=== PATIENT | male | born 1940 | race Caucasian/White ===

== ENCOUNTER 2020-03-11 14:41 | Outpatient (CLI) | payer MEDICARE, BC, SELFPAY ==
[2020-03-11 16:19] LABS: Hematocrit 43.9 % (42.0-52.0); Hemoglobin 15.3 g/dL (14.0-18.0); Mean Corpuscular HGB Conc 34.9 g/dl (32-36); Mean Corpuscular Hemoglobin 34.2 pg (26-34); Mean Corpuscular Volume 98.2 fl (80-100); Mean Platelet Volume 11.6 fl (7.4-10.4); Platelet Count Result 209 k/mm3 (150-375); Red Blood Count 4.47 M/mm3 (4.6-6.20); Red Cell Distribution Width 12.3 % (11.5-14.5); White Blood Count 6.4 K/mm3 (4.5-10.0)
[2020-03-11 16:27] LABS: Alanine Aminotransferase 20 U/L (4-50); Albumin Level 4.4 g/dL (3.5-5.1); Alkaline Phosphatase 76 U/L (38-126); Anion Gap 7 mmol/L (8-16); Aspartate Amino Transferase 33 U/L (17-59); Bilirubin,Total 1.5 mg/dL (0.2-1.3); Blood Urea Nitrogen 25 mg/dL (9-20); Calcium 9.8 mg/dL (8.4-10.2); Carbon Dioxide 32 mmol/L (22-30); Chloride 101 mmol/L (98-107); Cholesterol 179 mg/dL (0-200); Creatine Kinase 84 U/L (55-170); Estimated Glomerular Filt Rate 53; Glucose 95 mg/dL (75-110); HDL Direct 88 mg/dL; Potassium 3.9 mmol/L (3.4-5.0); Sodium 140 mmol/L (137-145); Triglycerides 94 mg/dL (<150)
[2020-03-11 16:38] LABS: LDL Cholesterol Direct 71 mg/dL
[2020-03-11 16:57] LABS: Prostate Specific Antigen 3.8 ng/mL (< OR = 4.0)
[2020-03-11 17:53] LABS: Free T4 Free Thyroxine 1.03 ng/mL (0.78-2.19)
[2020-03-11 17:54] LABS: Hepatitis C Virus Antibody Negative (Negative)
[2020-03-15 20:27] LABS: Testosterone Free 27.9 pg/mL (6.0-73.0)
== END 2020-03-11 14:42 | disposition home or self-care (01) ==
LOC: ANHLAB 14:50
PROVIDERS: PCP Internal Medicine; Visit Provider Internal Medicine
DX: I10 Essential (primary) hypertension (principal); E78.5 Hyperlipidemia, unspecified; E03.9 Hypothyroidism, unspecified; N52.9 Male erectile dysfunction, unspecified; Z11.59 Encounter for screening for other viral diseases; Z12.5 Encounter for screening for malignant neoplasm of prostate
CPT/HCPCS: 36415; 80053; 80061; 82550; 84153; 84402; 84439; 84443; 85027; 86803; G0103

== ENCOUNTER 2020-03-28 10:31 | Outpatient (CLI) | payer MEDICARE, SELFPAY ==
--- NOTE | ~2020-03-28 | US_ITS ---
EXAMINATION: US venous doppler [facility] DATE: 03/28/2020 11:10 INDICATION: Lower limb swelling TECHNIQUE: Grayscale ultrasound images without and with compression and Doppler ultrasound images of the bilateral lower extremity veins were obtained. COMPARISON: None. FINDINGS: The visualized portions of right common femoral vein, profunda (deep) femoral vein, femoral vein, pop liteal vein, posterior tibial veins, peroneal veins, gastrocnemius vein and greater saphenous vein ou tflow are patent. The visualized portions of left common femoral vein, profunda femoral vein, femoral vein, popliteal v ein, posterior tibial veins, peroneal veins, gastrocnemius vein and greater saphenous vein outflow ar e patent. Bilateral increased venous pulsatility in the veins from the proximal thigh through the knee which ca n be seen with tricuspid regurgitation, right heart failure or other cause of elevated right heart pr essures. IMPRESSION: 1. No deep venous thrombosis in either lower limb. Reviewed, dictated and finalized at location B.
--- NOTE | ~2020-03-28 | US_ITS ---
EXAMINATION: US right upper quadrant DATE: 03/28/2020 12:05 INDICATION: Elevated total bilirubin. Jaundice. TECHNIQUE: Multiple grayscale and Doppler ultrasound images of the abdomen were obtained. COMPARISON: None FINDINGS: Visualized portion of the pancreatic body appears normal. The head and tail are obscured by shadowing bowel gas. There are multiple shadowing gallstones seen within the otherwise normal-appearing gallbl adder with no wall thickening or pericholecystic fluid. Common bile duct is normal measuring 3-4 mm i n diameter. Liver has normal echogenicity and contour, with a smooth surface. No liver lesion identif ied. No intrahepatic biliary duct dilation suspected. Portal venous flow was seen in the hepatopetal, normal direction but with increased portal venous pulsatility. Sonographic Alexander sign was reported as negative by the kitchen assistant. IMPRESSION: 1. Cholelithiasis without intra or extra hepatic biliary ductal dilation or other findings of acute c holecystitis. 2. Increased portal venous pulsatility which can be seen with right heart failure, tricuspid regurgit ation or other cause of elevated right heart pressure. Reviewed, dictated and finalized at location B. IMPRESSION: 1. Cholelithiasis without intra or extra hepatic biliary ductal dilation or oth er findings of acute cholecystitis. 2. Increased portal venous pulsatility which can be seen with right heart failu re, tricuspid regurgitation or other cause of elevated right heart pressure.
== END 2020-03-28 10:32 | disposition home or self-care (01) ==
PROVIDERS: PCP Internal Medicine; Visit Provider Internal Medicine
DX: R17 Unspecified jaundice (principal); R60.0 Localized edema; K80.20 Calculus of gallbladder without cholecystitis without obstruction
CPT/HCPCS: 76705; 93970

== ENCOUNTER 2020-09-07 09:54 | Outpatient (CLI) | payer MEDICARE, SELFPAY ==
[2020-09-07 10:23] LABS: Hematocrit 43.8 % (42.0-52.0); Mean Corpuscular HGB Conc 34.2 g/dl (32-36); Mean Corpuscular Hemoglobin 34.2 pg (26-34); Mean Platelet Volume 10.6 fl (7.4-10.4); Platelet Count Result 219 k/mm3 (150-375); Red Blood Count 4.38 M/mm3 (4.6-6.20); White Blood Count 7.5 K/mm3 (4.5-10.0)
[2020-09-07 10:48] LABS: Alanine Aminotransferase 17 U/L (4-50); Albumin Level 3.9 g/dL (3.5-5.1); Alkaline Phosphatase 90 U/L (38-126); Anion Gap 2 mmol/L (8-16); Aspartate Amino Transferase 28 U/L (17-59); Bilirubin,Total 0.7 mg/dL (0.2-1.3); Blood Urea Nitrogen 20 mg/dL (9-20); Carbon Dioxide 31 mmol/L (22-30); Chloride 106 mmol/L (98-107); Estimated Glomerular Filt Rate 53; Glucose 102 mg/dL (75-110); Magnesium 2.2 mg/dL (1.6-2.3); Potassium 4.6 mmol/L (3.4-5.0); Sodium 139 mmol/L (137-145)
[2020-09-07 11:06] LABS: Free T4 Free Thyroxine 0.91 ng/mL (0.78-2.19)
== END 2020-09-07 09:55 | disposition home or self-care (01) ==
PROVIDERS: PCP Internal Medicine; Visit Provider Internal Medicine
DX: I10 Essential (primary) hypertension (principal); R00.1 Bradycardia, unspecified; E03.9 Hypothyroidism, unspecified
CPT/HCPCS: 36415; 80053; 83735; 84439; 84443; 85027

== ENCOUNTER 2020-09-21 09:18 | Outpatient (CLI) | payer MEDICARE, SELFPAY ==
--- NOTE | 2020-10-07 10:06 | WPDHOMESLEEP ---
Sleep Study - Home Unattended Date of Study: 09/21/20 Ordering Provider: Merrick Good, Interpreting Provider: Olga Solis MD Home Sleep Study Type: Apnea Link Air Height: 1.71 m Weight: 78.925 kg Body Mass Index: 26.8 Neck Circumference (inches): 16 [place]: 1 Reason for Sleep Study Witnessed apneas; history of obstructive sleep apnea, has used an AirSense 10 CPAP Sleep History Matty Alexander is a 80 year old man who has been on CPAP for obstructive sleep apnea. He states that his partner teeells him that he has apneic episodes during sleep. It is not known if the patient is currently using CPAP, and his prior sleep study results are not available for review. He does not awaken from sleep feeling short of breath. He occasionally wakes at night with heartburn, belching or coughing. He occasionally snores. He never snores loudly enough that others complain about it. He rarely has trouble sleep with a cold. He does not wake up gasping for breath at night. He rarely has breathing problems at night observed by others and rarely sweats excessively at night. He does not notice his heart pounding or beating irregularly at night. He does not fall asleep during the day, does not fall asleep involuntarily or while driving. He does not have loss of muscle tone was strong emotion. He does not have daytime difficulties due to excessive sleepiness. He does not feel paralyzed on waking or falling asleep and does not have vivid dreamlike scenes upon awakening or falling asleep. He does not feel afraid to go to sleep. He does not have nightmares. He rarely remember his dreams and rarely has racing thoughts. He does not feel sad or depressed. He rarely has anxiety. He does not have muscular tension or notice parts of his body jerking. He does not kick at night or have crawling or aching feelings in his legs. He does not have any kind of leg pain at night. He does not have morning jaw pain. He rarely grinds his teeth during sleep. He is not bothered by pain during the day and is not awakened by pain at night. He does not wake up feeling stiff in the morning, does not wake up with sore or achy muscles and does not wake up with spine pain. Normal bedtime 11:00 p.m. falling asleep within 15 minutes waking 1-2 times at night to use the bathroom, is able to return to sleep in 5 minutes. This happened soon after falling asleep. He wakes the morning at 9:00 a.m.. His weekend schedule is the same. He does not generally take naps. A short nap 10 or 15 minutes might be refreshing. He consistently feels good in the morning. Habits: Former smoker, no caffeine, alcohol 3 per week. No recreational drugs. [facility] Past Medical History Medical History (Updated 10/07/20 @ 10:24 by Olga Solis MD) Aortic regurgitation Erectile dysfunction Hyperlipidemia Hypertension Hypothyroidism Obstructive sleep apnea Social History Social History (Updated 10/07/20 @ 10:15 by Olga Solis MD) Smoking status: Former smoker Alcohol intake: current Drinks per week: 3 Substance use: never Medications Medications: amlodipine 5 mg a day aspirin 81 mg a day Eucrisa 2% topically twice a day furosemide 20 mg a day Klor-Con 10 mEq daily p.r.n. levothyroxine 10 mcg daily lisinopril 10 mg a day sildenafil 50 mg as needed simvastatin 10 mg daily magnesium oxide 400 mg every other day Sleep Procedure This test was performed using 4 channel monitoring including respiratory effort channel, snoring channel, heart rate channel, and oxygen saturation channel. This study was scored using [facility] guidelines. Sleep Architecture Not applicable for home sleep test. Respiratory Analysis The recording time is 9 hours 7 minutes. The evaluation is 8 hours 54 minutes. the apnea-hypopnea index is 13. He had 22 apneas. He had 6 obstructive apneas for 27% of the total, 16 central apneas which comprise 73% of the total and 94 hypopneas
[2020-10-07 10:09] VITALS: BMI 26.8
== END 2020-09-21 09:19 | disposition home or self-care (01) ==
LOC: ANHCSM 09:19
PROVIDERS: PCP Internal Medicine; Visit Provider Internal Medicine
DX: G47.33 Obstructive sleep apnea (adult) (pediatric) (principal)
CPT/HCPCS: 95806

== ENCOUNTER 2020-10-12 13:30 | Outpatient (CLI) | payer MEDICARE, SELFPAY ==
[2020-10-12 15:26] LABS: Free T4 Free Thyroxine 1.22 ng/mL (0.78-2.19)
== END 2020-10-12 13:31 | disposition home or self-care (01) ==
PROVIDERS: PCP Internal Medicine; Visit Provider Internal Medicine
DX: E03.9 Hypothyroidism, unspecified (principal)
CPT/HCPCS: 36415; 84439; 84443

== ENCOUNTER 2021-02-22 09:51 | Outpatient (CLI) | payer MEDICARE, SELFPAY ==
[2021-02-22 11:01] LABS: Hematocrit 41.7 % (42.0-52.0); Hemoglobin 14.6 g/dL (14.0-18.0); Mean Corpuscular Hemoglobin 35.6 pg (26-34); Mean Corpuscular Volume 101.7 fl (80-100); Mean Platelet Volume 11.3 fl (7.4-10.4); Platelet Count Result 198 k/mm3 (150-375); Red Cell Distribution Width 12.4 % (11.5-14.5); White Blood Count 6.9 K/mm3 (4.5-10.0)
[2021-02-22 11:13] LABS: Alanine Aminotransferase 18 U/L (4-50); Albumin Level 4.4 g/dL (3.5-5.1); Alkaline Phosphatase 67 U/L (38-126); Anion Gap 4 mmol/L (8-16); Aspartate Amino Transferase 27 U/L (17-59); Bilirubin,Total 0.9 mg/dL (0.2-1.3); Blood Urea Nitrogen 28 mg/dL (9-20); Calcium 9.9 mg/dL (8.4-10.2); Carbon Dioxide 30 mmol/L (22-30); Chloride 106 mmol/L (98-107); Cholesterol 174 mg/dL (0-200); Estimated Glomerular Filt Rate 59; Glucose 103 mg/dL (65-110); HDL Direct 78 mg/dL; Potassium 4.5 mmol/L (3.4-5.0); Sodium 140 mmol/L (137-145); Triglycerides 101 mg/dL (<150)
[2021-02-22 11:24] LABS: LDL Cholesterol Direct 64 mg/dL
[2021-02-22 11:44] LABS: Free T4 Free Thyroxine 1.31 ng/mL (0.78-2.19)
[2021-02-22 12:16] LABS: Hepatitis C Virus Antibody Negative (Negative)
== END 2021-02-22 09:52 | disposition home or self-care (01) ==
LOC: ANHLAB 09:55
PROVIDERS: PCP Internal Medicine; Visit Provider Internal Medicine
DX: E03.9 Hypothyroidism, unspecified (principal); E78.5 Hyperlipidemia, unspecified; I10 Essential (primary) hypertension; Z11.59 Encounter for screening for other viral diseases
CPT/HCPCS: 36415; 80053; 80061; 84439; 84443; 85027; 86803

== ENCOUNTER 2021-05-23 09:34 | Outpatient (CLI) | payer MEDICARE, SELFPAY ==
[2021-05-23 10:22] LABS: Hematocrit 40.9 % (42.0-52.0); Hemoglobin 14.5 g/dL (14.0-18.0); Mean Corpuscular HGB Conc 35.5 g/dl (32-36); Mean Corpuscular Hemoglobin 35.2 pg (26-34); Mean Corpuscular Volume 99.3 fl (80-100); Mean Platelet Volume 10.7 fl (7.4-10.4); Platelet Count Result 186 k/mm3 (150-375); Red Blood Count 4.12 M/mm3 (4.6-6.20); Red Cell Distribution Width 12.4 % (11.5-14.5); White Blood Count 5.8 K/mm3 (4.5-10.0)
[2021-05-23 10:33] LABS: Alanine Aminotransferase 23 U/L (4-50); Albumin Level 4.4 g/dL (3.5-5.1); Alkaline Phosphatase 71 U/L (38-126); Anion Gap 3 mmol/L (8-16); Aspartate Amino Transferase 30 U/L (17-59); Blood Urea Nitrogen 25 mg/dL (9-20); Calcium 9.2 mg/dL (8.4-10.2); Carbon Dioxide 29 mmol/L (22-30); Chloride 101 mmol/L (98-107); Cholesterol 183 mg/dL (0-200); Estimated Glomerular Filt Rate 49; Glucose 100 mg/dL (65-110); HDL Direct 80 mg/dL; Potassium 4.2 mmol/L (3.4-5.0); Sodium 133 mmol/L (137-145); Triglycerides 98 mg/dL (<150)
[2021-05-23 10:44] LABS: LDL Cholesterol Direct 73 mg/dL
[2021-05-23 11:07] LABS: Free T4 Free Thyroxine 1.25 ng/mL (0.78-2.19)
[2021-05-23 11:23] LABS: Prostate Specific Antigen 4.6 ng/mL (< OR = 4.0)
[2021-05-29 12:55] LABS: Testosterone Free 46.4 pg/mL (30.0-135.0); Testosterone Total 521 ng/dL (250-1100)
== END 2021-05-23 09:35 | disposition home or self-care (01) ==
LOC: ANHLAB 09:46
PROVIDERS: PCP Internal Medicine; Visit Provider Internal Medicine
DX: I10 Essential (primary) hypertension (principal); E03.9 Hypothyroidism, unspecified; N52.9 Male erectile dysfunction, unspecified; Z12.5 Encounter for screening for malignant neoplasm of prostate
CPT/HCPCS: 36415; 80053; 80061; 84153; 84402; 84403; 84439; 84443; 85027

== ENCOUNTER 2022-03-22 15:25 | Outpatient (CLI) | payer MEDICARE, SELFPAY ==
--- NOTE | ~2022-03-22 | XR_ITS ---
EXAMINATION: XR chest 2V DATE: 03/22/2022 16:14 INDICATION: Hypertension. TECHNIQUE: Frontal and lateral views of the chest were obtained. COMPARISON: Chest 2 views 06/18/2019 FINDINGS: The chest demonstrates clear lungs without pneumonia, pleural effusion, or pneumothorax. Th e heart size is normal. IMPRESSION: 1. No acute cardiopulmonary disease. Reviewed, dictated and finalized at location A.
[2022-03-22 16:10] LABS: Basophils Absolute Auto 0.1 K/mm3 (0.0-0.1); Basophils Percent Auto 0.7 % (0.2-1.2); Eosinophils Absolute Auto 0.3 K/mm3 (0-0.3); Hematocrit 38.9 % (42.0-52.0); Hemoglobin 13.6 g/dL (14.0-18.0); Immature Granulocyte Absolute 0.03 K/mm3 (0.00-0.031); Immature Granulocyte Percent A 0.4 % (0-0.5); Lymphocytes Absolute Auto 1.13 K/mm3 (0.9-3.2); Lymphocytes Percent Auto 16.7 % (18.3-44.2); Mean Corpuscular Volume 97.3 fl (80-100); Mean Platelet Volume 10.9 fl (7.4-10.4); Monocytes Absolute Auto 0.7 K/mm3 (0.1-0.6); Monocytes Percent Auto 10.1 % (2.6-8.5); Neutrophils Absolute Auto 4.6 K/mm3 (1.3-6.7); Neutrophils Percent Auto 68.1 % (45.5-73.1); Platelet Count Result 205 k/mm3 (150-375); White Blood Count 6.8 K/mm3 (4.5-10.0)
[2022-03-22 16:23] LABS: Alanine Aminotransferase 20 U/L (6-50); Alkaline Phosphatase 70 U/L (38-126); Anion Gap 9 mmol/L (8-16); Aspartate Amino Transferase 29 U/L (17-59); Bilirubin,Total 0.6 mg/dL (0.2-1.3); Blood Urea Nitrogen 26 mg/dL (9-20); Calcium 9.2 mg/dL (8.4-10.2); Carbon Dioxide 28 mmol/L (22-30); Chloride 102 mmol/L (98-107); Cholesterol 156 mg/dL (0-200); Estimated Glomerular Filt Rate 49; Glucose 111 mg/dL (65-110); HDL Direct 69 mg/dL; Potassium 4.2 mmol/L (3.4-5.0); Sodium 139 mmol/L (137-145); Triglycerides 116 mg/dL (<150)
[2022-03-22 16:28] LABS: NT Pro B Type Natriuretic Pept 59 pg/mL (5-100)
[2022-03-22 16:33] LABS: LDL Cholesterol Direct 58 mg/dL
[2022-03-22 17:02] LABS: Free T4 Free Thyroxine 1.24 ng/mL (0.78-2.19)
== END 2022-03-22 15:26 | disposition home or self-care (01) ==
PROVIDERS: PCP Internal Medicine; Visit Provider Internal Medicine
DX: E78.5 Hyperlipidemia, unspecified (principal); E03.9 Hypothyroidism, unspecified; R60.0 Localized edema; I10 Essential (primary) hypertension
CPT/HCPCS: 36415; 71046; 80053; 80061; 83880; 84439; 84443; 85025

== ENCOUNTER 2022-05-17 12:21 | Outpatient (CLI) | payer MEDICARE, SELFPAY ==
[2022-05-17 12:47] LABS: Anion Gap 5 mmol/L (8-16); Blood Urea Nitrogen 21 mg/dL (9-20); Calcium 8.5 mg/dL (8.4-10.2); Carbon Dioxide 25 mmol/L (22-30); Chloride 109 mmol/L (98-107); Estimated Glomerular Filt Rate > 60; Glucose 93 mg/dL (65-110); Potassium 4.3 mmol/L (3.4-5.0); Sodium 139 mmol/L (137-145)
== END 2022-05-17 12:22 | disposition home or self-care (01) ==
LOC: ANHLAB 12:24
PROVIDERS: PCP Internal Medicine; Visit Provider Internal Medicine
DX: R79.89 Other specified abnormal findings of blood chemistry (principal)
CPT/HCPCS: 36415; 80048

== ENCOUNTER 2022-08-17 12:12 | Outpatient (CLI) | payer MEDICARE, SELFPAY ==
[2022-08-17 12:57] LABS: Basophils Absolute Auto 0.1 K/mm3 (0.0-0.1); Basophils Percent Auto 1.1 % (0.2-1.2); Eosinophils Absolute Auto 0.2 K/mm3 (0-0.3); Eosinophils Percent Auto 4.5 % (0-4.4); Hematocrit 39.4 % (42.0-52.0); Hemoglobin 13.7 g/dL (14.0-18.0); Immature Granulocyte Absolute 0.03 K/mm3 (0.00-0.031); Immature Granulocyte Percent A 0.6 % (0-0.5); Lymphocytes Percent Auto 18.9 % (18.3-44.2); Mean Corpuscular HGB Conc 34.8 g/dl (32-36); Mean Corpuscular Hemoglobin 34.1 pg (26-34); Monocytes Absolute Auto 0.7 K/mm3 (0.1-0.6); Monocytes Percent Auto 13.1 % (2.6-8.5); Neutrophils Absolute Auto 3.3 K/mm3 (1.3-6.7); Neutrophils Percent Auto 61.8 % (45.5-73.1); Platelet Count Result 193 k/mm3 (150-375); Red Blood Count 4.02 M/mm3 (4.6-6.20); Red Cell Distribution Width 12.2 % (11.5-14.5); White Blood Count 5.3 K/mm3 (4.5-10.0)
[2022-08-17 13:19] LABS: Alanine Aminotransferase 16 U/L (6-50); Albumin Level 3.8 g/dL (3.5-5.1); Alkaline Phosphatase 73 U/L (38-126); Anion Gap 5 mmol/L (8-16); Aspartate Amino Transferase 23 U/L (17-59); Blood Urea Nitrogen 33 mg/dL (9-20); Carbon Dioxide 29 mmol/L (22-30); Chloride 106 mmol/L (98-107); Estimated Glomerular Filt Rate 45; Glucose 106 mg/dL (65-110); Magnesium 2.3 mg/dL (1.6-2.3); Potassium 4.2 mmol/L (3.4-5.0); Sodium 140 mmol/L (137-145)
[2022-08-17 13:54] LABS: Free T4 Free Thyroxine 1.43 ng/mL (0.78-2.19)
== END 2022-08-17 12:13 | disposition home or self-care (01) ==
LOC: ANHLAB 12:15
PROVIDERS: PCP Internal Medicine; Visit Provider Internal Medicine
DX: R00.1 Bradycardia, unspecified (principal); I10 Essential (primary) hypertension; E03.9 Hypothyroidism, unspecified
CPT/HCPCS: 36415; 80053; 83735; 84439; 84443; 85025

== ENCOUNTER 2022-09-06 15:49 | Emergency (ER) | payer MEDICARE, SELFPAY ==
[2022-09-06] VITALS (12 sets, daily range): BP systolic 144–188; BP diastolic 68–77; PULSE 35–53; RESP 14–18; TEMP 36.4; O2SAT 95–99
--- NOTE | 2022-09-06 16:06 | ECG_ITS ---
Measurements Intervals Capac Rate: 41 P: 16 NE: 146 QRS: 24 QRSD: 93 T: 44 QT: 422 QTc: 349 Interpretive Statements SINUS BRADYCARDIA ABNORMAL ECG NO PREVIOUS ECG AVAILABLE FOR COMPARISON Electronically Signed On 09-07-2022 7:43:06 CDT by Baltazar August M.D.
[2022-09-06 16:26] LABS: Basophils Absolute Auto 0.1 K/mm3 (0.0-0.1); Basophils Percent Auto 0.7 % (0.2-1.2); Eosinophils Absolute Auto 0.2 K/mm3 (0-0.3); Hematocrit 40.6 % (42.0-52.0); Hemoglobin 14.6 g/dL (14.0-18.0); Immature Granulocyte Absolute 0.07 K/mm3 (0.00-0.031); Lymphocytes Absolute Auto 1.05 K/mm3 (0.9-3.2); Lymphocytes Percent Auto 15.7 % (18.3-44.2); Mean Corpuscular Hemoglobin 34.8 pg (26-34); Mean Corpuscular Volume 96.9 fl (80-100); Mean Platelet Volume 10.8 fl (7.4-10.4); Monocytes Absolute Auto 0.7 K/mm3 (0.1-0.6); Monocytes Percent Auto 10.2 % (2.6-8.5); Neutrophils Absolute Auto 4.6 K/mm3 (1.3-6.7); Neutrophils Percent Auto 69.4 % (45.5-73.1); Platelet Count Result 175 k/mm3 (150-375); Red Blood Count 4.19 M/mm3 (4.6-6.20); Red Cell Distribution Width 12.5 % (11.5-14.5); White Blood Count 6.7 K/mm3 (4.5-10.0)
[2022-09-06 16:32] LABS: INR 1.1; Prothrombin Time 13.4 Seconds (11.1-14.7)
[2022-09-06 16:33] LABS: Alanine Aminotransferase 17 U/L (6-50); Albumin Level 3.9 g/dL (3.5-5.1); Alkaline Phosphatase 84 U/L (38-126); Anion Gap 5 mmol/L (8-16); Aspartate Amino Transferase 26 U/L (17-59); Bilirubin,Total 0.9 mg/dL (0.2-1.3); Blood Urea Nitrogen 20 mg/dL (9-20); Calcium 8.5 mg/dL (8.4-10.2); Carbon Dioxide 25 mmol/L (22-30); Chloride 108 mmol/L (98-107); Estimated Glomerular Filt Rate 58; Glucose 95 mg/dL (65-110); Potassium 4.1 mmol/L (3.4-5.0); Sodium 138 mmol/L (137-145)
--- NOTE | 2022-09-06 20:34 | ED.GENADULT ---
HPI - General Adult General Chief complaint: Dizziness Stated complaint: high blood pressure. Time Seen by Provider: 09/06/22 19:32 History of Present Illness HPI narrative: this is a very pleasant 82-year-old male presenting ED with a chief complaint of dizziness. Patient was on the phone with his boss earlier today when he started to feel some disequilibrium and some mental fogginess. He denies vertigo. At that time he checked his blood pressure was slightly elevated at 187/101. His heart rate was in the 40s which is normal for him. The symptoms quickly resolved. He has been having this intermittently for the last week. the patient has been seeing his primary care physician and equipment service engineer as they are both concerned that his heart rate is in 40s and is now experiencing symptoms of presyncope / dizziness. The patient denies fever, chills, nausea vomiting diarrhea, chest pain difficulty breathing or focal neurologic deficits. 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 [facility] Past Medical History Medical History (Updated 10/07/20 @ 10:24 by Olga Solis MD) Aortic regurgitation Erectile dysfunction Hyperlipidemia Hypertension Hypothyroidism Obstructive sleep apnea Social History Social History (Updated 10/07/20 @ 10:15 by Olga Solis MD) Smoking status: Former smoker Alcohol intake: current Drinks per week: 3 Substance use: never Course Vital Signs Vital signs: Vital Signs Temperature 97.6 F 09/06/22 15:56 Pulse Rate 53 L 09/06/22 15:56 Respiratory Rate 16 09/06/22 15:56 Blood Pressure 188/74 H 09/06/22 15:56 Pulse Oximetry 98 09/06/22 15:56 Oxygen Delivery Room Air 09/06/22 15:56 Temperature 97.6 F 09/06/22 15:56 Pulse Rate 53 L 09/06/22 15:56 Respiratory Rate 16 09/06/22 15:56 Blood Pressure 188/74 H 09/06/22 15:56 Pulse Oximetry 98 09/06/22 15:56 Oxygen Delivery Room Air 09/06/22 15:56 Medical Decision Making Vital Signs Vital Signs: Vital Signs Temperature 97.6 F 09/06/22 15:56 Pulse Rate 53 L 09/06/22 15:56 Respiratory Rate 16 09/06/22 15:56 Blood Pressure 188/74 H 09/06/22 15:56 Pulse Oximetry 98 09/06/22 15:56 Oxygen Delivery Room Air 09/06/22 15:56 Temperature 97.6 F 09/06/22 15:56 Pulse Rate 53 L 09/06/22 15:56 Respiratory Rate 16 09/06/22 15:56 Blood Pressure 188/74 H 09/06/22 15:56 Pulse Oximetry 98 09/06/22 15:56 Oxygen Delivery Room Air 09/06/22 15:56 Lab Data 09/06/22 16:15 09/06/22 16:15 Labs: Lab Results 09/06/22 09/06/22 09/06/22 Range/Units 16:15 16:15 16:15 WBC 6.7 (4.5-10.0) K/mm3 RBC 4.19 L (4.6-6.20) M/mm3 Hgb 14.6 (14.0-18.0) g/dL Hct 40.6 L (42.0-52.0) % MCV 96.9 (80-100) fl MCH 34.8 H (26-34) pg MCHC 36.0 (32-36) g/dl RDW 12.5 (11.5-14.5) % Plt Count 175 (150-375) k/mm3 MPV 10.8 H (7.4-10.4) fl Immature Gran % (Auto) 1.0 H (0-0.5) % Neut % (Auto) 69.4 (45.5-73.1) % Lymph % (Auto) 15.7 L (18.3-44.2) % [place] % (Auto) 10.2 H (2.6-8.5) % Eos % (Auto) 3.0 (0-4.4) % Baso % (Auto) 0.7 (0.2-1.2) % Lymph # (Auto) 1.05 (0.9-3.2) K/mm3 [place] # (Auto) 0.7 H (0.1-0.6) K/mm3 Eos # (Auto) 0.2 (0-0.3) K/mm3 Baso # (Auto) 0.1 (0.0-0.1) K/mm3 Abs Immat Gran (auto) 0.07 H (0.00-0.031) K/mm3 Absolute Neuts (auto) 4.6 (1.3-6.7) K/mm3 Absolute Nucleated RBC 0.0 (0.0-0.012) K/mm3 Nucleated RBC % 0.0 (0.0-0.2) % PT 13.4 (11.1-14.7) Seconds INR 1.1 Sodium 138 (137-145) mmol/L Potassium 4.1 (3.4-5.0) mmol/L Chloride 108 H (98-107) mmol/L Carbon Dioxide 25 (22-30) mmol/L Anion Gap 5 L (8-16) mmol/L BUN 20 D (9-20) mg/dL Creatinine 1.20 (0.7-1.3) mg/dL Estim Creat Clear Calc Not Reportable Estimated GFR 58 L (59 - ) Glucose 95 (65-110) mg/dL Calcium 8.5
[2022-09-06] MEDS: SODIUM CHLORIDE 0.9% IV 1,000 ML 999 ML IV CONT (21:12)
[2022-09-06 21:21] LABS: NT Pro B Type Natriuretic Pept 154 pg/mL (19.9-100)
[2022-09-06 21:23] LABS: Troponin I < 0.012 ng/mL (0.000-0.034)
--- NOTE | 2022-09-06 22:50 | ED.GENADULT ---
HPI - General Adult General Chief complaint: Dizziness Stated complaint: high blood pressure. Time Seen by Provider: 09/06/22 19:32 History of Present Illness HPI narrative: ?This is a very pleasant 82-year-old male presenting ED with a chief complaint of dizziness.? Patient was on the phone with his boss earlier today when he started to feel some disequilibrium and some mental fogginess.? He denies vertigo.? ? At that time he checked his blood pressure was slightly elevated at 187/101. ? His heart rate was in the 40s which is normal for him.? The symptoms quickly resolved.? He has been having this intermittently for the last week.? the patient has been seeing his primary care physician and general operations manager as they are both concerned that? his heart rate is in 40s and is now experiencing symptoms of presyncope / dizziness.? The patient denies fever, chills, nausea vomiting diarrhea, chest pain difficulty breathing or focal neurologic deficits. no double vision, dysphagia dysarthria or dystaxia. ? Patient has a general operations manager in the [facility] system. [facility] Past Medical History Medical History Aortic regurgitation Erectile dysfunction Hyperlipidemia Hypertension Hypothyroidism Obstructive sleep apnea Social History Social History Smoking status: Former smoker Alcohol intake: current Drinks per week: 3 Substance use: never Exam Narrative: APPEARANCE: No apparent distress. patient is pleasant polite during the interview Head: atraumatic. EYES: EOMI, pupils are YANNI NOSE: Atraumatic NECK: Trachea midline RESPIRATORY: No increased rate of breathing, clear to auscultation CARDIOVASCULAR: bradycardic, no peripheral edema ABDOMINAL: Non-distended MUSCULOSKELETAl: No obvious deformities NEURO: Alert. Cranial nerves 2-12 grossly intact. Sensation light touch, motor function cerebellar function intact for 4 extremities. Gait exam was normal. SKIN:: Warm, dry. Normal color PSYCHIATRIC: Normal affect Course Vital Signs Vital signs: Vital Signs Temperature 97.6 F 09/06/22 15:56 Pulse Rate 53 L 09/06/22 15:56 Respiratory Rate 16 09/06/22 15:56 Blood Pressure 188/74 H 09/06/22 15:56 Pulse Oximetry 98 09/06/22 15:56 Oxygen Delivery Room Air 09/06/22 15:56 Temperature 97.6 F 09/06/22 15:56 Pulse Rate 35 L 09/06/22 20:55 Respiratory Rate 18 09/06/22 20:55 Blood Pressure 156/68 H 09/06/22 20:31 Pulse Oximetry 99 09/06/22 20:55 Oxygen Delivery Room Air 09/06/22 15:56 Medical Decision Making MDM Narrative Medical decision making narrative: -Presentation:This is an 82-year-old male had a brief episode of dizziness earlier today. It has since resolved the patient is asymptomatic. Patient is chronically bradycardic. 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 He lives with his Rosemary. -External Chart Review: None -Hx from independent Sources: Rosemary @ bedside -Discussion of Management/Consultants: Dr. aCrroll - [facility] - Cardiology -Independent interpretation of studies: Independent EKG interpretation: Rhythm [sinus], Rate [41], [place] -[normal], [place] -[normal], QRS [narrow], QTC [normal], T waves -[negative for concerning inversions], ST Segments - [Negative for concerning elevations] Final interpretations: sinus bradycardia CBC was within normal limits. Metabolic panel was normal. Troponins were negative x2. BNP was 154. TSH was 2.96. -Dx tests considered but not ordered: CT head - patient has a normal neurologic exam, no headache, no trauma. -Procedures: -Interventions: 1 L normal saline -Shared decision making / Disposition: patient was monitor
== END 2022-09-06 23:35 | disposition home or self-care (01) ==
PROVIDERS: Emergency Medicine; Emergency Provider Emergency Medicine; PCP Internal Medicine
DX: R42 Dizziness and giddiness (principal); I35.1 Nonrheumatic aortic (valve) insufficiency; E78.5 Hyperlipidemia, unspecified; I10 Essential (primary) hypertension; E03.9 Hypothyroidism, unspecified; G47.33 Obstructive sleep apnea (adult) (pediatric); R00.1 Bradycardia, unspecified
CPT/HCPCS: 36415; 80053; 83880; 84443; 84484; 85025; 85610; 93005; 96360; 99284; J7030

== ENCOUNTER 2022-09-11 11:28 | Outpatient (CLI) | payer MEDICARE, SELFPAY ==
[2022-09-11 11:58] LABS: Anion Gap 3 mmol/L (8-16); Blood Urea Nitrogen 23 mg/dL (9-20); Calcium 8.3 mg/dL (8.4-10.2); Carbon Dioxide 26 mmol/L (22-30); Chloride 108 mmol/L (98-107); Estimated Glomerular Filt Rate 58; Glucose 97 mg/dL (65-110); Sodium 137 mmol/L (137-145)
== END 2022-09-11 11:29 | disposition home or self-care (01) ==
LOC: ANHLAB 11:30
PROVIDERS: PCP Internal Medicine; Visit Provider Internal Medicine
DX: N18.9 Chronic kidney disease, unspecified (principal)
CPT/HCPCS: 36415; 80048

== ENCOUNTER → 2022-09-21 09:42 | Outpatient (CLI) | payer MEDICARE, SELFPAY ==
--- NOTE | ~2022-09-21 | US_ITS ---
US renal BI 09/21/2022 09:58 Procedure: Realtime transabdominal ultrasound of the kidneys and bladder. Indication: Chronic kidney disease Comparison: Comparison to multiple prior studies sequentially, with oldest reviewed study dated 03/04. Findings: Renal echotexture is normal bilaterally. There is mild right hydronephrosis. There is a 1.4 cm right renal cyst. The right kidney measures 10.4 cm and left kidney measures 10.7 cm. There is di ffuse bladder wall thickening. Consider cystitis in the appropriate clinical setting. Impression: 1: Mild right hydronephrosis. 2: Right renal cyst measuring 1.4 cm. 3: Diffuse bladder wall thickening. Consider cystitis in the appropriate clinical setting. Reviewed, dictated and finalized at location A. Impression: 1: Mild right hydronephrosis. 2: Right renal cyst measuring 1.4 cm. 3: Diffuse bladder wall thickening. Consider cystitis in the appropriate clini pavan setting.
== END ==
PROVIDERS: PCP Internal Medicine; Visit Provider Internal Medicine
DX: N18.9 Chronic kidney disease, unspecified (principal); N28.1 Cyst of kidney, acquired; N13.30 Unspecified hydronephrosis
CPT/HCPCS: 76775

== ENCOUNTER 2022-09-28 14:53 | Outpatient (CLI) | payer MEDICARE, SELFPAY ==
[2022-09-28 15:41] LABS: Basophils Percent Auto 0.5 % (0.2-1.2); Eosinophils Absolute Auto 0.2 K/mm3 (0-0.3); Eosinophils Percent Auto 3.1 % (0-4.4); Hematocrit 44.3 % (42.0-52.0); Hemoglobin 15.2 g/dL (14.0-18.0); Immature Granulocyte Absolute 0.07 K/mm3 (0.00-0.031); Immature Granulocyte Percent A 0.9 % (0-0.5); Lymphocytes Absolute Auto 1.04 K/mm3 (0.9-3.2); Lymphocytes Percent Auto 14.1 % (18.3-44.2); Mean Corpuscular HGB Conc 34.3 g/dl (32-36); Mean Corpuscular Hemoglobin 34.2 pg (26-34); Mean Corpuscular Volume 99.8 fl (80-100); Mean Platelet Volume 10.7 fl (7.4-10.4); Monocytes Absolute Auto 0.7 K/mm3 (0.1-0.6); Monocytes Percent Auto 9.8 % (2.6-8.5); Neutrophils Absolute Auto 5.3 K/mm3 (1.3-6.7); Neutrophils Percent Auto 71.6 % (45.5-73.1); Platelet Count Result 181 k/mm3 (150-375); Red Blood Count 4.44 M/mm3 (4.6-6.20); Red Cell Distribution Width 12.9 % (11.5-14.5); White Blood Count 7.4 K/mm3 (4.5-10.0)
[2022-09-28 15:43] LABS: Alanine Aminotransferase 16 U/L (6-50); Albumin Level 4.1 g/dL (3.5-5.1); Alkaline Phosphatase 72 U/L (38-126); Anion Gap 4 mmol/L (8-16); Aspartate Amino Transferase 25 U/L (17-59); Bilirubin,Total 0.9 mg/dL (0.2-1.3); Blood Urea Nitrogen 25 mg/dL (9-20); Calcium 9.1 mg/dL (8.4-10.2); Carbon Dioxide 32 mmol/L (22-30); Chloride 105 mmol/L (98-107); Estimated Glomerular Filt Rate 49; Glucose 115 mg/dL (65-110); Potassium 4.2 mmol/L (3.4-5.0); Sodium 141 mmol/L (137-145)
== END 2022-09-28 14:54 | disposition home or self-care (01) ==
LOC: ANHLAB 14:55
PROVIDERS: PCP Internal Medicine; Visit Provider Internal Medicine
DX: I10 Essential (primary) hypertension (principal)
CPT/HCPCS: 36415; 80053; 85025

== ENCOUNTER 2023-03-06 13:41 | Outpatient (CLI) | payer MEDICARE, SELFPAY ==
--- NOTE | ~2023-03-06 | XR_ITS ---
XR chest 2V DATE: 03/06/2023 14:16 INDICATION: Cough since 6 days ago TECHNIQUE: PA and lateral views COMPARISON: 03/22/2022 PA and lateral chest FINDINGS: Borderline heart size. Left-sided dual-lead pacemaker placement since 03/22/2022, with lead s overlying right atrium and right ventricle. Aortic calcification and tortuosity. There is minimal infiltrate or atelectasis in the lung bases. The lungs otherwise appear clear. No pu lmonary vascular congestion or pleural effusion or pneumothorax is detected. Diffuse osteopenia. IMPRESSION: Minimal infiltrate or atelectasis at the lung bases Borderline heart size Left dual-lead pacemaker device Aortic calcification and tortuosity Osteopenia Reviewed, dictated and finalized at location B.
[2023-03-06 14:46] LABS: Basophils Percent Auto 0.5 % (0.2-1.2); Eosinophils Percent Auto 0.7 % (0-4.4); Hematocrit 41.9 % (42.0-52.0); Hemoglobin 14.4 g/dL (14.0-18.0); Immature Granulocyte Absolute 0.06 K/mm3 (0.00-0.031); Immature Granulocyte Percent A 1.4 % (0-0.5); Lymphocytes Absolute Auto 0.51 K/mm3 (0.9-3.2); Lymphocytes Percent Auto 11.8 % (18.3-44.2); Mean Corpuscular HGB Conc 34.4 g/dl (32-36); Mean Corpuscular Hemoglobin 33.8 pg (26-34); Mean Corpuscular Volume 98.4 fl (80-100); Mean Platelet Volume 11.2 fl (7.4-10.4); Monocytes Absolute Auto 0.5 K/mm3 (0.1-0.6); Monocytes Percent Auto 12.3 % (2.6-8.5); Neutrophils Absolute Auto 3.2 K/mm3 (1.3-6.7); Neutrophils Percent Auto 73.3 % (45.5-73.1); Platelet Count Result 165 k/mm3 (150-375); Red Blood Count 4.26 M/mm3 (4.6-6.20); Red Cell Distribution Width 13.1 % (11.5-14.5); White Blood Count 4.3 K/mm3 (4.5-10.0)
[2023-03-06 14:56] LABS: Alanine Aminotransferase 23 U/L (6-50); Albumin Level 3.6 g/dL (3.5-5.1); Alkaline Phosphatase 69 U/L (38-126); Anion Gap 7 mmol/L (8-16); Aspartate Amino Transferase 38 U/L (17-59); Bilirubin,Total 0.8 mg/dL (0.2-1.3); Blood Urea Nitrogen 22 mg/dL (9-20); Calcium 8.3 mg/dL (8.4-10.2); Carbon Dioxide 27 mmol/L (22-30); Chloride 106 mmol/L (98-107); Cholesterol 140 mg/dL (0-200); Estimated Glomerular Filt Rate > 60; Glucose 84 mg/dL (65-110); HDL Direct 47 mg/dL; Phosphorus 3.3 mg/dL (2.5-4.5); Potassium 3.5 mmol/L (3.4-5.0); Sodium 140 mmol/L (137-145); Triglycerides 88 mg/dL (<150); Uric Acid 3.4 mg/dL (3.5-8.5)
[2023-03-06 15:07] LABS: Parathyroid Intact 52.1 pg/mL (7.5-53.5)
[2023-03-06 15:09] LABS: LDL Cholesterol Direct 60 mg/dL
[2023-03-06 16:46] LABS: Free T4 Free Thyroxine 1.56 ng/mL (0.78-2.19)
== END 2023-03-06 13:42 | disposition home or self-care (01) ==
PROVIDERS: PCP Internal Medicine; Visit Provider Internal Medicine
DX: I12.9 Hypertensive chronic kidney disease with stage 1 through stage 4 chronic kidney disease, or unspecified chronic kidney disease (principal); N18.9 Chronic kidney disease, unspecified; E78.5 Hyperlipidemia, unspecified; E03.9 Hypothyroidism, unspecified; R05.9 Cough, unspecified; M85.88 Other specified disorders of bone density and structure, other site; Z95.0 Presence of cardiac pacemaker
CPT/HCPCS: 36415; 71046; 80053; 80061; 83970; 84100; 84439; 84443; 84550; 85025

== ENCOUNTER 2023-04-06 14:20 | Emergency (ER) | payer MEDICARE, SELFPAY ==
--- NOTE | ~2023-04-06 | US_ITS ---
EXAMINATION: US venous doppler UE RT DATE: 04/06/2023 17:12 INDICATION: Right upper limb pain TECHNIQUE: Grayscale images without and with compression and Doppler images of the right upper extrem ity veins were obtained. COMPARISON: None. FINDINGS: The right internal jugular vein, subclavian vein, axillary vein, brachial vein, basilic vein and ceph alic vein are patent. The contralateral left internal jugular vein is also patent. IMPRESSION: 1. Patent right upper extremity veins. No evidence of venous thrombosis. Reviewed, dictated and finalized at location A.
--- NOTE | ~2023-04-06 | XR_ITS ---
EXAMINATION: XR elbow RT min 3V DATE: 04/06/2023 17:27 INDICATION: Right elbow swelling TECHNIQUE: Anteroposterior, oblique and lateral views of the right elbow were obtained. COMPARISON: None. FINDINGS: Alignment is normal. No fracture or joint effusion. Mild nonuniform joint space narrowing and tiny ma rginal osteophytes at the ulnotrochlear articulation consistent with mild osteoarthritis. Radiocapite llar joint space is relatively preserved. Prominent nonspecific soft tissue swelling about the railroad car loader ior and medial sides of the elbow. No evident soft tissue gas. IMPRESSION: 1. Mild osteoarthritis of the right elbow. No joint effusion or acute osseous abnormality. Reviewed, dictated and finalized at location A. IMPRESSION: 1. Mild osteoarthritis of the right elbow. No joint effusion or acute osseous a bnormality.
[2023-04-06 14:29] VITALS: BP 147/71; PULSE 71; RESP 16; TEMP 36.3; O2SAT 94
[2023-04-06 15:20] VITALS: BP 122/67; PULSE 56; RESP 16; O2SAT 97
--- NOTE | 2023-04-06 17:22 | ED.EXTPRO ---
HPI - Extremity Problem General Chief complaint: Extremity Problem,Nontraumatic Stated complaint: swollen elbow Time Seen by Provider: 04/06/23 15:10 History of Present Illness HPI Narrative: Patient is an 83-year-old male presenting with redness and swelling of his right arm. States that he noticed a little bit of swelling yesterday but then when he woke up today most of his forearm was swollen and red. States that he took some aspirin and it has since improved significantly. States he was concerned for a blood clot. States that it is painful in his elbow if he completely straightens the arm or if he completely flexes the arm but it is not painful with movement in between those. States that the pain is currently mild. No fevers or chills. No systemic symptoms. Related Data Allergies Allergy/AdvReac Type Severity Reaction Status Date / Time No Known Allergies Allergy Verified 04/06/23 17:26 Review of Systems Review of Systems: All systems reviewed & are unremarkable except as noted in HPI and below PMFSH Past Medical History Medical History Aortic regurgitation Erectile dysfunction Hyperlipidemia Hypertension Hypothyroidism Obstructive sleep apnea Social History Social History Smoking status: Former smoker Alcohol intake: current Drinks per week: 3 Substance use: never Exam Narrative: GENERAL: Well-appearing, in no acute distress, pleasant and cooperative HEAD: Normocephalic, atraumatic. EYES: PERRLA and EOMI. ENT: Grossly unremarkable NECK: Supple. CHEST: No respiratory distress. HEART: Regular rate and rhythm ABDOMEN: Nondistended EXTREMITIES: Normal range of motion. Right forearm with erythema and warmth to the touch extending into the upper arm, mildly tender to palpation, elbow ROM intact, distal ROM intact, radial pulse 2+ SKIN: Warm, dry, as above NEURO: No focal deficits. Alert and oriented x3. PSYCH: Normal mood and affect. Course Vital Signs Vital signs: Vital Signs Temperature 97.3 F L 04/06/23 14:29 Pulse Rate 71 04/06/23 14:29 Respiratory Rate 16 04/06/23 14:29 Blood Pressure 147/71 H 04/06/23 14:29 Pulse Oximetry 94 04/06/23 14:29 Oxygen Delivery Room Air 04/06/23 14:29 Temperature 97.3 F L 04/06/23 14:29 Pulse Rate 61 04/06/23 18:21 Respiratory Rate 14 04/06/23 18:21 Blood Pressure 116/79 04/06/23 18:21 Pulse Oximetry 99 04/06/23 18:21 Oxygen Delivery Room Air 04/06/23 14:29 MDM - Extremity (Nontraumatic) MDM Narrative Medical decision making narrative: 3-year-old male presenting with right arm swelling and redness. Vitals are stable. Exam remarkable for the above. Consistent with a developing cellulitis. I am not concerned for a septic joint at this time. There is some erythema over the elbow but he has full range of motion without Discharge Plan Discharge Clinical Impression: Cellulitis Patient Disposition: Home, Self-Care Condition: Stable Instructions: Antibiotic Form, Cellulitis (ED) Additional Instructions: The ultrasound today shows no blood clot in your arm. The x-ray also shows no abnormalities. We are treating you with 2 different antibiotics for a soft tissue infection. We recommend following up with your PCP within 1-3 days. If your symptoms worsen, you develop chest pain, shortness of breath, numbness or weakness, vomiting, fevers >100.4F, or other concerning symptoms arise, please return to the ER. Prescriptions: New sulfamethoxazole-trimethoprim [Bactrim DS] 800-160 mg tablet 1 tablet PO Q12H 7 Days Qty: 14 0RF cephalexin 500 mg capsule 500 mg PO Q6H 7 Days Qty: 28 0RF Follow-up/Referrals: Florentino,MD Merrick [Primary Care Provider] -
[2023-04-06] MEDS: SULFAMETHOXAZOLE/TRIMETHOPRIM 800/160 MG DS TABLET 1 TAB PO (17:27)
[2023-04-06] MEDS: CEPHALEXIN 500 MG CAPSULE PO (17:27)
[2023-04-06 18:21] VITALS: BP 116/79; PULSE 61; RESP 14; O2SAT 99
== END 2023-04-06 18:23 | disposition home or self-care (01) ==
PROVIDERS: Emergency Provider Emergency Medicine; PCP Internal Medicine
DX: L03.113 Cellulitis of right upper limb (principal); I35.1 Nonrheumatic aortic (valve) insufficiency; I10 Essential (primary) hypertension; E78.5 Hyperlipidemia, unspecified; E03.9 Hypothyroidism, unspecified; G47.33 Obstructive sleep apnea (adult) (pediatric); Z87.891 Personal history of nicotine dependence
CPT/HCPCS: 73080; 93971; 99284; A9270

== ENCOUNTER 2023-04-17 13:51 | Outpatient (CLI) | payer MEDICARE, SELFPAY ==
--- NOTE | ~2023-04-17 | US_ITS ---
EXAMINATION: US venous doppler LE RT DATE: 04/17/2023 15:31 INDICATION: Right lower limb swelling. TECHNIQUE: Grayscale ultrasound images without and with compression and Doppler ultrasound images of the right lower extremity veins were obtained. COMPARISON: Ultrasound 03/28/2020 FINDINGS: The visualized portions of right common femoral vein, profunda (deep) femoral vein, femoral vein, pop liteal vein, peroneal veins, posterior tibial veins, and greater saphenous vein outflow are patent. IMPRESSION: 1. No deep venous thrombosis. Reviewed, dictated and finalized at location A. NNA RIGGER
== END 2023-04-17 13:52 | disposition home or self-care (01) ==
PROVIDERS: PCP Internal Medicine; Visit Provider Internal Medicine
DX: M79.89 Other specified soft tissue disorders (principal); R09.89 Other specified symptoms and signs involving the circulatory and respiratory systems
CPT/HCPCS: 93971

== ENCOUNTER 2023-04-29 14:01 | Outpatient (CLI) | payer MEDICARE, SELFPAY ==
--- NOTE | ~2023-04-29 | US_ITS ---
US arterial ankle brachial ind INDICATION: Weak arterial pulse TECHNIQUE: Segmental pressures and plethysmographic and Doppler waveforms of the brachial and lower e xtremity arteries were obtained. COMPARISON: None. FINDINGS: Right and left brachial artery pressures of 114 mm Hg and 120 mm Hg, respectively, are concordant (no rmal difference <= 30 mmHg). The right ankle-brachial index (NINA) is 1.23 (normal >= 0.9-1.0). The right great toe-brachial index (TBI) is .35 (normal >= 0.60). The left NINA is 1.15. The left TBI is 0.33. IMPRESSION: 1. Normal bilateral ankle-brachial indices. 2: Diminished bilateral toe brachial indices, consistent with peripheral arterial disease. Reviewed, dictated and finalized at location B. LITIES CUSTODIAN IMPRESSION: 1. Normal bilateral ankle-brachial indices. 2: Diminished bilateral toe brachial indices, consistent with peripheral arteri al disease.
== END 2023-04-29 14:02 | disposition home or self-care (01) ==
PROVIDERS: PCP Internal Medicine; Visit Provider Internal Medicine
DX: R09.89 Other specified symptoms and signs involving the circulatory and respiratory systems (principal)
CPT/HCPCS: 93922

== ENCOUNTER 2023-05-06 14:30 | Outpatient (RCR) | payer MEDICARE, SELFPAY ==
--- NOTE | 2023-04-09 17:00 | OPREHPOC ---
Outpatient Therapy Plan of Care This is a Multidisciplinary Plan of Care that may contain components documented by all disciplines (PT, OT, and ST.) PT Problem 1 PT Problem #1 Knowledge Deficit PT Goal 1 Goal Pt to be IND with issued HEP Target Visit 4 PT Problem 2 PT Problem #2 Pain PT Goal 1 Goal Pt to report R ankle pain no greater than 3/10 in the last week. Target Visit 4 PT Goal 2 Goal Pt to report 75% improvement in overall symptoms. Target Visit 4 PT Problem 3 PT Problem #3 Impaired Range of Motion PT Goal 1 Goal Pt to improve active ankle dorsiflexion to 5 deg and plantarflexion to 50 deg. Target Visit 4 PT Problem 4 PT Problem #4 Impaired Strength PT Goal 1 Goal Pt to demonstrate 5 full range heel raises on the R side Target Visit 4 PT Goal 2 Goal pt to be able to tolerate a 10s single leg stance on R Target Visit 4
--- NOTE | 2023-04-09 17:01 | PTOPEVAL1 ---
Assessment and note entered by Aayush Fragoso, PT, DPT Evaluation Information Assessment Status Evaluation Diagnosis R ankle pain (M25.571) Onset 3 weeks Subjective Information Pt states he has a heavy object fall on his foot and ankle about 3 weeks, without any broken bones. He states he has been wearing a boot and this helps with his pain. He states after about 3 hours of being up and moving without the foot around his foot starts to swell and the pain starts to increase. Pt likes to work around the house and ride his motorcycle. Reported Pain Level Pain Score 1: Self Report Assessment PT Clinical Summary Matty presents to therapy today for his initial evaluation with a diagnosis of R ankle pain after dropping a heavy object on his foot. Today he demonstrates bruising and pitting edema throughout his entire ankle and up into his distal calf. There is decreased active and passive ROM as well as decreased balance and strength on the R when compared to the L. Skilled therapy services are indicated to address the deficits noted above, to improve mobility, and to return to PLOF without limitations. LEFS: 52/ Plan of Care Interventions Gait Training,Hot Pack/Cold Pack,Manual Therapy, Neuro Re-education,Patient/Caregiver Educati, Therapeutic Activities,Therapeutic Exercise PT Services Indicated Yes Treatment Frequency and 1x/wk for 4 visits Duration These treatments will address the objective and functional deficits as defined above. The patient will be advanced safely and appropriately in order for the patient to progress towards his/her prior level of function. Additional exercises will be introduced and as well as a comprehensive home exercise program upon discharge, if needed, ?to ensure carryover of functional gains achieved in the clinic. This treatment plan has been reviewed and agreement upon by the patient.
--- NOTE | 2023-05-06 15:11 | PTOPDC ---
Assessment and note entered by Aayush Fragoso, PT, DPT Evaluation Information Assessment Status Discharge Diagnosis R ankle pain (M25.571) Onset 3 weeks Subjective Information Pt states his ankle is doing better. He states it still swells when he is sitting for a prolonged period of time. He reports no pain with walking. Reported Pain Level Pain Score 0: Self Report Assessment PT Clinical Summary Matty presents to therapy today for his progress report following 5 visits of skilled therapy to treat his diagnosis of R ankle pain after dropping a heavy object on his foot. Today he demonstrates improved ankle ROM and strength as well as an improved gait pattern. He has met all of his therapy goals and will therefore be discharged at this time. Plan of Care PT Services Indicated No
== END 2023-05-06 16:14 | disposition home or self-care (01) ==
LOC: ANHGOSHPT 14:30
PROVIDERS: PCP Internal Medicine; Visit Provider Internal Medicine
DX: M25.571 Pain in right ankle and joints of right foot (principal)
CPT/HCPCS: 97110; 97112; 97140; 97161

== ENCOUNTER 2023-08-05 12:27 | Outpatient (CLI) | payer MEDICARE, SELFPAY ==
--- NOTE | ~2023-08-05 | XR_ITS ---
EXAMINATION: XR chest 2V Exam Date/Time: 08/05/2023 12:50 DIRECTOR BIOMEDICAL ENGINEERING HISTORY: ATYPICAL CHEST PAIN;PAIN OF LEFT TOE;ARTHRITIS OF HAND Comparison: 03/06/2023. RESULT: Lines, tubes, and devices: Left chest pacer with intact leads, in good position. Lungs and pleura: Mild senescent change, otherwise clear. Cardiomediastinal silhouette: Stable. Other: No acute osseous or upper abdominal finding. IMPRESSION: No acute cardiopulmonary process. Reviewed, dictated and finalized at location K. CTOR BIOMEDICAL ENGINEERING
--- NOTE | ~2023-08-05 | XR_ITS ---
EXAMINATION: XR hand BI arthritis min 3V DATE: 08/05/2023 13:10 INDICATION: Arthritis. TECHNIQUE: 4 views of right hand and 4 views of left hand on a total of 7 radiographs were obtained. COMPARISON: None. FINDINGS: RIGHT HAND: Bone alignment is normal. No fracture. There is mild osteoarthritis of first carpometacar pal joint and some of the interphalangeal joints. There is moderate osteoarthritis of second and thir d and fourth distal interphalangeal joints and severe osteoarthritis of fifth distal interphalangeal joint. LEFT HAND: Bone alignment is normal. No fracture. There is mild osteoarthritis of some of the interph alangeal joints. There is severe osteoarthritis of first interphalangeal joint and second distal inte rphalangeal joint. There is moderate osteoarthritis of third distal interphalangeal joint. IMPRESSION: 1. Polyarticular osteoarthritis. Reviewed, dictated and finalized at location E. STANT PROGRAM DIRECTOR
--- NOTE | ~2023-08-05 | XR_ITS ---
EXAMINATION: XR toe 2nd LT min 2V DATE: 08/05/2023 13:10 INDICATION: Left toe pain TECHNIQUE: Dorsal plantar, lateral and 2 oblique views of the left second were obtained. COMPARISON: None FINDINGS: Bone alignment is normal. No fracture. Advanced osteoarthritis at the second metatarsophalangeal join t with remodeling of the head of the metatarsal and base of the proximal phalanx. Additional polyarti cular osteoarthritis, mild to moderate severity at the first metatarsophalangeal joint and many of th e interphalangeal joints. Mild osteoarthritis at the second and third tarsal metatarsal joints. Likel y secondary of degenerative subarticular cystic change at the base of the left first proximal phalanx . 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 Reviewed, dictated and finalized at location A. 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
[2023-08-05 14:07] LABS: Basophils Absolute Auto 0.1 K/mm3 (0.0-0.1); Basophils Percent Auto 0.8 % (0.2-1.2); Eosinophils Absolute Auto 0.2 K/mm3 (0-0.3); Eosinophils Percent Auto 2.5 % (0-4.4); Hematocrit 40.8 % (42.0-52.0); Hemoglobin 13.5 g/dL (14.0-18.0); Immature Granulocyte Absolute 0.07 K/mm3 (0.00-0.031); Immature Granulocyte Percent A 1.1 % (0-0.5); Lymphocytes Absolute Auto 1.06 K/mm3 (0.9-3.2); Lymphocytes Percent Auto 16.3 % (18.3-44.2); Mean Corpuscular HGB Conc 33.1 g/dl (32-36); Mean Corpuscular Hemoglobin 33.8 pg (26-34); Mean Corpuscular Volume 102.3 fl (80-100); Mean Platelet Volume 10.9 fl (7.4-10.4); Monocytes Absolute Auto 0.6 K/mm3 (0.1-0.6); Monocytes Percent Auto 9.8 % (2.6-8.5); Neutrophils Absolute Auto 4.5 K/mm3 (1.3-6.7); Neutrophils Percent Auto 69.5 % (45.5-73.1); Platelet Count Result 189 k/mm3 (150-375); Red Blood Count 3.99 M/mm3 (4.6-6.20); Red Cell Distribution Width 12.9 % (11.5-14.5); White Blood Count 6.5 K/mm3 (4.5-10.0)
[2023-08-05 14:12] LABS: Alanine Aminotransferase 18 U/L (6-50); Alkaline Phosphatase 79 U/L (38-126); Anion Gap 3 mmol/L (8-16); Aspartate Amino Transferase 32 U/L (17-59); Bilirubin,Total 0.8 mg/dL (0.2-1.3); Blood Urea Nitrogen 27 mg/dL (9-20); Calcium 9.2 mg/dL (8.4-10.2); Carbon Dioxide 28 mmol/L (22-30); Chloride 107 mmol/L (98-107); Estimated Glomerular Filt Rate > 60; Glucose 90 mg/dL (65-110); Potassium 3.9 mmol/L (3.4-5.0); Sodium 138 mmol/L (137-145); Uric Acid 4.4 mg/dL (3.5-8.5)
[2023-08-05 15:13] LABS: Erythrocyte Sedimentation Rate 25 mm/hr (0-20)
== END 2023-08-05 12:28 | disposition home or self-care (01) ==
PROVIDERS: PCP Internal Medicine; Visit Provider Internal Medicine
DX: R07.89 Other chest pain (principal); I10 Essential (primary) hypertension; M19.041 Primary osteoarthritis, right hand; M19.042 Primary osteoarthritis, left hand; M19.072 Primary osteoarthritis, left ankle and foot
CPT/HCPCS: 36415; 71046; 73130; 73660; 80053; 84550; 85025; 85652

== ENCOUNTER 2023-08-08 17:01 | Outpatient (CLI) | payer MEDICARE, SELFPAY ==
[2023-08-08 17:50] LABS: Basophils Percent Auto 0.8 % (0.2-1.2); Eosinophils Absolute Auto 0.2 K/mm3 (0-0.3); Eosinophils Percent Auto 4.5 % (0-4.4); Hematocrit 39.9 % (42.0-52.0); Hemoglobin 13.8 g/dL (14.0-18.0); Immature Granulocyte Absolute 0.09 K/mm3 (0.00-0.031); Immature Granulocyte Percent A 1.7 % (0-0.5); Immature Reticulocyte Fraction 15.2 % (3.0-15.9); Lymphocytes Absolute Auto 1.23 K/mm3 (0.9-3.2); Lymphocytes Percent Auto 23.3 % (18.3-44.2); Mean Corpuscular HGB Conc 34.6 g/dl (32-36); Mean Corpuscular Hemoglobin 34.7 pg (26-34); Mean Corpuscular Volume 100.3 fl (80-100); Mean Platelet Volume 10.7 fl (7.4-10.4); Monocytes Absolute Auto 0.6 K/mm3 (0.1-0.6); Neutrophils Absolute Auto 3.1 K/mm3 (1.3-6.7); Neutrophils Percent Auto 58.7 % (45.5-73.1); Platelet Count Result 180 k/mm3 (150-375); Red Blood Count 3.98 M/mm3 (4.6-6.20); Red Cell Distribution Width 12.9 % (11.5-14.5); Reticulocyte Hemoglobin Conten 37.2 pg (28.2-35.7); Reticulocyte Percent 1.48 % (0.7-4.3); Reticulocytes Absolute 0.06 M/mm3 (0.02-0.1); White Blood Count 5.3 K/mm3 (4.5-10.0)
[2023-08-08 18:16] LABS: Erythrocyte Sedimentation Rate 26 mm/hr (0-20)
[2023-08-08 18:43] LABS: Alanine Aminotransferase 18 U/L (6-50); Alkaline Phosphatase 83 U/L (38-126); Anion Gap 9 mmol/L (8-16); Aspartate Amino Transferase 31 U/L (17-59); Bilirubin,Total 0.8 mg/dL (0.2-1.3); Blood Urea Nitrogen 27 mg/dL (9-20); Carbon Dioxide 23 mmol/L (22-30); Chloride 106 mmol/L (98-107); Estimated Glomerular Filt Rate 58; Glucose 97 mg/dL (65-110); Sodium 138 mmol/L (137-145); Uric Acid 4.3 mg/dL (3.5-8.5)
== END 2023-08-08 17:02 | disposition home or self-care (01) ==
LOC: ANHLAB 17:08
PROVIDERS: PCP Internal Medicine; Visit Provider Internal Medicine
DX: M79.675 Pain in left toe(s) (principal); I10 Essential (primary) hypertension; D75.89 Other specified diseases of blood and blood-forming organs
CPT/HCPCS: 36415; 80053; 82607; 82746; 84550; 85025; 85046; 85652

== ENCOUNTER 2023-12-12 15:43 | Outpatient (CLI) | payer MEDICARE, SELFPAY ==
[2023-12-12 16:23] LABS: Basophils Absolute Auto 0.1 K/mm3 (0.0-0.1); Basophils Percent Auto 0.9 % (0.2-1.2); Eosinophils Absolute Auto 0.3 K/mm3 (0-0.3); Eosinophils Percent Auto 5.5 % (0-4.4); Hematocrit 42.2 % (42.0-52.0); Hemoglobin 14.3 g/dL (14.0-18.0); Immature Granulocyte Absolute 0.05 K/mm3 (0.00-0.031); Immature Granulocyte Percent A 0.9 % (0-0.5); Lymphocytes Percent Auto 18.7 % (18.3-44.2); Mean Corpuscular HGB Conc 33.9 g/dl (32-36); Mean Corpuscular Hemoglobin 34.4 pg (26-34); Mean Corpuscular Volume 101.4 fl (80-100); Mean Platelet Volume 11.1 fl (7.4-10.4); Monocytes Absolute Auto 0.7 K/mm3 (0.1-0.6); Monocytes Percent Auto 11.9 % (2.6-8.5); Neutrophils Absolute Auto 3.7 K/mm3 (1.3-6.7); Neutrophils Percent Auto 62.1 % (45.5-73.1); Platelet Count Result 169 k/mm3 (150-375); Red Blood Count 4.16 M/mm3 (4.6-6.20); Red Cell Distribution Width 13.2 % (11.5-14.5); White Blood Count 5.9 K/mm3 (4.5-10.0)
[2023-12-12 16:33] LABS: Alanine Aminotransferase 20 U/L (6-50); Alkaline Phosphatase 100 U/L (38-126); Anion Gap 9 mmol/L (4-12); Aspartate Amino Transferase 30 U/L (17-59); Bilirubin,Total 1.1 mg/dL (0.2-1.3); Blood Urea Nitrogen 29 mg/dL (9-20); Calcium 8.7 mg/dL (8.4-10.2); Carbon Dioxide 24 mmol/L (22-30); Chloride 107 mmol/L (98-107); Cholesterol 141 mg/dL (0-200); Estimated Glomerular Filt Rate 49; Glucose 115 mg/dL (65-110); HDL Direct 65 mg/dL; Phosphorus 3.3 mg/dL (2.5-4.5); Potassium 4.2 mmol/L (3.4-5.0); Sodium 140 mmol/L (137-145); Triglycerides 66 mg/dL (<150); Uric Acid 4.2 mg/dL (3.5-8.5)
[2023-12-12 16:44] LABS: LDL Cholesterol Direct 65 mg/dL
[2023-12-12 16:48] LABS: Parathyroid Intact 75.8 pg/mL (7.5-53.5)
[2023-12-12 17:26] LABS: Vitamin B12 > 1000.0 pg/mL (239-931)
[2023-12-12 17:40] LABS: Free T4 Free Thyroxine 1.34 ng/mL (0.78-2.19)
== END 2023-12-12 15:44 | disposition home or self-care (01) ==
LOC: ANHLAB 15:48
PROVIDERS: PCP Internal Medicine; Visit Provider Internal Medicine
DX: E78.5 Hyperlipidemia, unspecified (principal); R79.89 Other specified abnormal findings of blood chemistry; E03.9 Hypothyroidism, unspecified; I12.9 Hypertensive chronic kidney disease with stage 1 through stage 4 chronic kidney disease, or unspecified chronic kidney disease; N18.9 Chronic kidney disease, unspecified
CPT/HCPCS: 36415; 80053; 80061; 82607; 83970; 84100; 84439; 84443; 84550; 85025

== ENCOUNTER 2024-03-11 09:25 | Outpatient (CLI) | payer MEDICARE, SELFPAY ==
--- NOTE | ~2024-03-11 | US_ITS ---
US renal BI 03/11/2024 10:56 Procedure: Realtime transabdominal ultrasound of the kidneys and bladder. Indication: Chronic kidney disease Comparison: No prior studies for comparison. Findings: Renal echotexture is normal bilaterally without contour deforming mass or renal calculus. T here is mild bilateral hydronephrosis. There is a 1.4 cm right renal cyst. The right kidney measures 10.4 cm and left kidney measures 10.7 cm. Bladder within normal limits. Impression: 1: Mild bilateral hydronephrosis. Reviewed, dictated and finalized at location B. Impression: 1: Mild bilateral hydronephrosis.
[2024-03-11 11:57] LABS: Basophils Absolute Auto 0.1 K/mm3 (0.0-0.1); Basophils Percent Auto 1.1 % (0.2-1.2); Eosinophils Absolute Auto 0.3 K/mm3 (0-0.3); Eosinophils Percent Auto 4.5 % (0-4.4); Hematocrit 44.3 % (42.0-52.0); Hemoglobin 15.4 g/dL (14.0-18.0); Immature Granulocyte Percent A 1.4 % (0-0.5); Mean Corpuscular HGB Conc 34.8 g/dl (32-36); Mean Corpuscular Hemoglobin 34.8 pg (26-34); Mean Corpuscular Volume 100.2 fl (80-100); Mean Platelet Volume 10.6 fl (7.4-10.4); Monocytes Absolute Auto 0.7 K/mm3 (0.1-0.6); Monocytes Percent Auto 10.3 % (2.6-8.5); Neutrophils Absolute Auto 4.9 K/mm3 (1.3-6.7); Neutrophils Percent Auto 68.7 % (45.5-73.1); Platelet Count Result 184 k/mm3 (150-375); Red Blood Count 4.42 M/mm3 (4.6-6.20); Red Cell Distribution Width 13.1 % (11.5-14.5); White Blood Count 7.2 K/mm3 (4.5-10.0)
[2024-03-11 12:05] LABS: Alanine Aminotransferase 22 U/L (6-50); Albumin Level 4.1 g/dL (3.5-5.1); Alkaline Phosphatase 89 U/L (38-126); Anion Gap 5 mmol/L (4-12); Aspartate Amino Transferase 36 U/L (17-59); Bilirubin,Total 1.1 mg/dL (0.2-1.3); Blood Urea Nitrogen 27 mg/dL (9-20); Calcium 9.3 mg/dL (8.4-10.2); Carbon Dioxide 28 mmol/L (22-30); Chloride 104 mmol/L (98-107); Estimated Glomerular Filt Rate 53; Glucose 91 mg/dL (65-110); Potassium 4.5 mmol/L (3.4-5.0); Sodium 137 mmol/L (137-145)
== END 2024-03-11 09:26 | disposition home or self-care (01) ==
PROVIDERS: PCP Internal Medicine; Visit Provider Internal Medicine
DX: R79.89 Other specified abnormal findings of blood chemistry (principal); N13.30 Unspecified hydronephrosis; I10 Essential (primary) hypertension
CPT/HCPCS: 36415; 76775; 80053; 85025

== ENCOUNTER 2024-06-30 15:12 | Outpatient (CLI) | payer MEDICARE, SELFPAY ==
--- OUTSIDE RECORDS SUMMARY | 2024-06-30 15:43 | XMS_ITS | Clinical Summary ---
Author Organization [facility] Address [address] [place] [address] Care Team Providers Care Plant Specialist Name Role Phone Merrick Good MD Primary Care Provider [phone] Mohsen Baltazar MD Unavailable [phone] Allergies No known active allergies Medications aspirin 81 mg tablet Take 1 tablet (81 mg total) by mouth daily 0 02/21/2018 Active simvastatin (ZOCOR) 10 mg tablet TAKE 1 TABLET BY MOUTH EVERYDAY AT BEDTIME 0 04/27/2018 Active levothyroxine (SYNTHROID) 50 mcg tablet Take 1 tablet (50 mcg total) by mouth every morning 12/07/2020 Active lisinopriL (PRINIVIL,ZESTR IL) 10 mg tablet Take 2 tablets (20 mg total) by mouth daily 12/07/2020 Active sildenafiL (VIAGRA) 50 mg tablet Take 1 tablet (50 mg total) by mouth daily as needed 12/05/2020 Active potassium chloride ER 10 mEq CR tablet Take 1 tablet/capsul e (10 mEq total) by mouth daily as needed 04/17/2021 Active Farxiga 10 mg tablet Take 1 tablet (10 mg total) by mouth daily 08/19/2022 Active omeprazole (PriLOSEC) 20 mg capsule Take 1 capsule (20 mg total) by mouth every morning 09/04/2022 Active lisinopriL (PRINIVIL,ZESTR IL) 40 mg tablet Take 1 tablet (40 mg total) by mouth daily Active Active Problems Problem Noted Date Diagnosed Date Mass of right elbow 05/06/2023 Pacemaker 03/22/2023 Sinus node dysfunction (CMS/HCC) 09/13/2022 Overview (09/13/2022): Added automatically from request for surgery [id number] Assessment & Plan (09/14/2022 7:49 AM CDT): With sick sinus rhythm and underlying bradycardia, now symptomatic with junctional escape rhythm, he would need to have permanent pacemaker in view of recurrent episodes of near-syncope. Dr. Wasserman was consulted for placement of permanent pacemaker Periodic limb movement 04/25/2021 Nonsmoker 04/25/2021 YUDITH (obstructive sleep apnea) 03/06/2021 Essential hypertension 03/06/2021 Assessment & Plan (09/14/2022 7:49 AM CDT): Blood pressure is well controlled now, continue with lisinopril Snoring 03/06/2021 Mixed conductive and sensori neural hearing loss of right ear with restricted hearing of left ear 09/21/2020 Otosclerosis 05/12/2018 Mixed hearing loss, bilateral 05/09/2018 Acquired hypothyroidism Resolved Problems Problem Noted Date Diagnosed Date Resolved Date Symptomatic bradycardia 03/04 Assessment & Plan (09/14/2022 7:49 AM CDT): With sick sinus syndrome, as above will need pacemaker Encounters Date Type Department Care Team Description 05/06/2024 11:00 AM MITER OPERATOR Office Visit [facility] - [facility] [address] [place] [address] [place] [id number] Mendez Tracy MD Mixed hearing loss, bilateral (Primary Dx); Hearing difficulty of both ears 05/06/2024 10:40 AM MITER OPERATOR Procedure visit [facility] Otol[facility]ology [address] [place] [address] [place] [id number] Mixed conductive and sensorineural hearing loss of right ear with restricted hearing of left ear (Primary Dx) 04/22/2024 Telephone [facility] [address] [facility] [address] [place] [address] [place] [address] Pat Fish MS from Last 3 Months Surgical History Surgery Date Site/Laterality Comments STAPEDECTOMY Medical History Medical History Date Comments HL (hearing loss) Hyperlipidemia Hypertension Chronic kidney disease Social History Tobacco Use Types Packs/Day Years Used Date Smoking Tobacco: Former Tobacco Cessation:Counseling Given: Not Answered Comments:hasn't smoked almost 50 years Social Connection and Isolat ion Panel [NHANES] Answer Date Recorded In a typical week, how many times do you talk on the phone with family, friends, or neighbors? More than three times a week 09/14/2022 How often do you get togethe r with friends or relatives? More than three times a week 09/14/2022 How often do you attend chur ch or christian services? Never 09/14/2022 Do you belong to any clubs o r organizations such as sikhism groups, unions, fraternal or athletic groups, or school groups? No 09/14/2022 How often do you attend meet ings of the clubs or organizations you belong to? Never 09/14/2022 Are you , , di vorced, , never , or living with a partner? Living with partner 09/14/2022 AUDIT-C Answer Date Recorded Q1: How often do you have a drink containing alc ohol? 2-3 times a week 09/14/2022 Q2: How many drinks containi ng alcohol do you have on a typical day when you are drinking? 1 or 2 09/14/2022 Q3: How often do you have si x or more drinks on one occasion? Never 09/14/2022 Overall Financial Resource Strain (CARDIA) Answe r Date Recorded How hard is it for you to pa y for the very basics like food, housing, medical care, and heating? Not hard at all 09/14/2022 Hunger Vital Sign Answer Date Recorded Within the past 12 months, y ou worried that your food would run out before you got the money to buy more. Never true 09/15/19 23 Within the past 12 months, t he food you bought just didn't last and you didn't have money to get more. Never true 09/14/2022 PRAPARE - Transportation Answer Date Re corded In the past 12 months, has l ack of transportation kept you from medical appointments or from getting medications? No 09/01 In the past 12 months, has l ack of transportation kept you from meetings, work, or from getting things needed for daily living? No 09/14/2022 Housing Stability Vital Sign Answer Willis e Recorded In the last 12 months, was t here a time when you were not able to pay the mortgage or rent on time? No 09/14/2022 Number of Places Lived in the Last Year Not on f ile 09/14/2022 In the last 12 months, was t here a time when you did not have a steady place to sleep or slept in a senior living (including now)? No 09/14/2022 Personal Safety Answer Date Recorded Have you ever been in or are you currently in a harmful physical or emotional relationship or is someone making you feel afraid or unsafe? Denies 09/14/2022 Sex and Gender Information Value Date Recorded Sex Assigned at Not on file Legal Sex Male 2:34 PM CDT Gender Identity Male 04/20/2021 8:28 PM MITER OPERATOR Sexual Orientation Straight 04/20/2021 8: 28 PM MITER OPERATOR Obstetrics History Last Filed Vital Signs Vital Sign Reading Time Taken Comments Blood Pressure 150/68 03/22/2023 1:02 PM CDT Pulse 55 03/22/2023 1:02 PM CDT Temperature 36.7 ??C (98 ??F) 09/15/2022 11:09 AM CDT Respiratory Rate 18 09/15/2022 11:09 AM CDT Oxygen Saturation 96% 03/22/2023 1:02 PM CDT Inhaled Oxygen Concentration - - Weight 79.8 kg (176 lb) 05/06/2024 10:15 AM MITER OPERATOR Height 167.6 cm (5' 5.98 ) 03/22/2023 1:02 PM CD T Body Mass Index 28.42 03/22/2023 1:02 PM CDT Plan of Treatment Health Maintenance Due Date Last Done Comments Depression Screening 1940 Hepatitis B Screening 02[birth year]24/1958 Well Visit 65+ 2007 DTaP/Tdap/Td Vaccine (1 - Tdap) 06/04/2013 4 Fall Risk Assessment 09/16/2023 09/15/2022 Covid-19 Vaccine (2023- 5 season) 2024 03/21/2021, 08/24/2020, 08/24/2020, Additional history exists Pneumococcal vaccine 65+ Completed 03/20/2018, 11/0 06/2016 Zoster Vaccine Completed 12/02/2019, 06/18/2019 Influenza Vaccine Completed 04/30/2024, , 02/10/2020, Additional history exists Medical Devices Implanted Type Area Health Workers Device Identifier Shelf Expiration Date Model / Serial / Lot [employer] Tendril Sts 6fr 58cm Is-1 Connector Active Fixation Bipolar Soft 8tc/58 - [id number] - [id number] Implanted:Qty: 1 on 09/14/2022 by Som Wasserman MD at [facility] Lead [employer] [id number] 05/02/2025 2088TC/58 / [id number] / [employer] Tendril Sts 6fr 52cm Is-1 Connector Active Fixation Bipolar Soft 2087tc/52 - [id number] - [id number] Implanted:Qty: 1 on 09/14/2022 by Som Wasserman MD at [facility] Lead [employer] [id number] 07/31/2025 2088TC/52 / [id number] / [employer] Assurity Mri [id number] 2 Chamber Is-1 Connector Thk6mm Pacemaker [id number] - [id number] - [id number] Implanted:Qty: 1 on 09/14/2022 by Som Wasserman MD at [facility] Pacemaker [employer] [id number] 01/01/2024 [id number] / [id number] / Procedures Procedure Name Priority Date/Time Associated Diagnosis Comments AUDBASE RESULTS 05/06/2024 10:07 AM MITER OPERATOR from Last 3 Months Results * AudBase Results (05/06/2024 10:07 AM MITER OPERATOR) us Provider Scanning AUDIOLOGY SERVICES ORDERABLES Final Result from Last 3 Months Insurance MEDICARE [facility] OOS MEDICARE [employer] MEDICARE [employer] Advance Directives For more information, please contact: [phone] * Full Code (Latest Code Status on File) Date Activated Date Inactivated Comments 09/13/2022 3:07 PM 09/15/2022 6:06 PM Care Teams Plant Specialist Relationship Specialty Start Date End Date Merrick Good MD [address] [place] [address] PCP - General Internal Medicine 03/14/18 Mohsen Baltazar MD [address] [place] [address] Consulting Physician Cardiovascular Disease 09/15/22
--- OUTSIDE RECORDS SUMMARY | 2024-06-30 15:43 | XMS_ITS | Continuity of Care Document ---
Author Organization [facility] [employer], [employer], [facility] Address [address] [address] Care Team Providers Care Tobacco Sampler Name Role Phone MERRICK GOOD Primary Care Provider Assessment Encounter Date Assessment Date Assessment LastModified by Organization Details LastModified Time 06/30/2024 06/30/2024 Patient presented for follow up. Studies ordered as below. Discussed plan with patient/careg iver, who expressed understanding . Follow up as noted below. [email or web address] Not available 06/30/2024 12:09:20 Plan of Treatment Reminders Order Date Submit Date Provider Last Modified By Organization Details Last Modified Time Details Appointments ESTABLISH ED PATIENT 15 2024 11:00A M Merrick Good MD Not available Not available Not available NINA 2024 11:00A M US CAROTID ARTERY Not available Not available Not available ESTABLISH ED PATIENT 15 2024 11:00A M Merrick Good MD Not available Not available Not available Lab CBC w/ auto diff 2024 025 [facility] (Lab), [address] [place] [address], [phone], 06/30/2024 12:45:26 CMP, serum or plasma 2024 025 [facility] (Lab), [address] [place] [address], [phone], 06/30/2024 12:45:26 hemoglobi n A1c, QN, blood 2024 025 [facility] (Lab), [address] [place] [address], [phone], 06/30/2024 12:45:26 lipid panel w/ direct LDL, serum 2024 025 [facility] (Lab), [address] [place] [address], [phone], 06/30/2024 12:45:26 TSH + free T4, serum 2024 025 [facility] (Lab), [address] [place] [address], [id number], 06/30/2024 12:45:26 vitamin B12, serum 2024 025 [facility] (Lab), [address] [place] [address], [phone], 06/30/2024 12:45:26 Referral ophthalmo logist referral 2024 [facility] [place], [address], [place], [address], 06/30/2024 13:00:45 cardiolog ist referral 2024 [facility] Mohsen Baltazar MD, [address] [place], [address], 06/30/2024 12:45:26 Procedures None recorded. Surgeries None recorded. Imaging None recorded. Medication Orders pantopraz ole 20 mg tablet,de layed release 2024 [facility]/Pharmacy #[id number], [address] [place], [address], 06/30/2024 12:38:48 Patient TargetsNo targets recorded. Patient Instructions Encounter Date Encounter Id Patient Instructions Last Modified By Organization Details Last Modified Time 06/30/2024 [id number] Peripheral Arterial Disease (PAD): Care Instructions [email or web address] Not available 06/30/2024 12:38:44 (NINA) ankle brachial index* [facility] Not available 06/30/2024 12:38:44 high cholesterol : care instructions [facility] Not available 06/30/2024 12:38:44 learning about healthy weight [facility] Not available 06/30/2024 12:38:45 hypothyroidism: care instructions [facility] Not available 06/30/2024 12:38:44 chronic kidney disease: care instructions [facility] Not available 06/30/2024 12:38:45 learning about chronic kidney disease [facility] Not available 06/30/2024 12:38:45 Reason for Referral Medical Scientific Officer Referral for Ca rdiac pacemaker in situ Referring Physician: Merrick Good, Internal Medicine, Encounter Date: 06/30/2024 Law Examiner Referral for Visual disturbance Referring Physician: Merrick Good, Internal Medicine, Encounter Date: 06/30/2024 Problems Name Problem SNOMED Code Status Onset Date Resolution Date Notes Provider Name and Address Organization Details Recorded Time Long-term drug therapy Active 2024 Merrick Good MD [address] [place] [address] [address], [place], [address] , [facility] 5 12:35:11 Benign hypertensi on 99623423 Active 2016 Not Available [facility] 3 10:38:17 Hyperlipid emia 04195141 Active 2016 Not Available [facility] 3 10:38:17 Aortic valve regurgitat ion 96724230 Active 2017 Not Available [facility] 3 10:38:17 Hypothyroi dism 01247890 Active 2017 Not Available [facility] 3 10:38:17 Unilateral hearing loss Active 2017 Not Available [facility] 3 10:38:17 Bradycardi a 73396289 Active 2018 Not Available [facility] 3 10:38:17 Body mass index 25-29 - overweight 295966420 Active 2018 Not Available [facility] 3 10:38:17 Primary erectile dysfunctio n 945311032 Active 2019 Not Available [facility] 3 10:38:17 Cholelithi asis with obstructio n 05233799 Active 2019 Not Available [facility] 3 10:38:17 Obstructiv e sleep apnea of adult 5436059872322 Active 2020 Not Available [facility] 3 10:38:17 Hearing loss 98810246 Active 2020 Not Available [facility] 3 10:38:17 Edema of lower extremity 411480596 Active 2021 Not Available [facility] 3 10:38:17 Serum creatinine above reference range 516714098 Active 2021 Not Available [facility] 3 10:38:17 Gastroesop hageal reflux disease without esophagiti s 583260144 Active 2022 Not Available [facility] 3 10:38:17 Chronic renal failure 83961668 Active 2022 Merrick Good MD [address], [place], [address] , [place] [facility] 3 16:20:34 Sinus bradycardi a 83759270 Active 2022 Merrick Good MD [address], [place], [address] , [place] [facility] 3 11:38:46 Hydronephr osis 81470317 Active 2022 Merrick Good MD [address], [place], [address] , [place] [facility] 3 18:14:49 Cardiac pacemaker in situ 833483573 Active 2022 Merrick Good MD [address], [place], [address] , [place] [facility] 3 12:31:14 Peripheral vascular disease 185208295 Active 2022 on NINA Merrick Good MD [address], [place], [address] , [facility] 3 21:39:53 Arthritis of hand 430396286 Active 2023 Merrick Good MD [address], [place], [address] , [facility] 4 12:21:58 Serum vitamin B12 below reference range 205100141 Active 2023 Merrick Good MD [address], [place], [address] , [facility] 4 16:15:16 Coronary arterioscl erosis 50241057 Active 2023 Merrick Good MD [address], [place], [address] , [facility] 4 12:02:07 Bilateral hearing loss 94297525 Active 2023 Merrick Good MD [address], [place], [address] , [facility] 4 12:10:32 Problem Notes None recorded. Procedures Surgical History Date Name Laterality Status Provider Name and Address Organization Details Recorded Time 7 Colonoscopy completed Jennifer Dudley [facility] 06/24/2017 09:51:48 Cataract Surgery completed Merrick Good MD [address], [place], [address], [facility] 12/20/2016 15:49:48 Other completed Merrick Good MD [address], [place], [address], [facility] 12/20/2016 15:50:16 Imaging Results None recorded. Procedure Notes None recorded. Medical Equipment None Reported. Allergies No known drug allergies Medications Name Sig Start Date Stop Date Status Note LastModified by Organization Details LastModified Time Prescriptio n - New 08/16 completed Not Available Not Available Not Available amoxicillin 500 mg capsule TAKE 1 CAPSULE BY MOUTH THREE TIMES A DAY UNTIL GONE 03/21 completed Not Available Not Available Not Available atorvastati n 40 mg tablet TAKE 1 TABLET BY MOUTH DAILY WITH SUPPER 06/30 completed Not Available Not Available Not Available atorvastati n 80 mg tablet TAKE 1 TABLET BY MOUTH EVERY DAY WITH SUPPER active Not Available Not Available No t Available doxycycline hyclate 100 mg capsule TAKE 1 CAPSULE BY MOUTH TWICE A DAY 08/04 completed Not Available Not Available Not Available cyanocobala min (vit B-12) 2,[address] 1 TABLET BY SUBLINGUA L ROUTE EVERY DAY 2023 active Not Available Not Available Not Avai lable Klor-Con 10 mEq tablet,exte nded release TAKE 1 TABLET BY MOUTH EVERY DAY NEEDED 08/16 completed Not Available Not Available Not Available sildenafil 50 mg tablet TAKE 1 TABLET EVERY DAY BY ORAL ROUTE NEEDED. active Not Available Not Available No t Available azithromyci n 250 mg tablet TAKE 2 TABLETS BY MOUTH TODAY, THEN TAKE 1 TABLET DAILY FOR 4 DAYS DIRECTED 06/30 completed Not Available Not Available Not Available lisinopril 20 mg tablet TAKE 1 TABLET BY MOUTH EVERY DAY 02/15 completed Not Available Not Available Not Available simvastatin 10 mg tablet TAKE 1 TABLET BY MOUTH EVERYDAY AT BEDTIME 11/04 completed Not Available Not Available Not Available meclizine 12.5 mg tablet Take 1 tablet 3 times a day by oral route. 06/24 completed Not Available Not Available Not Available clopidogrel 75 mg tablet TAKE 1 TABLET BY MOUTH EVERY DAY active Not Available Not Available No t Available amlodipine 5 mg tablet TAKE 1 TABLET BY MOUTH EVERY DAY 04/30 completed Not Available Not Available Not Available sulfamethox azole 800 mg-trimetho prim 160 mg tablet TAKE 1 TABLET BY MOUTH EVERY 12 HOURS FOR 7 DAYS 06/17 completed Not Available Not Available Not Available aspirin 81 mg tablet,kinza yed release TAKE 1 TABLET BY MOUTH EVERY DAY active Not Available Not Available No t Available acetaminoph en 500 mg tablet TAKE 1 TABLET EVERY 8 HOURS BY ORAL ROUTE AROUND THE CLOCK. active Not Available Not Available No t Available amoxicillin 500 mg tablet TAKE ONE TABLET THREE TIMES A DAY UNTIL GONE 03/21 completed Not Available Not Available Not Available levothyroxi ne 25 mcg tablet TAKE 1 TABLET BY MOUTH EVERY DAY IN THE MORNING active Not Available Not Available No t Available pantoprazol e 20 mg tablet,kinza yed release Take 1 tablet every day by oral route in the morning. 2024 active Not Available Not Available Not Avai lable magnesium oxide 400 mg (241.3 mg magnesium) tablet TAKE 1 TABLET BY MOUTH EVERY OTHER DAY 08/16 completed Not Available Not Available Not Available aspirin 325 mg tablet,kinza yed release TAKE 1 TABLET BY MOUTH EVERY DAY 11/04 completed Not Available Not Available Not Available amlodipine 10 mg tablet TAKE 1 TABLET BY MOUTH EVERY DAY active Not Available Not Available No t Available benzonatate 100 mg capsule TAKE 1 CAPSULE BY MOUTH THREE TIMES A DAY 08/16 completed Not Available Not Available Not Available levothyroxi ne 50 mcg tablet TAKE 1 TABLET BY MOUTH EVERY DAY IN THE MORNING active Not Available Not Available No t Available cephalexin 500 mg capsule TAKE ONE CAPSULE ORALLY EVERY 6 HOURS FOR 7 DAYS 08/04 completed Not Available Not Available Not Available lisinopril 10 mg tablet TAKE 1 TABLET BY MOUTH EVERY DAY IN THE MORNING active Not Available Not Available No t Available nitroglycer in 0.4 mg sublingual tablet PLEASE SEE ATTACHED FOR DETAILED DIRECTION S active Not Available Not Available No t Available omeprazole 20 mg capsule,del ayed release TAKE 1 CAPSULE(S ) BY MOUTH ONCE DAILY IN THE MORNING 06/30 completed Not Available Not Available Not Available aspirin 81 mg chewable tablet CHEW 1 TABLET BY MOUTH EVERY DAY 03/21 completed Not Available Not Available Not Available hydrocortis one 2.5 % topical cream APPLY TO AFFECTED AREA TWICE A DAY ,X30 DAY(S), NEEDED FOR RASH TO BUTTOCK 11/04 completed Not Available Not Available Not Available lisinopril 5 mg tablet TAKE 1 TABLET BY MOUTH EVERY DAY 03/23 completed Not Available Not Available Not Available furosemide 20 mg tablet TAKE 1 TABLET BY MOUTH EVERY DAY NEEDED 2023 active Not Available Not Available Not Avai lable lisinopril 40 mg tablet TAKE 1 TABLET BY MOUTH EVERY DAY active Not Available Not Available No t Available cefdinir 300 mg capsule TAKE 1 CAPSULE BY MOUTH EVERY 12 HOURS 08/16 completed Not Available Not Available Not Available fluticasone propionate 50 mcg/actuati on nasal spray,suspe nsion SPRAY 1 SPRAY BY INTRANASA L ROUTE EVERY DAY 06/30 completed Not Available Not Available Not Available betamethaso ne dipropionat e 0.05 % lotion 1 JEFF TOPICAL EVERY NIGHT FOR 30 DAY(S), NEEDED :FOR RASH,INST R:TO AFFECTED AREA-SCAL P 11/04 completed Not Available Not Available Not Available metoprolol tartrate 25 mg tablet TAKE 0.5 TABLETS BY MOUTH 2 TIMES DAILY. active Not Available Not Available No t Available Mucinex DM 30 mg-600 mg tablet,exte nded release 12 hr Take 1 tablet every 12 hours by oral route. 06/25 completed Not Available Not Available Not Available diclofenac 1 % topical gel APPLY 2 GRAMS TO THE AFFECTED AREA(S) BY TOPICAL ROUTE 4 TIMES PER DAY active Not Available Not Available No t Available Farxiga 10 mg tablet TAKE 1 TABLET BY MOUTH EVERY DAY 2023 active Not Available Not Available Not Avai lable Eucrisa 2 % topical ointment 05/23 completed Not Available Not Available Not Available Shingrix (PF) 50 mcg/0.5 mL intramuscul ar suspension, kit TO BE ADMINISTE RED BY PHARMACIS T FOR IMMUNIZAT ION 03/09 completed Not Available Not Available Not Available Fluzone High-Dose Quad (PF) 240 mcg/0.7 mL IM syringe PHARMACY ADMINISTE RED 03/09 completed Not Available Not Available Not Available Paxlovid 150 mg-100 mg tablets in a dose pack (Renal Dose) TAKE PER PACKAGES DIRECTION S TWICE DAILY FOR 5 DAYS 06/17 completed Not Available Not Available Not Available Vitals Date Recorded Body height Body temperature Respiratory rate Heart rate Body mass index (BMI) Body weight Systolic blood pressure Diastolic blood pressure Provider Name and Address Organization Details Last Updated DateTime 5 167.64 cm 97.8 [degF] 16 /min 88 /min 27.6 kg/m2 78455.3 g 111 mm[Hg] 76 mm[Hg] Veronica Kerr [facility] 5 12:11:04 Social History Question Answer Notes LastModified by Organizat ion Details LastModified Time Tobacco Smoking Status Former Smoker quit Merrick Good MD [address] [facility] [address], [place], [address], [facility] 12/20/2016 15:49:04 Do You Have An Advance Directive? No [email or web address] Information not available 04/18/2023 What Is Your Level Of Alcohol Consumption? Occasional Information not available 12/20/2016 Are You Currently Employed? Yes [email or web address] Information not available 04/18/2023 Which Illicit Or Recreational Drugs Have You Used? No Information not available 12/20/2016 Are There Any Guns Present In Your Home? No [email or web address] Information not available 04/18/2023 Live Alone Or With Others? With Others With Doughter [email or web address] Information not available 04/18/2023 Marital Status Single [email or web address] Informatio n not available 04/18/2023 What Was The Date Of Your Most Recent Tobacco Screening? 10/09/2018 [email or web address] Information not available 04/18/2023 Performs Monthly Self-breast Exam? No [email or web address] Information not available 04/18/2023 Seat Belts Used Routinely Yes [email or web address] Information not available 04/18/2023 Smoke Alarm In Home Yes [email or web address] Information not available 04/18/2023 Do You Use Sunscreen Routinely? No [email or web address] Information not available 04/18/2023 Have You Used IV Drugs? No [email or web address] Information not available 04/18/2023 Sex: Unknown Functional Status Question Answer Note LastModified by Organization D etails LastModified Time Are you able to care for yourself? Yes [email or web address] Information n ot available 04/18/2023 Mental Status None recorded. Family History Relationship Description Onset Age of this Age Resolved Age Notes LastModified by Organization Details LastModified Time Brother Heart disease [email or web address] Not available 2016 15:22:44 Brother Family history of stroke [email or web address] Not available 2024 11:57:36 Medical History No medical history recorded. Immunizations Vaccine Type Date Status Note Provider Nam e and Address Organization Details Recorded Time Influenza, split virus, quadrivalent, preservative 8 completed Not Available [facility] 05/07/2023 06:56:02 Influenza, split virus, quadrivalent, preservative 9 completed Not Available [facility] 05/07/2023 06:56:03 Influenza, split virus, quadrivalent, preservative 0 completed Not Available [facility] 05/07/2023 06:56:03 zoster recombinant 0 completed Not Available [facility] 05/07/2023 06:56:03 COVID-19 vaccine, vector-nr, rS-Ad26, PF, 0.5 mL 1 completed Not Available [facility] 05/07/2023 06:56:03 COVID-19 vaccine, vector-nr, rS-Ad26, PF, 0.5 mL 1 completed Not Available [facility] 05/07/2023 06:56:03 COVID-19, mRNA, LNP-S, PF, 30 mcg/0.3 mL dose 1 completed Not Available [facility] 05/07/2023 06:56:03 Influenza, split virus, quadrivalent, preservative 1 completed Not Available [facility] 05/07/2023 06:56:03 COVID-19, mRNA, LNP-S, PF, 30 mcg/0.3 mL dose, dante-sucrose 2 completed Not Available [facility] 05/07/2023 06:56:03 Influenza, high-dose, quadrivalent, PF 2 completed Not Available [facility] 05/07/2023 06:56:03 COVID-19, mRNA, LNP-S, bivalent, PF, 30 mcg/0.3 mL dose 2 completed Not Available [facility] 05/07/2023 06:56:03 Pneumococcal conjugate PCV20, polysaccharide [id number] conjugate, adjuvant, PF 3 completed Not Available [facility] 05/07/2023 06:56:03 Influenza, adjuvanted, quadrivalent, PF 4 completed Merrick Good MD [address] [place] [address] [address], [place], [address], [facility] 04/11/2024 17:35:13 Pneumococcal conjugate PCV20, polysaccharide [id number] conjugate, adjuvant, PF 4 completed Merrick Good MD [address], [place], [address], [facility] 08/04/2023 12:08:41 COVID-19, mRNA, LNP-S, PF, dante-sucrose, 30 mcg/0.3 mL 4 completed Merrick Good MD [address], [place], [address], [facility] 04/11/2024 17:35:13 RSV, recombinant, protein subunit RSVpreF, adjuvant reconstituted, 0.5 mL, PF 4 completed Merrick Good MD [address], [place], [address], [facility] 09/30/2023 09:59:33 COVID-19, mRNA, LNP-S, PF, dante-sucrose, 30 mcg/0.3 mL 4 completed Merrick Good MD [address], [place], [address], [facility] 04/11/2024 17:35:13 Influenza, high-dose, trivalent, PF 4 completed Merrick Good MD [address], [place], [address], [facility] 04/11/2024 17:35:13 Influenza, split virus, trivalent, preservative 7 completed Not Available [facility] 05/07/2023 06:56:03 Td(adult) unspecified formulation 4 completed Not Available [facility] 05/07/2023 06:56:03 Pneumococcal conjugate PCV 13 7 completed Not Available [facility] 05/07/2023 06:56:03 Past Encounters Encounter ID Performer Location Encounter Start Date Encounter Closed Date Diagnosis/Indication Diagnosis SNOMED-CT Code Diagnosis ICD10 Code Diagnosis Note [id number] Merrick Good MD [facility], [facility] [address] [place] [address] 06/30/2024 11:57:19 06/30/2024 12:44:57 Benign hypertension 26527460 I10 last optometry eval 07/2022on the high side todayBP 2-3 weekslast EKG 08/05/23 Body mass index 25-29 - overweight 754971539 Z68.26 educationd iet and exercise Cardiac pa cemaker in situ 311513347 Z95.0 09/15/22 Chronic renal failure 90 032826 N18.9 Hyperlipidemia 59169117 E78.5 last LDL 12/12/23 Hypothyroidism 17308505 E03.9 last TSH 12/12/23 Obstructiv e sleep apnea of adult 8020843240 103 G47.33 educations tarted CPAP when he get it Peripheral vascular disease 220950081 I73.9 04/29/23 Serum harry min B12 below reference range 251123421 R79.89 12/12/23 Visual disturbance 47296 001 H53.9 double vision Screening for malignant neoplasm of colon 333904693 Z12.11 last C scope 05/10/2022 , no polyp Active or passive immunization 836238562 Z23 up to date , Gastroesop hageal reflux disease without esophagitis 073145350 K21.9 stable Long-term drug therapy 586760172 Z79.891 statin Health Concerns Section Related Observation LastModified by Organization Detai ls LastModified Time None Recorded Concern Status LastModified by Organization Details LastModified Time None Recorded Payers Encounter Date Sequence Insurance Name Policy Number Policy Lara Covered Member ID Lara Member ID Guarantor Name 06/30/2024 2 [place] ANNIE DUONG ([place]) [id number] Gertrudis Alexander [id number] Gertrudis Alexander 06/30/2024 1 [place] Gertrudis Alexander [id number] Gertrudis Alexander Notes Date Note Type Note Provider Name and Address Organization Details Recorded Time 06/30/2024 text/html Hypertension F/UReported bypatient.Medicati ons:taking medications as directed; no side effects from medication Lifestyle:regular exercise; limiting/avoiding salt; compliant with low salt diet Associated Symptoms:no dizziness; no lightheadedness; no chest pain; no shortness of breath; no palpitations; no edema; no calf pain with exertion; no headache Merrick Good MD [address], [place], [address], [facility] 06/30/2024 12:39:03
--- OUTSIDE RECORDS SUMMARY | 2024-06-30 15:43 | XMS_ITS | Encounter Summary ---
Author Organization [facility] Address [address] [place] [address] Care Team Providers Care Aquatics Specialist Name Role Phone Unavailable Primary Care Provider Unavailabl e Reason for Visit * Reason Onset Date Comments Appointment 11/28/2023 Encounter Details Date Type Department Care Team (Late st Contact Info) Description 11/28/2023 Telephone [facility] - Centralized Scheduling [address] [place] [address] Hilda Clements Appointment Social History Tobacco Use Types Packs/Day Years Used Date Smoking Tobacco: Never Assessed Sex and Gender Information Value Date Recorded Sex Assigned at Not on file Gender Identity Not on file Sexual Orientation Not on file documented as of this encounter Miscellaneous Notes * Telephone Encounter - Adia Aldridge - 11/28/2023 4:15 PM CDT This pt has a referral for [facility] in [facility]. Referred by [facility]. His phone: [phone] documented in this encounter Plan of Treatment Not on file documented as of this encounter Visit Diagnoses Not on filedocumented in this encounter
--- OUTSIDE RECORDS SUMMARY | 2024-06-30 15:43 | XMS_ITS | Patient Health Summary ---
Author Organization [facility] Address [address] [place] [address] Care Team Providers Care Ui Programmer Name Role Phone Unavailable Primary Care Provider Unavailabl e Note from [facility],non-owned Affiliates and Associated Physician Practices is amultiple site organization consisting of ambulatory clinics and hospital sitesin [place], [place], [place] and [place]. This disclosure is being madepursuant to the Care Everywhere program and may not contain all information available regarding this patient. Last updated 18.[facility] Social History Tobacco Use Types Packs/Day Years Used Date Smoking Tobacco: Never Assessed Sex and Gender Information Value Date Recorded Sex Assigned at Not on file Gender Identity Not on file Sexual Orientation Not on file
--- OUTSIDE RECORDS SUMMARY | 2024-06-30 15:43 | XMS_ITS | Referral Summary ---
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 ENT [address] [place] [address] [place] [address] Mendez Tracy MD Mixed hearing loss, bilateral (Primary Dx); Hearing difficulty of both ears 04/22/2024 Telephone [facility]) - 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 Never 09/14/2022 Do you belong to any clubs o r organizations such as mormon groups, unions, fraternal or athletic groups, or [...] place to sleep or slept in a assisted (including now)? No 09/14/2022 Personal Safety Answer Date Recorded Have you ever been in or are you currently in a harmful physical or emotional relationship or is someone making you feel afraid or unsafe? Denies 09/14/2022 Sex and Gender Information Value Date Recorded Sex Assigned at Not on file Legal Sex Male 2:34 PM CDT Gender Identity Male 04/20/2021 8:28 PM TAPE CONTROLLED MACHINE STITCHER Sexual Orientation Straight 04/20/2021 8: 28 PM TAPE CONTROLLED MACHINE STITCHER Last Filed Vital Signs Vital Sign Reading Time Taken Comments Blood Pressure 150/68 03/22/2023 1:02 PM CDT Pulse 55 03/22/2023 1:02 PM CDT Temperature 36.7 ??C (98 ??F) 09/15/2022 11:09 AM CDT Respiratory Rate 18 09/15/2022 11:09 AM CDT Oxygen Saturation 96% 03/22/2023 1:02 PM CDT Inhaled Oxygen Concentration - - Weight 79.8 kg (176 lb) 05/06/2024 10:15 AM TAPE CONTROLLED MACHINE STITCHER Height 167.6 cm (5' 5.98 ) 03/22/2023 1:02 PM CD T Body Mass Index 28.42 03/22/2023 1:02 PM CDT Plan of Treatment Not on file Medical Devices Implanted Type Area Wiring Mechanic Device Identifier Shelf Expiration Date Model / Serial / Lot [employer] Tendril Sts 6fr 58cm Is-1 Connector Active Fixation Bipolar Soft [id number]/58 - [id number] - [id number] Implanted:Qty: 1 on 09/14/2022 by Som Wasserman MD at [facility] Lead [employer] [id number] 05/02/20252087TC/58 / [id number] / [employer] Tendril Sts 6fr 52cm Is-1 Connector Active Fixation Bipolar Soft - [id number] - [id number] Implanted:Qty: 1 on 09/14/2022 by Som Wasserman MD at [facility] [employer] [id number] 07/31/2025/ / [id number] / [employer] Assurity Mri 63h96yd 2 Chamber Is-1 Connector Thk6mm Pacemaker [id number] - [id number] - [id number] Implanted:Qty: 1 on 09/14/2022 by Som Wasserman MD at [facility] Er Pacemaker [employer] [id number] 01/01/2024 [id number] / [id number] / Procedures Procedure Name Priority Date/Time Associated Diagnosis Comments AUDBASE RESULTS 05/06/2024 10:07 AM TAPE CONTROLLED MACHINE STITCHER from Last 3 Months Results * AudBase Results (05/06/2024 10:07 AM TAPE CONTROLLED MACHINE STITCHER) Provider Scanning AUDIOLOGY SERVICES ORDERABLES Final Result from Last 3 Months Insurance MEDICARE PENDING SALE TO [facility] MEDICARE [employer]AL [employer] MEDICARE BLUE [employer] Advance Directives For more information, please contact: [phone] * Full Code (Latest Code Status on File) Date Activated Date Inactivated Comments 09/13/2022 3:07 PM 09/15/2022 6:06 PM Care Teams Electrocardiograph Repairer Relationship Specialty Start Date End Date Merrick Good MD [address] [place] [address] PCP - General Internal Medicine 03/14/18 Mohsen Baltazar MD [address] [place] [address] Consulting Physician Cardiovascular Disease 09/15/22
--- OUTSIDE RECORDS SUMMARY | 2024-06-30 15:43 | XMS_ITS | Clinical Summary ---
Author Organization [facility] Address [address] [place] [address] Care Team Providers Care Cigarette Book Maker Name Role Phone Unavailable Primary Care Provider Unavailabl e Source Comments [facility],non-owned Affiliates and Associated Physician Practices is amultiple site organization consisting of ambulatory clinics and hospital sitesin [place], [place], [place]. This disclosure is being madepursuant to the Care Everywhere program and may not contain all information available regarding this patient. Last updated 18.[facility] Social History Tobacco Use Types Packs/Day Years Used Date Smoking Tobacco: Never Assessed Sex and Gender Information Value Date Recorded Sex Assigned at Not on file Gender Identity Not on file Sexual Orientation Not on file Plan of Treatment Health Maintenance Due Date Last Done Comments DTAP/TDAP/TD VACCINES (1 - Tdap) 1961 PNEUMOCOCCAL VACCINE 50+ (1 of 1 - PCV) 02/24/1992 ZOSTER VACCINE (1 of 2) 02/24/1992 Respiratory Syncytial Virus (RSV) Vaccine Pt: or over 60 yrs (1 - 1-dose 75+ series) 2017 COVID-19 VACCINE ( - 2023-2 5 season) 2024 INFLUENZA VACCINE (#1) 2024 DEPRESSION SCREENING 06/03/2024 HEPATITIS B VACCINE Aged Out No longe r eligible based on patient's age to complete this topic HIB VACCINE Aged Out No longer eligi ble based on patient's age to complete this topic HPV VACCINE Aged Out No longer eligi ble based on patient's age to complete this topic MENINGOCOCCAL (Group B) VACCINE Aged Out No longer eligible based on patient's age to complete this topic MENINGOCOCCAL VACCINE Aged Out No neeraj jakub eligible based on patient's age to complete this topic
--- OUTSIDE RECORDS SUMMARY | 2024-06-30 15:43 | XMS_ITS | Referral Summary ---
Author Organization [facility] Address [address] [place] [address] Care Team Providers Care House Furnishings Supervisor Name Role Phone Unavailable Primary Care Provider Unavailabl e Source Comments [facility],non-owned Affiliates and Associated Physician Practices is amultiple site organization consisting of ambulatory clinics and hospital sitesin [place], [place], [place] and [place]. This disclosure is being madepursuant to the Care Everywhere program and may not contain all information available regarding this patient. Last updated 18.[facility] [employer] Social History Tobacco Use Types Packs/Day Years Used Date Smoking Tobacco: Never Assessed Sex and Gender Information Value Date Recorded Sex Assigned at Not on file Gender Identity Not on file Sexual Orientation Not on file Plan of Treatment Not on file
--- OUTSIDE RECORDS SUMMARY | 2024-06-30 15:44 | XMS_ITS | Data Portability ---
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 Studies ordered as below. Discussed plan with patient/careg iver, who expressed understanding . Follow up as noted below. Not available 04/18/2023 11:50:24 08/05/2023 08/05/2023 Patient presented for follow up. Studies ordered as below. Discussed plan with patient/careg iver, who expressed understanding . Follow up as noted below. Not available 08/05/2023 12:02:47 03/10/2024 03/10/2024 Patient presented for follow up. Studies ordered as below. Discussed plan with patient/careg iver, who expressed understanding . Follow up as noted below. Not available 03/10/2024 11:54:11 06/30/2024 06/30/2024 Patient presented for follow up. Studies ordered as below. Discussed plan with patient/careg iver, who expressed understanding . Follow up as noted below. Not available 06/30/2024 12:09:20 Plan of Treatment [...] Not available Not available Not available Lab uric acid, serum or plasma 2023 024 [facility] (Lab), [address] [place] [address], [phone], 08/05/2023 12:30:31 ESR (erythroc yte sedimenta tion rate), blood 2023 024 [facility] (Lab), [address] [place] [address], [address], 08/06/2023 18:35:40 CMP, serum or plasma 2023 024 [facility] (Lab), [address] [place] [address], [phone], 08/05/2023 17:55:25 CBC w/ auto diff 2023 024 [facility] (Lab), [address] [place] [address], [phone], 08/05/2023 19:22:04 CMP, serum or plasma 2023 024 [facility] (Lab), [address] [place] [address], [phone], 12/12/2023 17:55:35 CBC w/ auto diff 2023 024 [facility] (Lab), [address] [place] [address], [phone], 12/12/2023 18:00:43 lipid panel w/ direct LDL, serum - 6 weeks from 10/24/232023 024 [facility] (Lab), [address] [place] [address], [phone], 12/12/2023 17:55:35 TSH + free T4, serum 2023 024 [facility] (Lab), [address] [place] [address], [address], 12/12/2023 17:55:35 vitamin B12, serum 2023 024 [facility] (Lab), [address] [place] [address], [address], 12/12/2023 19:47:33 PTH (parathyr oid hormone), intact, serum or plasma 2023 024 [facility] (Lab), [address] [place] [address], [address], 11/05/2023 12:16:11 phosphoru s, serum or plasma 2023 024 [facility] (Lab), [address] [place] [address], [address], 11/05/2023 12:16:11 uric acid, serum or plasma 2023 024 [facility] (Lab), [address] [place] [address], [address], 11/05/2023 12:16:11 CMP, serum or plasma 2023 024 [facility] (Lab), [address] [place] [address], [address], 03/11/2024 23:18:04 CBC w/ auto diff 2023 024 [facility] (Lab), [address] [place] [address], [address], 03/11/2024 23:18:04 CBC w/ auto diff 2024 025 [facility] (Lab), [address] [place] [address], [address], 06/30/2024 12:45:26 CMP, serum or plasma 2024 025 [facility] (Lab), [address] [place] [address], [address], 06/30/2024 12:45:26 hemoglobi n A1c, QN, blood 2024 025 [facility] (Lab), [address] [place] [address], [address], 06/30/2024 12:45:26 lipid panel w/ direct LDL, serum 2024 025 [facility] (Lab), [address] [place] [address], [address], 06/30/2024 12:45:26 TSH + free T4, serum 2024 025 [facility] (Lab), [address] [place] [address], [address], 06/30/2024 12:45:26 vitamin B12, serum 2024 025 [facility] (Lab), [address] [place] [address], [address], 06/30/2024 12:45:26 Referral orthopedi c surgeon referral 2022 023 ARMAAN Kelly MD, [address] [facility], [address], [place], [address], 05/07/2023 11:58:47 cardiolog ist referral 2023 024 ARMAAN Baltazar MD, [address] [place], [address], 11/14/2023 12:18:[address] referral 2023 024 ARMAAN [facility], [address], [place], [address], 12/03/2023 04:06:[address] referral 2023 024 [facility], [address] [facility], [place], [address], 03/20/2024 07:20:28 ophthalmo logist referral 2024 025 [facility] [place], [address] [facility], [place], [address], 06/30/2024 13:00:45 cardiolog ist referral 2024 025 [facility] Mohsen Baltazar MD, [address] [place], [address], 06/30/2024 12:45:26 Procedures None recorded. Surgeries None recorded. Imaging XR, chest, 2 view 2023 024 [facility] (Imaging), [address] [place] [address], [address], 08/07/2023 22:27:36 electroca rdiogram 2023 024 [facility], [facility], [address], [place], [address], 08/05/2023 16:40:49 XR, toe(s), 2 or more view 2023 024 [facility] (Imaging), [address] [place] [address], [phone], 08/06/2023 15:12:00 XR, hand, 3 or more view 2023 024 [facility] (Imaging), [address] [place] [address], [address], 08/07/2023 22:28:25 US, renal 2023 024 [facility] (Imaging), [address] [place] [address], [place], [address], 11/12/2023 04:06:44 Medication Orders diclofena c 1 % topical gel 2023 024 [facility], [address] [place], [address], 08/05/2023 12:28:50 pantopraz ole 20 mg tablet,de layed release 2023 024 [facility], [address] [place], [address], 11/05/2023 12:15:12 pantopraz ole 20 mg tablet,de layed release 2024 025 [facility] [address] [place], [address], 06/30/2024 12:38:48 Patient TargetsNo targets recorded. Patient Instructions Encounter Date Encounter Id Patient Instructions Last Modified By Organization Details Last Modified Time 08/05/2023 [id number] hand arthritis: exercises mshenouda Not available 08/05/2023 12:28:46 11/05/2023 [id number] Peripheral Arterial Disease (PAD): Care Instructions mshenouda Not available 11/05/2023 12:15:03 high cholesterol : care instructions mshenouda Not available 11/05/2023 12:15:02 hearing loss: care instructions mshenouda Not available 11/05/2023 12:15:02 learning about healthy weight mshenouda Not available 11/05/2023 12:15:03 hypothyroidism: care instructions mshenouda Not available 11/05/2023 12:15:02 chronic kidney disease: care instructions mshenouda Not available 11/05/2023 12:15:02 learning about chronic kidney disease mshenouda Not available 11/05/2023 12:15:02 living will mshenouda Not available 09/2023 12:14:45 03/10/2024 [id number] Peripheral Arterial Disease (PAD): Care Instructions mshenouda Not available 03/10/2024 12:13:58 learning about healthy weight mshenouda Not available 03/10/2024 12:13:58 hypothyroidism: care instructions mshenouda Not available 03/10/2024 12:13:58 high cholesterol : care instructions mshenouda Not available 03/10/2024 12:13:58 chronic kidney disease: care instructions mshenouda Not available 03/10/2024 12:13:58 learning about chronic kidney disease mshenouda Not available 03/10/2024 12:13:59 06/30/2024 [id number] Peripheral Arterial Disease (PAD): Care Instructions mshenouda Not available 06/30/2024 12:38:44 (NINA) ankle brachial index* mshenouda Not available 06/30/2024 12:38:44 high cholesterol : care instructions mshenouda Not available 06/30/2024 12:38:44 learning about healthy weight mshenouda Not available 06/30/2024 12:38:45 hypothyroidism: care instructions mshenouda Not available 06/30/2024 12:38:44 chronic kidney disease: care instructions mshenouda Not available 06/30/2024 12:38:45 learning about chronic kidney disease mshenouda Not available 06/30/2024 12:38:45 Reason for Referral Orthopedic Surgeon Referral for Synovial cyst of elbow Referring Physician: Merrick Good, Internal Medicine, Encounter Date: 04/18/2023 Director Of Market Analysis Referral for At ypical chest pain Referring Physician: Merrick Good Internal Medicine, Encounter Date: 08/05/2023 Driver License Reviewing Officer Referral for Reymundo ign hypertension Referring Physician: Merrick Good Internal Medicine, Encounter Date: 11/05/2023 Driver License Reviewing Officer Referral for Reymundo ign hypertension Referring Physician: Merrick Good Internal Medicine, Encounter Date: 03/10/2024 Director Of Market Analysis Referral for Ca rdiac pacemaker in situ Referring Physician: Merrick Good Internal Medicine, Encounter Date: 06/30/2024 Collar Separator Referral for Visual disturbance Referring Physician: Merrick Good Internal Medicine, Encounter Date: 06/30/2024 Results Created Date Observation Date Name Description Value Unit Range Abnormal Flag Note LastModifiedBy Organization Detail LastModifiedTime 04/29/2004/29/2023 ankle brach ial index No observ ation record ed. [facility] [address], [place], [address], 08/05/2023 12:18:20 08/05/19 24 08/05/2023 elect rocar diogr am No observ ation record ed. [email or web address], [facility] [address], [place], [address], 08/05/2023 20:35:40 08/05/19 24 08/05/2023 elect rocar diogr am No observ ation record ed. [email or web address] [facility], [facility] [address], [place], [address], 08/05/2023 20:35:33 08/06/19 24 08/05/2023 XR, toe(s ), 2 or more view No observ ation record ed. [facility] [address], [place], [address], 08/08/2023 11:57:14 08/07/19 24 08/05/2023 XR, chest , 2 view No observ ation record ed. [facility] (Imaging) [address], [place], [address], 08/08/2023 11:57:15 08/07/19 24 XR, toe(s ), 2 or more view No observ ation record ed. [facility] (Imaging) [address], [place], [address], 08/07/2023 22:29:47 08/07/19 24 XR, hand, 3 or more view No observ ation record ed. [facility] (Imaging) [address], [place], [address], 08/07/2023 22:29:47 03/11/20 24 03/11/2024 US, renal No observ ation record ed. [facility] [address], [place], [address], 06/30/2024 12:34:30 Result Notes None recorded. Problems Name Problem SNOMED Code Status Onset Date Resolution Date Notes Provider Name and Address Organization Details Recorded Time Long-term drug therapy Active 2024 Merrick Good MD [address] [facility] [address], [place], [address] , [place] [facility] 5 12:35:11 Benign hypertensi on 68154149 Active 2016 Not Available [facility] 3 10:38:17 Hyperlipid emia 57140136 Active 2016 Not Available [facility] 3 10:38:17 Aortic valve regurgitat ion 51532637 Active 2017 Not Available [facility] 3 10:38:17 Hypothyroi dism 98552940 Active 2017 Not Available [facility] 3 10:38:17 Unilateral hearing loss Active 2017 Not Available [facility] 3 10:38:17 Bradycardi a 86272996 Active 2018 Not Available [facility] 3 10:38:17 Body mass index 25-29 - overweight 013524966 Active 2018 Not Available [facility] 3 10:38:17 Primary erectile dysfunctio n 514583990 Active 2019 Not Available [facility] 3 10:38:17 Cholelithi asis with obstructio n 64112846 Active 2019 Not Available [facility] 3 10:38:17 Obstructiv e sleep apnea of adult 9996203540407 Active 2020 Not Available [facility] 3 10:38:17 Hearing loss 85413660 Active 2020 Not Available [facility] 3 10:38:17 Edema of lower extremity 890069551 Active 2021 Not Available [facility] 3 10:38:17 Serum creatinine above reference range 643720025 Active 2021 Not Available [facility] 3 10:38:17 Gastroesop hageal reflux disease without esophagiti s 203394358 Active 2022 Not Available [facility] 3 10:38:17 Chronic renal failure 00933436 Active 2022 Merrick Good MD [address], [place], [address] , [place] [facility] 3 16:20:34 Sinus bradycardi a 92138526 Active 2022 Merrick Good MD [address], [place], [address] , [place] [facility] 3 11:38:46 Hydronephr osis 59856486 Active 2022 Merrick Good MD [address], [place], [address] , [place] [facility] 3 18:14:49 Cardiac pacemaker in situ 964217367 Active 2022 Merrick Good MD [address], [place], [address] , [place] [facility] 3 12:31:14 Peripheral vascular disease 694718888 Active 2022 on NINA Merrick Good MD [address], [place], [address] , [place] [facility] 3 21:39:53 Arthritis of hand 798382801 Active 2023 Merrick Good MD [address], [place], [address] , [place] [facility] 4 12:21:58 Serum vitamin B12 below reference range 034725647 Active 2023 Merrick Good MD [address], [place], [address] , [facility] 4 16:15:16 Coronary arterioscl erosis 48631233 Active 2023 Merrick Good MD [address], [place], [address] , [facility] 4 12:02:07 Bilateral hearing loss 75871051 Active 2023 Merrick Good MD [address], [place], [address] , [facility] 4 12:10:32 Problem Notes None recorded. Procedures Surgical History Date Name Laterality Status Provider Name and Address Organization Details Recorded Time 7 Colonoscopy completed Jennifer Dudley [facility] 06/24/2017 09:51:48 Cataract Surgery completed Merrick Good MD [address], [place], [address], [facility] 12/20/2016 15:49:48 Other completed Merrick Good MD [address], [place], [address], [facility] 12/20/2016 15:50:16 Imaging Results Imaging Date Name Status LastModified by Organization Details LastModified Time 04/29/2023 ankle brachial index completed [address], [address], 08/05/2023 12:18:20 08/05/2023 electrocardiogram completed [facility], [facility] [address], [place], [address], 08/05/2023 20:35:40 08/05/2023 electrocardiogram completed [facility], [facility] [address], [place], [address], 08/05/2023 20:35:33 08/05/2023 XR, toe(s), 2 or more view completed [address] [place], [address], 08/08/2023 11:57:14 08/05/2023 XR, chest, 2 view completed [facility] (Imaging) [address] [place] [address], [place], [address], 08/08/2023 11:57:15 08/07/2023 XR, toe(s), 2 or more view completed [facility] (Imaging) [address] [place] [address], [address], 08/07/2023 22:29:47 08/07/2023 XR, hand, 3 or more view completed [facility] (Imaging) [address] [place] [address], [address], 08/07/2023 22:29:47 03/11/2024 US, renal completed [address], [address], 06/30/2024 12:34:30 Procedure Notes None recorded. Medical Equipment None [...] and Address Organization Details Last Updated DateTime 3 167.64 cm 97.8 [degF] 18 /min 67 /min 26.1 kg/m2 50423.9 6 g 112 mm[Hg] 71 mm[Hg] Veronica Kerr [facility] 3 11:51:29 Date Recorded Body height Body mass index (BMI) Body weight Body temperature Heart rate Respiratory rate Systolic blood pressure Diastolic blood pressure Provider Name and Address Organization Details Last Updated DateTime 4 167.64 cm 27.6 kg/m2 26250.3 g 97.8 [degF] 70 /min 16 /min 133 mm[Hg] 73 mm[Hg] Samra Leone [facility] 4 12:09:08 Date Recorded Body height Body temperature Heart rate Respiratory rate Body mass index (BMI) Body weight Systolic blood pressure Diastolic blood pressure Provider Name and Address Organization Details Last Updated DateTime 4 167.64 cm 97.8 [degF] 72 /min 16 /min 27.8 kg/m2 88945.8 9 g 135 mm[Hg] 76 mm[Hg] Veronica Kerr [facility] 4 11:37:42 Date Recorded Body height Body mass index (BMI) Body weight Body temperature Respiratory rate Heart rate Systolic blood pressure Diastolic blood pressure Provider Name and Address Organization Details Last Updated DateTime 4 167.64 cm 27.9 kg/m2 48987.4 8 g 98.1 [degF] 16 /min 58 /min 143 mm[Hg] 72 mm[Hg] Veronica Usha [facility] 4 11:54:35 Date Recorded Body height Body temperature Respiratory rate Heart rate Body mass index (BMI) Body weight Systolic blood pressure Diastolic blood pressure Provider Name and Address Organization Details Last Updated DateTime 5 167.64 cm 97.8 [degF] 16 /min 88 /min 27.6 kg/m2 44899.3 g 111 mm[Hg] 76 mm[Hg] Veronica Usha [facility] 5 12:11:04 Social History Question Answer Notes LastModified by Organizat ion Details LastModified Time Tobacco Smoking Status Former Smoker quit 1960 Merrick Good MD [address] [place] [address] [address], [place], [address], [facility] 12/20/2016 15:49:04 Do You Have An Advance Directive? No [email or web address] Information not available 04/18/2023 What Is Your Level Of Alcohol Consumption? Occasional Information not available 12/20/2016 Are You Currently Employed? Yes [email or web address] Information not available 04/18/2023 Which Illicit Or Recreational Drugs Have You Used? No Information not available 12/20/2016 Are There Any Guns Present In Your Home? No [email or web address] Information not available 04/18/2023 Live Alone Or With Others? With Others With Doughter [email or web address] Information not available 04/18/2023 Marital Status Single Informatio n not available 04/18/2023 What Was The Date Of Your Most Recent Tobacco Screening? 10/09/2018 [email or web address] Information not available 04/18/2023 Performs Monthly Self-breast Exam? No Information not available 04/18/2023 Seat Belts Used Routinely Yes [email or web address] Information not available 04/18/2023 Smoke Alarm In Home Yes [email or web address] Information not available 04/18/2023 Do You Use Sunscreen Routinely? No [email or web address] Information not available 04/18/2023 Have You Used IV Drugs? No Information not available 04/18/2023 Sex: Unknown Functional Status Question Answer Note LastModified by Organization D etails LastModified Time Are you able to care for yourself? Yes [email or web address] Information n ot available 04/18/2023 Mental Status [...] virus, quadrivalent, preservative 8 completed Not Available [facility] 05/07/2023 06:56:02 Influenza, split virus, quadrivalent, preservative 9 completed Not Available [facility] 05/07/2023 06:56:03 Influenza, split virus, quadrivalent, preservative 0 completed Not Available [facility] 05/07/2023 06:56:03 zoster recombinant 0 completed Not Available [facility] 05/07/2023 06:56:03 COVID-19 vaccine, vector-nr, rS-Ad26, PF, 0.5 mL 1 completed Not Available [facility] 05/07/2023 06:56:03 COVID-19 vaccine, vector-nr, rS-Ad26, PF, 0.5 mL 1 completed Not Available [facility] 05/07/2023 06:56:03 COVID-19, mRNA, LNP-S, PF, 30 mcg/0.3 mL dose 1 completed Not Available [facility] 05/07/2023 06:56:03 Influenza, split virus, quadrivalent, preservative 1 completed Not Available [facility] 05/07/2023 06:56:03 COVID-19, mRNA, LNP-S, PF, 30 mcg/0.3 mL dose, dante-sucrose 2 completed Not Available [facility] 05/07/2023 06:56:03 Influenza, high-dose, quadrivalent, PF 2 completed Not Available [facility] 05/07/2023 06:56:03 COVID-19, mRNA, LNP-S, bivalent, PF, 30 mcg/0.3 mL dose 2 completed Not Available [facility] 05/07/2023 06:56:03 Pneumococcal conjugate PCV20, polysaccharide [id number] conjugate, adjuvant, PF 3 completed Not Available [facility] 05/07/2023 06:56:03 Influenza, adjuvanted, quadrivalent, PF 4 completed Merrick Good MD [address], [place], [address], [facility] 04/11/2024 17:35:13 Pneumococcal conjugate PCV20, polysaccharide [id number] conjugate, adjuvant, PF 4 completed Merrick Good MD [address], [place], [address], [facility] 08/04/2023 12:08:41 COVID-19, mRNA, LNP-S, PF, dante-sucrose, 30 mcg/0.3 mL 4 completed Merrick Good MD [address], [place], [address], [facility] 04/11/2024 17:35:13 RSV, recombinant, protein subunit RSVpreF, adjuvant reconstituted, 0.5 mL, PF 4 completed Merrick Good MD [address], [place], [address], [facility] 09/30/2023 09:59:33 COVID-19, mRNA, LNP-S, PF, dante-sucrose, 30 mcg/0.3 mL 4 completed Merrick Good MD [address], [place], [address], [facility] 04/11/2024 17:35:13 Influenza, high-dose, trivalent, PF 4 completed Merrick Good MD [address], [place], [address], [facility] 04/11/2024 17:35:13 Influenza, split virus, trivalent, preservative 7 completed Not Available [facility] 05/07/2023 06:56:03 Td(adult) unspecified formulation 4 completed Not Available [facility] 05/07/2023 06:56:03 Pneumococcal conjugate PCV 13 7 completed Not Available [facility] 05/07/2023 06:56:03 Past Encounters Encounter ID Performer Location Encounter Start Date Encounter Closed Date Diagnosis/Indication Diagnosis SNOMED-CT Code Diagnosis ICD10 Code Diagnosis Note [id number] Merrick Good MD [facility], [facility] [address] [place] [address] 12/20/2016 14:27:54 12/20/2016 16:30:17 Adult health examination 754009479 Z00.00 Benign hypertension 1072 5009 I10 Hyperlipidemia 35350598 E78.5 Impacted cerumen 9449927 6 H61.23 Skin lesion 18763431 L98 .9 scalp Active or passive immunization 521193659 Z23 Screening for malignant neoplasm of colon 899459121 Z12.11 Screening procedure 2012 5006 Z13.9 Screening for malignant neoplasm of prostate 707422191 Z12.5 [id number] Merrick Good MD [facility], [facility] [address] [place] [address] 03/21/2017 14:13:02 03/21/2017 15:33:39 Dizziness and giddiness 160265416 R42 Symptomati c sinus bradycardia 530131538 R00.[address] imulating hormone level above reference range 610654366 R79.89 Shoulder joint pain 2679 80679 M25.519 [id number] Merrick Good MD [facility], [facility] [address] [place] [address] 06/24/2017 09:46:07 06/24/2017 10:24:23 Hyperlipidemia 27264417 E78.5 Benign hypertension 1072 5009 I10 Primary er ectile dysfunction 458993483 N52.9 Aortic tonia ve regurgitation 99653219 I35.1 mild on ECHO 03/21/17 [id number] Merrick Good MD [facility] [facility], [facility] [address] [place] [address] 02/21/2018 11:28:08 02/21/2018 13:40:00 Benign hypertension 16853657 I10 Aortic tonia ve regurgitation 90922994 I35.1 mild on ECHO 03/21/17 Hyperlipidemia 02825324 E78.5 Hypothyroidism 75259460 E03.9 Primary er ectile dysfunction 054918555 N52.9 Screening for malignant neoplasm of colon 368041450 Z12.11 last C scope 04/29/17 , recheck 2021 Skin - reymundo ign mole and nevus 116894895 D22.9 Active or passive immunization 399478291 Z23 Unilateral hearing loss 38247531 H91.91 [id number] Merrick Good MD [facility] [facility], [facility] [address] [place] [address] 06/17/2018 16:05:33 06/17/2018 16:42:50 Hoarse 74510040 R49.0 Hyperlipidemia 73265204 E78.5 Benign hypertension 1072 5009 I10 last optometry eval 05/2018 Hypothyroidism 69086958 E03.9 Screening for malignant neoplasm of colon 775976098 Z12.11 last C scope 04/29/17 , recheck 2021 Active or passive immunization 286234210 Z23 Bradycardia 86358658 R00 .1 sees cardiology on reg basis [id number] Merrick Good MD [facility] [employer] [facility], [facility] [address] [place] [address] 10/09/2018 11:21:44 10/09/2018 12:34:31 Adult health examination 666242137 Z00.01 Benign hypertension 1072 5009 I10 increase amlodipine , BP 2-3 weekslast optometry eval 05/2018 Hyperlipidemia 41613671 E78.5 Bradycardia 46219456 R00 .1 sees cardiology on reg basis Aortic tonia ve regurgitation 05848299 I35.1 mild on ECHO 03/21/17 Hypothyroidism 41582446 E03.9 Body mass index 25-29 - overweight 804816789 Z68.26 Screening for malignant neoplasm of colon 054833048 Z12.11 last C scope 04/29/17 , recheck 2021 Active or passive immunization 549258750 Z23 [id number] Merrick Good MD [employer] [address] [place] [address] 06/18/2019 11:50:55 06/18/2019 12:22:09 Upper respiratory infection 79292930 J06.9 Body mass index 25-29 - overweight 355939396 Z68.26 lost 9 LBs on diet and exercise Benign hypertension 1072 5009 I10 , BP 2-3 weekslast optometry eval 05/2018 Hyperlipidemia 37212590 E78.5 Hypothyroidism 93785959 E03.9 Screening for malignant neoplasm of colon 229394088 Z12.11 last C scope 04/29/17 , recheck 2021 Active or passive immunization 813950637 Z23 [id number] Merrick Good MD [employer] [address] [place] [address] 03/09/2020 10:12:57 03/09/2020 11:14:05 Adult health examination 385950882 Z00.01 Benign hypertension 1072 5009 I10 last optometry eval 07/2019decr ease amlodipine to 5 , add lisinopril 5 qdBP 2-3 weeks Hyperlipidemia 36878837 E78.5 Hypothyroidism 68672817 E03.9 Body mass index 25-29 - overweight 750614272 Z68.26 educationo n diet and exercise Bradycardia 71977966 R00 .1 sees cardiology on reg basis Aortic tonia ve regurgitation 06985039 I35.1 mild on ECHO 06/18/19 Edema of l ower extremity 626750692 R60.0 increase lasix to 40 qd 3 days Viral screening 10539863 4 Z11.59 Screening for malignant neoplasm of colon 380106318 Z12.11 last C scope 04/29/17 , recheck 2021 Active or passive immunization 148135313 Z23 up to date Primary er ectile dysfunction 089869869 N52.9 [id number] Merrick Good MD [employer], [facility] [address] [place] [address] 09/07/2020 08:52:34 09/07/2020 10:13:37 Benign hypertension 38131864 I10 last optometry eval 07/2019 BP 2-3 weeks Body mass index 25-29 - overweight 674950778 Z68.26 educationo n diet and exercise Bradycardia 94561510 R00 .1 sees cardiology on reg basis Hyperlipidemia 76479824 E78.5 last LDL 03/15/20 Hypothyroidism 03802636 E03.9 Eruption 392704436 R21 face Screening for malignant neoplasm of colon 369352546 Z12.11 last C scope 04/29/17 , recheck 2021 Obstructiv e sleep apnea of adult 8032812529 103 G47.33 Active or passive immunization 243776362 Z23 up to date [id number] Merrick Good MD [employer] [facility], [facility] [address] [place] [address] 02/22/2021 08:57:36 02/22/2021 09:44:58 Hypothyroidism 83858010 E03.9 Hyperlipidemia 16142984 E78.5 last LDL 03/15/20 Body mass index 25-29 - overweight 565522989 Z68.26 educationo n diet and exercise Benign hypertension 1072 5009 I10 last optometry eval 07/2019 BP 2-3 weeks Bradycardia 18622463 R00 .1 sees cardiology on reg basis Obstructiv e sleep apnea of adult 3286471780 103 G47.33 Screening for malignant neoplasm of colon 998006621 Z12.11 last C scope 04/29/17 , recheck 2021 Active or passive immunization 417975531 Z23 up to date Viral screening 89122302 4 Z11.59 Localized eruption of skin 815612635 R21 Lt forehead [id number] Merrick Good MD [employer] [facility], [facility] [address] [place] [address] 05/23/2021 08:50:41 05/23/2021 09:40:16 Adult health examination 762201370 Z00.01 Benign hypertension 1072 5009 I10 last optometry eval 07/2019 BP 2-3 weekslast EKG 02/22/21 Body mass index 25-29 - overweight 413884953 Z68.26 educationo n diet and exercise Aortic tonia ve regurgitation 23992518 I35.1 mild on ECHO 06/18/19 Bradycardia 56008291 R00 .1 sees cardiology on reg basis Cholelithi asis with obstruction 01198674 K80.81 education Hypothyroidism 58435908 E03.9 Obstructiv e sleep apnea of adult 5341653818 103 G47.33 educations tarted CPAP when he get it Primary er ectile dysfunction 022448034 N52.9 Hearing loss 77185628 H9 1.90 seen ENT Screening for malignant neoplasm of colon 416967165 Z12.11 last C scope 04/29/17 , recheck 2021 Active or passive immunization 021476870 Z23 up to date Dysphagia 66555098 R13.1 0 Urgent alfredo poncho to urinate 58192472 R39.15 [id number] Merrick Good MD [employer] [address] [place] [address] 03/12/2022 12:01:53 03/12/2022 13:40:49 Bronchitis 88747595 J40 Benign hypertension 1072 5009 I10 last optometry eval 07/2019 BP 2-3 weekslast EKG 02/22/21 Hyperlipidemia 07833432 E78.5 last LDL 03/15/20 Hypothyroidism 98862414 E03.9 Body mass index 25-29 - overweight 220063579 Z68.26 educationl ost 7 on diet and exercise Screening for malignant neoplasm of colon 230054029 Z12.11 last C scope 04/29/17 , recheck 2021 Active or passive immunization 968449029 Z23 up to date Edema of l ower extremity 586852570 R60.0 increase lasix to 40 qd 3 days [id number] Merrick Good MD [employer] [address] [place] [address] 05/17/2022 11:47:51 05/17/2022 12:48:57 Benign hypertension 76813407 I10 last optometry eval 07/2019 BP 2-3 weekslast EKG 02/22/21 Body mass index 25-29 - overweight 598997937 Z68.26 educationd iet and exercise Hyperlipidemia 55872933 E78.5 last LDL 03/22/22 Hypothyroidism 50847621 E03.9 Obstructiv e sleep apnea of adult 2558573990 103 G47.33 educations tarted CPAP when he get it Serum crea tinine above reference range 004586316 R79.89 Screening for malignant neoplasm of colon 037920631 Z12.11 last C scope 05/10/2022 , no polyp Active or passive immunization 785847041 Z23 up to date Localized eruption of skin 460814362 R21 Lt forehead [id number] Merrick Good MD [employer], [facility] [address] [place] [address] 08/16/2022 12:19:38 08/16/2022 13:18:45 Adult health examination 058210271 Z00.01 Benign hypertension 1072 5009 I10 last optometry eval 07/2022 BP 2-3 weekslast EKG 05/17/22 Body mass index 25-29 - overweight 324231961 Z68.26 educationd iet and exercise Bradycardia 68702094 R00 .1 sees cardiology on reg basis Cholelithi asis with obstruction 38382030 K80.81 education Hearing loss 40199904 H9 1.90 seen ENT Hyperlipidemia 24324133 E78.5 last LDL 03/22/22 Hypothyroidism 02016137 E03.9 last TSH 03/22/22 Obstructiv e sleep apnea of adult 2092400795 103 G47.33 educations tarted CPAP when he get it Primary er ectile dysfunction 212656085 N52.9 stable Serum crea tinine above reference range 453447442 R79.89 recheck Edema of l ower extremity 593584638 R60.0 resolved Screening for malignant neoplasm of colon 333443335 Z12.11 last C scope 05/10/2022 , no polyp Active or passive immunization 944575335 Z23 up to date Advance di rective discussed with patient 200116535 Z71.89 education Gastroesop hageal reflux disease without esophagitis 308741001 K21.9 Impacted c erumen in right ear 7219112597 586328 H61.21 [id number] Merrick Good MD [employer] [address] [place] [address] 09/11/2022 10:22:19 09/11/2022 11:48:54 Sinus bradycardia 85573118 R00.1 symptomati cER eval if any dizziness Benign hypertension 1072 5009 I10 last optometry eval 07/2022 BP 2-3 weekslast EKG 05/17/22 [id number] Merrick Good MD [employer] [address] [place] [address] 09/25/2022 11:41:44 09/25/2022 13:09:32 Sinus bradycardia 67717060 R00.1 symptomati cER eval if any dizzinessh ad pacer Hydronephrosis 69585834 N13.30 Rt on US 09/21/22has urology jeff Cardiac pa cemaker in situ 452869079 Z95.0 09/15/22 Benign hypertension 1072 5009 I10 last optometry eval 07/2022 BP 2-3 weekslast EKG 05/17/22 Screening for malignant neoplasm of colon 666104479 Z12.11 last C scope 05/10/2022 , no polyp Active or passive immunization 326529530 Z23 up to date [id number] Merrick Good MD [employer] [address] [place] [address] 03/04/2023 11:17:46 03/04/2023 12:43:34 Benign hypertension 23148545 I10 last optometry eval 07/2022 BP 2-3 weekslast EKG 05/17/22 Body mass index 25-29 - overweight 172079116 Z68.26 educationd iet and exercise Chronic renal failure 90 525448 N18.9 Gastroesop hageal reflux disease without esophagitis 681795894 K21.9 stable Hydronephrosis 88338623 N13.30 Rt on US 09/21/22see n urology 10/17/22 Hyperlipidemia 65514227 E78.5 last LDL 03/22/22 Hypothyroidism 64003157 E03.9 last TSH 03/22/22 Obstructiv e sleep apnea of adult 4744042828 103 G47.33 educations tarted CPAP when he get it Cough 79527352 R05.9 check for COVID Cardiac pa cemaker in situ 147378800 Z95.0 09/15/22 Screening for malignant neoplasm of colon 251732345 Z12.11 last C scope 05/10/2022 , no polyp Active or passive immunization 978902406 Z23 up to date Lesion of skin of face 0965743829 06 L98.9 above Rt ear [id number] Merrick Good MD [employer] [facility], [facility] [address] [place] [address] 04/02/2023 11:51:32 04/02/2023 13:29:08 Swelling of right foot 798133696 M79.89 Weak arterial pulse 3152 38195 R09.89 Pain of ri ght ankle joint 1150199230 5101725 M25.571 S/P injury , Pt had X ray todayX ray -ve on my chart on Pt phone for FxICE , elevation , [place] [id number] Merrick Good MD [employer] [facility], [facility] [address] [place] [address] 04/18/2023 10:52:32 04/18/2023 12:20:37 Synovial cyst of elbow 043047253 M71.329 Pain of ri ght ankle joint 4322484827 9184140 M25.571 S/P injury , Pt had X anita lot better with ICE , elevation , PT Cellulitis of right upper limb 1241741296 9358220 L03.113 resolved with Abx Benign hypertension 1072 5009 I10 last optometry eval 07/2022 BP 2-3 weekslast EKG 05/17/22 Active or passive immunization 820245651 Z23 up to date [id number] Merrick Good MD [employer] [facility], [facility] [address] [place] [address] 08/05/2023 11:28:53 08/05/2023 12:45:27 Atypical chest pain 356487011 R07.89 Pain of to e of left foot 0259167637 45179 M79.675 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 292729 005 M13.849 Benign hypertension 1072 5009 I10 last optometry eval 07/2022 BP 2-3 weekslast EKG 05/17/22 Cardiac pa cemaker in situ 774593483 Z95.0 09/15/22 Screening for malignant neoplasm of colon 685712279 Z12.11 last C scope 05/10/2022 , no polyp Active or passive immunization 251367655 Z23 up to date [id number] Merrick Good MD [employer], [facility] [address] [place] [address] 11/05/2023 10:52:50 11/05/2023 12:17:22 Adult health examination 235006901 Z00.01 Benign hypertension 1072 5009 I10 last optometry eval 07/2022 BP 2-3 weekslast EKG 08/05/23 Coronary arteriosclerosis 92000954 I25.10 had cath @ [facility] ology started plavix Body mass index 25-29 - overweight 656935890 Z68.26 educationd iet and exercise Cardiac pa cemaker in situ 127178631 Z95.0 09/15/22 Cholelithi asis with obstruction 07478296 K80.81 education Chronic renal failure 90 747895 N18.9 Gastroesop hageal reflux disease without esophagitis 647564715 K21.9 stable Hydronephrosis 80878309 N13.30 Rt on US 09/21/22see n urology 10/17/22 Hyperlipidemia 44873720 E78.5 last LDL 03/05/23 Hypothyroidism 07625375 E03.9 last TSH 03/06/23/ Obstructiv e sleep apnea of adult 1704583734 103 G47.33 educations tarted CPAP when he get it Peripheral vascular disease 175127774 I73.9 04/29/23 Primary er ectile dysfunction 981081314 N52.9 stable Serum harry min B12 below reference range 018432641 R79.89 Screening for malignant neoplasm of colon 564097392 Z12.11 last C scope 05/10/2022 , no polyp Active or passive immunization 672061731 Z23 up to date Advance di rective discussed with patient 804491188 Z71.89 education Bilateral hearing loss 34117241 H91.93 seen ENT [id number] Merrick Good MD [employer] [address] [place] [address] 03/10/2024 11:44:01 03/10/2024 12:16:28 Benign hypertension 36818204 I10 last optometry eval 07/2022on the high side todayBP 2-3 weekslast EKG 08/05/23 Body mass index 25-29 - overweight 692605060 Z68.26 educationd iet and exercise Cardiac pa cemaker in situ 191960102 Z95.0 09/15/22 Chronic renal failure 90 108880 N18.9 Coronary arteriosclerosis 96762789 I25.10 had cath @ [facility] ology started plavix Hydronephrosis 02639322 N13.30 Rt on US 09/21/22see n urology 10/17/22hav ing another US 03/10/24 Hyperlipidemia 33563599 E78.5 last LDL 12/12/23 Hypothyroidism 24754715 E03.9 last TSH 12/12/23 Peripheral vascular disease 839186188 I73.9 04/29/23 Serum harry min B12 below reference range 912812719 R79.89 12/12/23 Screening for malignant neoplasm of colon 474943515 Z12.11 last C scope 05/10/2022 , no polyp Active or passive immunization 381898972 Z23 up to date ,get Flu and COVID shot after done with Abx [id number] Merrick Good MD [facility] [address] [place] [address] 06/30/2024 11:57:19 06/30/2024 12:44:57 Benign hypertension 95468893 I10 last optometry eval 07/2022on the high side todayBP 2-3 weekslast EKG 08/05/23 Body mass index 25-29 - overweight 950062826 Z68.26 educationd iet and exercise Cardiac pa cemaker in situ 153558085 Z95.0 09/15/22 Chronic renal failure 90 092659 N18.9 Hyperlipidemia 62782518 E78.5 last LDL 12/12/23 Hypothyroidism 51554776 E03.9 last TSH 12/12/23 Obstructiv e sleep apnea of adult 4678110050 103 G47.33 educations tarted CPAP when he get it Peripheral vascular disease 648387116 I73.9 04/29/23 Serum harry min B12 below reference range 691143579 R79.89 12/12/23 Visual disturbance 02546 001 H53.9 double vision Screening for malignant neoplasm of colon 939262773 Z12.11 last C scope 05/10/2022 , no polyp Active or passive immunization 819393592 Z23 up to date , Gastroesop hageal reflux disease without esophagitis 155784366 K21.9 stable Long-term drug therapy 319933104 Z79.891 statin Health Concerns Section Related Observation LastModified by Organization Detai ls LastModified Time None Recorded Concern Status LastModified by Organization Details LastModified Time None Recorded Advance Directives Directive N: Payers Encounter Date Sequence Insurance Name Policy Number Policy Lara Covered Member ID Lara Member ID Guarantor Name 04/18/2023 2 [id number] Gertrudis Alexander [id number] Gertrudis Alexander 04/18/2023 1 [place] Gertrudis Alexander [id number] Gertrudis Alexander 08/05/2023 2 [id number] Gertrudis Alexander [id number] Gertrudis Alexander 08/05/2023 1 [place] Gertrudis Alexander [id number] Gertrudis Alexander 11/05/2023 2 [id number] Gertrudis Alexander [id number] Gertrudis Alexander 11/05/2023 1 [place] Gertrudis Alexander [id number] Gertrudis Alexander 03/10/2024 2 [id number] Gertrudis Alexander [id number] Gertrudis Alexander 03/10/2024 1 [place] Gertrudis Alexander [id number] Gertrudis Alexander 06/30/2024 2 [id number] Gertrudis Alexander [id number] Gertrudis Alexander 06/30/2024 1 [place] Gertrudis Alexander [id number] 3 Gertrudis Alexander Notes Date Note Type Note Provider Name and Address Organization Details Recorded Time 04/18/2023 text/html Hypertension F/UReported bypatient.Medications: taking medications as directed; no side effects from medication Lifestyle:regular exercise; limiting/avoiding salt; compliant with low salt diet Associated Symptoms:no dizziness; no lightheadedness; no chest pain; no shortness of breath; no palpitations; no edema; no calf pain with exertion; no headache went to urgent care for Rt elbow redness 04/06/23 , started bactruim and keflex , better , but has a cyst , not tenderhad venous doppler on Rt leg @ [facility] , -veRt ankle is alot better with PT Merrick Good MD [address], [place], [address], [facility] 04/18/2023 12:18:53 08/05/2023 text/html Hypertension F/UReported bypatient.Medications: taking medications as directed; no side effects from medication Lifestyle:regular exercise; limiting/avoiding salt; compliant with low salt diet Associated Symptoms:no dizziness; no lightheadedness; no chest pain; no shortness of breath; no palpitations; no edema; no calf pain with exertion; no headache Lt 2nd toe pain and Multiple finger , 2-3 weeksMild CP , on and off 2 months Merrick Good MD [address], [place], [address], [facility] 08/05/2023 12:29:29 11/05/2023 text/html Hypertension F/UReported bypatient.Medications: taking medications as directed; no side effects from medication Lifestyle:regular exercise; limiting/avoiding salt; compliant with low salt diet Associated Symptoms:no dizziness; no lightheadedness; no chest pain; no shortness of breath; no palpitations; no edema; no calf pain with exertion; no headacheMedicare Annual Wellness VisitReported bypatient.Diet and Nutrition:healthy diet Fracture Risk:no history of fractures; no recent explained fracture; no sudden unexplained fractures; no previous musculoskeletal injuries Physical Activity:exercises on a regular basis; recent increase in physical activity; good physical condition; discussed exercise habits Depression Risk:never feels sad, empty, or tearful; no loss of interest in activities; no significant changes in weight; no sleep disturbances or insomnia; no agitation; no loss of energy; no feelings of worthlessness or guilt; no thoughts of suicide; no history of depression; no history of mood disorders Orientation:no disorientation to time; no disorientation to date; no disorientation to place Concentration and Memory:no decreased concentrating ability; no memory lapses or loss; does not forget words Speech/Motor difficulties:no speech difficulties; no difficulty expressing formulated concepts; no difficulty with fine manipulative tasks; no difficulty writing/copying; no slowed reaction time; does not knock things over when trying to pick them up Hearing:loss of hearing: in both ears Vision:no vision problems Activities of Daily Living:able to bathe with limited or no assistance; able to contol urination and bowels; able to dress with limited or no assistance; able to feed self with limited or no assistance; able to get out of chair or bed with limited or no assistance; able to groom with limited or no assistance; able to toilet with limited or no assistance Instrumental Activities of Daily Living:able to do house work with limited or no assistance; able to grocery shop with limited or no assistance; able to manage medications with limited or no assistance; able to manage money with limited or no assistance; able to prepare meals with limited or no assistance; able to use the phone with limited or no assistance Falls Risk Assessment:no frequent falls while walking; no fall in the past year; no fall since last visit; no dizziness/vertigo Home Safety:use of seatbelts; no vision or hearing loss while driving Merrick Good MD [address] [facility] [address], [place], [address], [facility] 11/05/2023 12:15:15 03/10/2024 text/html Hypertension F/UReported bypatient.Medications: taking medications as directed; no side effects from medication Lifestyle:regular exercise; limiting/avoiding salt; compliant with low salt diet Associated Symptoms:no dizziness; no lightheadedness; no chest pain; no shortness of breath; no palpitations; no edema; no calf pain with exertion; no headache Merrick Good MD [address] [facility] [address], [place], [address], [facility] 03/10/2024 12:14:25 06/30/2024 text/html Hypertension F/UReported bypatient.Medications: taking medications as directed; no side effects from medication Lifestyle:regular exercise; limiting/avoiding salt; compliant with low salt diet Associated Symptoms:no dizziness; no lightheadedness; no chest pain; no shortness of breath; no palpitations; no edema; no calf pain with exertion; no headache Merrick Good MD [address] [place] [address] [address], [place], [address], [facility] 06/30/2024 12:39:03
--- OUTSIDE RECORDS SUMMARY | 2024-06-30 15:44 | XMS_ITS | Data Portability ---
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 Lab None recorded. Referral None recorded. Procedures None recorded. Surgeries None recorded. Imaging None recorded. Medication Orders amlodipine 10 mg tablet 2022 023 [facility]/Pharmacy #[id number], [address] [place], [address], 3 12:56:12 aspirin 325 mg tablet,kinza yed release 2023 024 [facility]/Pharmacy #[id number], [address] [place], [address], 11:54:34 clopidogrel 75 mg tablet 2023 024 [facility]/Pharmacy #[id number], [address] [place], [address], 14:07:11 Patient TargetsNo targets recorded. Patient Instructions Encounter Date Encounter Id Patient Instructions Last Modified By Organization Details Last Modified Time 03/23/2023 [id number] Exercise advised Low cholesterol diet advised Low sodium diet advised. [email or web address] Not available 03/23/2023 12:54:55 08/13/2023 [id number] Exercise advised Low cholesterol diet advised Low sodium diet advised. [email or web address] Not available 08/13/2023 11:54:30 Reason for Referral None Reported. Results Created Date Observation Date Name Description Value Unit Range Abnormal Flag Note LastModifiedBy Organization Detail LastModifiedTime 09/18/1909/13/2022 elect rocar diogr am No observ ation record ed. Not Available 2022 10:50:05 03/25/2003/23/2023 elect rocar diogr am No observ ation record ed. Not Available 2022 14:19:41 08/13/19 24 06/21/2023 pacem mk inter rogat ion (PROC ) No observ ation record ed. Not Available 2023 13:13:19 08/13/19 24 pacem mk inter rogat ion (PROC ) No observ ation record ed. [email or web address] Not Available 09:37:11 08/14/19 24 08/13/2023 exerc ise stres s test No observ ation record ed. Not Available 2023 13:15:45 08/14/19 24 06/21/2023 pacem mk inter rogat ion (PROC ) No observ ation record ed. Not Available 2023 14:04:03 10/19/19 24 10/10/[address] ment for coron peggy angio graph y with left heart clyde teriz ation inclu ding intra proce dural injec tion( s) for left ventr iculo graph y w/ clyde ter place ment in bypas s graft (s) (PROC ) No observ ation record ed. Not Available 2023 14:27:09 04/14/20 24 04/06/2024 pacem mk inter rogat ion (PROC ) No observ ation record ed. Not Available 2023 09:51:28 Result Notes None recorded. Problems Name Problem SNOMED Code Status Onset Date Resolution Date Notes Provider Name and Address Organization Details Recorded Time Edema of lower extremity 635495503 Active 2021 Mohsen Crenshaw i, MD [address] [place], [address], [facility] 3 11:27:40 Benign hypertensio n 98147641 Active 2016 Mohsen Crenshaw i, MD [address] [place], [address], [facility] 3 11:27:40 Obstructive sleep apnea of adult 8279341993771 Active 2020 Galen Arcos [facility] 4 10:57:15 Hearing loss 98195612 Active 2020 Mohsen Crenshaw i, MD [address] [place], [address], [facility] 3 11:27:40 Body mass index 25-29 - overweight 550206327 Active 2018 Mohsen Crenshaw i, MD [address] [place], [address], [facility] 3 11:27:40 Serum creatinine above reference range 299459279 Active 2021 Mohsen Crenshaw i, MD [address] [place], [address], [facility] 3 11:27:40 Gastroesoph ageal reflux disease without esophagitis 091875318 Active 2022 Mohsen Crenshaw i, MD [address] [place], [address], [place] [facility] 3 11:27:40 Hypothyroid ism 50627225 Active 2017 Mohsen Crenshaw i, MD [address] [place], [address], [facility] 3 11:27:41 Primary erectile dysfunction 463436041 Active 2019 Mohsen Crenshaw i, MD [address] [place], [address], [place] [facility] 3 11:27:41 Sinus bradycardia 95442464 Active 2022 Mohsen Crenshaw i, MD [address] [place], [address], [place] [facility] 3 11:27:41 Hyperlipide raeann 87109430 Active 2016 Mohsen Crenshaw i, MD [address] [place], [address], [place] [facility] 3 11:27:41 Aortic valve regurgitati on 89890192 Active 2017 Mohsen Crenshaw i, MD [address] [place], [address], [place] [facility] 3 11:27:41 Cholelithia sis with obstruction 82392960 Active 2019 Mohsen Crenshaw i, MD [address] [place], [address], [place] [facility] 3 11:27:41 Chronic renal failure 51348870 Active 2022 Galen [place], [place] - [facility] 4 10:58:43 Dizziness 016959373 Active 2016 Mohsen Crenshaw i, MD [address] [place], [address], [place] [facility] 3 11:27:41 Joint pain 41644967 Active 2016 Mohsen Crenshaw i, MD [address] [place], [address], [place] [facility] 3 11:27:41 Benign essential hypertensio n 8326050 Active 2016 Galen [place], [place] - [facility] 4 10:57:02 Bradycardia 90099785 Active 2018 Mohsen Crenshaw i, MD [address] [place], [address], [place] [facility] 3 11:27:41 Dyslipidemi a 172838765 Active 2016 [facility] 4 10:57:11 Atypical chest pain 589707447 Active 2019 Mohsen Crenshaw i, MD [address] [place], [address], [facility] 3 11:27:40 Swelling of bilateral lower limbs 382961465 Active 2019 Mohsen Crenshaw i, MD [address] [place], [address], [facility] 3 11:27:41 Snoring 43889159 Active 2019 Mohsen Crenshaw i, MD [address] [place], [address], [facility] 3 11:27:41 Notes:Some problems listed i n Documents: #[id number], #[id number], #[id number] could not be added to this patient's chart. Please review these documents and add these problems to the patient's chart manually as needed. Problem Notes None recorded. Procedures Surgical History None recorded. Imaging Results Imaging Date Name Status LastModified by Organization Details LastModified Time 09/13/2022 electrocardiogram completed Informa tion not available 09/17/2022 10:50:05 03/23/2023 electrocardiogram completed Informa tion not available 03/25/2023 14:19:41 06/21/2023 pacemaker interrogation (PROC) completed Information not available 08/13/2023 13:13:19 08/13/2023 exercise stress test completed Info rmation not available 08/14/2023 13:15:45 06/21/2023 pacemaker interrogation (PROC) completed Information not available 08/14/2023 14:04:03 08/13/2023 pacemaker interrogation (PROC) completed [email or web address] Information not available 08/15/2023 09:37:11 10/10/2023 catheter placement for coronary angiography with left heart catheterization including intraprocedural injection(s) for left ventriculography w/ catheter placement in bypass graft(s) (PROC) completed Information not available 10/19/2023 14:27:09 04/06/2024 pacemaker interrogation (PROC) completed Information not available 04/14/2024 09:51:28 Procedure Notes None recorded. Medical Equipment None Reported. Allergies Allergen ID Allergen Name Allergen Category Reaction Reaction Severity Criticality Documentation Date Start Date Code Code System Note Provider Name and Address Organization Details Recorded Time 28023 lisinopri l medicatio n edema Not available Not available 08/26/2020 12138 RxNorm Mohsen Crenshaw i, MD [address] [place], [address], [facility] 3 11:27:18 Medications Name Sig Start Date Stop Date Status Note LastModified by Organization Details LastModified Time atorvastat in 40 mg tablet TAKE 1 TABLET BY MOUTH DAILY WITH SUPPER. active Not Available Not Available No t Available doxycyclin e hyclate 100 mg capsule TAKE 1 CAPSULE BY MOUTH TWICE A DAY 08/10 completed Not Available Not Available Not Available cyanocobal elizondo (vit B-12) 2,[address] 1 TABLET BY SUBLINGU AL ROUTE EVERY DAY active Not Available Not Available No t Available Klor-Con 10 mEq tablet,ext ended release TAKE 1 TABLET BY MOUTH EVERY DAY NEEDED 2021 active Not Available Not Available Not Avai lable sildenafil 50 mg tablet TAKE 1 TABLET EVERY DAY BY ORAL ROUTE NEEDED. active Not Available Not Available No t Available aspirin 325 mg tablet active Not Available Not Available Not Available lisinopril 20 mg tablet Take 1 tablet every day by oral route. 03/22 completed Not Available Not Available Not Available simvastati n 10 mg tablet TAKE 1 TABLET BY MOUTH EVERYDAY AT BEDTIME active Not Available Not Available No t Available meclizine 12.5 mg tablet Take 3 times a day by oral route. 04/09 completed NO LONGER TAKING; AL Not Available Not Available Not Available clopidogre l 75 mg tablet TAKE 1 TABLET BY MOUTH EVERY DAY active Not Available Not Available No t Available amlodipine 5 mg tablet Take 1 tablet every 24 hours by oral route. 03/22 completed Not Available Not Available Not Available sulfametho xazole 800 mg-trimeth oprim 160 mg tablet TAKE 1 TABLET BY MOUTH EVERY 12 HOURS FOR 7 DAYS active Not Available Not Available No t Available aspirin 81 mg tablet,del ayed release TAKE 1 TABLET BY MOUTH EVERY DAY active Not Available Not Available No t Available acetaminop hen 500 mg tablet TAKE 1 TABLET EVERY 8 HOURS BY ORAL ROUTE AROUND THE CLOCK. active Not Available Not Available No t Available levothyrox ine 25 mcg tablet TAKE 1 TABLET BY MOUTH EVERY DAY IN THE MORNING 02/27 completed Not Available Not Available Not Available pantoprazo le 20 mg tablet,del ayed release TAKE 1 TABLET EVERY DAY BY ORAL ROUTE IN THE MORNING, DISCONTI NUE OMEPRAZO LE active Not Available Not Available No t Available magnesium oxide 400 mg (241.3 mg magnesium) tablet TAKE 1 TABLET BY MOUTH EVERY OTHER DAY active Not Available Not Available No t Available aspirin 325 mg tablet,del ayed release TAKE 1 TABLET BY MOUTH EVERY DAY active Not Available Not Available No t Available amlodipine 10 mg tablet TAKE 1 TABLET BY MOUTH EVERY DAY active Not Available Not Available No t Available benzonatat e 100 mg capsule TAKE 1 CAPSULE BY MOUTH THREE TIMES A DAY 09/13 completed Not Available Not Available Not Available levothyrox ine 50 mcg tablet TAKE 1 TABLET BY MOUTH EVERY DAY IN THE MORNING active Not Available Not Available No t Available cephalexin 500 mg capsule TAKE ONE CAPSULE ORALLY EVERY 6 HOURS FOR 7 DAYS 09/27 completed Not Available Not Available Not Available lisinopril 10 mg tablet TAKE 1 TABLET BY MOUTH EVERY DAY IN THE MORNING 08/10 completed pt no longer takes Not Available Not Available Not Available nitroglyce rin 0.4 mg sublingual tablet active Not Available Not Available Not Available omeprazole 20 mg capsule,de layed release TAKE 1 CAPSULE( S) BY MOUTH ONCE DAILY IN THE MORNING active Not Available Not Available No t Available hydrocorti sone 2.5 % topical cream APPLY TO AFFECTED AREA TWICE A DAY ,X30 DAY(S), NEEDED FOR RASH TO BUTTOCK active Not Available Not Available No t Available lisinopril 5 mg tablet TAKE 1 TABLET BY MOUTH EVERY DAY 08/26 completed pt not taking 08/26/20 Not Available Not Available Not Available furosemide 20 mg tablet TAKE 1 TABLET BY MOUTH EVERY DAY NEEDED active Not Available Not Available No t Available lisinopril 40 mg tablet TAKE 1 TABLET BY MOUTH EVERY DAY active Not Available Not Available No t Available cefdinir 300 mg capsule TAKE 1 CAPSULE BY MOUTH EVERY 12 HOURS 09/13 completed Not Available Not Available Not Available betamethas one dipropiona te 0.05 % lotion 1 JEFF TOPICAL EVERY NIGHT FOR 30 DAY(S), NEEDED :FOR RASH,INS TR:TO AFFECTED AREA-SCA LP active Not Available Not Available No t Available metoprolol tartrate 25 mg tablet TAKE 0.5 TABLETS BY MOUTH 2 TIMES DAILY. active Not Available Not Available No t Available diclofenac 1 % topical gel APPLY 2 GRAMS TO THE AFFECTED AREA(S) BY TOPICAL ROUTE 4 TIMES PER DAY active Not Available Not Available No t Available Farxiga 10 mg tablet TAKE 1 TABLET BY MOUTH EVERY DAY active Not Available Not Available No t Available Paxlovid 150 mg-100 mg tablets in a dose pack (Renal Dose) TAKE PER PACKAGES DIRECTIO NS TWICE DAILY FOR 5 DAYS active Not Available Not Available No t Available Vitals Date Recorded Body height Body mass index (BMI) Body weight Heart rate Respiratory rate Oxygen saturation Oxygen saturation in Arterial blood by Pulse oximetry Systolic blood pressure Diastolic blood pressure Provider Name and Address Organization Details Last Updated DateTime 3 170.18 cm 29 kg/m2 08711.5 9 g 74 /min 16 /min 95 % 95 % 118 mm[Hg] 78 mm[Hg] Mohsen Crenshaw i, MD [address] [place], [address], [facility] 3 11:26:26 Date Recorded Body height Body mass index (BMI) Body weight Oxygen saturation Oxygen saturation in Arterial blood by Pulse oximetry Heart rate Systolic blood pressure Diastolic blood pressure Provider Name and Address Organization Details Last Updated DateTime 3 170.18 cm 26.2 kg/m2 51764.9 3 g 95 % 95 % 50 /min 168 mm[Hg] 88 mm[Hg] Chikis Catalan [facility] 3 12:36:14 Date Recorded Body height Body mass index (BMI) Body weight Heart rate Oxygen saturation Oxygen saturation in Arterial blood by Pulse oximetry Systolic blood pressure Diastolic blood pressure Provider Name and Address Organization Details Last Updated DateTime 4 170.18 cm 26.5 kg/m2 21799.1 1 g 64 /min 98 % 98 % 126 mm[Hg] 73 mm[Hg] Shira Goncalves [facility] 4 11:21:40 Date Recorded Body height Body mass index (BMI) Body weight Heart rate Oxygen saturation Oxygen saturation in Arterial blood by Pulse oximetry Systolic blood pressure Diastolic blood pressure Provider Name and Address Organization Details Last Updated DateTime 4 170.18 cm 27.1 kg/m2 67829.4 8 g 62 /min 92 % 92 % 92 mm[Hg] 44 mm[Hg] Chikis Hossein [facility] 4 13:15:28 Date Recorded Body height Heart rate Oxygen saturation Oxygen saturation in Arterial blood by Pulse oximetry Body mass index (BMI) Body weight Systolic blood pressure Diastolic blood pressure Provider Name and Address Organization Details Last Updated DateTime 4 170.18 cm 60 /min 92 % 92 % 26.8 kg/m2 92677.3 g 102 mm[Hg] 62 mm[Hg] Shira Goncalves [facility] 4 13:34:34 Social History Question Answer Notes LastModified by Organizat ion Details LastModified Time Tobacco Smoking Status Former Smoker Not Available [employer] 04/05/2020 03:30:41 What Is Your Level Of Alcohol Consumption? Occasional [id number] Information not available 04/05/2020 What Is Your Level Of Caffeine Consumption? None [id number] Information not available 04/05/2020 How Much Tobacco Do You Chew? None [id number] Information not available 04/05/2020 What Type Of Diet Are You Following? REGULAR [id number] Information not available 04/05/2020 Which Illicit Or Recreational Drugs Have You Used? No [id number] Information not available 04/05/2020 Do You Or Have You Ever Used E-cigarettes Or Vape? 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 Alone [email or web address] Information not available 03/22/2017 Marital Status [email or web address] Informatio n not available 03/22/2017 What Was The Date Of Your Most Recent Tobacco Screening? 04/09/2017 [id number] Information not available 04/05/2020 How Many Children Do You Have? 1 [id number] Information not available 04/05/2020 Do You Or Have You Ever Used Smokeless Tobacco? Former Smokeless Tobacco User [id number] Information not available 04/05/2020 How Much Tobacco Do You Smoke? No [id number] Information not available 04/05/2020 General Stress Level Medium [email or web address] Information not available 03/22/2017 Sex: Unknown Functional Status Question Answer Note LastModified by Organization D etails LastModified Time What is your exercise level? None [id number] Information not available 04/05/2020 Mental Status None recorded. Family History Relationship Description Onset Age of this Age Resolved Age Notes LastModified by Organization Details LastModified Time Brother Heart disease [email or web address] Not available 2016 10:40:36 Brother Myocardial infarction Not available 03/22 10:40:42 Brother Hypertensive disorder [email or web address] Not available 2016 10:40:48 Brother Hypercholest erolemia [email or web address] Not available 2016 10:40:54 Medical History Condition Response Hyperlipidemia Y Arrhythmia Y Hypertension Y High Cholesterol Y Immunizations Vaccine Type Date Status Note Provider Nam e and Address Organization Details Recorded Time Influenza, split virus, quadrivalent, preservative 8 completed Mohsen Baltazar MD [address] [place], [address], [facility] 09/13/2022 11:27:47 Influenza, split virus, quadrivalent, preservative 0 completed Mohsen Baltazar MD [address] [place], [address], [facility] 09/13/2022 11:27:47 Influenza, split virus, quadrivalent, preservative 9 meet Baltazar MD [address] [place], [address], [facility] 09/13/2022 11:27:47 Influenza, split virus, quadrivalent, preservative 1 meet Baltazar MD [address] [place], [place], [address] [place] [address], [place] [facility] 09/13/2022 11:27:48 zoster recombinant 0 completed Mohsen Baltazar MD [facility] [place], [place], [address] [place] [address], [facility] 09/13/2022 11:27:48 Influenza, high-dose, quadrivalent, PF 2 completed Mohsen Baltazar MD [facility] [place], [place], [address] [place] [address], [facility] 09/13/2022 11:27:48 COVID-19, mRNA, LNP-S, PF, 30 mcg/0.3 mL dose 1 completed Mohsen Baltazar MD [facility] [place], [place], [address] [place] [address], [facility] 09/13/2022 11:27:48 COVID-19 vaccine, vector-nr, rS-Ad26, PF, 0.5 mL 1 completed Mohsen Baltazar MD [facility] [place], [place], [address] [place] [address], [facility] 09/13/2022 11:27:48 COVID-19 vaccine, vector-nr, rS-Ad26, PF, 0.5 mL 1 completed Mohsen Baltazar MD [address] [place], [place], [address] [place] [address], [facility] 09/13/2022 11:27:48 Pneumococcal conjugate PCV20, polysaccharide [id number] conjugate, adjuvant, PF 3 completed Mohsen Baltazar MD [address] [place], [place], [address] [place] [address], [place] [facility] 09/13/2022 11:27:48 COVID-19, mRNA, LNP-S, PF, 30 mcg/0.3 mL dose, dante-sucrose 2 completed Mohsen Baltazar MD [address] [place], [place], [address] [place] [address], [place] [facility] 09/13/2022 11:27:48 COVID-19, mRNA, LNP-S, bivalent, PF, 30 mcg/0.3 mL dose 2 completed Mohsen Baltazar MD [address] [place], [address], [facility] 09/13/2022 11:27:48 Pneumococcal conjugate PCV 13 7 completed Mohsen Baltazar MD [address] [place], [address], [facility] 09/13/2022 11:27:48 Td(adult) unspecified formulation 4 completed Laly morales [facility] 03/22/2017 10:58:18 Influenza, split virus, trivalent, preservative 7 completed Laly morales [facility] 03/22/2017 10:58:18 Past Encounters Encounter ID Performer Location Encounter Start Date Encounter Closed Date Diagnosis/Indication Diagnosis SNOMED-CT Code Diagnosis ICD10 Code Diagnosis Note [id number] Mohsen Baltazar MD [facility] [address] [place] [address] 03/22/2017 10:30:39 03/22/2017 12:20:40 Essential hypertension 31133974 I10 Now well controlled Dizziness 242442888 R42 with Bradycardi aTreadmill Myoview Stress test, has high Gaylord Risk score. Has Known CAD, or CAD risk equivalent . To look for any ischemia.H olter Dyslipidemia 408765867 E 78.5 Needs to keep LDL less than 70, and HDL more than 40 Will get lipid profile results from PCP Bradycardia 70065226 R00 .1 Holter [id number] Mohsen Baltazar MD [place] [facility] [address] [place] [address] 04/09/2017 11:06:23 04/09/2017 13:29:50 Benign essential hypertension 4033651 I10 now well controlled On amlodipine . Dyslipidemia 245026649 E 78.5 Needs to keep LDL less than 70, and HDL more than 40 Will get lipid profile results from PCP On Simvastati n. Dizziness 354475750 R42 Pt has Meclizine at home. cONSIDER ENT FU [id number] Mohsen Baltazar MD [place] [facility] [place] [address] 04/18/2018 09:43:29 04/18/2018 10:23:47 Benign essential hypertension 1739152 I10 Well controlled . On Amlodipine . Dyslipidemia 071755902 E 78.5 Needs to keep LDL less than 70, and HDL more than 40 Will get lipid profile results from PCP On Simvastati n. Dizziness 141873810 R42 Improved. Bradycardia 67124078 R00 .1 HR today is 45. Patient denies any dizziness or recent falls. Remains active. [id number] Hermelinda Russell [facility] [address] [place] [address] 07/17/2019 11:29:52 07/29/2019 11:25:58 Bradycardia 70584814 R00.1 HR today is 53. Patient denies any dizziness or recent falls. Remains active. Benign ess ential hypertension 4137182 I10 Well controlled . On Amlodipine . Dyslipidemia 999135849 E 78.5 Needs to keep LDL less than 70, and HDL more than 40 06/18/19 LDL 66 On Simvastati n. Dizziness 196586847 R42 Improved. Atypical chest pain 1025 20144 R07.89 Treadmill Myoview Stress test, has high Gaylord Risk score. Has Known CAD, or CAD risk equivalent . To look for any ischemia. Treadmill Nuclear Stress Test 03/28/17 : Negative stress test for ischemia. TDS. Normal LV systolic function. Artifact noted.Exer cise tolerances average. No previous study to compare. LVEF 62%. Swelling o f bilateral lower limbs 756027799 M79.89 06/21/2019 ECHO: LV chamber size is normal. LV systolic function is normal. The estimated left ventricle ejection fraction is 60- 65 % ( normal) Snoring 14317974 R06.83 sleep study [id number] Driss Chen Office [address] [place] [address] 09/23/2019 13:36:32 09/23/2019 14:02:50 Bradycardia 82334128 R00.1 Chonnic bradycardi aHR today is 41 bpm. Patient denies any dizziness or recent falls. Remains active. Benign ess ential hypertension 7184544 I10 Well controlled . On Amlodipine . Dyslipidemia 063392217 E 78.5 Needs to keep LDL less than 70, and HDL more than 40 06/18/19 LDL 66 On Simvastati n. Dizziness 745672076 R42 Improved. Atypical chest pain 1025 52873 R07.89 /04/20 tdm stress test-Negat mandy stress test. NML LV systolic function. LVEF 62%cont medicalman agement and risk factor modificati on Swelling o f bilateral lower limbs 790144055 M79.89 06/21/2019 ECHO: LV chamber size is normal. LV systolic function is normal. The estimated left ventricle ejection fraction is 60- 65 % ( normal)res tart Lasix Snoring 03209701 R06.83 sleep study [id number] Renetta Lindsay [facility] [address] [place] [address] 03/04/2020 09:17:15 03/04/2020 10:00:06 Bradycardia 98177006 R00.1 03/04/2020C hronic bradycardi aHR today is 47 bpm. Patient denies any dizziness or recent falls. Remains active. Reports that his watch alerts if it goes below 40, and has not in 3-4 months.Con tinue to monitor Benign ess ential hypertension 0304534 I10 03/04/2020B lood pressure is elevated today, but this is only one reading, will keep close follow up, and consider medication change if blood pressure is still elevated next visit. Obtains 130's/70s at home. Dyslipidemia 975859145 E 78.5 03/04/2020 Continue simvastati n 10mg nightly Will get fasting lipids for follow-up Needs to keep LDL less than 70, and HDL more than 40 06/18/2019 LDL 66 Dizziness [id number] R42 03/04/2020I mproved. No complaints at this time.Asymp tomatic with bradycardi a Atypical chest pain 1025 83705 R07.89 03/04/20Res olved Stress test 08/05/2019 : Negative stress test. Normal LV systolic function. LVEF 62%.Contin ue medical management and risk factor modificati on Swelling o f bilateral lower limbs 385241562 M79.89 03/04/2020R esolvedEch o 06/21/2019 : LV chamber size is normal. LV systolic function is normal. The estimated left ventricle ejection fraction is 60- 65 % (normal). Snoring 93257386 R06.83 03/04/2020S leep study 07/28/2019 showed moderate OSAOn CPAP, reports general compliance , stating that he hits the 70% but does not keep it on all the time. [id number] Valarie Overton [employer] [facility] [address] [place] [address] 08/26/2020 09:50:55 08/26/2020 11:57:21 Bradycardia 55250421 R00.1 Chronic bradycardi a, remains asymptomat ic. Benign ess ential hypertension 2805915 I10 Blood pressure is elevated today, but this is only one reading, will keep close follow up, and consider medication change if blood pressure is still elevated next visit. Dyslipidemia 973324883 E 78.5 Needs to keep LDL less than 70, and HDL more than 40. 03/11/2020 LDL 71 Continue simvastati n 10mg nightly Will get fasting lipids for follow-up Dizziness 370289329 R42 Resolved, asymptomat ic with bradycardi a. Atypical chest pain 1025 18571 R07.89 Resolved TDM 08/05/2019 : Negative stress test. Normal LV systolic function. LVEF 62%. Continue medical management and risk factor modificati on Swelling o f bilateral lower limbs 242478322 M79.89 Resolved Obtain echo to evaluate for structural /functiona l disease. Obstructiv e sleep apnea syndrome 22461941 G47.33 He is not regularly compliant with CPAP. [id number] Mohsen Baltazar MD [facility] [address] [place] [address] 02/28/2021 11:35:28 02/28/2021 13:07:10 Bradycardia 24912087 R00.1 Chronic bradycardi a, remains asymptomat ic. Benign ess ential hypertension 9160344 I10 Blood pressure is elevated today, but this is only one reading, will keep close follow up, and consider medication change if blood pressure is still elevated next visit. Dyslipidemia 610271275 E 78.5 Needs to keep LDL less than 70, and HDL more than 40. 03/11/2020 LDL 71 Continue simvastati n 10mg nightly Will get fasting lipids for follow-up Dizziness 019232878 R42 Resolved, asymptomat ic with bradycardi a. Atypical chest pain 1025 23862 R07.89 Resolved TDM 08/05/2019 : Negative stress test. Normal LV systolic function. LVEF 62%. Continue medical management and risk factor modificati on Swelling o f bilateral lower limbs 767366266 M79.89 Milds Obstructiv e sleep apnea syndrome 64932168 G47.33 He is not regularly compliant with CPAP. [address] [address] [address] [place] [address] 02/27/2022 10:28:11 02/27/2022 11:19:32 Bradycardia 25321723 R00.1 Chronic bradycardi a, remains asymptomat ic. Benign ess ential hypertension 1715087 I10 we will decreased his amlodipine to 5 mg dailyincre ased lisinopril to 20 mg daily Dyslipidemia 297173803 E 78.5 Needs to keep LDL less than 70, and HDL more than 40. 03/11/2020 LDL 71 Continue simvastati n 10mg nightly Will get fasting lipids for follow-up Dizziness 768211777 R42 Resolved, asymptomat ic with bradycardi a. Atypical chest pain 1025 39082 R07.89 Resolved TDM 08/05/2019 : Negative stress test. Normal LV systolic function. LVEF 62%. Continue medical management and risk factor modificati on Swelling o f bilateral lower limbs 599494194 M79.89 Milds Obstructiv e sleep apnea syndrome 38098352 G47.33 He is not regularly compliant with CPAP. Essential hypertension 45765262 I10 Now well controlled [id number] Mohsen Baltazar MD [facility] [address] [place] [address] 05/08/2022 11:23:20 05/08/2022 12:43:28 Bradycardia 77328184 R00.1 Chronic bradycardi a, remains asymptomat ic. Benign ess ential hypertension 2552491 I10 we will decreased his amlodipine to 5 mg dailyincre ased lisinopril to 20 mg daily Dyslipidemia 755304467 E 78.5 Needs to keep LDL less than 70, and HDL more than 40. 03/11/2020 LDL 71 Continue simvastati n 10mg nightly Will get fasting lipids for follow-up Dizziness 863904699 R42 Resolved, asymptomat ic with bradycardi a. Atypical chest pain 1025 13525 R07.89 Resolved TDM 08/05/2019 : Negative stress test. Normal LV systolic function. LVEF 62%. Continue medical management and risk factor modificati on Swelling o f bilateral lower limbs 034886591 M79.89 Mild, better Obstructiv e sleep apnea syndrome 98318356 G47.33 He is not regularly compliant with CPAP. Essential hypertension 89416804 I10 Now well controlled [id number] Mohsen Baltazar MD [facility] [address] [place] [address] 09/13/2022 10:50:35 09/13/2022 12:31:35 Bradycardia 53447016 R00.1 Chronic bradycardi a, now more symptomati c rate 36 junctional rhythmwill need a pacemaker, will send to ER and will arrange for a pacer Benign ess ential hypertension 6055057 I10 we will decreased his amlodipine to 5 mg dailyincre ased lisinopril to 20 mg daily Dyslipidemia 103556181 E 78.5 Needs to keep LDL less than 70, and HDL more than 40. 03/11/2020 LDL 71 Continue simvastati n 10mg nightly Will get fasting lipids for follow-up Dizziness 013660142 R42 Resolved, with bradycardi a.May need a pacerwill get MCT for one week Atypical chest pain 1025 78545 R07.89 Resolved TDM 08/05/2019 : Negative stress test. Normal LV systolic function. LVEF 62%. Continue medical management and risk factor modificati on Swelling o f bilateral lower limbs 071650038 M79.89 Mild, better Obstructiv e sleep apnea syndrome 11544289 G47.33 He is not regularly compliant with CPAP. Essential hypertension 44746768 I10 Now well controlled [id number] Mohsen Baltazar MD [facility] [address] [place] [address] 03/23/2023 12:17:31 03/23/2023 13:12:39 Bradycardia 50244110 R00.1 Chronic bradycardi a, now more symptomati c rate 36 junctional rhythm, now has pacemaker, will do the follow up here Benign ess ential hypertension 3546698 I10 Dyslipidemia 185925743 E 78.5 Needs to keep LDL less than 70, and HDL more than 40. 03/11/2020 LDL 71 Continue simvastati n 10mg nightly Will get fasting lipids for follow-up Swelling o f bilateral lower limbs 909946382 M79.89 Mild, better Obstructiv e sleep apnea syndrome 48192667 G47.33 He is not regularly compliant with CPAP. Cardiac pa cemmk in situ 070612411 Z95.0 follow up here [id number] [place] [facility] [address] [place] [address] 08/13/2023 11:01:12 08/13/2023 12:08:33 Bradycardia 74016573 R00.1 paroxysmal a fib, s/p pacemaker placement 2022 ( sotomayor) will do the follow up here Benign ess ential hypertension 0489990 I10 well controlled today Dyslipidemia 291732372 E 78.5 Needs to keep LDL less than 70, and HDL more than 40.*Last LDL was 58 done on 08/2023 Pt takes simvastati n 10 mg. Swelling o f bilateral lower limbs 653785816 M79.89 Mild, better Obstructiv e sleep apnea syndrome 08708476 G47.33 He is not regularly compliant with CPAP. Cardiac pa cemmk in situ 834760330 Z95.0 paroxysmal a fib, s/p pacemaker placement 2022 ( sotomayor)lexy l follow up with him herewill start on full aspirin 325 mg Atypical chest pain 1025 05122 R07.89 Treadmill Myoview Stress test, has high Gaylord Risk score. Has Known CAD, or CAD risk equivalent . To look for any ischemia. TDM 08/05/2019 : Negative stress test. Normal LV systolic function. LVEF 62%. Continue medical management and risk factor modificati on [id number] Mohsen Baltazar MD [facility] [address] [place] [address] 09/28/2023 12:58:42 09/28/2023 13:37:58 Bradycardia 79964318 R00.1 paroxysmal a fib, s/p pacemaker placement 2022 ( sotomayor) will do the follow up here Benign ess ential hypertension 2423699 I10 well controlled today Dyslipidemia 782283576 E 78.5 Needs to keep LDL less than 70, and HDL more than 40.*Last LDL was 58 done on 08/2023 Pt takes simvastati n 10 mg. Swelling o f bilateral lower limbs 936652944 M79.89 Mild, better Obstructiv e sleep apnea syndrome 56483398 G47.33 He is not regularly compliant with CPAP. Cardiac pa varinder in situ [id number] Z95.0 paroxysmal a fib, s/p pacemaker placement 2022 ( sotomayor)lexy zhu follow up with him hereyoel start on full aspirin 325 mg Coronary arteriosclerosis 05367033 I25.10 with positive stress test, The patient will be scheduled for left heart catheteriz ation, with coronary angiogram, and possible PTCA/Stent . The procedure was discussed with the patient, and risks, benefits, and alternativ e options were explained. The patient was given informatio n about heart catheteriz ation and interventi onal procedures . The patient agrees to proceed. [id number] Mohsen Baltazar MD [address] [address] 10/19/2023 13:30:00 10/19/2023 14:12:18 Bradycardia 56185527 R00.1 paroxysmal a fib, s/p pacemaker placement 2022 ( sotomayor) will do the follow up here Benign ess ential hypertension 2620597 I10 well controlled today Dyslipidemia 713459434 E 78.5 Needs to keep LDL less than 70, and HDL more than 40.*Last LDL was 58 done on 08/2023 Pt takes simvastati n 10 mg. Swelling o f bilateral lower limbs 196869107 M79.89 Mild, better Obstructiv e sleep apnea syndrome 28297318 G47.33 He is not regularly compliant with CPAP. Cardiac pa varinder in situ [id number] Z95.0 paroxysmal a fib, s/p pacemaker placement 2022 ( sotomayor)lexy zhu follow up with him herewimaria t start on full aspirin 325 mg Coronary arteriosclerosis 03191974 I25.10 Had a cath with RCA stenosis Health Concerns Section Related Observation LastModified by Organization Amos forrester LastModified Time None Recorded Concern Status LastModified by Organization Details LastModified Time None Recorded Advance Directives Directive None Recorded Payers Encounter Date Sequence Insurance Name Policy Number Policy Lara Covered Member ID Lara Member ID Guarantor Name 09/13/2022 1 [place] Gertrudis Alexander [id number] 3 Gertrudis Paulino Benjamin 09/13/2022 2 [id number] Gertrudis Paulino Benjamin [id number] Gertrudis Paulino Benjamin 03/23/2023 1 [place] Gertrudis Paulino Benjamin [id number] Gertrudis Paulino Benjamin 03/23/2023 2 [id number] Gertrudis Paulino Benjamin [id number] Gertrudis Jefferson Benjamin 08/13/2023 1 [place] Gertrudis Paulino Benjamin [id number] Gertrudis Paulino Benjamin 08/13/2023 2 [id number] Gertrudis Paulino Benjamin [id number] Gertrudis Paulino Benjamin 09/28/2023 1 [place] Gertrudis Paulino Benjamin [id number] Gertrudis Paulino Benjamin 09/28/2023 2 [id number] Gertrudis Paulino Benjamin [id number] Gertrudis Alexander 10/19/2023 1 [place] Gertrudis Paulino Benjamin [id number] 3 Gertrudis Paulino Benjamin 10/19/2023 2 [id number] Gertrudis Paulino Benjamin [id number] Gertrudis Alexander Notes Date Note Type Note Provider Name and Address Organization Details Recorded Time 09/13/2022 text/html 09/13/22CC : Car diac follow up , [id number] WM with history of benign essential hypertension, YUDITH paroxysmal a fib, dyslipidemia, bradycardia and dizziness presents for 6 month follow up. He was last seen in the clinic on 05/08/22, since then he had Dizziness last week, as he was on the phone, noted to have bradycardia, went to ER, now with heart rate of 36Denies chest pain.Denies shortness of breath at rest. Has mild dyspnea on exertion.No orthopnea. No PNDs.Denies heart palpitations.Denies dizziness. Denies syncope or near syncope.No ankle or leg edema.No major bleeding events.No reported side effects from medications. Taking medications as prescribed with no missed doses.Denies snoring, daytime somnolence and AM headache.*Last LDL was 87 done on 02/26/22.Pt takes simvastatin 10 mg. Previously: *Had ECHO on 03/28/22 showed LV chamber size is normal. There is normal global systolic function and contractility. 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 *Had negative stress test done in 08/05/19 with normal LV systolic function, EF 62% .The patient reports that he has been bradycardic his entire life, but continues to deny any dizziness or recent falls. Results from this visit, or from the past:03/11/20 TSH: 3.53393 LIPID: TC 179, TR 94, HDL 88, LDL CMP: NA 140, K 3.9, CL 101, CO2 32, GLU 95, BUN 25, CR 1.30, AST 33, ALT 20lipid panel, blood [id number] 06/18/2019 TR 78 CH 169 LDL 66 HDL 46TSH, serum or plasma [id number] 4.990 FT4 0.7406/18/2019 : WBC 4.9,RBC 4.14,HGB 14.0,HCT 41.3,PLT 107CMP, serum or plasma : Na 130,K 2.7,Cl 99,Co2 31,BUN 19,Creati 1.00,Glucose 79,Ca 8.7,AST 49,ALT 42, LIPID PANEL: Cholesterol 189,Triglycerides 78,HDL 66,LDL EKG: Sinus bradycardia. Otherwise within normal limits.07/17/2019 EKG: Sinus bradycardia otherwise within normal limitsEKG 04/18/18 ; sinus bradycardia P ; normal . QRS ;LVH age-corrected vectorial R in extremity leads =3.0 mV. inferior infarct. Q . 40 ms in aVF . WITH q IN III. Q/R .1/[address]-T ; normal.conclusion ; abnormal ECG .03/21/17 EKG: Sinus bradycardia with sinus arrhythmia 47 .06/21/2019 ECHO: LV chamber size is normal. LV systolic function is normal. The estimated left ventricle ejection fraction is 60- 65 % ( normal) 08/05/19 tdm stress test-Negative stress test. NML LV systolic function. LVEF 62% *Treadmill Nuclear Stress Test 03/28/17 : Negative stress test for ischemia. TDS. Normal LV systolic function. Artifact noted.Exercise toleranceis average. No previous study to compare. LVEF 62%.Holter monitor 03-28-2017 ; NSR and sinus bradycardia. 2 episodes of atrial fibrillation noted, which was paroxysmal, with rapid ventricular response of 114 bpm for 8 beats, longest run. Rare PVC's but not correlated with symptoms. Very frequent PAC's but not correlated with symptoms.*03/21/17 ECHO: LV chamber size is normal. There is mild concentric LV hypertrophy. There is normal global systolic function and contractility. The estimated left ventricular ejection fraction is 60-65%(normal). Normal left atrial pressure and diastolic function. The aortic valve is mildly calcified. There is mild aortic regurgitation. The mitral valve leaflet is mildly thickened. There is mild mitral regurgitation. There is mild tricuspid regurgitation. Estimated RVSP is 36 mmHg. Sinus bradycardia. Mohsen Baltazar MD [address] [place], [address], [facility] 09/13/2022 12:30:05 03/23/2023 text/html 03/23/23CC : Car diac follow up, dyspnea on [id number] WM with history of benign essential hypertension, YUDITH paroxysmal a fib, and dyslipidemia, presents for follow up after pacer adjustment. He was last seen in the clinic on 09/13/22, since then he has more HypertensionHe had a pacer, he feels Ok now Today reports:Denies chest pain.Denies shortness of breath at rest. Has mild dyspnea on exertion.No orthopnea. No PNDs.Denies heart palpitations.Denies dizziness. Denies syncope or near syncope.No ankle or leg edema.No major bleeding events.No reported side effects from medications. Taking medications as prescribed with no missed doses.Denies snoring, daytime somnolence and AM headache.*Last LDL was 87 done on 02/06/22.Pt takes simvastatin 10 mg. *Had ECHO on 03/28/22 showed LV chamber size is normal. There is normal global systolic function and contractility. 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 *Had negative stress test done in 08/05/19 with normal LV systolic function, EF 62% .The patient reports that he has been bradycardic his entire life, but continues to deny any dizziness or recent falls. Results from this visit, or from the past:03/11/20 TSH: 3.00205 LIPID: TC 179, TR 94, HDL 88, LDL CMP: NA 140, K 3.9, CL 101, CO2 32, GLU 95, BUN 25, CR 1.30, AST 33, ALT 20lipid panel, blood [id number] 06/18/2019 TR 78 CH 169 LDL 66 HDL 46TSH, serum or plasma [id number] 4.990 FT4 0.7406/18/2019 : WBC 4.9,RBC 4.14,HGB 14.0,HCT 41.3,PLT 107CMP, serum or plasma : Na 130,K 2.7,Cl 99,Co2 31,BUN 19,Creati 1.00,Glucose 79,Ca 8.7,AST 49,ALT 42, LIPID PANEL: Cholesterol 189,Triglycerides 78,HDL 66,LDL EKG: Sinus bradycardia. Otherwise within normal limits.07/17/2019 EKG: Sinus bradycardia otherwise within normal limitsEKG 04/18/18 ; sinus bradycardia P ; normal . QRS ;LVH age-corrected vectorial R in extremity leads =3.0 mV. inferior infarct. Q . 40 ms in aVF . WITH q IN III. Q/R .1/[address]-T ; normal.conclusion ; abnormal ECG .03/21/17 EKG: Sinus bradycardia with sinus arrhythmia 47 .06/21/2019 ECHO: LV chamber size is normal. LV systolic function is normal. The estimated left ventricle ejection fraction is 60- 65 % ( normal) 08/05/19 tdm stress test-Negative stress test. NML LV systolic function. LVEF 62% *Treadmill Nuclear Stress Test 03/28/17 : Negative stress test for ischemia. TDS. Normal LV systolic function. Artifact noted.Exercise toleranceis average. No previous study to compare. LVEF 62%.Holter monitor 03-28-2017 ; NSR and sinus bradycardia. 2 episodes of atrial fibrillation noted, which was paroxysmal, with rapid ventricular response of 114 bpm for 8 beats, longest run. Rare PVC's but not correlated with symptoms. Very frequent PAC's but not correlated with symptoms.*03/21/17 ECHO: LV chamber size is normal. There is mild concentric LV hypertrophy. There is normal global systolic function and contractility. The estimated left ventricular ejection fraction is 60-65%(normal). Normal left atrial pressure and diastolic function. The aortic valve is mildly calcified. There is mild aortic regurgitation. The mitral valve leaflet is mildly thickened. There is mild mitral regurgitation. There is mild tricuspid regurgitation. Estimated RVSP is 36 mmHg. Sinus bradycardia. Mohsen Baltazar MD [address] [place], [address], [facility] 03/23/2023 12:57:14 08/13/2023 text/html 08/13/23CC : Car diac follow up chest [id number] WM with history of benign essential hypertension, YUDITH paroxysmal a fib, s/p pacemaker placement 2022 ,( sotomayor) , prediabetes and dyslipidemia, presents for 2 month follow up. He was last seen in the clinic on 03/23/23, since then he is doing well accept for chest pain with exercise. He saw EP about 6 month and adjustment was done to his pacemaker setting that resoled his chest pain and now he is started to have chest pain again. *Last LDL was 58 done on 08/2023 Pt takes simvastatin 10 mg. He denies ER visits and hospitalizations since he was last seen. Today reports:pacemaker problems chest discomfortDenies chest pain.Denies shortness of breath at rest. Has mild dyspnea on exertion.No orthopnea. No PNDs.Denies heart palpitations.Denies dizziness. Denies syncope or near syncope.No ankle or leg edema.No major bleeding events.No reported side effects from medications. Taking medications as prescribed with no missed doses.Denies snoring, daytime somnolence and AM headache.*Last LDL was 87 done on 02/26/22.Pt takes simvastatin 10 mg. Previously: He was last seen in the clinic on 09/13/22, since then he has more HypertensionHe had a pacer, he feels Ok now *Had ECHO on 03/28/22 showed LV chamber size is normal. There is normal global systolic function and contrarily. 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 *Had negative stress test done in 08/05/19 with normal LV systolic function, EF 62% .The patient reports that he has been bradycardic his entire life, but continues to deny any dizziness or recent falls. Results from this visit, or from the past:03/11/20 TSH: 3.18390 LIPID: TC 179, TR 94, HDL 88, LDL CMP: NA 140, K 3.9, CL 101, CO2 32, GLU 95, BUN 25, CR 1.30, AST 33, ALT 20lipid panel, blood [id number] 06/18/2019 TR 78 CH 169 LDL 66 HDL 46TSH, serum or plasma [id number] 4.990 FT4 0.7406/18/2019 : WBC 4.9,RBC 4.14,HGB 14.0,HCT 41.3,PLT 107CMP, serum or plasma : Na 130,K 2.7,Cl 99,Co2 31,BUN 19,Creati 1.00,Glucose 79,Ca 8.7,AST 49,ALT 42, LIPID PANEL: Cholesterol 189,Triglycerides 78,HDL 66,LDL EKG: Sinus bradycardia. Otherwise within normal limits.07/17/2019 EKG: Sinus bradycardia otherwise within normal limitsEKG 04/18/18 ; sinus bradycardia P ; normal . QRS ;LVH age-corrected vectorial R in extremity leads =3.0 mV. inferior infarct. Q . 40 ms in aVF . WITH q IN III. Q/R .1/[address]-T ; normal.conclusion ; abnormal ECG .03/21/17 EKG: Sinus bradycardia with sinus arrhythmia 47 .06/21/2019 ECHO: LV chamber size is normal. LV systolic function is normal. The estimated left ventricle ejection fraction is 60- 65 % ( normal) 08/05/19 tdm stress test-Negative stress test. NML LV systolic function. LVEF 62% *Treadmill Nuclear Stress Test 03/28/17 : Negative stress test for ischemia. TDS. Normal LV systolic function. Artifact noted.Exercise toleranceis average. No previous study to compare. LVEF 62%.Holter monitor 03-28-2017 ; NSR and sinus bradycardia. 2 episodes of atrial fibrillation noted, which was paroxysmal, with rapid ventricular response of 114 bpm for 8 beats, longest run. Rare PVC's but not correlated with symptoms. Very frequent PAC's but not correlated with symptoms.*03/21/17 ECHO: LV chamber size is normal. There is mild concentric LV hypertrophy. There is normal global systolic function and contractility. The estimated left ventricular ejection fraction is 60-65%(normal). Normal left atrial pressure and diastolic function. The aortic valve is mildly calcified. There is mild aortic regurgitation. The mitral valve leaflet is mildly thickened. There is mild mitral regurgitation. There is mild tricuspid regurgitation. Estimated RVSP is 36 mmHg. Sinus bradycardia. [place] [place] [facility] 08/13/2023 11:54:36 09/28/2023 text/html 09/28/23CC : Car diac follow up, dyspnea on [id number] WM with history of benign essential hypertension, YUDITH paroxysmal a fib, s/p pacemaker placement 2022 ,( sotomayor) , prediabetes and dyslipidemia, presents for 1 month follow up. He was last seen in the clinic on 08/13/23, since then he feels ok , Had Positive stress test on 08/13/23 with Normal LV systolic function. Reversible defect consistent with ischemia in inferior area. Exercise tolerance: Below Average. LVEF: 48%.He denies ER visits and hospitalizations since he was last seen. Denies chest pain.Denies shortness of breath at rest. Has mild dyspnea on exertion.No orthopnea. No PNDs.Denies heart palpitations.Denies dizziness. Denies syncope or near syncope.No ankle or leg edema.No major bleeding events.No reported side effects from medications. Taking medications as prescribed with no missed doses.Denies snoring, daytime somnolence and AM headache.*Last LDL was 58 done on 08/2023 Pt takes simvastatin 10 mg. *Had Positive stress test on 08/13/23 with Normal LV systolic function. Reversible defect consistent with ischemia in inferior area. Exercise tolerance: Below Average. LVEF: 48%. Previously:He was last seen in the clinic on 09/13/22, since then he has more Hypertension He had a pacer, he feels Ok now *Had ECHO on 03/28/22 showed LV chamber size is normal. There is normal global systolic function and contrarily. 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 Results from this visit, or from the past:03/11/20 TSH: 3.86401 LIPID: TC 179, TR 94, HDL 88, LDL CMP: NA 140, K 3.9, CL 101, CO2 32, GLU 95, BUN 25, CR 1.30, AST 33, ALT 20lipid panel, blood [id number] 06/18/2019 TR 78 CH 169 LDL 66 HDL 46TSH, serum or plasma [id number] 4.990 FT4 0.7406/18/2019 : WBC 4.9,RBC 4.14,HGB 14.0,HCT 41.3,PLT 107CMP, serum or plasma : Na 130,K 2.7,Cl 99,Co2 31,BUN 19,Creati 1.00,Glucose 79,Ca 8.7,AST 49,ALT 42, LIPID PANEL: Cholesterol 189,Triglycerides 78,HDL 66,LDL EKG: Sinus bradycardia. Otherwise within normal limits.07/17/2019 EKG: Sinus bradycardia otherwise within normal limitsEKG 04/18/18 ; sinus bradycardia P ; normal . QRS ;LVH age-corrected vectorial R in extremity leads =3.0 mV. inferior infarct. Q . 40 ms in aVF . WITH q IN III. Q/R .1/[address]-T ; normal.conclusion ; abnormal ECG .03/21/17 EKG: Sinus bradycardia with sinus arrhythmia 47 .06/21/2019 ECHO: LV chamber size is normal. LV systolic function is normal. The estimated left ventricle ejection fraction is 60- 65 % ( normal) 08/05/19 tdm stress test-Negative stress test. NML LV systolic function. LVEF 62% *Treadmill Nuclear Stress Test 03/28/17 : Negative stress test for ischemia. TDS. Normal LV systolic function. Artifact noted.Exercise toleranceis average. No previous study to compare. LVEF 62%.Holter monitor 03-28-2017 ; NSR and sinus bradycardia. 2 episodes of atrial fibrillation noted, which was paroxysmal, with rapid ventricular response of 114 bpm for 8 beats, longest run. Rare PVC's but not correlated with symptoms. Very frequent PAC's but not correlated with symptoms.*03/21/17 ECHO: LV chamber size is normal. There is mild concentric LV hypertrophy. There is normal global systolic function and contractility. The estimated left ventricular ejection fraction is 60-65%(normal). Normal left atrial pressure and diastolic function. The aortic valve is mildly calcified. There is mild aortic regurgitation. The mitral valve leaflet is mildly thickened. There is mild mitral regurgitation. There is mild tricuspid regurgitation. Estimated RVSP is 36 mmHg. Sinus bradycardia. Mohsen Baltazar MD [address] [place], [address], [facility] 09/28/2023 13:34:23 10/19/2023 text/html 09/28/23CC : Car diac follow up, dyspnea on [id number] WM with history of benign essential hypertension, YUDITH paroxysmal a fib, s/p pacemaker placement 2022 ,( sotomayor) , prediabetes and dyslipidemia, presents for 1 month follow up. He was last seen in the clinic on 08/13/23, since then he feels ok , Had Positive stress test on 08/13/23 with Normal LV systolic function. Reversible defect consistent with ischemia in inferior area. Exercise tolerance: Below Average. LVEF: 48%. Had a cath with RCA severe stenosisHe denies ER visits and hospitalizations since he was last seen. Denies chest pain.Denies shortness of breath at rest. Has mild dyspnea on exertion.No orthopnea. No PNDs.Denies heart palpitations.Denies dizziness. Denies syncope or near syncope.No ankle or leg edema.No major bleeding events.No reported side effects from medications. Taking medications as prescribed with no missed doses.Denies snoring, daytime somnolence and AM headache.*Last LDL was 58 done on 08/2023 Pt takes simvastatin 10 mg. *Had Positive stress test on 08/13/23 with Normal LV systolic function. Reversible defect consistent with ischemia in inferior area. Exercise tolerance: Below Average. LVEF: 48%. Previously:He was last seen in the clinic on 09/13/22, since then he has more Hypertension He had a pacer, he feels Ok now *Had ECHO on 03/28/22 showed LV chamber size is normal. There is normal global systolic function and contrarily. 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 Results from this visit, or from the past:03/11/20 TSH: 3.63624 LIPID: TC 179, TR 94, HDL 88, LDL CMP: NA 140, K 3.9, CL 101, CO2 32, GLU 95, BUN 25, CR 1.30, AST 33, ALT 20lipid panel, blood [id number] 06/18/2019 TR 78 CH 169 LDL 66 HDL 46TSH, serum or plasma [id number] 4.990 FT4 0.7406/18/2019 : WBC 4.9,RBC 4.14,HGB 14.0,HCT 41.3,PLT 107CMP, serum or plasma : Na 130,K 2.7,Cl 99,Co2 31,BUN 19,Creati 1.00,Glucose 79,Ca 8.7,AST 49,ALT 42, LIPID PANEL: Cholesterol 189,Triglycerides 78,HDL 66,LDL EKG: Sinus bradycardia. Otherwise within normal limits.07/17/2019 EKG: Sinus bradycardia otherwise within normal limitsEKG 04/18/18 ; sinus bradycardia P ; normal . QRS ;LVH age-corrected vectorial R in extremity leads =3.0 mV. inferior infarct. Q . 40 ms in aVF . WITH q IN III. Q/R .1/[address]-T ; normal.conclusion ; abnormal ECG .03/21/17 EKG: Sinus bradycardia with sinus arrhythmia 47 .06/21/2019 ECHO: LV chamber size is normal. LV systolic function is normal. The estimated left ventricle ejection fraction is 60- 65 % ( normal) 08/05/19 tdm stress test-Negative stress test. NML LV systolic function. LVEF 62% *Treadmill Nuclear Stress Test 03/28/17 : Negative stress test for ischemia. TDS. Normal LV systolic function. Artifact noted.Exercise toleranceis average. No previous study to compare. LVEF 62%.Holter monitor 03-28-2017 ; NSR and sinus bradycardia. 2 episodes of atrial fibrillation noted, which was paroxysmal, with rapid ventricular response of 114 bpm for 8 beats, longest run. Rare PVC's but not correlated with symptoms. Very frequent PAC's but not correlated with symptoms.*03/21/17 ECHO: LV chamber size is normal. There is mild concentric LV hypertrophy. There is normal global systolic function and contractility. The estimated left ventricular ejection fraction is 60-65%(normal). Normal left atrial pressure and diastolic function. The aortic valve is mildly calcified. There is mild aortic regurgitation. The mitral valve leaflet is mildly thickened. There is mild mitral regurgitation. There is mild tricuspid regurgitation. Estimated RVSP is 36 mmHg. Sinus bradycardia. Mohsen Baltazar MD [address] [place], [address], [facility] 10/19/2023 14:11:49
[2024-06-30 16:15] LABS: Basophils Absolute Auto 0.1 K/mm3 (0.0-0.1); Basophils Percent Auto 1.2 % (0.2-1.2); Eosinophils Absolute Auto 0.2 K/mm3 (0-0.3); Eosinophils Percent Auto 2.5 % (0-4.4); Hemoglobin 14.6 g/dL (14.0-18.0); Immature Granulocyte Absolute 0.07 K/mm3 (0.00-0.031); Lymphocytes Absolute Auto 1.05 K/mm3 (0.9-3.2); Lymphocytes Percent Auto 15.5 % (18.3-44.2); Mean Corpuscular Hemoglobin 34.1 pg (26-34); Mean Corpuscular Volume 100.5 fl (80-100); Mean Platelet Volume 10.9 fl (7.4-10.4); Monocytes Absolute Auto 0.8 K/mm3 (0.1-0.6); Monocytes Percent Auto 11.8 % (2.6-8.5); Neutrophils Absolute Auto 4.6 K/mm3 (1.3-6.7); Platelet Count Result 228 k/mm3 (150-375); Red Blood Count 4.28 M/mm3 (4.6-6.20); Red Cell Distribution Width 12.8 % (11.5-14.5); White Blood Count 6.8 K/mm3 (4.5-10.0)
[2024-06-30 17:40] LABS: Hemoglobin A1C 5.5 % (<5.7)
[2024-06-30 19:10] LABS: Alanine Aminotransferase 23 U/L (6-50); Albumin Level 3.8 g/dL (3.5-5.1); Alkaline Phosphatase 91 U/L (38-126); Anion Gap 6 mmol/L (4-12); Aspartate Amino Transferase 31 U/L (17-59); Bilirubin,Total 0.9 mg/dL (0.2-1.3); Blood Urea Nitrogen 35 mg/dL (9-20); Carbon Dioxide 28 mmol/L (22-30); Chloride 105 mmol/L (98-107); Cholesterol 122 mg/dL (0-200); Estimated Glomerular Filt Rate 45; Glucose 93 mg/dL (65-110); HDL Direct 45 mg/dL; Potassium 4.1 mmol/L (3.4-5.0); Sodium 139 mmol/L (137-145); Triglycerides 111 mg/dL (<150)
[2024-06-30 19:20] LABS: LDL Cholesterol Direct 48 mg/dL
[2024-06-30 20:17] LABS: Vitamin B12 > 1000.0 pg/mL (239-931)
== END 2024-06-30 15:13 | disposition home or self-care (01) ==
LOC: ANHLAB 15:16
PROVIDERS: PCP Internal Medicine; Visit Provider Internal Medicine
DX: E78.5 Hyperlipidemia, unspecified (principal); I10 Essential (primary) hypertension; E03.9 Hypothyroidism, unspecified; R79.89 Other specified abnormal findings of blood chemistry; Z79.891 Long term (current) use of opiate analgesic
CPT/HCPCS: 36415; 80053; 80061; 82607; 83036; 84439; 84443; 85025

== ENCOUNTER 2024-10-21 13:39 | Outpatient (CLI) | payer MEDICARE, SELFPAY ==
--- OUTSIDE RECORDS SUMMARY | 2024-10-21 13:49 | XMS_ITS | Clinical Summary ---
Author Organization [facility] [place] Address [address] [address] [place] [address] Care Team Providers Care Distribution Lead Name Role Phone Merrick Good MD Primary Care Provider [phone] Allergies No known active allergies Medications amLODIPine (NORVASC) 10 mg tablet Take 1 Tablet by mouth daily. 09/11/19 24 Active cyanocobalamin (VITAMIN B-12) 2,500 mcg Tablet, Sublingual Place 2,500 mcg under tongue daily at bedtime. 08/12/19 24 Active Farxiga 10 mg Tablet Take 1 Tablet by mouth daily. 08/08/19 24 Active levothyroxine 50 mcg tablet Take 50 mcg by mouth daily in the morning. 07/23/19 24 Active pantoprazole (PROTONIX) 20 mg Tablet, Delayed Release (E.C.) Take 1 Tablet by mouth daily. 10/21/19 24 Active clopidogreL (PLAVIX) 75 mg Tablet Take 1 Tablet (75 mg) by mouth daily. 90 Tablet 3 11/08/19 24 Active nitroglycerin (NITROSTAT) 0.[address], [address] 1 Tablet (0.4 mg) under tongue every 5 minutes as needed for Chest Pain (Not to exceed 3 doses, notify physician if chest pain not relieved, hold if systolic BP less than or equal to 90 mmHg). 25 Tablet 1 11/07/19 24 Active Frank Chewable Aspirin 81 mg Tablet, Chewable TAKE 1 TABLET BY MOUTH EVERY DAY 90 Tablet 3 11/07/19 24 Active lisinopriL (PRINIVIL) 40 mg tabletIndications :Essential (primary) hypertension take 1 tablet by mouth every day 90 Tablet 2 01/27/20 24 Active atorvastatin (LIPITOR) 80 mg tabletIndications :Mixed hyperlipidemia Take 1 Tablet (80 mg) by mouth daily with supper. 90 Tablet 1 06/04/19 25 Active atorvastatin (LIPITOR) 40 mg tablet TAKE 1 TABLET BY MOUTH DAILY WITH SUPPER 90 Tablet 3 07/21/19 25 Active metoprolol tartrate (LOPRESSOR) 25 mg tablet TAKE 1/2 TABLET TWICE A DAY BY MOUTH 90 Tablet 1 09/25/19 25 Active metoprolol tartrate (LOPRESSOR) 25 mg tablet TAKE 0.5 TABLETS BY MOUTH 2 TIMES DAILY. 90 Tablet 1 01/02/20 24 025 Discontinued Active Problems Patient Care Coordination No te Formatting of this note migh t be different from the original. Linotyper- Mohsen Baltazar MD [place] Pt PCP- Merrick Good Problem Noted Date Diagnosed Date S/P angioplasty with stent 11/14/2023 Abnormal cardiovascular stress test 10/23/2023 Stable angina pectoris 10/23/2023 ROD (dyspnea on exertion) 10/23/2023 Coronary artery disease 10/23/2023 Mixed hyperlipidemia 10/23/2023 Encounters Date Type Department Care Team Description 10/20/2024 External Device Data STL ABSTRACTION Provider, Abstract 09/24/2024 Refill [facility] [address] [address] [address] [place] [address] Madi Cuellar MD 08/18/2024 4:30 PM CDT Procedure visit [facility] [address] [address] [address] [place] [address] SSS (sick sinus syndrome) (CMS/HCC) (Primary Dx); Pacemaker; Encounter for care of pacemaker from Last 3 Months Social History Tobacco Use Types Packs/Day Years Used Date Smoking Tobacco: Never Smokeless Tobacco: Never Tobacco Cessation:Counseling Given: Not Answered Alcohol Use Standard Drinks/Week Comments Yes 3 (1 standard drink = 0.6 oz pur e alcohol) Feeling Safe Answer Date Recorded Are you in a relationship wi th someone who hurts you emotionally and/or physically? No 11/06/2023 Food Insecurity Answer Date Recorded Patient needs follow up regardin 09/24/2024 Transportation Needs Answer Date Record ed Patient needs follow up regardin 09/24/2024 Housing Stability Answer Date Recorded Social/Environmental Concerns No concerns Utility Needs Answer Date Recorded Patient needs follow up regardin 09/24/2024 Sex and Gender Information Value Date Recorded Sex Assigned at Not on file Legal Sex Male 11:55 AM CDT Gender Identity Not on file Sexual Orientation Not on file Last Filed Vital Signs Vital Sign Reading Time Taken Comments Blood Pressure 120/74 05/13/2024 11:09 AM TRUCKMAN Pulse 60 05/13/2024 11:09 AM TRUCKMAN Temperature 36.8 C (98.2 F) 11/07/2023 7:00 AM CDT Respiratory Rate 16 11/14/2023 10:30 AM CDT Oxygen Saturation 95% 05/13/2024 11:09 AM TRUCKMAN Inhaled Oxygen Concentration - - Weight 79.8 kg (176 lb) 05/13/2024 11:09 AM TRUCKMAN Height 170.2 cm (5' 7 ) 05/13/2024 11:09 AM TRUCKMAN Body Mass Index 27.57 05/13/2024 11:09 AM TRUCKMAN Plan of Treatment Upcoming Encounters Date Type Department Care Team (Late st Contact Info) Description 11/23/2024 2:45 PM CDT Procedure visit [facility] [address] [address] [address] [facility] [place] [address] Health Maintenance Due Date Last Done Comments DTAP/TDAP/TD VACCINES (1 - Tdap) 06/04/2013 06/03/19 14 RSV VACCINE (60+ or ) (1 - 1-dose 75+ series) 2017 ZOSTER VACCINE (2 of 2) 01/27/2020 12/02/2019 COVID-19 Vaccine (2023-2 5 season) 2024 04/09/2024, 08/02/2023, 03/22/2022, Additional history exists PNEUMOCOCCAL VACCINE 50+ YEARS Completed 0 08/02/2023, 08/17/2022, 04/03/2017 INFLUENZA VACCINE Completed 04/09/2024, , 03/13/2022, Additional history exists Medical Devices Implanted Type Area Marine Cargo Inspector Device Identifier Shelf Expiration Date Model / Serial / Lot Closure Perclose Proglide [id number] - [id number] Implanted:Qt y: 1 on 11/06/2023 at [facility] Closure Device Right: Groin SARMIENTO- VASC DEVICE 06/02/2025 [id number] / / [id number] Pacemaker-Ab trinity Pacemaker SARMIENTO- VASC DEVICE [id number] / / Stent Sharif Hardeman Dread 3.0x38mm Rx [id number] - [id number] Implanted:Qt y: 1 on 11/06/2023 at [facility] Stent Right: Coronary [employer] 08/15/2026 [id number] / / [id number] [employer] Procedures Procedure Name Priority Date/Time Associated Diagnosis Comments OK REM INTERROG PM/LDLS PM/IDS <90 D TECH REVIEW Routine 08/18/2024 2:00 AM CDT SSS (sick sinus syndrome) (CMS/HCC) Pacemaker Encounter for care of pacemaker OK REM INTERROG PM/LDLS PM <90 D PHYS/QHP Routine 08/18/2024 2:00 AM CDT SSS (sick sinus syndrome) (CMS/HCC) Pacemaker Encounter for care of pacemaker from Last 3 Months Results * OK REM INTERROG PM/LDLS PM <90 D PHYS/QHP, OK REM INTERROG PM/LDLS PM/IDS <90 D TECH REVIEW (08/18/2024 2:00 AM CDT) 08/18/2024 2:00 AM CDT Narrative INTERFACE SYSTEM - 08/18/2024 12:50 PM CDT DEVICE: Sarmiento Assurity dual lead pacemaker implanted 09/14/22- Device functions as programmed. Pt presents AP VS at 50 bpm. Current atrial pacing 84% and ventricular pacing <1%. Lead measurements are stable with 8.5-9.0 years battery longevity. No atrial or ventricular high rate episodes are noted. Rate histograms reveal average rates of 50-90 bpm. Next device check in 3 months. Event labeling is subject to physician review. Procedure Note Provider, Historical - 08/18/2024 DEVICE: Sarmiento Assurity dual lead pacemaker implanted 09/14/22- Devicefunctions as programmed. Pt presents AP VS at 50 bpm. Current atrial pacing 84% and ventricular pacing<1%. Lead measurements are stable with 8.5-9.0 years battery longevity. No atrial or ventricular highrate episodes are noted. Rate histograms reveal average rates of 50-90 bpm. Next device check in 3months. Event labeling is subject to physician review. Mohsen Baltazar MD CARDIAC SERVICES ORDERABLES E dited Result - Final INTERFACE SYSTEM Refer to clinic/hospital department from Last 3 Months Insurance [facility] MEDICARE PART A AND B Advance Directives For more information, please contact: [phone] * Full Code (Latest Code Status on File) Date Activated Date Inactivated Comments 11/06/2023 5:58 AM 11/07/2023 2:17 PM * Full Code Date Activated Date Inactivated Comments 10/10/2023 8:51 AM 10/10/2023 5:21 PM Care Teams Distribution Lead Relationship Specialty Start Date End Date Merrick Good MD [address] [place] [address] PCP - General Internal Medicine 10/04/23
--- OUTSIDE RECORDS SUMMARY | 2024-10-21 13:49 | XMS_ITS | Clinical Summary ---
Author Organization [facility] Address [address] [place] [address] Care Team Providers Care Postpartum Rn Name Role Phone Merrick Good MD Primary Care Provider [phone] Mohsen Baltazar MD Unavailable [phone] Allergies No known active allergies Medications [...] (40 mg total) by mouth daily Active sodium chloride 5 % ophthalmic ointmentIndicat ions:Corneal Edema Apply 1/2 inch into both eyes before bed. 3.5 g 11 07/09/2024 Active Active Problems Problem Noted Date Diagnosed Date Early dry stage nonexudative age-related macular degeneration of both eyes 07/09/2024 Assessment & Plan (07/09/2024 3:00 PM NUCLEAR MEDICINE TECHNICIAN): -very mild OS>OD without exudation -ed pt on findings -baseline OCT mac taken today and reviewed with pt -recommend UV protection, continued smoking cessation, and healthy diet -follow 6 months OCT mac Diplopia 07/09/2024 Assessment & Plan (07/09/2024 2:59 PM NUCLEAR MEDICINE TECHNICIAN): RHypo and small XT -pt reports longstanding; presented today with 2.5BU OD -noticing small deviation oblique diplopia with glasses on -deviation neutralized with 3.5BU and 2BI OD -will increase prism to 3.5BU OD and add in 1BI OS -RTC if diplopia worsens Fuchs' corneal dystrophy of both eyes 07/09/2024 Assessment & Plan (07/09/2024 3:00 PM NUCLEAR MEDICINE TECHNICIAN): -may be contributing to blurred vision in AM and also monocular diplopia -recommend moriah-128 keke qhs OU -follow Mass of right elbow 05/06/2023 Pacemaker 03/22/2023 Sinus node dysfunction 09/13/2022 Overview (09/13/2022): Added automatically from request for surgery [id number] Assessment & Plan (09/14/2022 7:49 AM CDT): [...] sinus syndrome, as above will need pacemaker Surgical History Surgery Date Site/Laterality Comments STAPEDECTOMY [...] any clubs o r organizations such as alevism groups, unions, fraternal or athletic groups, or [...] place to sleep or slept in a [place] facility (including now)? No 09/14/2022 Personal Safety Answer Date Recorded Have you ever been in or are you currently in a harmful physical or emotional relationship or is someone making you feel afraid or unsafe? Denies 09/14/2022 Sex and Gender Information Value Date Recorded Sex Assigned at Not on file Legal Sex Male 2:34 PM CDT Gender Identity Male 04/20/2021 8:28 PM NUCLEAR MEDICINE TECHNICIAN Sexual Orientation Straight 04/20/2021 8: 28 PM NUCLEAR MEDICINE TECHNICIAN Obstetrics History Last Filed Vital Signs Vital Sign Reading Time Taken Comments Blood Pressure 150/68 03/22/2023 1:02 PM CDT Pulse 55 03/22/2023 1:02 PM CDT Temperature 36.7 C (98 F) 09/15/2022 11:09 AM CDT Respiratory Rate 18 09/15/2022 11:09 AM CDT Oxygen Saturation 96% 03/22/2023 1:02 PM CDT Inhaled Oxygen Concentration - - Weight 79.8 kg (176 lb) 05/06/2024 10:15 AM NUCLEAR MEDICINE TECHNICIAN Height 167.6 cm (5' 5.98 ) 03/22/2023 1:02 PM CD T Body Mass Index 28.42 03/22/2023 1:02 PM CDT Plan of Treatment Health Maintenance Due Date Last Done Comments Depression Screening 1940 Hepatitis B Screening 02/24/1958 Well Visit 65+ 2007 DTaP/Tdap/Td Vaccine (1 - Tdap) 06/04/2013 4 Fall Risk Assessment 09/16/2023 09/15/2022 Covid-19 Vaccine (4 - 2023-2 5 season) 2024 03/21/2021, 08/24/2020, 08/24/2020, Additional history exists Pneumococcal vaccine 65+ Completed 03/20/2018, 06/2016 Zoster Vaccine Completed 12/02/2019, 06/18/2019 Influenza Vaccine Completed 04/30/2024, , 03/17/2021, Additional history exists Medical Devices Implanted Type Area Veterans Services Specialist Device Identifier Shelf Expiration Date Model / Serial / Lot [employer] Tendril Sts 6fr 58cm Is-1 Connector Active Fixation Bipolar Soft 2087tc/58 - [id number] - [id number] Implanted:Qty: 1 on 09/14/2022 by Som Whipple MD at [facility] Lead [employer] [id number] 05/02/2025 2088TC/58 / [id number] / [employer] Tendril Sts 6fr 52cm Is-1 Connector Active Fixation Bipolar Soft /52 - [id number] - [id number] Implanted:Qty: 1 on 09/14/2022 by Som Whipple MD at [facility] Lead [employer] [id number] 07/31/2025 2088TC/52 / [id number] / [employer] Assurity Mri [id number] 2 Chamber Is-1 Connector Thk6mm Pacemaker [id number] - [id number] - [id number] Implanted:Qty: 1 on 09/14/2022 by Som Whipple MD at [facility] Pacemaker [employer] [id number] 01/01/2024 [id number] / [id number] / Insurance MEDICARE [employer] TRADITIONAL OOS MEDICARE [employer] TRADITIONAL OOS MEDICARE [employer] TRADITIONAL OOS Advance Directives For more information, please contact: [phone] * Full Code (Latest Code Status on File) Date Activated Date Inactivated Comments 09/13/2022 3:07 PM 09/15/2022 6:06 PM Care Teams Postpartum Rn Relationship Specialty Start Date End Date Merrick Good MD [address] [place] [address] PCP - General Internal Medicine 03/14/18 Mohsen Baltazar MD [address] [place] [address] Consulting Physician Cardiovascular Disease 09/15/22
--- OUTSIDE RECORDS SUMMARY | 2024-10-21 13:49 | XMS_ITS | Referral Summary ---
Author Organization [facility] Address [address] [place] [address] Care Team Providers Care Therapeutic Case Manager Name Role Phone Merrick Good MD Primary Care Provider [phone] Mohsen Baltazar MD Unavailable [phone] Allergies No known active allergies Medications [...] 07/09/2024 Assessment & Plan (07/09/2024 3:00 PM FIRE CONTROL TECHNICIAN G): -very mild OS>OD without exudation -ed pt on findings -baseline OCT mac taken today and reviewed with pt -recommend UV protection, continued smoking cessation, and healthy diet -follow 6 months OCT mac Diplopia 07/09/2024 Assessment & Plan (07/09/2024 2:59 PM FIRE CONTROL TECHNICIAN G): RHypo and small XT -pt reports longstanding; presented today with 2.5BU OD -noticing small deviation oblique diplopia with glasses on -deviation neutralized with 3.5BU and 2BI OD -will increase prism to 3.5BU OD and add in 1BI OS -RTC if diplopia worsens Fuchs' corneal dystrophy of both eyes 07/09/2024 Assessment & Plan (07/09/2024 3:00 PM FIRE CONTROL TECHNICIAN G): -may be contributing to blurred vision in AM and also monocular diplopia -recommend moriah-128 keke qhs OU -follow Mass of right elbow 05/06/2023 Pacemaker 03/22/2023 Sinus node dysfunction 09/13/2022 Overview (09/13/2022): Added automatically from request for surgery [id number] Assessment & Plan (09/14/2022 7:49 AM CDT): [...] often do you attend chur ch or adventist services? Never 09/14/2022 Do you belong to any clubs o r organizations such as yarsanism groups, unions, fraternal or athletic groups, or [...] to sleep or slept in a senior care (including now)? No 09/14/2022 Personal Safety Answer Date Recorded Have you ever been in or are you currently in a harmful physical or emotional relationship or is someone making you feel afraid or unsafe? Denies 09/14/2022 Sex and Gender Information Value Date Recorded Sex Assigned at Not on file Legal Sex Male 2:34 PM CDT Gender Identity Male 04/20/2021 8:28 PM FIRE CONTROL TECHNICIAN G Sexual Orientation Straight 04/20/2021 8: 28 PM FIRE CONTROL TECHNICIAN G Last Filed Vital Signs Vital Sign Reading Time Taken Comments Blood Pressure 150/68 03/22/2023 1:02 PM CDT Pulse 55 03/22/2023 1:02 PM CDT Temperature 36.7 C (98 F) 09/15/2022 11:09 AM CDT Respiratory Rate 18 09/15/2022 11:09 AM CDT Oxygen Saturation 96% 03/22/2023 1:02 PM CDT Inhaled Oxygen Concentration - - Weight 79.8 kg (176 lb) 05/06/2024 10:15 AM FIRE CONTROL TECHNICIAN G Height 167.6 cm (5' 5.98 ) 03/22/2023 1:02 PM CD T Body Mass Index 28.42 03/22/2023 1:02 PM CDT Plan of Treatment Not on file Medical Devices Implanted Type Area Bone Process Operator Device Identifier Shelf Expiration Date Model / Serial / Lot [employer] Tendril Sts 6fr 58cm Is-1 Connector Active Fixation Bipolar Soft 2087tc/58 - [id number] - [id number] Implanted:Qty: 1 on 09/14/2022 by Som Whipple MD at [facility] Lead [employer] [id number] 05/02/2025 2088TC/58 / [id number] / [employer] Tendril Sts 6fr 52cm Is-1 Connector Active Fixation Bipolar Soft /52 - [id number] - [id number] Implanted:Qty: 1 on 09/14/2022 by Som Whipple MD at [facility] Lead [employer] [id number] 07/31/2025 2088TC/52 / [id number] / [employer] Assurity Mri [id number] 2 Chamber Is-1 Connector Thk6mm Pacemaker [id number] - [id number] - [id number] Implanted:Qty: 1 on 09/14/2022 by Som Whipple MD at [facility] Pacemaker [employer] [id number] 01/01/2024 [id number] / [id number] / [place] [address] MEDICARE Member Subscriber Plan / Payer (Ef fective 2007-Present) Name:Gertrudis Alexander Member ID:[id number] Relation to Subscriber:Self Name:Gertrudis Alexander Subscriber ID:[id number] Payer ID:[id number] Group ID:Not on file Type:MEDICARE TRADITIONAL Address: [address] [address] [facility] MEDICARE Member Subscriber Plan / Payer (Ef fective 2007-Present) Name:Gertrudis Alexander Member ID:[id number] Relation to Subscriber:Self Name:Gertrudis Alexander Subscriber ID:[id number] Payer ID:[id number] Group ID:Not on file Type:MEDICARE TRADITIONAL Address: [address] [address] [employer] TRADITIONAL OOS MEDICARE [employer]AD[employer]AL [employer] Advance Directives For more information, please contact: [phone] * Full Code (Latest Code Status on File) Date Activated Date Inactivated Comments 09/13/2022 3:07 PM 09/15/2022 6:06 PM Care Teams Therapeutic Case Manager Relationship Specialty Start Date End Date Merrick Good MD [address] [facility] [address] [place] [address] PCP - General Internal Medicine 03/14/18 Mohsen Baltazar MD [address] [facility] [address] [place] [address] Consulting Physician Cardiovascular Disease 09/15/22
--- OUTSIDE RECORDS SUMMARY | 2024-10-21 13:49 | XMS_ITS | Continuity of Care Document ---
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 Studies ordered as below. Discussed plan with patient/careg iver, who expressed understanding . Follow up as noted below. [email or web address] Not available 10/21/2024 12:29:14 Plan of Treatment Reminders Order Date Submit Date Provider Last Modified By Organization Details Last Modified Time Details Appointments ESTABLISH ED PATIENT 15 2024 11:30A M Lobo Good MD Not available Not available Not available ESTABLISH ED PATIENT 15 2024 10:45A M Lobo Good MD Not available Not available Not available Lab CBC w/ auto diff 2024 025 [facility] (Lab), [address] [place] [address], [phone], 10/21/2024 12:59:36 HbA1c (hemoglob in A1c), blood 2024 025 [facility] (Lab), [address] [place] [address], [phone], 10/21/2024 12:59:36 TSH, serum or plasma 2024 025 [facility] (Lab), [address] [place] [address], [phone], 10/21/2024 12:59:36 vitamin B12, serum [address] [place] [address] (Lab), [address] [place] [address], [phone], 10/21/2024 12:59:36 PTH (parathyr oid hormone), intact, serum or plasma [address] [place] [address] (Lab), [address] [place] [address], [phone], 10/21/2024 12:59:36 phosphoru s, serum or plasma [address] [place] [address] (Lab), [address] [place] [address], [phone], 10/21/2024 12:59:36 uric acid, serum or plasma [address] [place] [address] (Lab), [address] [place] [address], [phone], 10/21/2024 12:59:36 Referral None recorded. Procedures None recorded. Surgeries None recorded. Imaging None recorded. Medication Orders Jardiance 10 mg tablet [address] [place] [address]/Pharm[facility] #[id number], [address] [place], [address], 10/21/2024 12:58:28 Patient TargetsNo targets recorded. Patient Instructions Encounter Date Encounter Id Patient Instructions Last Modified By Organization Details Last Modified Time 10/21/2024 [id number] high cholesterol : care instructions [email or web address] Not available 10/21/2024 12:58:26 hearing loss: care instructions mshenouda Not available 10/21/2024 12:58:26 learning about healthy weight mshenouda Not available 10/21/2024 12:58:26 hypothyroidism: care instructions mshenouda Not available 10/21/2024 12:58:26 chronic kidney disease: care instructions mshenouda Not available 10/21/2024 12:58:26 learning about chronic kidney disease mshenouda Not available 10/21/2024 12:58:26 Reason for Referral None Reported. Problems Name Problem SNOMED Code Status Onset Date Resolution Date Notes Provider Name and Address Organization Details Recorded Time Long-term drug therapy Active 2024 Lobo Good MD [address] [facility] [address], [place], [address] , [facility] - [facility] 5 12:35:11 Benign hypertensi on 20607284 Active 2016 Not Available [facility] 3 10:38:17 Hyperlipid emia 35353952 Active 2016 Not Available [facility] 3 10:38:17 Aortic valve regurgitat ion 48598957 Active 2017 Not Available [facility] 3 10:38:17 Hypothyroi dism 41820569 Active 2017 Not Available [facility] 3 10:38:17 Unilateral hearing loss Active 2017 Not Available [facility] 3 10:38:17 Bradycardi a 84451556 Active 2018 Not Available [facility] 3 10:38:17 Body mass index 25-29 - overweight 199233161 Active 2018 Not Available [facility] 3 10:38:17 Primary erectile dysfunctio n 810897728 Active 2019 Not Available [facility] 3 10:38:17 Cholelithi asis with obstructio n 57358361 Active 2019 Not Available [facility] 3 10:38:17 Obstructiv e sleep apnea of adult 7638437119098 Active 2020 Not Available [facility] 3 10:38:17 Hearing loss 46983224 Active 2020 Not Available [facility] 3 10:38:17 Edema of lower extremity 790000320 Active 2021 Not Available [facility] 3 10:38:17 Serum creatinine above reference range 999990494 Active 2021 Not Available [facility] 3 10:38:17 Gastroesop hageal reflux disease without esophagiti s 861519260 Active 2022 Not Available [facility] 3 10:38:17 Chronic renal failure 02460606 Active 2022 Lobo Good MD [address], [place], [address] , [facility] 3 16:20:34 Sinus bradycardi a 61175685 Active 2022 Lobo Good MD [address], [place], [address] , [facility] 3 11:38:46 Hydronephr osis 42004256 Active 2022 Lobo Good MD [address], [place], [address] , [facility] 3 18:14:49 Cardiac pacemaker in situ 969917958 Active 2022 Lobo Good MD [address], [place], [address] , [facility] 3 12:31:14 Peripheral vascular disease 225924260 Active 2022 on NINA Lobo Good MD [address], [place], [address] , [facility] 3 21:39:53 Arthritis of hand 613653835 Active 2023 Lobo Good MD [address], [place], [address] , [facility] 4 12:21:58 Serum vitamin B12 below reference range 389337993 Active 2023 Lobo Good MD [address], [place], [address] , [facility] 4 16:15:16 Coronary arterioscl erosis 74633519 Active 2023 Lobo Good MD [address], [place], [address] , [facility] 4 12:02:07 Bilateral hearing loss 74586714 Active 2023 Lobo Good MD [address], [place], [address] , [facility] 4 12:10:32 Problem Notes None recorded. Procedures Surgical History Date Name Laterality Status Provider Name and Address Organization Details Recorded Time 7 Colonoscopy completed Jennifer Dudley [facility] 06/24/2017 09:51:48 Cataract Surgery completed Lobo Good MD [address], [place], [address], [facility] 12/20/2016 15:49:48 Other completed Lobo Good MD [address], [place], [address], [facility] 12/20/2016 15:50:16 Imaging Results None recorded. Procedure [...] 1 TABLET BY MOUTH DAILY WITH SUPPER active Not Available Not Available No t Available atorvastati n 80 mg tablet TAKE [...] Not Available Not Available No t Available Amy 128 5 % eye ointment APPLY 1/2 INCH INTO BOTH EYES BEFORE BED. active Not Available Not Available No t [...] pantoprazol e 20 mg tablet,kinza yed release TAKE 1 TABLET EVERY DAY BY ORAL ROUTE IN THE MORNING. active Not Available Not Available No t [...] BY MOUTH EVERY DAY IN THE MORNING 2024 active Not Available Not Available Not Avai lable cephalexin 500 mg capsule TAKE ONE CAPSULE [...] Available No t Available aspirin 81 mg chewable tablet CHEW [...] Available metoprolol tartrate 25 mg tablet TAKE 1/2 TABLET TWICE A DAY BY MOUTH active Not Available Not Available No t Available Mucinex DM 30 mg-600 mg tablet,exte nded release 12 hr Take 1 tablet every 12 hours by oral route. 06/25 completed Not Available Not Available Not Available diclofenac 1 % topical gel APPLY 2 GRAMS TO THE AFFECTED AREA(S) BY TOPICAL ROUTE 4 TIMES PER DAY active Not Available Not Available No t Available dapaglifloz in propanediol 10 mg tablet TAKE 1 TABLET BY MOUTH EVERY DAY active Not Available Not Available No t Available Jardiance 10 mg tablet Take 1 tablet every day [...] mg-100 mg tablets in a dose pack (Moderate Renal Dose) TAKE PER PACKAGES DIRECTION S TWICE DAILY FOR 5 DAYS 06/17 completed Not Available Not Available Not Available Vitals Date Recorded Body height Body mass index (BMI) Body weight Body temperature Respiratory rate Heart rate Provider Name and Address Organization Details Last Updated DateTime 5 167.64 cm 28.7 kg/m2 03625.4 4 g 97.8 [degF] 16 /min 71 /min Veronica Kerr [facility] 5 12:33:25 Date Recorded Systolic blood pressure Diastolic blood pressure Provider Name and Address Organization Details Last Updated DateTime 10/21/2024 134 mm[Hg] 78 mm[Hg] Lobo Good MD [address], [place], [address], [facility] 10/21/2024 12:46:49 Social History Question Answer Notes LastModified by Organizat ion Details LastModified Time Tobacco Smoking Status Former Smoker quit 1960' Lobo Good MD [address], [place], [address], [facility] 12/20/2016 15:49:04 Do You Have An Advance Directive? No [email or web address] Information not available 04/18/2023 Which Illicit Or Recreational Drugs Have You Used? No Information not available 12/20/2016 Are There Any Guns Present In Your Home? No [email or web address] Information not available 04/18/2023 Live Alone Or With Others? With Others With Wei Information not available 04/18/2023 Marital Status Single [email or web address] Informatio n not available 04/18/2023 What Was The Date Of Your Most Recent Tobacco Screening? 10/09/2018 [email or web address] Information not available 04/18/2023 Performs Monthly Self-breast Exam? No [email or web address] Information not available 04/18/2023 Seat Belts Used Routinely Yes [email or web address] Information not available 04/18/2023 Smoke Alarm In Home Yes [email or web address] Information not available 04/18/2023 Do You Use Sunscreen Routinely? No Information not available 04/18/2023 Have You Used IV Drugs? No [email or web address] Information not available 04/18/2023 Sex: Unknown Functional Status Question Answer Note LastModified by Organizat ion Details LastModified Time What is your level of alcohol consumption? Occasional Information not available 12/20/2016 Are you currently employed? Yes [email or web address] Information not available 04/18/2023 Are you able to care for yourself? Yes [email or web address] Information not available 04/18/2023 Mental Status None recorded. Family [...] virus, quadrivalent, preservative 8 completed Not Available [facility] 05/07/2023 06:56:02 Influenza, split virus, quadrivalent, preservative 9 completed Not Available [facility] 05/07/2023 06:56:03 Influenza, split virus, quadrivalent, preservative 0 completed Not Available [facility] 05/07/2023 06:56:03 zoster recombinant 0 completed Not Available [facility] 05/07/2023 06:56:03 COVID-19 vaccine, vector-nr, rS-Ad26, PF, 0.5 mL 1 completed Not Available [facility] 05/07/2023 06:56:03 COVID-19 vaccine, vector-nr, rS-Ad26, PF, 0.5 mL 1 completed Not Available [facility] 05/07/2023 06:56:03 COVID-19, mRNA, LNP-S, PF, 30 mcg/0.3 mL dose 1 completed Not Available [facility] 05/07/2023 06:56:03 Influenza, split virus, quadrivalent, preservative 1 completed Not Available [facility] 05/07/2023 06:56:03 COVID-19, mRNA, LNP-S, PF, 30 mcg/0.3 mL dose, dante-sucrose 2 completed Not Available [facility] 05/07/2023 06:56:03 Influenza, high-dose, quadrivalent, PF 2 completed Not Available [facility] 05/07/2023 06:56:03 COVID-19, mRNA, LNP-S, bivalent, PF, 30 mcg/0.3 mL dose 2 completed Not Available [facility] 05/07/2023 06:56:03 Pneumococcal conjugate PCV20, polysaccharide [id number] conjugate, adjuvant, PF 3 completed Not Available [facility] 05/07/2023 06:56:03 Influenza, adjuvanted, quadrivalent, PF 4 completed Lobo Good MD [address] [facility] [address], [place], [address], [facility] 04/11/2024 17:35:13 Pneumococcal conjugate PCV20, polysaccharide [id number] conjugate, adjuvant, PF 4 completed Lobo Good MD [address] [facility] [address], [place], [address], [facility] 08/04/2023 12:08:41 COVID-19, mRNA, LNP-S, PF, dante-sucrose, 30 mcg/0.3 mL 4 completed Lobo Good MD [address], [place], [address], [facility] 04/11/2024 17:35:13 RSV, recombinant, protein subunit RSVpreF, adjuvant reconstituted, 0.5 mL, PF 4 completed Lobo Good MD [address], [place], [address], [facility] 09/30/2023 09:59:33 COVID-19, mRNA, LNP-S, PF, dante-sucrose, 30 mcg/0.3 mL 4 completed Lobo Good MD [address], [place], [address], [facility] 04/11/2024 17:35:13 Influenza, high-dose, trivalent, PF 4 completed Lobo Good MD [address], [place], [address], [facility] 04/11/2024 17:35:13 Influenza, split virus, trivalent, preservative 7 completed Not Available [facility] 05/07/2023 06:56:03 Td(adult) unspecified formulation 4 completed Not Available [facility] 05/07/2023 06:56:03 Pneumococcal conjugate PCV 13 7 completed Not Available [facility] 05/07/2023 06:56:03 Past Encounters Encounter ID Performer Location Encounter Start Date Encounter Closed Date Diagnosis/Indication Diagnosis SNOMED-CT Code Diagnosis ICD10 Code Diagnosis Note [id number] Lobo Good MD [facility], [facility] [address] [place] [address] 10/21/2024 12:26:25 10/21/2024 13:02:15 Benign hypertension 09048303 I10 last optometry eval 07/2024on the high side todayBP 2-3 weekslast EKG 08/05/23 Long-term drug therapy 340624270 Z79.891 statin , last A1c 06/30/24 Coronary arteriosclerosis 99245145 I25.10 had cath @ [facility] started plavix Hyperlipidemia 18806951 E78.5 last LDL 10/21/24 Hypothyroidism 96382074 E03.9 last TSH 12/12/23 Body mass index 25-29 - overweight 821739383 Z68.26 educationd iet and exercise Serum harry min B12 below reference range 822267401 R79.89 12/12/23 Hearing loss 83621196 H9 1.90 seen ENT Hydronephrosis 00648783 N13.30 Rt on US 09/21/22see n urology 10/17/22hav ing another US 03/10/24 Chronic renal failure 90 176841 N18.9 Obstructiv e sleep apnea of adult 8688120148 103 G47.33 educations tarted CPAP when he get it Screening for malignant neoplasm of colon 609338597 Z12.11 last C scope 05/10/2022 , no polyp Immunization due 1726360 08 Z23 up to date , Health Concerns Section Related Observation LastModified by Organization Detai ls LastModified Time None Recorded Concern Status LastModified by Organization Details LastModified Time None Recorded Payers Encounter Date Sequence Insurance Name Policy Number Policy Lara Covered Member ID Lara Member ID Guarantor Name 10/21/2024 2 [place] ANNIE DUONG ([place]) [id number] Gertrudis Alexander [id number] Gertrudis Alexander 10/21/2024 1 [place] Gertrudis Alexander [id number] Gertrudis Alexander Notes Date Note Type Note Provider Name and Address Organization Details Recorded Time 10/21/2024 text/html Hypertension F/UReported bypatient.Medications: taking medications as directed; no side effects from medication Lifestyle:regular exercise; limiting/avoiding salt; compliant with low salt diet Associated Symptoms:no dizziness; no lightheadedness; no chest pain; no shortness of breath; no palpitations; no edema; no calf pain with exertion; no headacheMedicare Annual Wellness VisitReported bypatient.Falls Risk Assessment:no frequent falls while walking; no fall in the past year; no fall since last visit; no dizziness/vertigo Lobo Good MD [address] [facility] [address], [place], [address], [facility] - [facility] 10/21/2024 12:59:00
--- OUTSIDE RECORDS SUMMARY | 2024-10-21 13:49 | XMS_ITS | Data Portability ---
Author Organization [facility], [employer] Address [address] [address] Care Team Providers Care Information Resources Manager Name Role Phone ANTONY, MOMYLADAWIT Primary Care Provider Assessment Encounter Date Assessment Date Assessment LastModified by Organization Details LastModified Time 08/05/2023 08/05/2023 Patient presented for follow up. [...] as noted below. Not available 06/30/2024 12:09:20 10/21/2024 10/21/2024 Patient presented for follow up. Studies ordered as below. Discussed plan with patient/careg iver, who expressed understanding . Follow up as noted below. Not available 10/21/2024 12:29:14 Plan of Treatment Reminders Order Date Submit Date Provider Last Modified By Organization Details Last Modified Time Details Appointments ESTABLISH ED PATIENT 15 2024 11:30A M Merrick Good MD Not available Not available Not available ESTABLISH ED PATIENT 15 2024 10:45A M Merrick Good MD Not available Not available Not available Lab CBC w/ auto diff 2024 025 [facility] (Lab), [address] [place] [address], [address], 10/21/2024 12:59:36 HbA1c (hemoglob in A1c), blood 2024 025 [facility] (Lab), [address] [place] [address], [address], 10/21/2024 12:59:36 TSH, serum or plasma 2024 025 [facility] (Lab), [address] [place] [address], [address], 10/21/2024 12:59:36 vitamin B12, serum 2024 025 [facility] (Lab), [address] [place] [address], [address], 10/21/2024 12:59:36 PTH (parathyr oid hormone), intact, serum or plasma 2024 025 [facility] (Lab), [address] [place] [address], [address], 10/21/2024 12:59:36 phosphoru s, serum or plasma 2024 025 [facility] (Lab), [address] [place] [address], [address], 10/21/2024 12:59:36 uric acid, serum or plasma 2024 025 [facility] (Lab), [address] [place] [address], [address], 10/21/2024 12:59:36 CBC w/ auto diff 2024 025 [facility] (Lab), [address] [place] [address], [address], 07/01/2024 12:40:50 CMP, serum or plasma 2024 025 [facility] (Lab), [address] [place] [address], [address], 07/01/2024 08:06:31 hemoglobi n A1c, QN, blood 2024 025 [facility] (Lab), [address] [place] [address], [address], 07/01/2024 08:08:28 lipid panel w/ direct LDL, serum 2024 025 [facility] (Lab), [address] [place] [address], [address], 07/01/2024 22:36:21 TSH + free T4, serum 2024 025 [facility] (Lab), [address] [place] [address], [address], 07/01/2024 22:36:21 vitamin B12, serum 2024 025 [facility] (Lab), [address] [place] [address], [address], 07/01/2024 22:36:21 CMP, serum or plasma 2023 024 [facility] (Lab), [address] [place] [address], [address], 03/11/2024 23:18:04 CBC w/ auto diff 2023 024 [facility] (Lab), [address] [place] [address], [address], 03/11/2024 23:18:04 CMP, serum or plasma 2023 024 [facility] (Lab), [address] [place] [address], [address], 12/12/2023 17:55:35 CBC w/ auto diff 2023 024 [facility] (Lab), [address] [place] [address] [address] [facility], [place], [address], 12/12/2023 18:00:43 lipid panel w/ direct LDL, serum - 6 weeks from 10/24/232023 024 [facility] (Lab), [address] [place] [address] [address] [place] [address], [address], 12/12/2023 17:55:35 TSH + free T4, serum 2023 024 [facility] (Lab), [address] [place] [address], [address], 12/12/2023 17:55:35 vitamin B12, serum 2023 024 [facility] (Lab), [address] [place] [address], [address], 12/12/2023 19:47:33 PTH (parathyr oid hormone), intact, serum or plasma 2023 024 [facility] (Lab), [address] [place] [address], [address], 11/05/2023 12:16:11 phosphoru s, serum or plasma 2023 024 [facility] (Lab), [address] [place] [address], [address], 11/05/2023 12:16:11 uric acid, serum or plasma 2023 024 [facility] (Lab), [address] [place] [address], [address], 11/05/2023 12:16:11 uric acid, serum or plasma 2023 024 [facility] (Lab), [address] [place] [address], [address], 08/05/2023 12:30:31 ESR (erythroc yte sedimenta tion rate), blood 2023 024 [facility] (Lab), [address] [place] [address], [address], 08/06/2023 18:35:40 CMP, serum or plasma 2023 024 [facility] (Lab), [address] [place] [address], [address], 08/05/2023 17:55:25 CBC w/ auto diff 2023 024 [facility] (Lab), [address] [place] [address], [address], 08/05/2023 19:22:04 Referral ophthalmo logist referral [address] [facility], [facility] [address], [place], [address], 06/30/2024 13:00:45 cardiolog ist referral 2024 025 [email or web address] Mohsen Baltazar MD, [address] [place], [address], 09/14/2024 12:33:[address] referral 2023 024 [facility], [address], [address], 03/20/2024 07:20:[address] referral 2023 024 [facility], [address] [address], [place], [address], 12/03/2023 04:06:52 cardiolog ist referral 2023 024 ARMAAN Baltazar MD, [address] [place], [address], 11/14/2023 12:18:19 Procedures None recorded. Surgeries None recorded. Imaging US, renal 2023 024 [facility] (Imaging), [address] [place] [address], [address], 11/12/2023 04:06:44 XR, chest, 2 view 2023 024 [facility] (Imaging), [address] [place] [address], [address], 08/07/2023 22:27:36 electroca rdiogram 2023 024 [facility], [facility], [address] [facility] [address], [place], [address], 08/05/2023 16:40:49 XR, toe(s), 2 or more view 2023 024 [facility] (Imaging), [address] [place] [address], [address], 08/06/2023 15:12:00 XR, hand, 3 or more view 2023 024 [facility] (Imaging), [address] [place] [address], [address], 08/07/2023 22:28:25 Medication Orders Jardiance 10 mg tablet 2024 025 [facility]Pharmacy #[id number], [address] [place], [address], 10/21/2024 12:58:28 pantopraz ole 20 mg tablet,de layed release 2024 025 [facility] #3259, [address] [place], [address], 06/30/2024 12:38:48 pantopraz ole 20 mg tablet,de layed release [facility]23 [facility] [address] [place], [address], 11/05/2023 12:15:12 diclofena c 1 % topical gel 2023 [facility] [address] [place], [address], 08/05/2023 12:28:50 Patient TargetsNo targets recorded. Patient Instructions Encounter Date Encounter Id Patient Instructions Last Modified By Organization Details Last Modified Time 08/05/2023 [id number] hand arthritis: exercises mshenouda Not available 08/05/2023 12:28:46 11/05/2023 [id number] Peripheral Arterial Disease (PAD): Care Instructions mshenouda [...] will mshenouda Not available 09/2023 12:14:45 03/10/2024 [id number] Peripheral Arterial Disease (PAD): Care Instructions mshenouda Not available 03/10/2024 12:13:58 learning about healthy weight mshenouda Not available 03/10/2024 12:13:58 hypothyroidism: care instructions mshenouda Not available 03/10/2024 12:13:58 high cholesterol : care instructions mshenouda Not available 03/10/2024 12:13:58 chronic kidney disease: care instructions mshenouda Not available 03/10/2024 12:13:58 learning about chronic kidney disease mshenouda Not available 03/10/2024 12:13:59 06/30/2024 [id number] Peripheral Arterial Disease (PAD): Care Instructions mshenouda Not available 06/30/2024 12:38:44 (NINA) ankle brachial index* ARMAAN Not available 06/30/2024 17:32:43 high cholesterol : care instructions mshenouda Not available 06/30/2024 12:38:44 learning about healthy weight mshenouda Not available 06/30/2024 12:38:45 hypothyroidism: care instructions mshenouda Not available 06/30/2024 12:38:44 chronic kidney disease: care instructions mshenouda Not available 06/30/2024 12:38:45 learning about chronic kidney disease mshenouda Not available 06/30/2024 12:38:45 10/21/2024 [id number] high cholesterol : care instructions mshenouda Not available 10/21/2024 12:58:26 hearing loss: care instructions mshenouda Not available 10/21/2024 12:58:26 learning about healthy weight mshenouda Not available 10/21/2024 12:58:26 hypothyroidism: care instructions mshenouda Not available 10/21/2024 12:58:26 chronic kidney disease: care instructions mshenouda Not available 10/21/2024 12:58:26 learning about chronic kidney disease mshenouda Not available 10/21/2024 12:58:26 Reason for Referral [employer] Referral for At ypical chest pain Referring Physician: Merrick Good, Internal Medicine, Encounter Date: 08/05/2023 Economics Teacher Referral for Reymundo ign hypertension Referring Physician: Merrick Good Internal Medicine, Encounter Date: 11/05/2023 Economics Teacher Referral for Reymundo ign hypertension Referring Physician: Merrick Good, Internal Medicine, Encounter Date: 03/10/2024 [employer] Referral for Ca rdiac pacemaker in situ Referring Physician: Merrick Good Internal Medicine, Encounter Date: 06/30/2024 Plant 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 [email or web address] [employer] [facility], [facility] [address], [place], [address], 08/05/2023 20:35:40 08/05/19 24 08/05/2023 elect rocar diogr am No observ ation record ed. [email or web address] [employer] [facility], [facility] [address], [place], [address], 08/05/2023 20:35:33 08/06/19 24 08/05/2023 XR, toe(s ), 2 or more view No observ ation record ed. [address], [address], 08/08/2023 11:57:14 08/07/19 24 08/05/2023 XR, chest , 2 view No observ ation record ed. [facility] (Imaging) [address] [place] [address], [address], 08/08/2023 11:57:15 08/07/19 24 XR, toe(s ), 2 or more view No observ ation record ed. [facility] (Imaging) [address] [place] [address], [address], 08/07/2023 22:29:47 08/07/19 24 XR, hand, 3 or more view No observ ation record ed. [facility] (Imaging) [address] [place] [address], [address], 08/07/2023 22:29:47 03/11/20 24 03/11/2024 US, renal No observ ation record ed. [facility] [address], [place], [address], 06/30/2024 12:34:30 Result Notes None recorded. Problems Name Problem SNOMED Code Status Onset Date Resolution Date Notes Provider Name and Address Organization Details Recorded Time Long-term drug therapy Active 2024 Merrick Good MD [address] [facility] [address], [place], [address] , [facility] 5 12:35:11 Benign hypertensi on 82610005 Active 2016 Not Available [facility] 10:38:17 Hyperlipid emia 00008698 Active 2016 Not Available [facility] 3 10:38:17 Aortic valve regurgitat ion 45239491 Active 2017 Not Available [facility] 3 10:38:17 Hypothyroi dism 25741165 Active 2017 Not Available [facility] 3 10:38:17 Unilateral hearing loss Active 2017 Not Available [facility] 3 10:38:17 Bradycardi a 88070877 Active 2018 Not Available [facility] 3 10:38:17 Body mass index 25-29 - overweight 632526759 Active 2018 Not Available [facility] 3 10:38:17 Primary erectile dysfunctio n 051338138 Active 2019 Not Available [facility] 3 10:38:17 Cholelithi asis with obstructio n 92625504 Active 2019 Not Available [facility] 3 10:38:17 Obstructiv e sleep apnea of adult 1886051483477 Active 2020 Not Available [facility] 3 10:38:17 Hearing loss 12766013 Active 2020 Not Available [facility] 3 10:38:17 Edema of lower extremity 188580689 Active 2021 Not Available [facility] 3 10:38:17 Serum creatinine above reference range 741473024 Active 2021 Not Available [facility] 3 10:38:17 Gastroesop hageal reflux disease without esophagiti s 888285301 Active 2022 Not Available [facility] 3 10:38:17 Chronic renal failure 96540624 Active 2022 Merrick Good MD [address], [place], [address] , [facility] 3 16:20:34 Sinus bradycardi a 40598950 Active 2022 Merrick Good MD [address], [place], [address] , [facility] 3 11:38:46 Hydronephr osis 96353348 Active 2022 Merrick Good MD [address], [place], [address] , [facility] 3 18:14:49 Cardiac pacemaker in situ 440673199 Active 2022 Merrick Good MD [address], [place], [address] , [facility] 3 12:31:14 Peripheral vascular disease 070007443 Active 2022 on NINA Merrick Good MD [address], [place], [address] , [facility] 3 21:39:53 Arthritis of hand 170704905 Active 2023 Merrick Good MD [address], [place], [address] , [facility] 4 12:21:58 Serum vitamin B12 below reference range 341329636 Active 2023 Merrick Good MD [address], [place], [address] , [facility] 4 16:15:16 Coronary arterioscl erosis 26641950 Active 2023 Merrick Good MD [address], [place], [address] , [facility] 4 12:02:07 Bilateral hearing loss 14775316 Active 2023 Merrick Good MD [address], [place], [address] , [facility] 4 12:10:32 Problem Notes None recorded. Procedures Surgical History Date Name Laterality Status Provider Name and Address Organization Details Recorded Time 7 Colonoscopy completed Jennifer Dudley [facility] 06/24/2017 09:51:48 Cataract Surgery completed Merrick Good MD [address], [place], [address], [facility] 12/20/2016 15:49:48 Other completed Merrick Good MD [address], [place], [address], [facility] 12/20/2016 15:50:16 Imaging Results Imaging Date Name Status LastModified by Organization Details LastModified Time 08/05/[address] [facility] [email or web address], [facility] [address], [place], [address], 08/05/2023 20:35:40 08/05/2023 electrocardiogram completed [employer], [facility] [address], [place], [address], 08/05/2023 20:35:33 08/05/2023 XR, toe(s), 2 or more view completed [address], [address], 08/08/2023 11:57:14 08/05/2023 XR, chest, 2 view completed [facility] (Imaging) [address] [place] [address], [address], 08/08/2023 11:57:15 08/07/2023 XR, toe(s), 2 or more view completed [facility] (Imaging) [address] [facility] [address] [place] [address], [address], 08/07/2023 22:29:47 08/07/2023 XR, hand, 3 or more view completed [facility] (Imaging) [address] [facility] [address], [address], 08/07/2023 22:29:47 03/11/2024 US, renal completed [facility] [address] [facility] [address], [place], [address], 06/30/2024 12:34:30 Procedure Notes None recorded. Medical [...] suspension, kit TO BE ADMINISTE RED BY [email or web address] T FOR IMMUNIZAT ION 03/09 completed Not [...] Updated DateTime 4 167.64 cm 27.6 kg/m2 97519.3 g 97.8 [degF] 70 /min 16 /min 133 mm[Hg] 73 mm[Hg] Samra Leone [facility] 4 12:09:08 Date Recorded Body height Body temperature Heart rate Respiratory rate Body mass index (BMI) Body weight Systolic blood pressure Diastolic blood pressure Provider Name and Address Organization Details Last Updated DateTime 4 167.64 cm 97.8 [degF] 72 /min 16 /min 27.8 kg/m2 63270.8 9 g 135 mm[Hg] 76 mm[Hg] Veronica Kerr [facility] 4 11:37:42 Date Recorded Body height Body mass index (BMI) Body weight Body temperature Respiratory rate Heart rate Systolic blood pressure Diastolic blood pressure Provider Name and Address Organization Details Last Updated DateTime 4 167.64 cm 27.9 kg/m2 76626.4 8 g 98.1 [degF] 16 /min 58 /min 143 mm[Hg] 72 mm[Hg] Veronica Kerr [facility] 4 11:54:35 Date Recorded Body height Body temperature Respiratory rate Heart rate Body mass index (BMI) Body weight Systolic blood pressure Diastolic blood pressure Provider Name and Address Organization Details Last Updated DateTime 5 167.64 cm 97.8 [degF] 16 /min 88 /min 27.6 kg/m2 74817.3 g 111 mm[Hg] 76 mm[Hg] Veronica Mixonaly [facility] 12:11:04 Date Recorded Body height Body mass index (BMI) Body weight Body temperature Respiratory rate Heart rate Provider Name and Address Organization Details Last Updated DateTime 5 167.64 cm 28.7 kg/m2 37078.4 4 g 97.8 [degF] 16 /min 71 /min Veronica Usha [facility] 5 12:33:25 Date Recorded Systolic blood pressure Diastolic blood pressure Provider Name and Address Organization Details Last Updated DateTime 10/21/2024 134 mm[Hg] 78 mm[Hg] Merrick Good MD [address], [place], [address] 10/21/2024 12:46:49 Social History Question Answer Notes LastModified by Organizat ion Details LastModified Time Tobacco Smoking Status Former Smoker quit 1960' Merrick Good MD [address], [place], [address], [facility] 12/20/2016 15:49:04 Do You Have An Advance Directive? No [email or web address] Information not available 04/18/2023 Which Illicit Or Recreational Drugs Have You Used? No Information not available 12/20/2016 Are There Any Guns Present In Your Home? No [email or web address] Information not available 04/18/2023 Live Alone Or With Others? With Others With D[employer] [email or web address] Information not available 04/18/2023 Marital Status Single [email or web address] Informatio n not available 04/18/2023 What Was The Date Of Your Most Recent Tobacco Screening? 10/09/2018 [email or web address] Information not available 04/18/2023 Performs Monthly Self-breast Exam? No [email or web address] Information not available 04/18/2023 Seat Belts Used Routinely Yes [email or web address] Information not available 04/18/2023 Smoke Alarm In Home Yes [email or web address] Information not available 04/18/2023 Do You Use Sunscreen Routinely? No Information not available 04/18/2023 Have You Used IV Drugs? No [email or web address] Information not available 04/18/2023 Sex: Unknown Functional Status Question Answer Note LastModified by Organizat ion Details LastModified Time What is your level of alcohol consumption? Occasional Information not available 12/20/2016 Are you currently employed? Yes [email or web address] Information not available 04/18/2023 Are you able to care for yourself? Yes [email or web address] Information not available 04/18/2023 Mental Status None [...] virus, quadrivalent, preservative 8 completed Not Available [facility] 05/07/2023 06:56:02 Influenza, split virus, quadrivalent, preservative 9 completed Not Available [facility] 05/07/2023 06:56:03 Influenza, split virus, quadrivalent, preservative 0 completed Not Available [facility] 05/07/2023 06:56:03 zoster recombinant 0 completed Not Available [facility] 05/07/2023 06:56:03 COVID-19 vaccine, vector-nr, rS-Ad26, PF, 0.5 mL 1 completed Not Available [facility] 05/07/2023 06:56:03 COVID-19 vaccine, vector-nr, rS-Ad26, PF, 0.5 mL 1 completed Not Available [facility] 05/07/2023 06:56:03 COVID-19, mRNA, LNP-S, PF, 30 mcg/0.3 mL dose 1 completed Not Available [facility] 05/07/2023 06:56:03 Influenza, split virus, quadrivalent, preservative 1 completed Not Available [facility] 05/07/2023 06:56:03 COVID-19, mRNA, LNP-S, PF, 30 mcg/0.3 mL dose, dante-sucrose 2 completed Not Available [facility] 05/07/2023 06:56:03 Influenza, high-dose, quadrivalent, PF 2 completed Not Available [facility] 05/07/2023 06:56:03 COVID-19, mRNA, LNP-S, bivalent, PF, 30 mcg/0.3 mL dose 2 completed Not Available [facility] 05/07/2023 06:56:03 Pneumococcal conjugate PCV20, polysaccharide [id number] conjugate, adjuvant, PF 3 completed Not Available [facility] 05/07/2023 06:56:03 Influenza, adjuvanted, quadrivalent, PF 4 completed Merrick Good MD [address], [place], [address], [facility] 04/11/2024 17:35:13 Pneumococcal conjugate PCV20, polysaccharide [id number] conjugate, adjuvant, PF 4 completed Merrick Good MD [address], [place], [address], [facility] 08/04/2023 12:08:41 COVID-19, mRNA, LNP-S, PF, dante-sucrose, 30 mcg/0.3 mL 4 completed Merrick Good MD [address], [place], [address], [facility] 04/11/2024 17:35:13 RSV, recombinant, protein subunit RSVpreF, adjuvant reconstituted, 0.5 mL, PF 4 completed Merrick Good MD [address], [place], [address], [facility] 09/30/2023 09:59:33 COVID-19, mRNA, LNP-S, PF, dante-sucrose, 30 mcg/0.3 mL 4 completed Merrick Good MD [address], [place], [address], [facility] 04/11/2024 17:35:13 Influenza, high-dose, trivalent, PF 4 completed Merrick Good MD [address], [place], [address], [place] [facility] 04/11/2024 17:35:13 Influenza, split virus, trivalent, preservative 7 completed Not Available [facility] 05/07/2023 06:56:03 Td(adult) unspecified formulation 4 completed Not Available [facility] 05/07/2023 06:56:03 Pneumococcal conjugate PCV 13 7 completed Not Available [facility] 05/07/2023 06:56:03 Past Encounters Encounter ID Performer Location Encounter Start Date Encounter Closed Date Diagnosis/Indication Diagnosis SNOMED-CT Code Diagnosis ICD10 Code Diagnosis Note [id number] Merrick Good MD [facility], [facility] [address] [place] [address] 12/20/2016 14:27:54 12/20/2016 16:30:17 Adult health examination 452310160 Z00.00 Benign hypertension 1072 5009 I10 Hyperlipidemia 14745642 E78.5 Impacted cerumen 9807223 6 H61.23 Skin lesion 32481076 L98 .9 scalp Active or passive immunization 301137556 Z23 Screening for malignant neoplasm of colon 591259238 Z12.11 Screening procedure 2012 5006 Z13.9 Screening for malignant neoplasm of prostate 435457168 Z12.5 [id number] Merrick Good MD [employer] [facility], [facility] [address] [place] [address] 03/21/2017 14:13:02 03/21/2017 15:33:39 Dizziness and giddiness 731479113 R42 Symptomati c sinus bradycardia 384079492 R00.[address] imulating hormone level above reference range 412456268 R79.89 Shoulder joint pain 2679 01261 M25.519 [id number] Merrick Good MD [facility], [facility] [address] [place] [address] 06/24/2017 09:46:07 06/24/2017 10:24:23 Hyperlipidemia 70174002 E78.5 Benign hypertension 1072 5009 I10 Primary er ectile dysfunction 169619295 N52.9 Aortic tonia ve regurgitation 72968450 I35.1 mild on ECHO 03/21/17 [id number] Merrick Good MD [employer] [address] [place] [address] 02/21/2018 11:28:08 02/21/2018 13:40:00 Benign hypertension 80775250 I10 Aortic otnia ve regurgitation 99169278 I35.1 mild on ECHO 03/21/17 Hyperlipidemia 82368886 E78.5 Hypothyroidism 83190354 E03.9 Primary er ectile dysfunction 472938966 N52.9 Screening for malignant neoplasm of colon 740010910 Z12.11 last C scope 04/29/17 , recheck 2021 Skin - reymundo ign mole and nevus 640158302 D22.9 Active or passive immunization 070670997 Z23 Unilateral hearing loss 00978725 H91.91 315097 Merrick Good MD [facility] [address] [place] [address] 06/17/2018 16:05:33 06/17/2018 16:42:50 Hoarse 49365743 R49.0 Hyperlipidemia 13297608 E78.5 Benign hypertension 1072 5009 I10 last optometry eval 05/2018 Hypothyroidism 18118783 E03.9 Screening for malignant neoplasm of colon 092287597 Z12.11 last C scope 04/29/17 , recheck 2021 Active or passive immunization 592153135 Z23 Bradycardia 22893938 R00 .1 sees cardiology on reg basis [id number] Merrick Good MD [facility], [facility] [address] [place] [address] 10/09/2018 11:21:44 10/09/2018 12:34:31 Adult health examination 129790694 Z00.01 Benign hypertension 1072 5009 I10 increase amlodipine , BP 2-3 weekslast optometry eval 05/2018 Hyperlipidemia 43012790 E78.5 Bradycardia 07293986 R00 .1 sees cardiology on reg basis Aortic tonia ve regurgitation 45833531 I35.1 mild on ECHO 03/21/17 Hypothyroidism 49377472 E03.9 Body mass index 25-29 - overweight 449564748 Z68.26 Screening for malignant neoplasm of colon 783419937 Z12.11 last C scope 04/29/17 , recheck 2021 Active or passive immunization 235638882 Z23 [id number] Merrick Good MD [facility], [facility] [address] [place] [address] 06/18/2019 11:50:55 06/18/2019 12:22:09 Upper respiratory infection 29080643 J06.9 Body mass index 25-29 - overweight 290575450 Z68.26 lost 9 LBs on diet and exercise Benign hypertension 1072 5009 I10 , BP 2-3 weekslast optometry eval 05/2018 Hyperlipidemia 11796217 E78.5 Hypothyroidism 87468494 E03.9 Screening for malignant neoplasm of colon 055633728 Z12.11 last C scope 04/29/17 , recheck 2021 Active or passive immunization 771062044 Z23 [id number] Merrick Good MD [facility], [facility] [address] [place] [address] 03/09/2020 10:12:57 03/09/2020 11:14:05 Adult health examination 171659179 Z00.01 Benign hypertension 1072 5009 I10 last optometry eval 07/2019decr ease amlodipine to 5 , add lisinopril 5 qdBP 2-3 weeks Hyperlipidemia 86747814 E78.5 Hypothyroidism 29764066 E03.9 Body mass index 25-29 - overweight 251738019 Z68.26 educationo n diet and exercise Bradycardia 33884260 R00 .1 sees cardiology on reg basis Aortic tonia ve regurgitation 60058823 I35.1 mild on ECHO 06/18/19 Edema of l ower extremity 071018090 R60.0 increase lasix to 40 qd 3 days Viral screening 78840491 4 Z11.59 Screening for malignant neoplasm of colon 955880483 Z12.11 last C scope 04/29/17 , recheck 2021 Active or passive immunization 296779772 Z23 up to date Primary er ectile dysfunction 019131233 N52.9 374014 Merrick Good MD [facility], [facility] [address] [place] [address] 09/07/2020 08:52:34 09/07/2020 10:13:37 Benign hypertension 72076908 I10 last optometry eval 07/2019 BP 2-3 weeks Body mass index 25-29 - overweight 098096379 Z68.26 educationo n diet and exercise Bradycardia 43188718 R00 .1 sees cardiology on reg basis Hyperlipidemia 20276403 E78.5 last LDL 03/15/20 Hypothyroidism 83717948 E03.9 Eruption 184654140 R21 face Screening for malignant neoplasm of colon 814282542 Z12.11 last C scope 04/29/17 , recheck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
--- OUTSIDE RECORDS SUMMARY | 2024-10-21 13:49 | XMS_ITS | Encounter Summary ---
Author Organization [facility] Address [address] [place] [address] Care Team Providers Care Senior Medical Director Name Role Phone Merrick Good MD Primary Care Provider [phone] Encounter Details Date Type Department Care Team (Late st Contact Info) Description 10/20/2024 External Device Data [place] ABSTRACTION Provider, Abstract NO ADDRESS ON FILE Social History Tobacco Use Types Packs/Day Years Used Date Smoking Tobacco: Never Smokeless Tobacco: Never Alcohol Use Standard Drinks/Week Comments Yes 3 [...] on file documented as of this encounter Plan of Treatment Upcoming Encounters Date Type Department Care Team (Late st Contact Info) Description 11/23/2024 2:45 PM CDT Procedure visit [facility] [place] [address] [address] [place] [address] documented as of this encounter Visit Diagnoses Not on filedocumented in this encounter Care Teams Senior Medical Director Relationship Specialty Start Date End Date Merrick Good MD [address] [address] PCP - General Internal Medicine 10/04/23 documented as of this encounter
--- OUTSIDE RECORDS SUMMARY | 2024-10-21 13:49 | XMS_ITS | Encounter Summary ---
Author Organization [facility] Address [address] [place] [address] Care Team Providers Care Spray Operator Name Role Phone Unavailable Primary Care Provider Unavailabl e Reason for Visit * Reason Onset Date Comments Appointment 11/28/2023 Encounter Details Date Type Department Care Team (Late st Contact Info) Description 11/28/2023 Telephone [facility] - Centralized Scheduling [address] [place] [address] Hilda Clements Appointment Social History Tobacco Use Types Packs/Day Years Used Date Smoking Tobacco: Never Assessed Sex and Gender Information Value Date Recorded Sex Assigned at Not on file Legal Sex Male 3:26 PM CDT Gender Identity Not on file Sexual Orientation Not on file documented as of this encounter Miscellaneous Notes * Telephone Encounter - Adia Aldridge - 11/28/2023 4:15 PM CDT This pt has a referral for [facility] in [facility]. Referred by [facility]. His phone: [phone] documented in this encounter Plan of Treatment Not on file documented as of this encounter Visit Diagnoses Not on filedocumented in this encounter
--- OUTSIDE RECORDS SUMMARY | 2024-10-21 13:49 | XMS_ITS | Clinical Summary ---
Author Organization [facility] Address [address] [facility] [place] [address] Care Team Providers Care Cadd Drafter Name Role Phone Unavailable Primary Care Provider Unavailabl e Source Comments [facility],non-owned Affiliates and Associated Physician Practices is amultiple site organization consisting of ambulatory clinics and hospital sitesin [place], [place], [place] and [place]. This disclosure is being madepursuant to the Care Everywhere program and may not contain all information available regarding this patient. Last updated 18.[facility] Social History Tobacco Use Types Packs/Day Years [...] - 1-dose 75+ series) 2017 COVID-19 VACCINE (2023-2 5 season) 2024 DEPRESSION SCREENING 06/03/2024 INFLUENZA VACCINE (Season Ended) 2025 HEPATITIS B VACCINE Aged Out No longe r eligible based on patient's age to complete this topic HIB VACCINE Aged Out No longer eligi ble based on patient's age to complete this topic HPV VACCINE Aged Out No longer eligi ble based on patient's age to complete this topic MENINGOCOCCAL (Group B) VACC INE SHARED DECISION-MAKING Aged Out No longer eligibl e based on patient's age to complete this topic MENINGOCOCCAL GROUPS A/C/Y/W VACCINE Aged Out No longer eligible b ased on patient's age to complete this topic Insurance [facility]
--- OUTSIDE RECORDS SUMMARY | 2024-10-21 13:50 | XMS_ITS | Data Portability ---
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 Referral None recorded. Procedures None recorded. Surgeries None recorded. Imaging None recorded. Medication Orders clopidogr el 75 mg tablet 2023 024 [facility]armacy #[id number], [address] [place], [address], 10/19/2023 14:07:11 aspirin 325 mg tablet,de layed release 2023 024 [facility]/Pharm[facility] #[id number], [address] [place], [address], 08/13/2023 11:54:34 Patient TargetsNo targets recorded. Patient Instructions Encounter Date Encounter Id Patient Instructions Last Modified By Organization Details Last Modified Time 08/13/2023 [id number] Exercise advised Low cholesterol diet advised Low sodium diet advised. brianna Not available 08/13/2023 11:54:30 10/08/2024 [id number] Exercise advised Low cholesterol diet advised Low sodium diet advised. [email or web address] Not available 10/08/2024 17:12:46 Reason for Referral None Reported. Results Created Date Observation Date Name Description Value Unit Range Abnormal Flag Note LastModifiedBy Organization Detail LastModifiedTime 08/13/19 24 06/21/2023 pacem mk inter rogat ion (PROC ) No observ ation record ed. Not Available 2023 13:13:19 08/13/19 24 pacem mk inter rogat ion (PROC ) No observ ation record ed. [email or web address] Not Available 09:37:11 08/14/19 24 08/13/2023 exerc [...] ation record ed. Not Available 2023 09:51:28 07/16/19 25 07/06/2024 pacem mk inter rogat ion (PROC ) No observ ation record ed. Not Available 2024 13:34:44 07/24/19 25 07/23/2024 elect rocar diogr am No observ ation record ed. Not Available 2024 12:12:23 10/11/19 25 10/08/2024 elect rocar diogr am No observ ation record ed. Not Available 2024 09:38:49 Result Notes None recorded. Problems Name Problem SNOMED Code Status Onset Date Resolution Date Notes Provider Name and Address Organization Details Recorded Time Edema of lower extremity 585837553 Active 2021 Mohsen Crenshaw i, MD [address] [place], [address], [facility] 3 11:27:40 Benign hypertensio n 35753252 Active 2016 Mohsen Crenshaw i, MD [address] [place], [address], [facility] 3 11:27:40 Obstructive sleep apnea of adult 5995587967585 Active 2020 [facility] 4 10:57:15 Hearing loss 65814427 Active 2020 Mohsen Crenshaw i, MD [address] [place], [address], [facility] 3 11:27:40 Body mass index 25-29 - overweight 706404437 Active 2018 Mohsen Crenshaw i, MD [address] [place], [address], [facility] 3 11:27:40 Serum creatinine above reference range 258567801 Active 2021 Mohsen Crenshaw i, MD [address] [place], [address], [place] [facility] 3 11:27:40 Gastroesoph ageal reflux disease without esophagitis 841136344 Active 2022 Mohsen Crenshaw i, MD [address] [place], [address], [place] [facility] 3 11:27:40 Hypothyroid ism 36915958 Active 2017 Mohsen Crenshaw i, MD [address] [place], [address], [place] [facility] 3 11:27:41 Primary erectile dysfunction 405771353 Active 2019 Mohsen Crenshaw i, MD [address] [place], [address], [place] [facility] 3 11:27:41 Sinus bradycardia 60837457 Active 2022 Mohsen Crenshaw i, MD [address] [place], [address], [place] [facility] 3 11:27:41 Hyperlipide raeann 06413995 Active 2016 Mohsen Crenshaw i, MD [address] [facility], [place], [address], [place] [facility] 3 11:27:41 Aortic valve regurgitati on 39173747 Active 2017 Mohsen Crenshaw i, MD [address] [place], [address], [place] [facility] 3 11:27:41 Cholelithia sis with obstruction 12544403 Active 2019 Mohsen Crenshaw i, MD [address] [place], [address], [place] [facility] 3 11:27:41 Chronic renal failure 88870486 Active 2022 Galen morales, [place] - [facility] 4 10:58:43 Dizziness 515887870 Active 2016 Mohsen Crenshaw i, MD [address] [place], [address], [place] [facility] 3 11:27:41 Pain of joint 00994441 Active 2016 Mohsen Crenshaw i, MD [address] [place], [address], [place] [facility] 3 11:27:41 Benign essential hypertensio n 9848064 Active 2016 Galen morales [place] - [facility] 4 10:57:02 Bradycardia 12623531 Active 2018 Mohsen Crenshaw i, MD [address] [place], [address], [place] [facility] 3 11:27:41 Dyslipidemi a 391856515 Active 2016 Galen Arcos [facility] 4 10:57:11 Atypical chest pain 551611814 Active 2019 Mohsen Crenshaw i, MD [address] [place], [address], [facility] 3 11:27:40 Swelling of bilateral lower limbs 730998339 Active 2019 Mohsen Crenshaw i, MD [address] [place], [address], [facility] 3 11:27:41 Snoring 82612525 Active 2019 Mohsen Crenshaw i, MD [address] [place], [address], [facility] 3 11:27:41 Notes:Some problems listed i n Documents: #[id number], #[id number], #[id number], #[id number] could not be added to this patient's chart. Please review these documents and add these problems to the patient's chart manually as needed. Problem Notes None recorded. Procedures Surgical History None recorded. Imaging Results Imaging Date Name Status LastModified by Organization Details LastModified Time 06/21/2023 pacemaker interrogation (PROC) completed Information not available 08/13/2023 13:13:19 08/13/2023 exercise stress test completed Info rmation not available 08/14/2023 13:15:45 06/21/2023 pacemaker interrogation (PROC) completed Information not available 08/14/2023 14:04:03 08/13/2023 pacemaker interrogation (PROC) completed [email or web address] Information not available 08/15/2023 09:37:11 10/10/2023 catheter placement for coronary angiography with left heart catheterization including intraprocedural injection(s) for left ventriculography w/ catheter placement in bypass graft(s) (PROC) completed Information not available 10/19/2023 14:27:09 04/06/2024 pacemaker interrogation (PROC) completed Information not available 04/14/2024 09:51:28 07/06/2024 pacemaker interrogation (PROC) completed Information not available 07/16/2024 13:34:44 07/23/2024 electrocardiogram completed Informa tion not available 07/24/2024 12:12:23 10/08/2024 electrocardiogram completed Informa tion not available 10/10/2024 09:38:49 Procedure Notes None recorded. Medical Equipment None Reported. Allergies Allergen ID Allergen Name Allergen Category Reaction Reaction Severity Criticality Documentation Date Start Date Code Code System Note Provider Name and Address Organization Details Recorded Time lisinopri l medicatio n edema Not available Not available 08/26/2020 63889 [facility]Norm Mohsen Crenshaw i, MD [address] [place], [address] [place] [address] [facility] 3 11:27:18 Medications Name Sig Start Date Stop Date Status Note LastModified by Organization Details LastModified Time amoxicilli n 500 mg capsule TAKE 1 CAPSULE BY MOUTH THREE TIMES A DAY UNTIL GONE 07/23 completed Not Available Not Available Not Available atorvastat in 40 mg tablet TAKE 1 TABLET BY MOUTH DAILY WITH SUPPER active Not Available Not Available No t Available atorvastat in 80 mg tablet TAKE 1 TABLET BY MOUTH EVERY DAY WITH SUPPER 07/23 completed Not Available Not Available Not Available doxycyclin e hyclate 100 mg capsule [...] Not Available Not Available No t Available azithromyc in 250 mg tablet TAKE 2 TABLETS BY MOUTH TODAY, THEN TAKE 1 TABLET DAILY FOR 4 DAYS DIRECTED active Not Available Not Available No t [...] MOUTH EVERY 12 HOURS FOR 7 DAYS 07/23 completed Not Available Not Available Not Available aspirin 81 mg tablet,del ayed release TAKE 1 TABLET BY MOUTH EVERY DAY active Not Available Not Available No t Available acetaminop hen 500 mg tablet TAKE 1 TABLET EVERY 8 HOURS BY ORAL ROUTE AROUND THE CLOCK. active Not Available Not Available No t Available amoxicilli n 500 mg tablet TAKE ONE TABLET THREE TIMES A DAY UNTIL GONE 07/23 completed Not Available Not Available Not Available levothyrox ine 25 mcg tablet TAKE 1 TABLET BY MOUTH EVERY DAY IN THE MORNING 02/27 completed Not Available Not Available Not Available pantoprazo le 20 mg tablet,del ayed release TAKE 1 TABLET EVERY DAY BY ORAL ROUTE IN THE MORNING. 07/23 completed Not Available Not Available Not Available magnesium oxide 400 mg (241.3 mg [...] Available nitroglyce rin 0.4 mg sublingual tablet PLEASE SEE ATTACHED FOR DETAILED DIRECTIO NS active Not Available Not Available No t Available omeprazole 20 mg capsule,de layed release TAKE 1 CAPSULE( S) BY MOUTH ONCE DAILY IN THE MORNING active Not Available Not Available No t Available aspirin 81 mg chewable tablet CHEW 1 TABLET BY MOUTH EVERY DAY active [...] completed Not Available Not Available Not Available fluticason e propionate 50 mcg/actuat ion nasal spray,susp ension SPRAY 1 SPRAY BY INTRANAS AL ROUTE EVERY DAY active Not Available Not Available No t Available betamethas one dipropiona te 0.05 % [...] Not Available Not Available No t Available dapagliflo zin propanedio l 10 mg tablet TAKE 1 TABLET BY MOUTH EVERY DAY active Not Available Not Available No t Available Paxlovid 150 mg-100 mg tablets in a dose pack (Moderate Renal Dose) TAKE PER PACKAGES DIRECTIO NS TWICE DAILY FOR 5 DAYS 07/23 completed Not Available Not Available Not Available Vitals Date Recorded Body height Body mass index (BMI) Body weight Heart rate Oxygen saturation Oxygen saturation in Arterial blood by Pulse oximetry Systolic blood pressure Diastolic blood pressure Provider Name and Address Organization Details Last Updated DateTime 4 170.18 cm 26.5 kg/m2 14533.1 1 g 64 /min 98 % 98 % 126 mm[Hg] 73 mm[Hg] Shira Goncalves [facility] 4 11:21:40 Date Recorded Body height Body mass index (BMI) Body weight Heart rate Oxygen saturation Oxygen saturation in Arterial blood by Pulse oximetry Systolic blood pressure Diastolic blood pressure Provider Name and Address Organization Details Last Updated DateTime 4 170.18 cm 27.1 kg/m2 79441.4 8 g 62 /min 92 % 92 % 92 mm[Hg] 44 mm[Hg] Chikis Catalan [facility] 4 13:15:28 Date Recorded Body height Heart rate Oxygen saturation Oxygen saturation in Arterial blood by Pulse oximetry Body mass index (BMI) Body weight Systolic blood pressure Diastolic blood pressure Provider Name and Address Organization Details Last Updated DateTime 4 170.18 cm 60 /min 92 % 92 % 26.8 kg/m2 59465.3 g 102 mm[Hg] 62 mm[Hg] Shira Goncalves [facility] 4 13:34:34 Date Recorded Body height Body mass index (BMI) Body weight Heart rate Oxygen saturation Oxygen saturation in Arterial blood by Pulse oximetry Systolic blood pressure Diastolic blood pressure Provider Name and Address Organization Details Last Updated DateTime 5 170.18 cm 27.2 kg/m2 68347.3 5 g 50 /min 92 % 92 % 94 mm[Hg] 60 mm[Hg] Shira Goncalves [facility] 5 16:24:49 Date Recorded Body height Body mass index (BMI) Body weight Heart rate Oxygen saturation Oxygen saturation in Arterial blood by Pulse oximetry Systolic blood pressure Diastolic blood pressure Provider Name and Address Organization Details Last Updated DateTime 5 170.18 cm 27.8 kg/m2 44033 g 68 /min 95 % 95 % 130 mm[Hg] 67 mm[Hg] Shira Goncalves [facility] 5 17:01:59 Social History Question Answer Notes LastModified by Organizat ion Details LastModified Time Tobacco Smoking Status Former Smoker Not Available [facility] 04/05/2020 03:30:41 What Is Your Level Of Caffeine Consumption? None [id number] Information not available 04/05/2020 How Much Tobacco Do You Chew? None [id number] Information not available 04/05/2020 What Type Of Diet Are You Following? REGULAR [id number] Information not available 04/05/2020 Which Illicit Or Recreational Drugs Have You Used? No [id number] Information not available 04/05/2020 Live Alone Or With Others? Alone [email or web address] Information not available 03/22/2017 Marital Status [email or web address] Informatio n not available 03/22/2017 What Was The Date Of Your Most Recent Tobacco Screening? 04/09/2017 [id number] Information not available 04/05/2020 How Many Children Do You Have? 1 [id number] Information not available 04/05/2020 How Much Tobacco Do You Smoke? No [id number] Information not available 04/05/2020 General Stress Level Medium [email or web address] Information not available 03/22/2017 Sex: Unknown Functional Status Question Answer Note LastModified by Organizat ion Details LastModified Time What is your level of alcohol consumption? Occasional [id number] Information not available 04/05/2020 Do you or have you ever used smokeless tobacco? 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 Never used electronic cigarettes [id number] Information not available 04/05/2020 What is your exercise level? None [id number] Information not available 04/05/2020 Mental Status None recorded. Family History Relationship Description Onset Age of this Age Resolved Age Notes LastModified by Organization Details LastModified Time Brother Heart disease [email or web address] Not available 2016 10:40:36 Brother Myocardial infarction Not available 03/22 10:40:42 Brother Hypertensive disorder Not available 2016 10:40:48 Brother Hypercholest erolemia [email or web address] Not available 2016 10:40:54 Medical History Condition Response High Cholesterol Y Arrhythmia Y Hyperlipidemia Y Hypertension Y Immunizations Vaccine Type Date Status Note Provider Nam e and Address Organization Details Recorded Time Influenza, split virus, quadrivalent, preservative 8 completed Mohsen Baltazar MD [address] [place], [place], [address] [place] [address], [place] [facility] 09/13/2022 11:27:47 Influenza, split virus, quadrivalent, preservative 0 completed Mohsen Baltazar MD [address] [place], [place], [address] [place] [address], [facility] - [facility] 09/13/2022 11:27:47 Influenza, split virus, quadrivalent, preservative 9 completed Mohsen Baltazar MD [address] [place] [address], [address] [place] [address], [facility] 09/13/2022 11:27:47 Influenza, split virus, quadrivalent, preservative 1 completed Mohsen Baltazar MD [facility] [place], [address] [place] [address], [facility] 09/13/2022 11:27:48 zoster recombinant 0 completed Mohsen Baltazar MD [address] [place] [address], [address] [place] [address], [facility] 09/13/2022 11:27:48 Influenza, high-dose, quadrivalent, PF 2 completed Mohsen Baltazar MD [facility] [place], [address] [place] [address], [facility] 09/13/2022 11:27:48 COVID-19, mRNA, LNP-S, PF, 30 mcg/0.3 mL dose 1 completed Mohsen Baltazar MD [address] [place], [place], [address] [place] [address], [facility] 09/13/2022 11:27:48 COVID-19 vaccine, vector-nr, rS-Ad26, PF, 0.5 mL 1 completed Mohsen Baltazar MD [address] [place], [address] [place] [address], [place] [facility] 09/13/2022 11:27:48 COVID-19 vaccine, vector-nr, rS-Ad26, PF, 0.5 mL 1 completed Mohsen Baltazar MD [address] [place], [address] [place] [address], [facility] 09/13/2022 11:27:48 Pneumococcal conjugate PCV20, polysaccharide [id number] conjugate, adjuvant, PF 3 completed Mohsen Baltazar MD [address] [place], [address] [place] [address], [facility] 09/13/2022 11:27:48 COVID-19, mRNA, LNP-S, PF, 30 mcg/0.3 mL dose, dante-sucrose 2 completed Mohsen Baltazar MD [address] [place], [address] [place] [address], [facility] 09/13/2022 11:27:48 COVID-19, mRNA, LNP-S, bivalent, PF, 30 mcg/0.3 mL dose 2 completed Mohsen Baltazar MD [address] [place], [address] [place] [address], [facility] 09/13/2022 11:27:48 Pneumococcal conjugate PCV 13 7 completed Mohsen Baltazar MD [address] [place], [place], [address] [place] [address] [facility] 09/13/2022 11:27:48 Td(adult) unspecified formulation 4 completed Laly morales [facility] 03/22/2017 10:58:18 Influenza, split virus, trivalent, preservative 7 completed Laly morales [facility] 03/22/2017 10:58:18 Past Encounters Encounter ID Performer Location Encounter Start Date Encounter Closed Date Diagnosis/Indication Diagnosis SNOMED-CT Code Diagnosis ICD10 Code Diagnosis Note [id number] Mohsen Baltazar MD [place] [facility] [address] [place] [address] 03/22/2017 10:30:39 03/22/2017 12:20:40 Essential hypertension 59189382 I10 Now well controlled Dizziness 498620368 R42 with Bradycardi aTreadmill Myoview Stress test, has high Monroe Risk score. Has Known CAD, or CAD risk equivalent . To look for any ischemia.H olter Dyslipidemia 524657830 E 78.5 Needs to keep LDL less than 70, and HDL more than 40 Will get lipid profile results from PCP Bradycardia 28415795 R00 .1 Holter [id number] Mohsen Baltazar MD [place] [facility] [address] [place] [address] 04/09/2017 11:06:23 04/09/2017 13:29:50 Benign essential hypertension 4337996 I10 now well controlled On amlodipine . Dyslipidemia 269856254 E 78.5 Needs to keep LDL less than 70, and HDL more than 40 Will get lipid profile results from PCP On Simvastati n. Dizziness 313242652 R42 Pt has Meclizine at home. cONSIDER ENT FU [id number] Mohsen Baltazar MD [place] [facility] [address] [place] [address] 04/18/2018 09:43:29 04/18/2018 10:23:47 Benign essential hypertension 5819806 I10 Well controlled . On Amlodipine . Dyslipidemia 704307015 E 78.5 Needs to keep LDL less than 70, and HDL more than 40 Will get lipid profile results from PCP On Simvastati n. Dizziness 901826489 R42 Improved. Bradycardia 85039019 R00 .1 HR today is 45. Patient denies any dizziness or recent falls. Remains active. [id number] Mohsen Baltazar MD [place] [facility] [address] [place] [address] 07/17/2019 11:29:52 07/29/2019 11:25:58 Bradycardia 81875511 R00.1 HR today is 53. Patient denies any dizziness or recent falls. Remains active. Benign ess ential hypertension 0578951 I10 Well controlled . On Amlodipine . Dyslipidemia 283532041 E 78.5 Needs to keep LDL less than 70, and HDL more than 40 06/18/19 LDL 66 On Simvastati n. Dizziness 565133171 R42 Improved. Atypical chest pain 1025 41047 R07.89 Treadmill Myoview Stress test, has high Monroe Risk score. Has Known CAD, or CAD risk equivalent . To look for any ischemia. Treadmill Nuclear Stress Test 03/28/17 : Negative stress test for ischemia. TDS. Normal LV systolic function. Artifact noted.Exer cise tolerances average. No previous study to compare. LVEF 62%. Swelling o f bilateral lower limbs 168529600 M79.89 06/21/2019 ECHO: LV chamber size is normal. LV systolic function is normal. The estimated left ventricle ejection fraction is 60- 65 % ( normal) Snoring 18611494 R06.83 sleep study [id number] MD Gabby Ortega Office [address] [facility] [place] [address] 09/23/2019 13:36:32 09/23/2019 14:02:50 Bradycardia 58461548 R00.1 Chonnic bradycardi aHR today is 41 bpm. Patient denies any dizziness or recent falls. Remains active. Benign ess ential hypertension 2170462 I10 Well controlled . On Amlodipine . Dyslipidemia 926378064 E 78.5 Needs to keep LDL less than 70, and HDL more than 40 06/18/19 LDL 66 On Simvastati n. Dizziness 168989457 R42 Improved. Atypical chest pain 1025 47500 R07.89 [email or web address] /04/20 tdm stress test-Negat mandy stress test. NML LV systolic function. LVEF 62%cont medicalman agement and risk factor modificati on Swelling o f bilateral lower limbs 579315188 M79.89 06/21/2019 ECHO: LV chamber size is normal. LV systolic function is normal. The estimated left ventricle ejection fraction is 60- 65 % ( normal)res tart Lasix Snoring 95526351 R06.83 sleep study [id number] Mohsen Baltazar MD [place] [facility] [address] [place] [address] 03/04/2020 09:17:15 03/04/2020 10:00:06 Bradycardia 88870802 R00.1 03/04/2020C hronic bradycardi aHR today is 47 bpm. Patient denies any dizziness or recent falls. Remains active. Reports that his watch alerts if it goes below 40, and has not in 3-4 months.Con tinue to monitor Benign ess ential hypertension 6050110 I10 03/04/2020B lood pressure is elevated today, but this is only one reading, will keep close follow up, and consider medication change if blood pressure is still elevated next visit. Obtains 130's/70s at home. Dyslipidemia 451032023 E 78.5 03/04/2020 Continue simvastati n 10mg nightly Will get fasting lipids for follow-up Needs to keep LDL less than 70, and HDL more than 40 06/18/2019 LDL 66 Dizziness 799656996 R42 03/04/2020I mproved. No complaints at this time.Asymp tomatic with bradycardi a Atypical chest pain 1025 04758 R07.89 03/04/20Res olved Stress test 08/05/2019 : Negative stress test. Normal LV systolic function. LVEF 62%.Contin ue medical management and risk factor modificati on Swelling o f bilateral lower limbs 581058121 M79.89 03/04/2020R esolvedEch o 06/21/2019 : LV chamber size is normal. LV systolic function is normal. The estimated left ventricle ejection fraction is 60- 65 % (normal). Snoring 63463471 R06.83 03/04/2020S leep study 07/28/2019 showed moderate OSAOn CPAP, reports general compliance , stating that he hits the 70% but does not keep it on all the time. [id number] Antionette Johnson MD [place] [facility] [address] [place] [address] 08/26/2020 09:50:55 08/26/2020 11:57:21 Bradycardia 12084858 R00.1 Chronic bradycardi a, remains asymptomat ic. Benign ess ential hypertension 2745172 I10 Blood pressure is elevated today, but this is only one reading, will keep close follow up, and consider medication change if blood pressure is still elevated next visit. Dyslipidemia 012160958 E 78.5 Needs to keep LDL less than 70, and HDL more than 40. 03/11/2020 LDL 71 Continue simvastati n 10mg nightly Will get fasting lipids for follow-up Dizziness 953788013 R42 Resolved, asymptomat ic with bradycardi a. Atypical chest pain 1025 16160 R07.89 Resolved TDM 08/05/2019 : Negative stress test. Normal LV systolic function. LVEF 62%. Continue medical management and risk factor modificati on Swelling o f bilateral lower limbs 071267374 M79.89 Resolved Obtain echo to evaluate for structural /functiona l disease. Obstructiv e sleep apnea syndrome 85599345 G47.33 He is not regularly compliant with CPAP. [id number] Mohsen Baltazar MD [place] [facility] [place] [address] 02/28/2021 11:35:28 02/28/2021 13:07:10 Bradycardia 07150210 R00.1 Chronic bradycardi a, remains asymptomat ic. Benign ess ential hypertension 2536942 I10 Blood pressure is elevated today, but this is only one reading, will keep close follow up, and consider medication change if blood pressure is still elevated next visit. Dyslipidemia 767299142 E 78.5 Needs to keep LDL less than 70, and HDL more than 40. 03/11/2020 LDL 71 Continue simvastati n 10mg nightly Will get fasting lipids for follow-up Dizziness 621199367 R42 Resolved, asymptomat ic with bradycardi a. Atypical chest pain 1025 60670 R07.89 Resolved TDM 08/05/2019 : Negative stress test. Normal LV systolic function. LVEF 62%. Continue medical management and risk factor modificati on Swelling o f bilateral lower limbs [id number] M79.89 Milds Obstructiv e sleep apnea syndrome 21895658 G47.33 He is not regularly compliant with CPAP. [id number] Mohsen Baltazar MD [place] [facility] [place] [address] 02/27/2022 10:28:11 02/27/2022 11:19:32 Bradycardia 48825401 R00.1 Chronic bradycardi a, remains asymptomat ic. Benign ess ential hypertension 7145807 I10 we will decreased his amlodipine to 5 mg dailyincre ased lisinopril to 20 mg daily Dyslipidemia 954985634 E 78.5 Needs to keep LDL less than 70, and HDL more than 40. 03/11/2020 LDL 71 Continue simvastati n 10mg nightly Will get fasting lipids for follow-up Dizziness 773166465 R42 Resolved, asymptomat ic with bradycardi a. Atypical chest pain 1025 82124 R07.89 Resolved TDM 08/05/2019 : Negative stress test. Normal LV systolic function. LVEF 62%. Continue medical management and risk factor modificati on Swelling o f bilateral lower limbs 454331569 M79.89 Milds Obstructiv e sleep apnea syndrome 72420931 G47.33 He is not regularly compliant with CPAP. Essential hypertension 92536497 I10 Now well controlled [id number] Mohsen Baltazar MD [place] [facility] [address] [place] [address] 05/08/2022 11:23:20 05/08/2022 12:43:28 Bradycardia 40065328 R00.1 Chronic bradycardi a, remains asymptomat ic. Benign ess ential hypertension 5348650 I10 we will decreased his amlodipine to 5 mg dailyincre ased lisinopril to 20 mg daily Dyslipidemia 204766662 E 78.5 Needs to keep LDL less than 70, and HDL more than 40. 03/11/2020 LDL 71 Continue simvastati n 10mg nightly Will get fasting lipids for follow-up Dizziness 389862514 R42 Resolved, asymptomat ic with bradycardi a. Atypical chest pain 1025 79561 R07.89 Resolved TDM 08/05/2019 : Negative stress test. Normal LV systolic function. LVEF 62%. Continue medical management and risk factor modificati on Swelling o f bilateral lower limbs 339996114 M79.89 Mild, better Obstructiv e sleep apnea syndrome 69170496 G47.33 He is not regularly compliant with CPAP. Essential hypertension 19400491 I10 Now well controlled 91241 Mohsen Baltazar MD [place] [facility] [address] [place] [address] 09/13/2022 10:50:35 09/13/2022 12:31:35 Bradycardia 90356560 R00.1 Chronic bradycardi a, now more symptomati c rate 36 junctional rhythmwill need a pacemaker, will send to ER and will arrange for a pacer Benign ess ential hypertension 4953874 I10 we will decreased his amlodipine to 5 mg dailyincre ased lisinopril to 20 mg daily Dyslipidemia 985967438 E 78.5 Needs to keep LDL less than 70, and HDL more than 40. 03/11/2020 LDL 71 Continue simvastati n 10mg nightly Will get fasting lipids for follow-up Dizziness 993620351 R42 Resolved, with bradycardi a.May need a pacerwill get MCT for one week Atypical chest pain 1025 91852 R07.89 Resolved TDM 08/05/2019 : Negative stress test. Normal LV systolic function. LVEF 62%. Continue medical management and risk factor modificati on Swelling o f bilateral lower limbs 747811888 M79.89 Mild, better Obstructiv e sleep apnea syndrome 28893082 G47.33 He is not regularly compliant with CPAP. Essential hypertension 89709778 I10 Now well controlled 87096 Mohsen Baltazar MD [place] [facility] [place] [address] 03/23/2023 12:17:31 03/23/2023 13:12:39 Bradycardia 87066695 R00.1 Chronic bradycardi a, now more symptomati c rate 36 junctional rhythm, now has pacemaker, will do the follow up here Benign ess ential hypertension 0859118 I10 Dyslipidemia 985361554 E 78.5 Needs to keep LDL less than 70, and HDL more than 40. 03/11/2020 LDL 71 Continue simvastati n 10mg nightly Will get fasting lipids for follow-up Swelling o f bilateral lower limbs 043026966 M79.89 Mild, better Obstructiv e sleep apnea syndrome 80330942 G47.33 He is not regularly compliant with CPAP. Cardiac pa cemaker in situ 013730601 Z95.0 follow up here [id number] Mohsen Baltazar MD [place] [facility] [place] [address] 08/13/2023 11:01:12 08/13/2023 12:08:33 Bradycardia 33827151 R00.1 paroxysmal a fib, s/p pacemaker placement 2022 ( [employer]) will do the follow up here Benign ess ential hypertension 5243623 I10 well controlled today Dyslipidemia 133924791 E 78.5 Needs to keep LDL less than 70, and HDL more than 40.*Last LDL was 58 done on 08/2023 Pt takes simvastati n 10 mg. Swelling o f bilateral lower limbs 655804647 M79.89 Mild, better Obstructiv e sleep apnea syndrome 95375924 G47.33 He is not regularly compliant with CPAP. Cardiac pa varinder in situ 971306011 Z95.0 paroxysmal a fib, s/p pacemaker placement 2022 ( [employer])lexy zhu follow up with him hereyoel start on full aspirin 325 mg Atypical chest pain 1025 61304 R07.89 Treadmill Myoview Stress test, has high Monroe Risk score. Has Known CAD, or CAD risk equivalent . To look for any ischemia. TDM 08/05/2019 : Negative stress test. Normal LV systolic function. LVEF 62%. Continue medical management and risk factor modificati on 267131 Mohsen Baltazar MD [place] [facility] [address] [place] [address] 09/28/2023 12:58:42 09/28/2023 13:37:58 Bradycardia 15750307 R00.1 paroxysmal a fib, s/p pacemaker placement 2022 ( [employer]) will do the follow up here Benign ess ential hypertension 6925945 I10 well controlled today Dyslipidemia 106889028 E 78.5 Needs to keep LDL less than 70, and HDL more than 40.*Last LDL was 58 done on 08/2023 Pt takes simvastati n 10 mg. Swelling o f bilateral lower limbs 098597515 M79.89 Mild, better Obstructiv e sleep apnea syndrome 90418542 G47.33 He is not regularly compliant with CPAP. Cardiac pa varinder in situ 088790474 Z95.0 paroxysmal a fib, s/p pacemaker placement 2022 ( [employer])lexy zhu follow up with him hereyoel start on full aspirin 325 mg Coronary arteriosclerosis 44838545 I25.10 with positive stress test, The patient will be scheduled for left heart catheteriz ation, with coronary angiogram, and possible PTCA/Stent . The procedure was discussed with the patient, and risks, benefits, and alternativ e options were explained. The patient was given informatio n about heart catheteriz ation and interventi onal procedures . The patient agrees to proceed. [id number] Mohsen Baltazar MD [place] [facility] [address] [place] [address] 10/19/2023 13:30:00 10/19/2023 14:12:18 Bradycardia 07430924 R00.1 paroxysmal a fib, s/p pacemaker placement 2022 ( [employer]) will do the follow up here Benign ess ential hypertension 8064064 I10 well controlled today Dyslipidemia 860661670 E 78.5 Needs to keep LDL less than 70, and HDL more than 40.*Last LDL was 58 done on 08/2023 Pt takes simvastati n 10 mg. Swelling o f bilateral lower limbs 307975441 M79.89 Mild, better Obstructiv e sleep apnea syndrome 84793985 G47.33 He is not regularly compliant with CPAP. Cardiac pa cemaker in situ 302007044 Z95.0 paroxysmal a fib, s/p pacemaker placement 2022 ( [employer])lexy zhu follow up with him herewill start on full aspirin 325 mg Coronary arteriosclerosis 17727154 I25.10 Had a cath with RCA stenosis [id number] Mohsen Baltazar MD [place] [facility] [place] [address] 07/23/2024 16:04:56 07/23/2024 16:51:09 Bradycardia 30083165 R00.1 paroxysmal a fib, s/p pacemaker placement 2022 ( [employer]) will do the follow up here Benign ess ential hypertension 2325910 I10 well controlled today Dyslipidemia 917992611 E 78.5 Needs to keep LDL less than 70, and HDL more than 40.*Last LDL was 58 done on 08/2023 Pt takes simvastati n 10 mg. Swelling o f bilateral lower limbs 516387162 M79.89 Mild, better Obstructiv e sleep apnea syndrome 27648092 G47.33 He is not regularly compliant with CPAP. Cardiac pa cemaker in situ 911042904 Z95.0 paroxysmal a fib, s/p pacemaker placement 2022 ( [employer])lexy zhu follow up with him herewill start on full aspirin 325 mg Coronary arteriosclerosis 20951668 I25.10 Had a cath with RCA stenosis Paroxysmal atrial fibrillation 727342446 I48.0 low burden, may need Xaelto [id number] Mohsen Baltazar MD [place] [facility] [place] [address] 10/08/2024 16:48:18 10/08/2024 17:15:36 Bradycardia 73850365 R00.1 paroxysmal a fib, s/p pacemaker placement 2022 ( [employer]) will do the follow up here Benign ess ential hypertension 4324383 I10 well controlled today Dyslipidemia 044785761 E 78.5 Needs to keep LDL less than 70, and HDL more than 40.*Last LDL was 58 done on 08/2023 Pt takes Lipitor Swelling o f bilateral lower limbs 617212801 M79.89 Mild, better Obstructiv e sleep apnea syndrome 93829642 G47.33 He is not regularly compliant with CPAP. Cardiac pa davidaker in situ 017406102 Z95.0 paroxysmal a fib, s/p pacemaker placement 2022 ( [employer])lexy zhu follow up with him herewimaria t start on full aspirin 325 mg Coronary arteriosclerosis 59797615 I25.10 Had a cath with RCA stenosis Paroxysmal atrial fibrillation 785829405 I48.0 low burden, may need Xaelto Health Concerns Section Related Observation LastModified by Organization Detai ls LastModified Time None Recorded Concern Status LastModified by Organization Details LastModified Time None Recorded Advance Directives Directive None Recorded Payers Insurance Date Sequence Insurance Name Policy Number Policy Lara Covered Member ID Lara Member ID Guarantor Name 10/08/2024 1 [place] Gertrudis Alexander [id number] Gertrudis Alexander 10/08/2024 2 [place] [id number] Gertrudis Alexander [id number] Gertrudis Alexander Notes Date Note Type Note Provider Name and Address Organization Details Recorded Time 08/13/2023 text/html 08/13/23CC : Car diac follow up chest [id number] WM with history of benign essential hypertension, YUDITH paroxysmal a fib, s/p pacemaker placement 2022 ,( [employer]) , prediabetes and dyslipidemia, presents for 2 [...] 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 He admits he has not been active [...] this visit, or from the past:03/11/20 TSH: 3.53197 LIPID: TC 179, TR 94, HDL 88, LDL CMP: NA 140, K 3.9, CL 101, CO2 32, GLU 95, BUN 25, CR 1.30, AST 33, ALT 20lipid panel, blood [id number] 06/18/2019 TR 78 CH 169 LDL 66 HDL 46TSH, serum or plasma 31-75-2672Wfk 4.990 FT4 0.7406/18/2019 : WBC 4.9,RBC 4.14,HGB [...] RVSP is 36 mmHg. Sinus bradycardia. 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 Results from this visit, or from the past:03/11/20 TSH: 3.16179 LIPID: TC 179, TR 94, HDL 88, LDL CMP: NA 140, K 3.9, CL 101, CO2 32, GLU 95, BUN 25, CR 1.30, AST 33, ALT 20lipid panel, blood [id number] 06/18/2019 TR 78 CH 169 LDL 66 HDL 46TSH, serum or plasma 92-76-3770Kyd 4.990 FT4 0.7406/18/2019 : WBC 4.9,RBC 4.14,HGB [...] 36 mmHg. Sinus bradycardia. 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 Results from this visit, or from the past:03/11/20 TSH: 3.79665 LIPID: TC 179, TR 94, HDL 88, LDL CMP: NA 140, K 3.9, CL 101, CO2 32, GLU 95, BUN 25, CR 1.30, AST 33, ALT 20lipid panel, blood [id number] 06/18/2019 TR 78 CH 169 LDL 66 HDL 46TSH, serum or plasma 03-59-3030Plu 4.990 FT4 0.7406/18/2019 : WBC 4.9,RBC 4.14,HGB [...] 36 mmHg. Sinus bradycardia. Mohsen Baltazar MD [address] [place], [address], [facility] - [facility] 10/19/2023 14:11:49 07/23/2024 text/html 07/23/24CC : Car diac follow up, dyspnea on [id number] WM with history of benign essential hypertension, YUDITH paroxysmal a fib, s/p pacemaker placement 2022 ,( [employer]) , prediabetes and dyslipidemia is here for follow up. He was last seen in the clinic on 10/19/23, since then he had few episodes of Palpitation Denies chest pain.Denies shortness of breath at rest. Has mild dyspnea on exertion.No orthopnea. No PNDs.Has heart palpitations.Has dizziness. Denies syncope or near syncope.No ankle or leg edema.No major bleeding events.No reported side effects from medications. Taking medications as prescribed with no missed doses.Denies snoring, daytime somnolence and AM headache.*Last LDL was 87 done on 02/27/22.Pt takes atorvastatin 40 mg. Previously:*Had Positive stress test on 08/13/23 with Normal LV systolic function. Reversible defect consistent with ischemia in inferior area. Exercise tolerance: Below Average. LVEF: 48%. He had a pacer, he feels Ok now *Had ECHO on 03/28/22 showed LV chamber size is normal. There is normal global systolic function and contrarily. 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 Results from this visit, or from the past:03/11/20 TSH: 3.85555 LIPID: TC 179, TR 94, HDL 88, LDL CMP: NA 140, K 3.9, CL 101, CO2 32, GLU 95, BUN 25, CR 1.30, AST 33, ALT 20lipid panel, blood [id number] 06/18/2019 TR 78 CH 169 LDL 66 HDL 46TSH, serum or plasma 75-82-0837Dbh 4.990 FT4 0.7406/18/2019 : WBC 4.9,RBC 4.14,HGB [...] 36 mmHg. Sinus bradycardia. Mohsen Baltazar MD [address] [place], [address], [facility] - [facility] 07/23/2024 16:44:41 10/08/2024 text/html 10/08/24-no [facility] : Cardiac follow up, dyspnea on [id number]-[id number] WM with history of benign essential hypertension, YUDITH paroxysmal a fib, s/p pacemaker placement 2022 ,( [employer]) , prediabetes and dyslipidemia is here for 3 month follow up. He was last seen in the clinic on 07/23/24, since then heHe denies ER visits and hospitalizations since he was last seen. Denies chest pain.Denies shortness of breath at rest. Has mild dyspnea on exertion.No orthopnea. No PNDs.Has heart palpitations.Has dizziness. Denies syncope or near syncope.No ankle or leg edema.No major bleeding events.No reported side effects from medications. Taking medications as prescribed with no missed doses.Denies snoring, daytime somnolence and AM headache.*Last LDL was 87 done on 02/27/22.Pt takes atorvastatin 40 mg. Previously:*EKG 07/23/24: One or more complexes with too much noise. Electrode misplacement. warning; excessive noise in (part of ) recording, warning; V2-V3 electrodes possibly reversed. sinus bradycardia, P; normal, QRS: normal, ST-T; acute high-lateral ischemia, ST elevation in l aVL, conclusion: abnormal ECG. *Had Positive stress test on 08/13/23 with Normal LV systolic function. Reversible defect consistent with ischemia in inferior area. Exercise tolerance: Below Average. LVEF: 48%. He had a pacer, he feels Ok now *Had ECHO on 03/28/22 showed LV chamber size is normal. There is normal global systolic function and contrarily. 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 Results from this visit, or from the past:03/11/20 TSH: 3.38707 LIPID: TC 179, TR 94, HDL 88, LDL CMP: NA 140, K 3.9, CL 101, CO2 32, GLU 95, BUN 25, CR 1.30, AST 33, ALT 20lipid panel, blood [id number] 06/18/2019 TR 78 CH 169 LDL 66 HDL 46TSH, serum or plasma 28-78-5713Vrk 4.990 FT4 0.7406/18/2019 : WBC 4.9,RBC 4.14,HGB [...] 36 mmHg. Sinus bradycardia. Mohsen Baltazar MD [address] [place], [address], [facility] - [facility] 10/08/2024 17:12:52
[2024-10-21 14:11] LABS: Basophils Percent Auto 0.7 % (0.2-1.2); Eosinophils Absolute Auto 0.2 K/mm3 (0-0.3); Hemoglobin 13.9 g/dL (14.0-18.0); Immature Granulocyte Absolute 0.06 K/mm3 (0.00-0.031); Lymphocytes Percent Auto 15.1 % (18.3-44.2); Mean Corpuscular HGB Conc 34.8 g/dl (32-36); Mean Corpuscular Hemoglobin 34.8 pg (26-34); Mean Platelet Volume 10.7 fl (7.4-10.4); Monocytes Absolute Auto 0.7 K/mm3 (0.1-0.6); Monocytes Percent Auto 11.1 % (2.6-8.5); Neutrophils Absolute Auto 4.1 K/mm3 (1.3-6.7); Neutrophils Percent Auto 68.1 % (45.5-73.1); Platelet Count Result 142 k/mm3 (150-375); Red Cell Distribution Width 13.2 % (11.5-14.5)
[2024-10-21 14:35] LABS: Parathyroid Intact 43.1 pg/mL (14.5-75.2)
[2024-10-21 16:55] LABS: Hemoglobin A1C 5.1 % (<5.7)
[2024-10-21 19:24] LABS: Phosphorus 3.1 mg/dL (2.5-4.5); Uric Acid 3.4 mg/dL (3.5-8.5)
== END 2024-10-21 13:40 | disposition home or self-care (01) ==
LOC: ANHLAB 13:42
PROVIDERS: PCP Internal Medicine; Visit Provider Internal Medicine
DX: E03.9 Hypothyroidism, unspecified (principal); I12.9 Hypertensive chronic kidney disease with stage 1 through stage 4 chronic kidney disease, or unspecified chronic kidney disease; N18.9 Chronic kidney disease, unspecified; R79.89 Other specified abnormal findings of blood chemistry; Z79.891 Long term (current) use of opiate analgesic
CPT/HCPCS: 36415; 82607; 83036; 83970; 84100; 84443; 84550; 85025

== ENCOUNTER 2025-04-21 16:23 | Outpatient (CLI) | payer MEDICARE, SELFPAY ==
[2025-04-21 16:54] LABS: Hematocrit 37.8 % (42.0-52.0); Hemoglobin 13.4 g/dL (14.0-18.0); Immature Granulocyte Percent A 1.0 % (0-0.5); Lymphocytes Absolute Auto 1.08 K/mm3 (0.9-3.2); Mean Corpuscular HGB Conc 35.4 g/dl (32-36); Mean Corpuscular Hemoglobin 36.1 pg (26-34); Mean Corpuscular Volume 101.9 fl (80-100); Nucleated Red Blood Cells Absolute Auto 0.000 K/mm3 (0.0-0.012); Nucleated Red Blood Cells Perc 0.0 % (0.0-0.2); Platelet Count Result 148 k/mm3 (150-375); Red Blood Count 3.71 M/mm3 (4.6-6.20); White Blood Count 5.9 K/mm3 (4.5-10.0)
[2025-04-21 17:30] LABS: Free T4 Free Thyroxine 1.07 ng/dL (0.78-2.19)
[2025-04-21 17:38] LABS: Alanine Aminotransferase 18 U/L (6-50); Albumin Level 3.6 g/dL (3.5-5.1); Alkaline Phosphatase 88 U/L (38-126); Anion Gap 3 mmol/L (4-12); Aspartate Amino Transferase 28 U/L (17-59); Bilirubin,Total 0.6 mg/dL (0.2-1.3); Blood Urea Nitrogen 26 mg/dL (9-20); Calcium 8.0 mg/dL (8.4-10.2); Carbon Dioxide 24 mmol/L (22-30); Chloride 110 mmol/L (98-107); Cholesterol 124 mg/dL (0-200); Estimated Glomerular Filt Rate > 60; Glucose 100 mg/dL (65-110); HDL Direct 56 mg/dL; Sodium 137 mmol/L (137-145); Total Protein 6.6 g/dL (6.3-8.2); Triglycerides 89 mg/dL (<150)
[2025-04-21 17:50] LABS: MALB Creatinine Ratio < 5.1 mg/g (0-30)
[2025-04-21 17:52] LABS: Potassium 4.1 mmol/L (3.4-5.0)
[2025-04-21 18:19] LABS: Thyroid Stimulating Hormone 2.370 uIU/mL (0.465-4.680)
[2025-04-21 18:38] LABS: Vitamin B12 978.0 pg/mL (239-931)
[2025-04-21 19:27] LABS: Hemoglobin A1C 5.2 % (<5.7)
--- OUTSIDE RECORDS SUMMARY | 2025-04-22 00:26 | XMS_ITS | Clinical Summary ---
Author Organization [facility] Address [address] [facility] [place] [address] Care Team Providers Care Office Machine Service Supervisor Name Role Phone Unavailable Primary Care Provider Unavailabl e Source Comments [facility],non-owned Affiliates and Associated Physician Practices is amultiple site organization consisting of ambulatory clinics and hospital sitesin [place], [place], [place] and [place]. This disclosure is being madepursuant to the Care Everywhere program and may not contain all information available regarding this patient. Last updated 18.[facility] Social History Tobacco Use Types Packs/Day Years [...] yrs (1 - 1-dose 75+ series) 2017 DEPRESSION SCREENING 06/03/2024 COVID-19 VACCINE (1 - 2024-2 6 season) 2025 INFLUENZA VACCINE (#1) 2025 HEPATITIS B VACCINE Aged Out No [...] patient's age to complete this topic Insurance [facility]
--- OUTSIDE RECORDS SUMMARY | 2025-04-22 00:26 | XMS_ITS | Continuity of Care Document ---
Author Organization [facility] [employer], [place] Address [address] 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 Studies ordered as below. Discussed plan with patient/careg iver, who expressed understanding . Follow up as noted below. [email or web address] Not available 04/21/2025 11:37:43 Plan of Treatment Reminders Order Date Submit Date Provider Last Modified By Organization Details Last Modified Time Details Appointments ESTABLISH ED PATIENT 15 2025 10:30A M Merrick Good MD Not available Not available Not available Lab hemoglobi n A1c, QN, blood 2024 025 [facility] (Lab), [address] [place] [address], [phone], 04/21/2025 12:40:33 D-dimer, quant, plasma 2024 025 [facility] (Lab), [address], [address], 04/21/2025 12:40:33 CMP, serum or plasma 2024 025 [facility] (Lab), [facility] [address], [address], 04/21/2025 12:40:33 CBC w/ auto diff 2024 [facility] (Lab), [address] [place] [address], [address], 04/21/2025 12:40:33 microalbu min/creat inine, mass ratio, urine 2024 [facility] (Lab), [address] [place] [address], [address], 04/21/2025 12:40:33 lipid panel w/ direct LDL, serum 2024 [facility] (Lab), [address] [place] [address], [address], 04/21/2025 12:40:34 H pylori Ag, stool 2024 [facility] (Lab), [address] [place] [address], [address], 04/21/2025 12:45:30 TSH + free T4, serum 2024 [facility] (Lab), [address] [place] [address], [address], 04/21/2025 12:40:33 vitamin B12, serum 2024 [facility] (Lab), [address] [place] [address], [address], 04/21/2025 12:40:33 Referral None recorded. Procedures None recorded. Surgeries None recorded. Imaging ankle brachial index, complete [address] (Imaging), [address] [place] [address], [address], 04/21/2025 12:50:11 US, renal [address] (Imaging), [address], [place], [address], 04/21/2025 12:50:11 Medication Orders ipratropi um bromide 42 mcg (0.06 %) nasal spray [address] [facility]/Pharmacy #[id number], [address] [place], [address], 04/21/2025 12:33:43 pantopraz ole 20 mg tablet,de layed release [address] [facility]/Pharmacy #[id number], [address] [place], [address], 04/21/2025 12:33:43 Patient TargetsNo targets recorded. Patient Instructions Encounter Date Encounter Id Patient Instructions Last Modified By Organization Details Last Modified Time 04/21/2025 [id number] Peripheral Arterial Disease (PAD): Care Instructions [email or web address] Not available 04/21/2025 12:33:30 hearing loss: care instructions mshenouda Not available 04/21/2025 12:33:30 shortness of breath: care instructions mshenouda Not available 04/21/2025 12:33:30 spirometry testing* ARMAAN Not available 04/21/2025 16:17:52 chronic kidney disease: care instructions mshenouda Not available 04/21/2025 12:33:30 learning about chronic kidney disease mshenouda Not available 04/21/2025 12:33:29 high cholesterol : care instructions mshenouda Not available 04/21/2025 12:33:30 dry eyes: care instructions mshenouda Not available 04/21/2025 12:33:30 learning about healthy weight mshenouda Not available 04/21/2025 12:33:30 hypothyroidism: care instructions mshenouda Not available 04/21/2025 12:33:30 living will mshenouda Not available 04/03 12:27:48 Reason for Referral None Reported. Results Created Date Observation Date Name Description Value Unit Range Abnormal Flag Note LastModifiedBy Organization Detail LastModifiedTime 04/21/2004/21/2025 kaitlynn metry testi ng* No observ ation record ed. [email or web address] [facility] [place] [id number] Replaced By [facility] [address], [place], [address], 04/21/2025 16:19:07 Result Notes None recorded. Problems Name Problem SNOMED Code Status Onset Date Resolution Date Notes Provider Name and Address Organization Details Recorded Time Benign hypertensi on 87577668 Active 2016 Not Available [facility] 3 10:38:17 Hyperlipid emia 12055207 Active 2016 Not Available [facility] 3 10:38:17 Aortic valve regurgitat ion 92693407 Active 2017 Not Available [facility] 3 10:38:17 Hypothyroi dism 07180453 Active 2017 Not Available [facility] 3 10:38:17 Unilateral hearing loss Active 2017 Not Available [facility] 3 10:38:17 Bradycardi a 12826542 Active 2018 Not Available [facility] 3 10:38:17 Body mass index 25-29 - overweight 284079398 Active 2018 Not Available [facility] 3 10:38:17 Primary erectile dysfunctio n 389707550 Active 2019 Not Available [facility] 3 10:38:17 Cholelithi asis with obstructio n 38878388 Active 2019 Not Available [facility] 3 10:38:17 Obstructiv e sleep apnea of adult 8154177736395 Active 2020 Not Available [facility] 3 10:38:17 Hearing loss 89559199 Active 2020 Not Available [facility] 3 10:38:17 Edema of lower extremity 867473127 Active 2021 Not Available [facility] 3 10:38:17 Serum creatinine above reference range 141704885 Active 2021 Not Available [facility] 3 10:38:17 Gastroesop hageal reflux disease without esophagiti s 065061643 Active 2022 Not Available [facility] 3 10:38:17 Chronic renal failure 76332902 Active 2022 MD Dave Castro[address], [place], [address] , [facility] 3 16:20:34 Sinus bradycardi a 58788906 Active 2022 MD Dave Castro[address], [place], [address] , [facility] 3 11:38:46 Hydronephr osis 77511179 Active 2022 MD Dave Castro[address], [place], [address] , [facility] 3 18:14:49 Cardiac pacemaker in situ 882065019 Active 2022 MD Dave Castro[address], [place], [address] , [facility] 3 12:31:14 Peripheral vascular disease 388870156 Active 2022 on NINA MD Dave Castro[address], [place], [address] , [facility] 3 21:39:53 Arthritis of hand 736797783 Active 2023 MD Toan Castro [address], [place], [address] , [facility] 4 12:21:58 Serum vitamin B12 below reference range 094800715 Active 2023 MD Toan Castro [address], [place], [address] , [facility] 4 16:15:16 Coronary arterioscl erosis 64582570 Active 2023 MD Toan Castro [address], [place], [address] , [facility] 4 12:02:07 Bilateral hearing loss 82436032 Active 2023 MD Toan Castro [address], [place], [address] , [facility] 4 12:10:32 Long-term drug therapy Active 2024 MD Toan Castro [address], [place], [address] , [facility] 5 12:35:11 Long-term current use of drug therapy 346756519 Active 2024 MD Toan Castro [address], [place], [address] , [facility] 5 12:21:22 Nasal discharge 91638330 Active 2024 MD Toan Castro Replaced By [facility] [address], [place], [address] , [facility] 5 12:31:54 Dry eyes 070154658 Active 2024 MD Toan Castro [address], [place], [address] , [facility] 5 12:32:53 Problem Notes None recorded. Procedures Surgical History Date Name Laterality Status Provider Name and Address Organization Details Recorded Time 04/29/20 17 Colonoscopy completed Jennifer Dudley [facility] 06/24/2017 09:51:48 Cataract Surgery completed MD Toan Castro [address], [place], [address], [facility] 12/20/2016 15:49:48 Other completed MD Toan Castro [address], [place], [address], [facility] 12/20/2016 15:50:16 Imaging Results None recorded. [...] 1 TABLET BY MOUTH DAILY WITH SUPPER 04/21 completed Not Available Not Available Not Available atorvastati n 80 mg tablet TAKE 1 TABLET BY MOUTH EVERY DAY WITH SUPPER 04/21 completed Not Available Not Available Not Available doxycycline hyclate 100 mg capsule TAKE [...] TAKE 1 TABLET BY MOUTH EVERY DAY 04/21 completed Not Available Not Available Not Available acetaminoph en 500 mg tablet TAKE [...] Not Available Not Available Not Avai lable sodium chloride 5 % eye ointment APPLY 1/2 INCH [...] TAKE 1 TABLET BY MOUTH EVERY DAY 04/21 completed Not Available Not Available Not Available benzonatate 100 mg capsule TAKE 1 [...] BY MOUTH EVERY DAY IN THE MORNING 02/15 completed Not Available Not Available Not Available nitroglycer in 0.4 mg sublingual tablet PLEASE SEE ATTACHED FOR DETAILED DIRECTION S active Not Available Not Available No t Available omeprazole 20 mg capsule,del ayed release TAKE 1 CAPSULE(S ) BY MOUTH ONCE DAILY IN THE MORNING 04/21 completed Not Available Not Available Not Available [...] Not Available Not Available Not Avai lable ipratropium bromide 42 mcg (0.06 %) nasal spray [place] 2 sprays 3 times a day by intranasa l route as needed. 2024 active Not Available Not Available Not [...] completed Not Available Not Available Not Available rosuvastati n 10 mg tablet Take 1 tablet every day by oral route. active Not Available Not Available No t Available metoprolol tartrate 25 mg tablet TAKE 1/2 TABLET TWICE A DAY BY MOUTH active Not Available Not Available No t Available Mucinex DM 30 mg-600 mg tablet,exte nded release 12 hr Take 1 tablet every 12 hours by oral route. 06/30 completed Not Available Not Available Not Available diclofenac 1 % topical gel APPLY 2 GRAMS TO THE AFFECTED AREA(S) BY TOPICAL ROUTE 4 TIMES PER DAY 04/21 completed Not Available Not Available Not Available Eliquis 5 mg tablet TAKE 1 TABLET BY MOUTH TWICE A DAY active Not Available Not Available No t Available Farxiga 10 mg tablet TAKE 1 TABLET BY MOUTH EVERY DAY 10/21 completed Not Available Not Available Not Available Jardiance 10 mg tablet Take 1 [...] Not Available Not Available Fluzone High-Dose Quad 2020-21 (PF) 240 mcg/0.7 mL IM syringe PHARMACY [...] Body temperature Respiratory rate Heart rate Systolic And Diastolic Provider Name and Address Organization Details Last Updated DateTime 5 167.64 cm 28.6 kg/m2 36308.8 5 g 97.6 [degF] 16 /min 49 /min 117/68 mm[Hg] Veronica Kerr [facility] 5 11:42:59 Social History Question Answer Notes LastModified by Organizat ion Details LastModified Time Tobacco Smoking Status Former Smoker quit Merrick Good MD [address] Replaced By [facility] [address], [place], [address], [facility] 12/20/2016 15:49:04 Do You Have An Advance Directive? No [email or web address] Information not available 04/18/2023 Which Illicit Or Recreational Drugs Have You Used? No Information not available 12/20/2016 Are There Any Guns Present In Your Home? No Information not available 04/18/2023 Live Alone Or With Others? With Others With Doughter [email or web address] Information not available 04/18/2023 Marital Status Single [email or web address] Informatio n not available 04/18/2023 What Was The Date Of Your Most Recent Tobacco Screening? 10/09/2018 [email or web address] Information not available 04/18/2023 Performs Monthly Self-breast Exam? No Information not available 04/18/2023 Seat Belts Used Routinely Yes [email or web address] Information not available 04/18/2023 Smoke Alarm In Home Yes [email or web address] Information not available 04/18/2023 Do You Use Sunscreen Routinely? No [email or web address] Information not available 04/18/2023 Have You Used IV Drugs? No [email or web address] Information not available 04/18/2023 Sex: Unknown Functional Status Question Answer Note LastModified by Organizat ion Details LastModified Time What is your level of alcohol consumption? Occasional Information not available 12/20/2016 Are you currently employed? Yes [email or web address] Information not available 04/18/2023 Are you able to care for yourself independently? Yes [email or web address] Information not available 04/18/2023 Mental Status None recorded. Family History Relationship Description Onset Age of this Age Resolved Age Notes LastModified by Organization Details LastModified Time Brother Heart disease [email or web address] Not available 2016 15:22:44 Brother Family history of stroke [email or web address] Not available 2024 11:13:23 Medical History No medical history recorded. Immunizations Vaccine Type Date Status Note Provider Nam e and Address Organization Details Recorded Time Influenza, split virus, quadrivalent, preservative 8 completed Not Available [facility] 05/07/2023 06:56:02 Influenza, split virus, quadrivalent, preservative 9 completed Not Available [facility] 05/07/2023 06:56:03 Influenza, split virus, quadrivalent, preservative 0 completed Not Available [facility] 05/07/2023 06:56:03 zoster recombinant 0 completed Not Available [facility] 05/07/2023 06:56:03 COVID-19 vaccine, vector-nr, rS-Ad26, PF, 0.5 mL 1 completed Not Available [facility] 05/07/2023 06:56:03 COVID-19 vaccine, vector-nr, rS-Ad26, PF, 0.5 mL 1 completed Not Available [facility] 05/07/2023 06:56:03 COVID-19, mRNA, LNP-S, PF, 30 mcg/0.3 mL dose 1 completed Not Available [facility] 05/07/2023 06:56:03 Influenza, split virus, quadrivalent, preservative 1 completed Not Available [facility] 05/07/2023 06:56:03 COVID-19, mRNA, LNP-S, PF, 30 mcg/0.3 mL dose, dante-sucrose 2 completed Not Available [facility] 05/07/2023 06:56:03 Influenza, high-dose, quadrivalent, PF 2 completed Not Available [facility] 05/07/2023 06:56:03 COVID-19, mRNA, LNP-S, bivalent, PF, 30 mcg/0.3 mL dose 2 completed Not Available [facility] 05/07/2023 06:56:03 Pneumococcal conjugate PCV20, polysaccharide ATI304 conjugate, adjuvant, PF 3 completed Not Available [facility] 05/07/2023 06:56:03 Influenza, adjuvanted, quadrivalent, PF 4 completed MD Toan Castro [address], [place], [address], [facility] 04/11/2024 17:35:13 Pneumococcal conjugate PCV20, polysaccharide SON395 conjugate, adjuvant, PF 4 completed MD Toan Castro [address], [place], [address], [facility] 08/04/2023 12:08:41 COVID-19, mRNA, LNP-S, PF, dante-sucrose, 30 mcg/0.3 mL 4 completed MD Toan Castro [address], [place], [address], [facility] 04/11/2024 17:35:13 RSV, recombinant, protein subunit RSVpreF, adjuvant reconstituted, 0.5 mL, PF 4 completed MD Toan Castro [address], [place], [address], [facility] 09/30/2023 09:59:33 COVID-19, mRNA, LNP-S, PF, dante-sucrose, 30 mcg/0.3 mL 4 completed MD Toan Castro [address], [place], [address], [facility] 04/11/2024 17:35:13 Influenza, high-dose, trivalent, PF 4 completed Merrick Good MD [address], [place], [address], [facility] 04/11/2024 17:35:13 Influenza, split virus, trivalent, preservative 7 completed Not Available [facility] 05/07/2023 06:56:03 Td(adult) unspecified formulation 4 completed Not Available [facility] 05/07/2023 06:56:03 Pneumococcal conjugate PCV 13 7 completed Not Available [facility] 05/07/2023 06:56:03 Past Encounters Encounter ID Performer Location Encounter Start Date Encounter Closed Date Diagnosis/Indication Diagnosis SNOMED-CT Code Diagnosis ICD10 Code Diagnosis IMO Codes Diagnosis Note [id number] Merrick Good MD [facility] 4972 Replaced By [facility] [address] [place] [address] 04/21/2025 11:13:10 04/21/2025 12:50:11 Adult health examination 313470847 Z00.01 0832635 Gastroesop hageal reflux disease without esophagitis 751138485 K21.9 - stable Benign hypertension 1072 5009 I10 - last optometry eval 07/2024- on the high side today- BP 2-3 weeks- last EKG 10/08/24 Coronary arteriosclerosis 80425901 I25.10 - had cath @ [facility]- cardiology started plavix Cardiac pa cemaker in situ 173725574 Z95.0 - 09/15/22 Peripheral vascular disease 519176553 I73.9 - 04/29/23 Hyperlipidemia 90437418 E78.5 - last LDL 10/21/24 Long-term current use of drug therapy 954401848 Z79.632 0503178 - statin , last A1c 06/30/24 Hypothyroidism 33435698 E03.9 - last TSH 12/12/23 Body mass index 25-29 - overweight 249700349 Z68.26 - education- diet and exercise Serum harry min B12 below reference range 653157452 R79.89 - 12/12/23 Bilateral hearing loss 17937935 H91.93 seen ENT Cholelithi asis with obstruction 48375835 K80.81 education Hydronephrosis 73440785 N13.30 - Rt on US 09/21/22- seen urology 10/17/22- having another US 03/10/24 Chronic renal failure 90 130600 N18.9 - recheck labs Primary er ectile dysfunction 471227777 N52.9 - stable Obstructiv e sleep apnea of adult 7564724397 103 G47.33 - education- could not tolerate CPAP Screening for malignant neoplasm of colon 608025333 Z12.11 138026 last C scope 05/10/2022 , no polyp Immunization due 7966705 08 Z23 9482990 up to date , Counseling 429172013 Z71 .89 922664 education Dyspnea 379741883 R06.02 25776 Nasal discharge 50864330 J34.89 83430 Dry eyes 856801356 H04.1 23 7530200 - seen ophth Health Concerns Section Related Observation LastModified by Organization Detai ls LastModified Time None Recorded Concern Status LastModified by Organization Details LastModified Time None Recorded Payers Encounter Date Sequence Insurance Name Policy Number Policy Lara Covered Member ID Lara Member ID Guarantor Name 04/21/2025 2 [place] [id number] Gertrudis Alexander [id number] Gertrudis Alexander 04/21/2025 1 [place] Gertrudis Alexander [id number] Gertrudis Alexander Notes Date Note Type Note Provider Name and Address Organization Details Recorded Time 04/21/2025 text/html Medicare Annual Wellness VisitReported by PatientSocial/Behavio ral HistoryFor diet and nutrition, patient reportshealthy diet. For fracture risk, patient reportsno history of fractures,no recent explained fracture,no sudden unexplained fractures, andno previous musculoskeletal injuries. For physical activity, patient reportsrecent increase in physical activity,good physical condition, anddiscussed exercise habits.Mental Status:For depression risk, patient reportsnever feels sad, empty, or tearful,no loss of interest in activities,no significant changes in weight,no sleep disturbances or insomnia,no agitation,no loss of energy,no feelings of worthlessness or guilt,no thoughts of suicide,no history of depression, andno history of mood disorders. For orientation, patient reportsno disorientation to time,no disorientation to date, andno disorientation to place. For concentration and memory, patient reportsno decreased concentrating ability,no memory lapses or loss, anddoes not forget words. For speech/motor difficulties, patient reportsno speech difficulties,no difficulty expressing formulated concepts,no difficulty with fine manipulative tasks,no difficulty writing/copying,no slowed reaction time, anddoes not knock things over when trying to pick them up.Functional AbilityFor hearing, patient reportsno loss of hearing. For vision, patient reportsno vision problems. For activities of daily living, patient reportsable to bathe with limited or no assistance,able to contol urination and bowels,able to dress with limited or no assistance,able to feed self with limited or no assistance,able to get out of chair or bed with limited or no assistance,able to groom with limited or no assistance, andable to toilet with limited or no assistance. For instrumental activities of daily living, patient reportsable to do house work with limited or no assistance,able to grocery shop with limited or no assistance,able to manage medications with limited or no assistance,able to manage money with limited or no assistance,able to prepare meals with limited or no assistance, andable to use the phone with limited or no assistance. For falls risk assessment, patient reportsno frequent falls while walking,no fall in the past year,no fall since last visit, andno dizziness/vertigo. For home safety, patient reportsuse of seatbeltsandno vision or hearing loss while driving. Hypertension F/UReported by PatientHPIFor medications, patient reportstaking medications as directedandno side effects from medication. For lifestyle, patient reportsregular exercise,limiting/gal iding salt, andcompliant with low salt diet. For associated symptoms, patient reportsno dizziness,no lightheadedness,no chest pain,no shortness of breath,no palpitations,no edema,no calf pain with exertion, andno headache. Merrick Good MD [address] Replaced By [facility] [address], [place], [address], [facility] 04/21/2025 12:39:33
--- OUTSIDE RECORDS SUMMARY | 2025-04-22 00:26 | XMS_ITS | Encounter Summary ---
Author Organization [facility] Address [address] [place] [address] Care Team Providers Care [employer] Architect Name Role Phone Merrick Good MD Primary Care Provider [phone] Encounter Details Date Type Department Care Team (Late st Contact Info) Description 03/03/2025 Results Follow-Up [facility] [address] [address] [address] [place] [address] Radha Gunn, [facility] [address] [address] [address] [place] [address] PACER ANALYSIS REMOTE, UP TO 90 DAYS Social History Tobacco Use Types Packs/Day Years [...] as of this encounter Plan of Treatment Not on file documented as of this encounter Visit Diagnoses Not on filedocumented in this encounter Care Teams [employer] Relationship Specialty Start Date End Date Merrick Good MD [address] [place] [address] PCP - General Internal Medicine 10/04/23 documented as of this encounter
--- OUTSIDE RECORDS SUMMARY | 2025-04-22 00:26 | XMS_ITS | Clinical Summary ---
Author Organization [facility] [place] Address [address] [address] [place] [address] Care Team Providers Care Associate Medical Director Name Role Phone Merrick Good MD Primary Care Provider [phone] Allergies No known active allergies Medications amLODIPine [...] Tablet by mouth daily. 10/21/19 24 Active nitroglycerin (NITROSTAT) 0.4 mg Tablet, Sublingual Place 1 Tablet (0.4 mg) under tongue every 5 minutes as needed for Chest Pain (Not to exceed 3 doses, notify physician if chest pain not relieved, hold if systolic BP less than or equal to 90 mmHg). 25 Tablet 1 11/07/19 24 Active atorvastatin (LIPITOR) 80 mg tabletIndications :Mixed hyperlipidemia Take 1 Tablet (80 mg) by mouth daily with supper. 90 Tablet 1 06/04/19 25 Active atorvastatin (LIPITOR) 40 mg tablet TAKE 1 TABLET BY MOUTH DAILY WITH SUPPER 90 Tablet 3 07/21/19 25 Active apixaban (ELIQUIS) 5 mg tablet Take 1 Tablet (5 mg) by mouth 2 times daily. 180 Tablet 3 11/25/19 25 Active lisinopriL (PRINIVIL) 40 mg tabletIndications :Essential (primary) hypertension TAKE 1 TABLET BY MOUTH EVERY DAY 90 Tablet 3 01/12/20 25 Active clopidogreL (PLAVIX) 75 mg Tablet TAKE 1 TABLET BY MOUTH EVERY DAY 90 Tablet 2 01/12/20 25 Active metoprolol tartrate (LOPRESSOR) 25 mg tablet TAKE 1/2 TABLET TWICE A DAY BY MOUTH 90 Tablet 1 04/07/20 25 Active metoprolol tartrate (LOPRESSOR) 25 mg tablet TAKE 1/2 TABLET TWICE A DAY BY MOUTH 90 Tablet 1 09/25/19 25 025 Discontinued Active Problems Patient Care Coordination No te Formatting of this note migh t be different from the original. Enrollment Services Vice President- Mohsen Baltazar MD [facility] PCP- Merrick Good Device: [employer] Ass[employer] pacemaker implanted 09/14/2022 Problem Noted Date Diagnosed Date S/P angioplasty with stent 11/14/2023 Abnormal cardiovascular stress test 10/23/2023 Stable angina pectoris 10/23/2023 ROD (dyspnea on exertion) 10/23/2023 Coronary artery disease 10/23/2023 Mixed hyperlipidemia 10/23/2023 Encounters Date Type Department Care Team Description 04/07/2025 Refill [facility] [address] [address] [address] [place] [address] Madi Cuellar MD 03/03/2025 Results Follow-Up [facility] [address] [address] [address] [place] [address] Radha Gunn NP PACER ANALYSIS REMOTE, UP TO 90 DAYS 03/01/2025 3:15 PM CDT Procedure visit [facility] [address] [address] [address] [place] [address] Pacemaker (Primary Dx); SSS (sick sinus syndrome) ([facility]); Encounter for care of pacemaker 02/16/2025 External Device Data ST[facility] ABSTRACTION Provider, Abstract from Last 3 Months Social History Tobacco [...] Sign Reading Time Taken Comments Blood Pressure 132/60 11/30/2024 2:45 PM CDT Pulse 51 11/30/2024 2:45 PM CDT Temperature 36.8 C (98.2 F) 11/07/2023 7:00 AM CDT Respiratory Rate 17 11/30/2024 2:45 PM CDT Oxygen Saturation 94% 11/30/2024 2:45 PM CDT Inhaled Oxygen Concentration - - Weight 80 kg (176 lb 6.4 oz) 11/30/2024 2:45 PM CDT Height 170.2 cm (5' 7) 05/13/2024 11:09 AM LABORATORY TECHNOLOGIST Body Mass Index 27.63 05/13/2024 11:09 AM LABORATORY TECHNOLOGIST Plan of Treatment Health Maintenance Due Date Last Done Comments DTAP/TDAP/TD VACCINES (1 - Tdap) 06/04/2013 06/03/19 14 RSV VACCINE (60+ or ) (1 - 1-dose 75+ series) 2017 ZOSTER VACCINE (2 of 2) 01/27/2020 12/02/2019 INFLUENZA VACCINE (#1) 2025 , 08/02/2023, 03/13/2022, Additional history exists COVID-19 Vaccine (2023-2 5 season) 2025 04/09/2024, 08/02/2023, 03/22/2022, Additional history exists PNEUMOCOCCAL VACCINE 50+ YEARS Completed 0 08/02/2023, 08/17/2022, 04/03/2017 Medical Devices Implanted Type Area Work Order Detailer Device Identifier Shelf Expiration Date Model / Serial / Lot Closure Perclose Proglide [id number] - [id number] Implanted:Qt y: 1 on 11/06/2023 at [facility] Closure Device Right: Groin SARMIENTO- VASC DEVICE 06/02/2025 [id number] / / [id number] Pacemaker-Ab trinity Pacemaker SARMIENTO- VASC DEVICE [id number] / / Stent Sharif Gladwin Dread 3.0x38mm Rx [id number] x - [id number] Implanted:Qt y: 1 on 11/06/2023 at [facility] Stent Right: Coronary [employer] 08/15/2026 [id number] / / [id number] [employer] Procedures Procedure Name Priority Date/Time Associated Diagnosis Comments CT REM INTERROG PM/LDLS PM/IDS <90 D TECH REVIEW Routine 03/01/2025 2:00 AM CDT Pacemaker SSS (sick sinus syndrome) ([facility]) Encounter for care of pacemaker CT REM INTERROG PM/LDLS PM <90 D PHYS/QHP Routine 03/01/2025 2:00 AM CDT Pacemaker SSS (sick sinus syndrome) ([facility]) Encounter for care of pacemaker from Last 3 Months Results * CT REM INTERROG PM/LDLS PM <90 D PHYS/QHP, CT REM INTERROG PM/LDLS PM/IDS <90 D TECH REVIEW (03/01/2025 2:00 AM CDT) 03/01/2025 2:00 AM CDT Narrative INTERFACE SYSTEM - 03/02/2025 3:41 PM CDT DEVICE: [employer] Assurity dual lead pacemaker implanted 09/14/22- Device functions as programmed. Pt presents AP VS. Current atrial pacing 93% and ventricular pacing 1.1%. Lead measurements are stable with 7.8-8.2 years battery longevity. No atrial or ventricular high rate episodes are noted. Rate histograms reveal average rates of 50-90 bpm. Pt follows with [facility], reached out to their office to transfer patient to their website. Event labeling is subject to physician review. Procedure Note Provider, Historical - 03/02/2025 DEVICE: [employer] Assurity dual lead pacemaker implanted 09/14/22- Devicefunctions as programmed. Pt presents AP VS. Current atrial pacing 93% andventricular pacing 1.1%. Lead measurements are stable with 7.8-8.2 yearsbattery longevity. No atrial or ventricular high rate episodes are noted. Rate histograms reveal averagerates of 50-90 bpm. Pt follows with [facility], reached out totheir office to transfer patient to their website. Event labeling issubject to physician review. Mohsen Baltazar MD CARDIAC SERVICES ORDERABLES E dited Result - Final INTERFACE SYSTEM Refer to clinic/hospital department from Last [address] [place] [address] [place] [address] [facility] MEDIC[facility] PART A AND B Advance Directives For more information, please contact: [phone] * Full Code (Latest Code Status on File) Date Activated Date Inactivated Comments 11/06/2023 5:58 AM 11/07/2023 2:17 PM * Full Code Date Activated Date Inactivated Comments 10/10/2023 8:51 AM 10/10/2023 5:21 PM Care Teams Associate Medical Director Relationship Specialty Start Date End Date Merrick Good MD [address] [place], [place] [id number] PCP - General Internal Medicine 10/04/23
--- OUTSIDE RECORDS SUMMARY | 2025-04-22 00:26 | XMS_ITS | Data Portability ---
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 [...] as noted below. Not available 10/21/2024 12:29:14 04/21/2025 04/21/2025 Patient presented for follow up. Studies ordered as below. Discussed plan with patient/careg iver, who expressed understanding . Follow up as noted below. Not available 04/21/2025 11:37:43 Plan of Treatment Reminders Order Date Submit Date Provider Last Modified By Organization Details Last Modified Time Details Appointments ESTABLISH ED PATIENT 15 2025 10:30A M Merrick Good MD Not available Not available Not available Lab hemoglobi n A1c, QN, blood 2024 025 [facility] (Lab), [address] [place] [address] [address], [place], [address], 04/21/2025 12:40:33 D-dimer, quant, plasma 2024 [facility] (Lab), [address] [place] [address] [address], [place], [address], 04/21/2025 12:40:33 CMP, serum or plasma 2024 [facility] (Lab), [address] [place] [address] [address], [place], [address], 04/21/2025 12:40:33 CBC w/ auto diff 2024 [facility] (Lab), [address] [place] [address] [address], [place], [address], 04/21/2025 12:40:33 microalbu min/creat inine, mass ratio, urine 2024 [facility] (Lab), [address] [place] [address] [address], [place], [address], 04/21/2025 12:40:33 lipid panel w/ direct LDL, serum 2024 [facility] (Lab), [address] [place] [address] [address], [place], [address], 04/21/2025 12:40:34 H pylori Ag, stool 2024 [facility] (Lab), [address] [place] [address] [address], [place], [address], 04/21/2025 12:45:30 TSH + free T4, serum 2024 [facility] (Lab), [address] [place] [address] [address], [place], [address], 04/21/2025 12:40:33 vitamin B12, serum 2024 025 [facility] (Lab), [address] [place] [address], [address], 04/21/2025 12:40:33 CBC w/ auto diff 2024 025 [facility] (Lab), [address] [place] [address], [address], 10/21/2024 16:33:12 HbA1c (hemoglob in A1c), blood 2024 025 [facility] (Lab), [address] [place] [address], [address], 10/21/2024 19:22:01 TSH, serum or plasma 2024 025 [facility] (Lab), [address] [place] [address], [address], 10/21/2024 18:08:15 vitamin B12, serum 2024 025 [facility] (Lab), [address] [place] [address], [address], 10/22/2024 23:36:06 PTH (parathyr oid hormone), intact, serum or plasma 2024 025 [facility] (Lab), [address] [place] [address], [address], 10/21/2024 19:24:44 phosphoru s, serum or plasma 2024 025 [facility] (Lab), [address] [place] [address], [address], 10/22/2024 23:36:06 uric acid, serum or plasma 2024 025 [facility] (Lab), [address] [place] [address], [address], 10/22/2024 19:01:58 CBC w/ auto diff 2024 025 [facility] (Lab), [address] [place] [address], [address], 07/01/2024 12:40:50 CMP, serum or plasma 2024 025 [facility] (Lab), [address] [place] [address], [address], 07/01/2024 08:06:31 hemoglobi n A1c, QN, blood 2024 025 [facility] (Lab), [address] [place] [address], [address], 07/01/2024 08:08:28 lipid panel w/ direct LDL, serum 2024 025 [facility] (Lab), [address] [place] [address], [address], 07/01/2024 22:36:21 TSH + free T4, serum 2024 025 [facility] (Lab), [address] [place] [address], [address], 07/01/2024 22:36:21 vitamin B12, serum 2024 025 [facility] (Lab), [address] [place] [address], [address], 07/01/2024 22:36:21 CMP, serum or plasma 2023 024 [facility] (Lab), [address] [place] [address], [address], 03/11/2024 23:18:04 CBC w/ auto diff 2023 024 [facility] (Lab), [address] [place] [address], [place], [address], 03/11/2024 23:18:04 CMP, serum or plasma 2023 024 [facility] (Lab), [address] [place] [address] [place] [address], [address], 12/12/2023 17:55:35 CBC w/ auto diff 2023 024 [facility] (Lab), [address] [place] [address] [place] [address], [address], 12/12/2023 18:00:43 lipid panel w/ direct LDL, serum - 6 weeks from 10/24/232023 024 [facility] (Lab), [address] [place] [address], [address], 12/12/2023 17:55:35 TSH + free T4, serum 2023 024 [facility] (Lab), [address] [place] [address], [address], 12/12/2023 17:55:35 vitamin B12, serum 2023 024 [facility] (Lab), [address] [place] [address], [address], 12/12/2023 19:47:33 PTH (parathyr oid hormone), intact, serum or plasma 2023 024 [facility] (Lab), [address] [place] [address], [address], 11/05/2023 12:16:11 phosphoru s, serum or plasma 2023 024 [facility] (Lab), [address] [place] [address], [address], 11/05/2023 12:16:11 uric acid, serum or plasma 2023 024 [facility] (Lab), [address] [facility] [address], [place], [address], 11/05/2023 12:16:11 Referral ophthalmo logist referral 2024 025 [facility], [address] [facility], [place], [address], 06/30/2024 13:00:45 cardiolog ist referral 2024 025 [email or web address] Mohsen Baltazar MD, [address] [place], [address], 09/14/2024 12:33:[address] referral 2023 024 [facility], [address] [address], [place], [address], 03/20/2024 07:20:[address] referral 2023 024 [facility], [address] [facility] [address], [place], [address], 12/03/2023 04:06:52 Procedures None recorded. Surgeries None recorded. Imaging ankle brachial index, complete [address] (Imaging), [facility] [address], [place], [address], 04/21/2025 12:50:11 US, renal [address] (Imaging), [facility], [address], 04/21/2025 12:50:11 US, renal 2023 024 [facility] (Imaging), [facility] [address], [address], 11/12/2023 04:06:44 Medication Orders ipratropi um bromide 42 mcg (0.06 %) nasal spray 2024 025 [facility], [address] [place] [address], [address], 04/21/2025 12:33:43 pantopraz ole 20 mg tablet,de layed release 2024 025 [facility], [address] [place] [address], [address], 04/21/2025 12:33:43 Jardiance 10 mg tablet 2024 025 [facility], [address] [place] [address], [address], 10/21/2024 12:58:28 pantopraz ole 20 mg tablet,de layed release 2024 025 [facility], [address] [place] [address], [address], 06/30/2024 12:38:48 pantopraz ole 20 mg tablet,de layed release 2023 024 [facility], [address] [place] [address], [address], 11/05/2023 12:15:12 Patient TargetsNo targets recorded. Patient Instructions Encounter Date Encounter Id Patient Instructions Last Modified By Organization Details Last Modified Time 11/05/2023 [id number] Peripheral Arterial Disease (PAD): Care Instructions mshenouda [...] will mshenouda Not available 09/2023 12:14:45 03/10/2024 [id number] Peripheral Arterial Disease (PAD): Care Instructions mshenouda Not available 03/10/2024 12:13:58 learning about healthy weight mshenouda Not available 03/10/2024 12:13:58 hypothyroidism: care instructions mshenouda Not available 03/10/2024 12:13:58 high cholesterol : care instructions mshenouda Not available 03/10/2024 12:13:58 chronic kidney disease: care instructions mshenouda Not available 03/10/2024 12:13:58 learning about chronic kidney disease mshenouda Not available 03/10/2024 12:13:59 06/30/2024 [id number] Peripheral Arterial Disease (PAD): Care Instructions mshenouda [...] disease mshenouda Not available 06/30/2024 12:38:45 10/21/2024 [id number] high cholesterol : care instructions mshenouda Not available 10/21/2024 12:58:26 hearing loss: care instructions mshenouda Not available 10/21/2024 12:58:26 learning about healthy weight mshenouda Not available 10/21/2024 12:58:26 hypothyroidism: care instructions mshenouda Not available 10/21/2024 12:58:26 chronic kidney disease: care instructions mshenouda Not available 10/21/2024 12:58:26 learning about chronic kidney disease mshenouda Not available 10/21/2024 12:58:26 04/21/2025 [id number] Peripheral Arterial Disease (PAD): Care Instructions [facility] Not available 04/21/2025 12:33:30 hearing loss: care instructions [facility] Not available 04/21/2025 12:33:30 shortness of breath: care instructions [facility] Not available 04/21/2025 12:33:30 spirometry testing* ARMAAN Not available 04/21/2025 16:17:52 chronic kidney disease: care instructions [facility] Not available 04/21/2025 12:33:30 learning about chronic kidney disease [facility] Not available 04/21/2025 12:33:29 high cholesterol : care instructions [facility] Not available 04/21/2025 12:33:30 dry eyes: care instructions [facility] Not available 04/21/2025 12:33:30 learning about healthy weight [facility] Not available 04/21/2025 12:33:30 hypothyroidism: care instructions [facility] Not available 04/21/2025 12:33:30 living will [facility] Not available 04/03 12:27:48 Reason for Referral Clinical Resource Nurse Referral for Reymundo ign hypertension Referring Physician: Merrick Good, Internal Medicine, Encounter Date: 11/05/2023 Clinical Resource Nurse Referral for Reymundo ign hypertension Referring Physician: Merrick Good, Internal Medicine, Encounter Date: 03/10/2024 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 [address], [place], [address], 06/30/2024 12:34:30 10/30/19 25 10/08/2024 elect lida cid am No observ ation record ed. [facility] [address], [place], [address], 04/21/2025 12:20:16 04/21/20 25 04/21/2025 kaitlynn metry testi ng* No observ ation record ed. [email or web address] [employer] [facility] [address], [place], [address], 04/21/2025 16:19:07 Result Notes None recorded. Problems Name Problem SNOMED Code Status Onset Date Resolution Date Notes Provider Name and Address Organization Details Recorded Time Benign hypertensi on 25449537 Active 2016 Not Available [facility] 3 10:38:17 Hyperlipid emia 53084848 Active 2016 Not Available [facility] 3 10:38:17 Aortic valve regurgitat ion 66885770 Active 2017 Not Available [facility] 3 10:38:17 Hypothyroi dism 10663337 Active 2017 Not Available [facility] 3 10:38:17 Unilateral hearing loss Active 2017 Not Available [facility] 3 10:38:17 Bradycardi a 08753233 Active 2018 Not Available [facility] 3 10:38:17 Body mass index 25-29 - overweight 963376908 Active 2018 Not Available [facility] 3 10:38:17 Primary erectile dysfunctio n 315150772 Active 2019 Not Available [facility] 3 10:38:17 Cholelithi asis with obstructio n 11667971 Active 2019 Not Available [facility] 3 10:38:17 Obstructiv e sleep apnea of adult 5912954406513 Active 2020 Not Available [facility] 3 10:38:17 Hearing loss 57776780 Active 2020 Not Available [facility] 3 10:38:17 Edema of lower extremity 715845004 Active 2021 Not Available [facility] 3 10:38:17 Serum creatinine above reference range 036632925 Active 2021 Not Available [facility] 3 10:38:17 Gastroesop hageal reflux disease without esophagiti s 774378961 Active 2022 Not Available [facility] 3 10:38:17 Chronic renal failure 30626456 Active 2022 Merrick Good MD [address], [place], [address] , [facility] 3 16:20:34 Sinus bradycardi a 77101382 Active 2022 Merrick Good MD [address], [place], [address] , [facility] 3 11:38:46 Hydronephr osis 80639549 Active 2022 Merrick Good MD [address], [place], [address] , [facility] 3 18:14:49 Cardiac pacemaker in situ 809950024 Active 2022 MD Dave Castro[address], [place], [address] , [facility] 3 12:31:14 Peripheral vascular disease 438674483 Active 2022 on NINA MD Dave [address], [place], [address] , [facility] 3 21:39:53 Arthritis of hand 498141859 Active 2023 MD Dave [address], [place], [address] , [facility] 4 12:21:58 Serum vitamin B12 below reference range 412008722 Active 2023 Merrick Good MD [address], [place], [address] , [facility] 4 16:15:16 Coronary arterioscl erosis 47281809 Active 2023 MD Toan Castro [address], [place], [address] , [facility] 4 12:02:07 Bilateral hearing loss 74937846 Active 2023 MD Toan Castro [address], [place], [address] , [facility] 4 12:10:32 Long-term drug therapy Active 2024 MD Toan Castro [address], [place], [address] , [facility] 5 12:35:11 Long-term current use of drug therapy 886139418 Active 2024 MD Toan Castro [address], [place], [address] , [facility] 5 12:21:22 Nasal discharge 96757185 Active 2024 MD Toan Castro [address], [facility] [address] , [facility] 5 12:31:54 Dry eyes 287024083 Active 2024 MD Toan Castro [address], [place], [address] , [facility] 5 12:32:53 Problem Notes None recorded. Procedures Surgical History Date Name Laterality Status Provider Name and Address Organization Details Recorded Time 04/29/20 17 Colonoscopy completed Jennifer Dudley [facility] 06/24/2017 09:51:48 Cataract Surgery completed MD Toan Castro [address], [facility] [address], [facility] 12/20/2016 15:49:48 Other completed MD Toan Castro [address], [place], [address], [facility] 12/20/2016 15:50:16 Imaging Results None recorded. [...] bromide 42 mcg (0.06 %) nasal spray [place] 2 sprays 3 times a day by [...] suspension, kit TO BE ADMINISTE RED BY [employer] T FOR IMMUNIZAT ION 03/09 completed Not [...] Body mass index (BMI) Body weight Systolic And Diastolic Provider Name and Address Organization Details Last Updated DateTime 5 167.64 cm 97.8 [degF] 16 /min 88 /min 27.6 kg/m2 81328.3 g 111/76 mm[Hg] Veronica Kerr [facility] 5 12:11:04 Date Recorded Systolic And Diastolic Provider Name and Address Organization Details Last Updated DateTime 10/21/2024 134/78 mm[Hg] Merrick Good MD [address], [place], [address], [facility] 10/21/2024 12:46:49 Date Recorded Body height Body mass index (BMI) Body weight Body temperature Respiratory rate Heart rate Provider Name and Address Organization Details Last Updated DateTime 5 167.64 cm 28.7 kg/m2 81049.4 4 g 97.8 [degF] 16 /min 71 /min Veronica Kerr [facility] 5 12:33:25 Date Recorded Body height Body temperature Heart rate Respiratory rate Body mass index (BMI) Body weight Systolic And Diastolic Provider Name and Address Organization Details Last Updated DateTime 4 167.64 cm 97.8 [degF] 72 /min 16 /min 27.8 kg/m2 63398.8 9 g 135/76 mm[Hg] Veronica Kerr [facility] 4 11:37:42 Date Recorded Body height Body mass index (BMI) Body weight Body temperature Respiratory rate Heart rate Systolic And Diastolic Provider Name and Address Organization Details Last Updated DateTime 4 167.64 cm 27.9 kg/m2 71778.4 8 g 98.1 [degF] 16 /min 58 /min 143/72 mm[Hg] Veronica Usha [facility] 4 11:54:35 Date Recorded Body height Body mass index (BMI) Body weight Body temperature Respiratory rate Heart rate Systolic And Diastolic Provider Name and Address Organization Details Last Updated DateTime 5 167.64 cm 28.6 kg/m2 51222.8 5 g 97.6 [degF] 16 /min 49 /min 117/68 mm[Hg] Veronica Usha [facility] 5 11:42:59 Social History Question Answer Notes LastModified by Organizat ion Details LastModified Time Tobacco Smoking Status Former Smoker quit Merrick Good MD [address] [facility] [address], [place], [address], [facility] 12/20/2016 15:49:04 Do You Have An Advance Directive? No [email or web address] Information not available 04/18/2023 Which Illicit Or Recreational Drugs Have You Used? No Information not available 12/20/2016 Are There Any Guns Present In Your Home? No [email or web address] Information not available 04/18/2023 Live Alone Or With Others? With Others With Doughter Information not available 04/18/2023 Marital Status Single Informatio n not available 04/18/2023 What Was The Date Of Your Most Recent Tobacco Screening? 10/09/2018 [email or web address] Information not available 04/18/2023 Performs Monthly Self-breast Exam? No [email or web address] Information not available 04/18/2023 Seat Belts Used Routinely Yes [email or web address] Information not available 04/18/2023 Smoke Alarm In Home Yes [email or web address] Information not available 04/18/2023 Do You Use Sunscreen Routinely? No Information not available 04/18/2023 Have You Used IV Drugs? No [email or web address] Information not available 04/18/2023 Sex: Unknown Functional Status Question Answer Note LastModified by Organizat ion Details LastModified Time What is your level of alcohol consumption? Occasional Information not available 12/20/2016 Are you currently employed? Yes [email or web address] Information not available 04/18/2023 Are you able to care for yourself independently? Yes [email or web address] Information not available 04/18/2023 Mental Status None [...] virus, quadrivalent, preservative 8 completed Not Available Count includes the [facility] 05/07/2023 06:56:02 Influenza, split virus, quadrivalent, preservative 9 completed Not Available Count includes the [facility] 05/07/2023 06:56:03 Influenza, split virus, quadrivalent, preservative 0 completed Not Available Count includes the [facility] 05/07/2023 06:56:03 zoster recombinant 0 completed Not Available Count includes the [facility] 05/07/2023 06:56:03 COVID-19 vaccine, vector-nr, rS-Ad26, PF, 0.5 mL 1 completed Not Available Count includes the [facility] 05/07/2023 06:56:03 COVID-19 vaccine, vector-nr, rS-Ad26, PF, 0.5 mL 1 completed Not Available [facility] 05/07/2023 06:56:03 COVID-19, mRNA, LNP-S, PF, 30 mcg/0.3 mL dose 1 completed Not Available Count includes the [facility] 05/07/2023 06:56:03 Influenza, split virus, quadrivalent, preservative 1 completed Not Available [facility] 05/07/2023 06:56:03 COVID-19, mRNA, LNP-S, PF, 30 mcg/0.3 mL dose, dante-sucrose 2 completed Not Available Count includes the [facility] 05/07/2023 06:56:03 Influenza, high-dose, quadrivalent, PF 2 completed Not Available Count includes the [facility] 05/07/2023 06:56:03 COVID-19, mRNA, LNP-S, bivalent, PF, 30 mcg/0.3 mL dose 2 completed Not Available Count includes the [facility] 05/07/2023 06:56:03 Pneumococcal conjugate PCV20, polysaccharide SBH251 conjugate, adjuvant, PF 3 completed Not Available Count includes the [facility] 05/07/2023 06:56:03 Influenza, adjuvanted, quadrivalent, PF 4 completed MD Toan Castro [address], [place], [address], [facility] 04/11/2024 17:35:13 Pneumococcal conjugate PCV20, polysaccharide [id number] conjugate, adjuvant, PF 4 completed MD Toan Castro [address], [place], [address], [facility] 08/04/2023 12:08:41 COVID-19, mRNA, LNP-S, PF, dante-sucrose, 30 mcg/0.3 mL 4 completed MD Toan Castro [address], [place], [address], [facility] 04/11/2024 17:35:13 RSV, recombinant, protein subunit RSVpreF, adjuvant reconstituted, 0.5 mL, PF 4 completed MD Toan Castro [address], [place], [address], [facility] 09/30/2023 09:59:33 COVID-19, mRNA, LNP-S, PF, dante-sucrose, 30 mcg/0.3 mL 4 completed MD Toan Castro [address], [place], [address], [facility] 04/11/2024 17:35:13 Influenza, high-dose, trivalent, PF 4 completed [facility] [address], [place], [address], [facility] 04/11/2024 17:35:13 Influenza, split virus, trivalent, preservative 7 completed Not Available [facility] 05/07/2023 06:56:03 Td(adult) unspecified formulation 4 completed Not Available Count includes the [facility] 05/07/2023 06:56:03 Pneumococcal conjugate PCV 13 7 completed Not Available Count includes the [facility] 05/07/2023 06:56:03 Past Encounters Encounter ID Performer Location Encounter Start Date Encounter Closed Date Diagnosis/Indication Diagnosis SNOMED-CT Code Diagnosis ICD10 Code Diagnosis IMO Codes Diagnosis Note [id number] Merrick Good MD [facility], [address] [place] [address] 12/20/2016 14:27:54 12/20/2016 16:30:17 Adult health examination 152145773 Z00.00 Benign hypertension 1072 5009 I10 Hyperlipidemia 36394667 E78.5 Impacted cerumen 8561839 6 H61.23 Skin lesion 71046328 L98 .9 scalp Active or passive immunization 812533765 Z23 Screening for malignant neoplasm of colon 916119054 Z12.11 Screening procedure 2012 5006 Z13.9 Screening for malignant neoplasm of prostate 449832772 Z12.5 [id number] Merrick Good MD [facility], [address] [place] [address] 03/21/2017 14:13:02 03/21/2017 15:33:39 Dizziness and giddiness 944867692 R42 Symptomati c sinus bradycardia 775083293 R00.[address] imulating hormone level above reference range 074558835 R79.89 Shoulder joint pain 2679 18660 M25.519 [id number] Merrick Good MD [facility], [address] [place] [address] 06/24/2017 09:46:07 06/24/2017 10:24:23 Hyperlipidemia 04511507 E78.5 Benign hypertension 1072 5009 I10 Primary er ectile dysfunction 627015593 N52.9 Aortic tonia ve regurgitation 13395404 I35.1 mild on ECHO 03/21/17 [id number] Merrick Good MD [employer], [address] [place] [address] 02/21/2018 11:28:08 02/21/2018 13:40:00 Benign hypertension 87668037 I10 Aortic tonia ve regurgitation 58918233 I35.1 mild on ECHO 03/21/17 Hyperlipidemia 31053273 E78.5 Hypothyroidism 86871071 E03.9 Primary er ectile dysfunction 251447629 N52.9 Screening for malignant neoplasm of colon 912157899 Z12.11 last C scope 04/29/17 , recheck 2021 Skin - reymundo ign mole and nevus 648870659 D22.9 Active or passive immunization 158560966 Z23 Unilateral hearing loss 25543162 H91.91 [id number] Merrick Good MD [employer], [place] [address] [place] [address] 06/17/2018 16:05:33 06/17/2018 16:42:50 Hoarse 32029789 R49.0 Hyperlipidemia 83539512 E78.5 Benign hypertension 1072 5009 I10 last optometry eval 05/2018 Hypothyroidism 80154871 E03.9 Screening for malignant neoplasm of colon 692527492 Z12.11 last C scope 04/29/17 , recheck 2021 Active or passive immunization 631711204 Z23 Bradycardia 15923920 R00 .1 sees cardiology on reg basis [id number] Merrick Good MD [employer], [place] [address] [place] [address] 10/09/2018 11:21:44 10/09/2018 12:34:31 Adult health examination 969779823 Z00.01 Benign hypertension 1072 5009 I10 increase amlodipine , BP 2-3 weekslast optometry eval 05/2018 Hyperlipidemia 77107979 E78.5 Bradycardia 66151706 R00 .1 sees cardiology on reg basis Aortic tonia ve regurgitation 19445425 I35.1 mild on ECHO 03/21/17 Hypothyroidism 25321987 E03.9 Body mass index 25-29 - overweight 002861962 Z68.26 Screening for malignant neoplasm of colon 606432033 Z12.11 last C scope 04/29/17 , recheck 2021 Active or passive immunization 461101780 Z23 154402 Merrick Good MD [employer], [place] [address] [facility] [address] [place] [address] 06/18/2019 11:50:55 06/18/2019 12:22:09 Upper respiratory infection 57240502 J06.9 Body mass index 25-29 - overweight 805880621 Z68.26 lost 9 LBs on diet and exercise Benign hypertension 1072 5009 I10 , BP 2-3 weekslast optometry eval 05/2018 Hyperlipidemia 59432195 E78.5 Hypothyroidism 31589096 E03.9 Screening for malignant neoplasm of colon 309302704 Z12.11 last C scope 04/29/17 , recheck 2021 Active or passive immunization 177909220 Z23 [id number] Merrick Good MD [employer] [address] ,[address] [place] [address] 03/09/2020 10:12:57 03/09/2020 11:14:05 Adult health examination 890886665 Z00.01 Benign hypertension 1072 5009 I10 last optometry eval 07/2019decr ease amlodipine to 5 , add lisinopril 5 qdBP 2-3 weeks Hyperlipidemia 08111585 E78.5 Hypothyroidism 49647054 E03.9 Body mass index 25-29 - overweight 216602190 Z68.26 educationo n diet and exercise Bradycardia 69184801 R00 .1 sees cardiology on reg basis Aortic tonia ve regurgitation 56108128 I35.1 mild on ECHO 06/18/19 Edema of l ower extremity 630629152 R60.0 increase lasix to 40 qd 3 days Viral screening 40514345 4 Z11.59 Screening for malignant neoplasm of colon 173813918 Z12.11 last C scope 04/29/17 , recheck 2021 Active or passive immunization 280045547 Z23 up to date Primary er ectile dysfunction 562806189 N52.9 579805 Merrick Good MD [facility] [facility], [place] [address] [place] [address] 09/07/2020 08:52:34 09/07/2020 10:13:37 Benign hypertension 33125081 I10 last optometry eval 07/2019 BP 2-3 weeks Body mass index 25-29 - overweight 626261429 Z68.26 educationo n diet and exercise Bradycardia 98268656 R00 .1 sees cardiology on reg basis Hyperlipidemia 47037217 E78.5 last LDL 03/15/20 Hypothyroidism 16636298 E03.9 Eruption 771390678 R21 face Screening for malignant neoplasm of colon 892365824 Z12.11 last C scope 04/29/17 , recheck 2021 Obstructiv e sleep apnea of adult 1988965240 103 G47.33 Active or passive immunization 741677889 Z23 up to date [id number] Merrick Good MD [facility], [place] [address] [place] [address] 02/22/2021 08:57:36 02/22/2021 09:44:58 Hypothyroidism 84437483 E03.9 Hyperlipidemia 52223186 E78.5 last LDL 03/15/20 Body mass index 25-29 - overweight 938075959 Z68.26 educationo n diet and exercise Benign hypertension 1072 5009 I10 last optometry eval 07/2019 BP 2-3 weeks Bradycardia 43275292 R00 .1 sees cardiology on reg basis Obstructiv e sleep apnea of adult 9486168265 103 G47.33 Screening for malignant neoplasm of colon 507177306 Z12.11 last C scope 04/29/17 , recheck 2021 Active or passive immunization 088878931 Z23 up to date Viral screening 03705990 4 Z11.59 Localized eruption of skin 444271231 R21 Lt forehead [id number] Merrick Good MD [facility], [place] [address] [place] [address] 05/23/2021 08:50:41 05/23/2021 09:40:16 Adult health examination 348980584 Z00.01 Benign hypertension 1072 5009 I10 last optometry eval 07/2019 BP 2-3 weekslast EKG 02/22/21 Body mass index 25-29 - overweight 712839480 Z68.26 educationo n diet and exercise Aortic tonia ve regurgitation 99948557 I35.1 mild on ECHO 06/18/19 Bradycardia 05134820 R00 .1 sees cardiology on reg basis 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 K80.81 education Hypothyroidism 97464476 E03.9 Obstructiv e sleep apnea of adult 1032125957 103 G47.33 educations tarted CPAP when he get it Primary er ectile dysfunction 437518184 N52.9 Hearing loss 37185987 H9 1.90 seen ENT Screening for malignant neoplasm of colon 762481570 Z12.11 last C scope 04/29/17 , recheck 2021 Active or passive immunization 292780897 Z23 up to date Dysphagia 85291696 R13.1 0 Urgent alfredo poncho to urinate 78577246 R39.15 [id number] Merrick Good MD [employer], [place] [address] ,[address] [address] 03/12/2022 12:01:53 03/12/2022 13:40:49 Bronchitis 65616847 J40 Benign hypertension 1072 5009 I10 last optometry eval 07/2019 BP 2-3 weekslast EKG 02/22/21 Hyperlipidemia 27815149 E78.5 last LDL 03/15/20 Hypothyroidism 01218779 E03.9 Body mass index 25-29 - overweight 566530633 Z68.26 educationl ost 7 on diet and exercise Screening for malignant neoplasm of colon 368859091 Z12.11 last C scope 04/29/17 , recheck 2021 Active or passive immunization 297270190 Z23 up to date Edema of l ower extremity 522418074 R60.0 increase lasix to 40 qd 3 days 442999 Merrick Good MD [employer], [place] [address] ,[facility] [address] [place] [address] 05/17/2022 11:47:51 05/17/2022 12:48:57 Benign hypertension 61479309 I10 last optometry eval 07/2019 BP 2-3 weekslast EKG 02/22/21 Body mass index 25-29 - overweight 156236715 Z68.26 educationd iet and exercise Hyperlipidemia 15125636 E78.5 last LDL 03/22/22 Hypothyroidism 16211624 E03.9 Obstructiv e sleep apnea of adult 1331319836 103 G47.33 educations tarted CPAP when he get it Serum crea tinine above reference range 087377172 R79.89 Screening for malignant neoplasm of colon 207260988 Z12.11 last C scope 05/10/2022 , no polyp Active or passive immunization 609445083 Z23 up to date Localized eruption of skin 883913294 R21 Lt forehead [id number] Merrick Good MD [employer], [facility] [address] [facility] [address] [address] 08/16/2022 12:19:38 08/16/2022 13:18:45 Adult health examination 991994303 Z00.01 Benign hypertension 1072 5009 I10 last optometry eval 07/2022 BP 2-3 weekslast EKG 05/17/22 Body mass index 25-29 - overweight 905285742 Z68.26 educationd iet and exercise Bradycardia 94788131 R00 .1 sees cardiology on reg basis Cholelithi asis with obstruction 08035610 K80.81 education Hearing loss 35611097 H9 1.90 seen ENT Hyperlipidemia 17890628 E78.5 last LDL 03/22/22 Hypothyroidism 07470576 E03.9 last TSH 03/22/22 Obstructiv e sleep apnea of adult 1329364121 103 G47.33 educations tarted CPAP when he get it Primary er ectile dysfunction 903536649 N52.9 stable Serum crea tinine above reference range 787939300 R79.89 recheck Edema of l ower extremity 708825829 R60.0 resolved Screening for malignant neoplasm of colon 062142570 Z12.11 last C scope 05/10/2022 , no polyp Active or passive immunization 532744719 Z23 up to date Advance di rective discussed with patient 309054162 Z71.89 education Gastroesop hageal reflux disease without esophagitis 499467557 K21.9 Impacted c erumen in right ear 4316548721 302585 H61.21 698252 Merrick Good MD [facility], [address] [place] [address] 09/11/2022 10:22:19 09/11/2022 11:48:54 Sinus bradycardia 13025587 R00.1 symptomati cER eval if any dizziness Benign hypertension 1072 5009 I10 last optometry eval 07/2022 BP 2-3 weekslast EKG 05/17/22 [id number] Merrick Good MD [facility], [address] [place] [address] 09/25/2022 11:41:44 09/25/2022 13:09:32 Sinus bradycardia 87131814 R00.1 symptomati cER eval if any dizzinessh ad pacer Hydronephrosis 62642324 N13.30 Rt on US 09/21/22has urology jeff Cardiac pa cemaker in situ 773029526 Z95.0 09/15/22 Benign hypertension 1072 5009 I10 last optometry eval 07/2022 BP 2-3 weekslast EKG 05/17/22 Screening for malignant neoplasm of colon 478676834 Z12.11 last C scope 05/10/2022 , no polyp Active or passive immunization 418975290 Z23 up to date [id number] Merrick Good MD [facility], [address] ,[facility] [address] [place] [address] 03/04/2023 11:17:46 03/04/2023 12:43:34 Benign hypertension 15250205 I10 last optometry eval 07/2022 BP 2-3 weekslast EKG 05/17/22 Body mass index 25-29 - overweight 802791263 Z68.26 educationd iet and exercise Chronic renal failure 90 252136 N18.9 Gastroesop hageal reflux disease without esophagitis 750423597 K21.9 stable Hydronephrosis 70275421 N13.30 Rt on US 09/21/22see n urology 10/17/22 Hyperlipidemia 07310655 E78.5 last LDL 03/22/22 Hypothyroidism 65873207 E03.9 last TSH 03/22/22 Obstructiv e sleep apnea of adult 9806740741 103 G47.33 educations tarted CPAP when he get it Cough 96335601 R05.9 check for COVID Cardiac pa cemaker in situ 845073965 Z95.0 09/15/22 Screening for malignant neoplasm of colon 459938231 Z12.11 last C scope 05/10/2022 , no polyp Active or passive immunization 170651418 Z23 up to date Lesion of skin of face 4224222429 06 L98.9 above Rt ear [id number] Merrick Good MD [employer], [address] [place] [address] 04/02/2023 11:51:32 04/02/2023 13:29:08 Swelling of right foot 341696953 M79.89 Weak arterial pulse 3152 91079 R09.89 Pain of ri ght ankle joint 4130872508 3509345 M25.571 S/P injury , Pt had X ray todayX ray -ve on my chart on Pt phone for FxICE , elevation , [place] [id number] Merrick Good MD [employer], [address] ,[address] [place] [address] 04/18/2023 10:52:32 04/18/2023 12:20:37 Synovial cyst of elbow 976678272 M71.329 Pain of ri ght ankle joint 3553680606 8601632 M25.571 S/P injury , Pt had X anita lot better with ICE , elevation , PT Cellulitis of right upper limb 6109476226 0025833 L03.113 resolved with Abx Benign hypertension 1072 5009 I10 last optometry eval 07/2022 BP 2-3 weekslast EKG 05/17/22 Active or passive immunization 825841810 Z23 up to date [id number] Merrick Good MD [employer], [employer] [facility] [employer] [address] [place] [address] 08/05/2023 11:28:53 08/05/2023 12:45:27 Atypical chest pain 321049207 R07.89 Pain of to e of left foot 5466490199 10006 M79.675 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 005 M13.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 Benign hypertension 1072 5009 I10 last optometry eval 07/2022 BP 2-3 weekslast EKG 05/17/22 Cardiac pa cemaker in situ 506511199 Z95.0 09/15/22 Screening for malignant neoplasm of colon 696254277 Z12.11 last C scope 05/10/2022 , no polyp Active or passive immunization 587748436 Z23 up to date [id number] Merrick Good MD [employer], [employer] [address] [address] 11/05/2023 10:52:50 11/05/2023 12:17:22 Adult health examination 102568422 Z00.01 Benign hypertension 1072 5009 I10 last optometry eval 07/2022 BP 2-3 weekslast EKG 08/05/23 Coronary arteriosclerosis 05249196 I25.10 had cath @ [facility] started plavix Body mass index 25-29 - overweight 260616087 Z68.26 educationd iet and exercise Cardiac pa cemaker in situ 242212915 Z95.0 09/15/22 Cholelithi asis with obstruction 69236727 K80.81 education Chronic renal failure 90 656551 N18.9 Gastroesop hageal reflux disease without esophagitis 031675079 K21.9 stable Hydronephrosis 30482999 N13.30 Rt on US 09/21/22see n urology 10/17/22 Hyperlipidemia 64216192 E78.5 last LDL 03/05/23 Hypothyroidism 58147613 E03.9 last TSH 03/06/23/ Obstructiv e sleep apnea of adult 1307318485 103 G47.33 educations tarted CPAP when he get it Peripheral vascular disease 953269962 I73.9 04/29/23 Primary er ectile dysfunction 041253179 N52.9 stable Serum harry min B12 below reference range 116280203 R79.89 Screening for malignant neoplasm of colon 657112773 Z12.11 last C scope 05/10/2022 , no polyp Active or passive immunization 731666729 Z23 up to date Advance di rective discussed with patient 778641664 Z71.89 education Bilateral hearing loss 23347324 H91.93 seen ENT [id number] Merrick Good MD [employer], [address] [place] [address] 03/10/2024 11:44:01 03/10/2024 12:16:28 Benign hypertension 95514493 I10 last optometry eval 07/2022on the high side todayBP 2-3 weekslast EKG 08/05/23 Body mass index 25-29 - overweight 191716944 Z68.26 educationd iet and exercise Cardiac pa cemaker in situ 453076174 Z95.0 09/15/22 Chronic renal failure 90 393692 N18.9 Coronary arteriosclerosis 58810914 I25.10 had cath @ [facility] started plavix Hydronephrosis 68423408 N13.30 Rt on US 09/21/22see n urology 10/17/22hav ing another US 03/10/24 Hyperlipidemia 89640313 E78.5 last LDL 12/12/23 Hypothyroidism 40679273 E03.9 last TSH 12/12/23 Peripheral vascular disease 384132160 I73.9 04/29/23 Serum harry min B12 below reference range 865517471 R79.89 12/12/23 Screening for malignant neoplasm of colon 734352907 Z12.11 last C scope 05/10/2022 , no polyp Active or passive immunization 878164092 Z23 up to date ,get Flu and COVID shot after done with Abx [id number] Merrick Good MD [facility] [facility], [address] [place] [address] 06/30/2024 11:57:19 06/30/2024 12:44:57 Benign hypertension 73397128 I10 last optometry eval 07/2022on the high side todayBP 2-3 weekslast EKG 08/05/23 Body mass index 25-29 - overweight 610090451 Z68.26 educationd iet and exercise Cardiac pa cemaker in situ 129688592 Z95.0 09/15/22 Chronic renal failure 90 961280 N18.9 Hyperlipidemia 75761694 E78.5 last LDL 12/12/23 Hypothyroidism 29093178 E03.9 last TSH 12/12/23 Obstructiv e sleep apnea of adult 0494142815 103 G47.33 educations tarted CPAP when he get it Peripheral vascular disease 029117947 I73.9 04/29/23 Serum harry min B12 below reference range 288469088 R79.89 12/12/23 Visual disturbance 42290 001 H53.9 double vision Screening for malignant neoplasm of colon 558560997 Z12.11 last C scope 05/10/2022 , no polyp Active or passive immunization 653189487 Z23 up to date , Gastroesop hageal reflux disease without esophagitis 361970192 K21.9 stable Long-term drug therapy 792067471 Z79.891 statin 313845 Merrick Good MD [facility] [place] [address] 10/21/2024 12:26:25 10/21/2024 13:02:15 Benign hypertension 87281289 I10 last optometry eval 07/2024on the high side todayBP 2-3 weekslast EKG 08/05/23 Long-term drug therapy 904009240 Z79.891 statin , last A1c 06/30/24 Coronary arteriosclerosis 05374871 I25.10 had cath @ [facility] started plavix Hyperlipidemia 43449128 E78.5 last LDL 10/21/24 Hypothyroidism 75319926 E03.9 last TSH 12/12/23 Body mass index 25-29 - overweight 207956645 Z68.26 educationd iet and exercise Serum harry min B12 below reference range 101670336 R79.89 12/12/23 Hearing loss 79732673 H9 1.90 seen ENT Hydronephrosis 01896888 N13.30 Rt on US 09/21/22see n urology 10/17/22hav ing another US 03/10/24 Chronic renal failure 90 921426 N18.9 Obstructiv e sleep apnea of adult 5662551418 103 G47.33 educations tarted CPAP when he get it Screening for malignant neoplasm of colon 613357090 Z12.11 852361 last C scope 05/10/2022 , no polyp Immunization due 3458555 08 Z23 4262557 up to date , 825302 Merrick Good MD [employer], [employer] [facility] [address] [place] [address] 04/21/2025 11:13:10 04/21/2025 12:50:11 Adult health examination 213004640 Z00.01 9046873 Gastroesop hageal reflux disease without esophagitis 577490177 K21.9 - stable Benign hypertension 1072 5009 I10 - last optometry eval 07/2024- on the high side today- BP 2-3 weeks- last EKG 10/08/24 Coronary arteriosclerosis 74066117 I25.10 - had cath @ [facility]- cardiology started plavix Cardiac pa cemaker in situ 238664305 Z95.0 - 09/15/22 Peripheral vascular disease 215399076 I73.9 - 04/29/23 Hyperlipidemia 73855678 E78.5 - last LDL 10/21/24 Long-term current use of drug therapy 568565947 Z79.152 0982525 - statin , last A1c 06/30/24 Hypothyroidism 97322434 E03.9 - last TSH 12/12/23 Body mass index 25-29 - overweight 843873102 Z68.26 - education- diet and exercise Serum harry min B12 below reference range 836958535 R79.89 - 12/12/23 Bilateral hearing loss 64631035 H91.93 seen ENT Cholelithi asis with obstruction 72574538 K80.81 education Hydronephrosis 29094991 N13.30 - Rt on US 09/21/22- seen urology 10/17/22- having another US 03/10/24 Chronic renal failure 90 940878 N18.9 - recheck labs Primary er ectile dysfunction 039080704 N52.9 - stable Obstructiv e sleep apnea of adult 2924678102 103 G47.33 - education- could not tolerate CPAP Screening for malignant neoplasm of colon 411687862 Z12.11 203083 last C scope 05/10/2022 , no polyp Immunization due 3533637 08 Z23 9493543 up to date , Counseling 494637076 Z71 .89 582257 education Dyspnea 498736833 R06.02 66571 Nasal discharge 80419232 J34.89 34224 Dry eyes 497475702 H04.1 23 8327225 - seen ophth Health Concerns Section Related Observation LastModified by Organization Detai ls LastModified Time None Recorded Concern Status LastModified by Organization Details LastModified Time None Recorded Advance Directives Directive N: Payers Insurance Date Sequence Insurance Name Policy Number Policy Lara Covered Member ID Lara Member ID Guarantor Name 04/20/2025 2 [place] [id number] Gertrudis Alexander [id number] Gertrudis Alexander 04/21/2025 1 [place] Gertrudis Alexander [id number] Gertrudis Alexander Notes Date Note Type Note Provider Name and Address Organization Details Recorded Time 11/05/2023 text/html Medicare Annual Wellness VisitReported by PatientSocial/Behavior al HistoryFor diet and nutrition, patient reportshealthy diet. For fracture risk, patient reportsno history of fractures,no recent explained fracture,no sudden unexplained fractures, andno previous musculoskeletal injuries. For physical activity, patient reportsexercises on a regular basis,recent increase in physical activity,good physical condition, anddiscussed [...] to pick them up.Functional AbilityFor hearing, patient reportsloss of hearing: in both ears. For vision, patient reportsno vision problems. For [...] effects from medication. For lifestyle, patient reportsregular exercise,limiting/avoi ding salt, andcompliant with low salt diet. For associated symptoms, patient reportsno dizziness,no lightheadedness,no chest pain,no shortness of breath,no palpitations,no edema,no calf pain with exertion, andno headache. MD Dave Castro[address], [place], [address], [facility] 11/05/2023 12:15:15 03/10/2024 text/html Hypertension F/UReported by PatientHPIFor medications, patient reportstaking medications as directedandno side effects from medication. For lifestyle, patient reportsregular exercise,limiting/avoi ding salt, andcompliant with low salt diet. For associated symptoms, patient reportsno dizziness,no lightheadedness,no chest pain,no shortness of breath,no palpitations,no edema,no calf pain with exertion, andno headache. Merrick Good MD [address] [facility] [address], [place], [address], [facility] 03/10/2024 12:14:25 06/30/2024 text/html Hypertension F/UReported by PatientHPIFor medications, patient reportstaking medications as directedandno side effects from medication. For lifestyle, patient reportsregular exercise,limiting/avoi ding salt, andcompliant with low salt diet. For associated symptoms, patient reportsno dizziness,no lightheadedness,no chest pain,no shortness of breath,no palpitations,no edema,no calf pain with exertion, andno headache. Merrick Good MD [address], [place], [address], [facility] 06/30/2024 12:39:03 10/21/2024 text/html Medicare Annual Wellness VisitReported by PatientFunctional AbilityFor falls risk assessment, patient reportsno frequent falls while walking,no fall in the past year,no fall since last visit, andno dizziness/vertigo. Hypertension F/UReported by PatientHPIFor medications, patient reportstaking medications as directedandno side effects from medication. For lifestyle, patient reportsregular exercise,limiting/avoi ding salt, andcompliant with low salt diet. For associated symptoms, patient reportsno dizziness,no lightheadedness,no chest pain,no shortness of breath,no palpitations,no edema,no calf pain with exertion, andno headache. Merrick Good MD [address], [place], [address], [facility] 10/21/2024 12:59:00 04/21/2025 text/html Medicare Annual Wellness VisitReported by PatientSocial/Behavior al HistoryFor diet and nutrition, patient reportshealthy diet. [...] effects from medication. For lifestyle, patient reportsregular exercise,limiting/avoi ding salt, andcompliant with low salt diet. For associated symptoms, patient reportsno dizziness,no lightheadedness,no chest pain,no shortness of breath,no palpitations,no edema,no calf pain with exertion, andno headache. Merrick Good MD [address], [place], [address], [facility] 04/21/2025 12:39:33
--- OUTSIDE RECORDS SUMMARY | 2025-04-22 00:26 | XMS_ITS | Encounter Summary ---
Author Organization [facility] Address [address] 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 Referred by [facility]. His phone: [phone] documented in this encounter Plan of Treatment Not on file documented as of this encounter Visit Diagnoses Not on filedocumented in this encounter
--- OUTSIDE RECORDS SUMMARY | 2025-04-22 00:26 | XMS_ITS | Clinical Summary ---
Author Organization [facility] Address [address] [place] [address] Care Team Providers Care Treatment Specialist Name Role Phone Merrick Good MD Primary Care Provider [phone] Mohsen Baltazar MD Unavailable [phone] Allergies No known active allergies Medications [...] both eyes before bed. 3.5 g 11 02/17/2025 Active fluorometholone (FML) 0.1 % ophthalmic suspension 1 drop in both eyes TID x 2 weeks, BID x 2 weeks, qday x 2 weeks, then stop 15 mL 1 04/20/2025 Active Active Problems Problem Noted Date Diagnosed Date Early dry stage nonexudative age-related macular degeneration of both eyes 07/09/2024 Assessment & Plan (02/17/2025 11:06 AM CDT): -very mild OS>OD without exudation -ed pt on findings -OCT mac stable today -recommend UV protection, continued smoking cessation, and healthy diet -follow 6 months Assessment & Plan (07/09/2024 3:00 PM DIRECTOR MONEY): -very mild OS>OD without exudation -ed pt on findings -baseline OCT mac taken today and reviewed with pt -recommend UV protection, continued smoking cessation, and healthy diet -follow 6 months OCT mac Diplopia 07/09/2024 Assessment & Plan (02/17/2025 11:06 AM CDT): RHypo and small XT -pt reports longstanding; increased prism last visit from 2.5BU OD to 3.5BU OD and 1BI OS -eyes aligned with current specs without movement -suspect c/o diplopia is actually monocular 2/2 K findings -ok to continue with habitual specs Assessment & Plan (07/09/2024 2:59 PM DIRECTOR MONEY): RHypo and small XT -pt reports longstanding; presented today with 2.5BU OD -noticing small deviation oblique diplopia with glasses on -deviation neutralized with 3.5BU and 2BI OD -will increase prism to 3.5BU OD and add in 1BI OS -RTC if diplopia worsens Fuchs' corneal dystrophy of both eyes 07/09/2024 Assessment & Plan (02/17/2025 11:07 AM CDT): -contributing to blurred vision in AM and also monocular diplopia -has not been using moriah keke and requested assistance with using today; instructed pt how to use keke in eyes in office today -also today with SND nasally OU; likely also contributing to monocular diplopia and blur -recommend restarting moriah keke qhs OU -RTC Dr. Shukla 2-3 months Assessment & Plan (07/09/2024 3:00 PM DIRECTOR MONEY): -may be contributing to blurred vision in AM and also monocular diplopia -recommend moriah-128 keke qhs OU -follow Mass of right elbow 05/06/2023 Pacemaker 03/22/2023 Sinus node dysfunction 09/13/2022 Overview (09/13/2022): Added automatically from request for surgery [id number] Assessment & Plan (09/14/2022 7:49 AM CDT): [...] Encounters Date Type Department Care Team Description 04/20/2025 10:00 AM DIRECTOR MONEY Office Visit [facility] Ophthalmology [address], [address] [place] [address] Loni Shukla MD Fuchs' corneal dystrophy of both eyes (Primary Dx); Diplopia; Early dry stage nonexudative age-related macular degeneration of both eyes; Salzmann nodular degeneration; Pigment of corneal endothelium 02/17/2025 11:00 AM CDT Office Visit [facility] [address] [facility] [address], [address] [place] [id number] Jennifer Monge, OD Fuchs' corneal dystrophy of both eyes (Primary Dx); Early dry stage nonexudative age-related macular degeneration of both eyes; Diplopia 02/17/2025 10:50 AM CDT Imaging Exam [facility] [address] [facility] [address], [address] [place] [address] Early dry stage nonexudative age-related macular degeneration of both eyes 02/10/2025 Orders Only [facility] [address] [facility] [address], [address] [place] [address] Jennifer Monge, OD Early dry stage nonexudative age-related macular degeneration of both eyes (Primary Dx) from Last 3 Months Surgical History Surgery Date Site/Laterality Comments STAPEDECTOMY CATARACT EXTRACTION 06/03/2009 - 06/02/2010 Bilateral aprox 2010 in [place] Medical History Medical History Date Comments HL (hearing loss) Hyperlipidemia Hypertension Chronic kidney disease Family History Medical History Relation Name Comments Glaucoma Neg Hx Macular degeneration Neg Hx Social History Tobacco Use Types Packs/Day Years Used Date Smoking Tobacco: Former Tobacco Cessation:Counseling Given: Not Answered Comments:hasn't smoked almost 50 years Social Connection and Isolation Panel Answer Date Recorded In a typical week, how many times do you talk on the phone with family, friends, or neighbors? More than three times a week 09/14/2022 How often do you get togethe r with friends or relatives? More than three times a week 09/14/2022 How often do you attend chur ch or zoroastrianism services? Never 09/14/2022 Do you belong to any clubs o r organizations such as buddhist groups, unions, fraternal or athletic groups, or [...] place to sleep or slept in a correction (including now)? No 09/14/2022 Personal Safety Answer Date Recorded Have you ever been in or are you currently in a harmful physical or emotional relationship or is someone making you feel afraid or unsafe? Denies 09/14/2022 Sex and Gender Information Value Date Recorded Sex Assigned at Not on file Legal Sex Male 2:34 PM CDT Gender Identity Male 04/20/2021 8:28 PM DIRECTOR MONEY Sexual Orientation Straight 04/20/2021 8: 28 PM DIRECTOR MONEY Last Filed Vital Signs Vital Sign Reading Time Taken Comments Blood Pressure 150/68 03/22/2023 1:02 PM CDT Pulse 55 03/22/2023 1:02 PM CDT Temperature 36.7 C (98 F) 09/15/2022 11:09 AM CDT Respiratory Rate 18 09/15/2022 11:09 AM CDT Oxygen Saturation 96% 03/22/2023 1:02 PM CDT Inhaled Oxygen Concentration - - Weight 79.8 kg (176 lb) 05/06/2024 10:15 AM DIRECTOR MONEY Height 167.6 cm (5' 5.98) 03/22/2023 1:02 PM CD T Body Mass Index 28.42 03/22/2023 1:02 PM CDT Plan of Treatment Health Maintenance Due Date Last Done Comments Depression Screening 1940 Hepatitis B Screening 02[birth year]24/1958 Well Visit 65+ 2007 DTaP/Tdap/Td Vaccine (1 - Tdap) 06/04/2013 4 Fall Risk Assessment 09/16/2023 09/15/2022 Covid-19 Vaccine (4 - 2024-2 6 season) 2025 03/21/2021, 08/24/2020, 08/24/2020, Additional history exists Influenza Vaccine (#1) 2025 4, 04/09/2024, 03/17/2021, Additional history exists Pneumococcal vaccine 65+ Completed 03/20/2018, 06/2016 Zoster Vaccine Completed 12/02/2019, 06/18/2019 Medical Devices Implanted Type Area Infusion Pharmacist Device Identifier Shelf Expiration Date Model / Serial / Lot [employer] Tendril Sts 6fr 58cm Is-1 Connector Active Fixation Bipolar Soft 58 - [id number] - [id number] Implanted:Qty: 1 on 09/14/2022 by Som Wasserman MD at [facility] Lead [employer] [id number] 05/02/2025 / [id number] / [employer] Tendril Sts 6fr 52cm Is-1 Connector Active Fixation Bipolar Soft 2087tc/52 - [id number] - [id number] Implanted:Qty: 1 on 09/14/2022 by Som Wasserman MD at [facility] Lead [employer] [id number] 07/31/20258TC/52 / [id number] / [employer] Assurity Mri [id number] 2 Chamber Is-1 Connector Thk6mm Pacemaker [id number] - [id number] - [id number] Implanted:Qty: 1 on 09/14/2022 by Som Wasserman MD at [facility] Pacemaker [employer] [id number] 01/01/2024 [id number] / [id number] / Procedures Procedure Name Priority Date/Time Associated Diagnosis Comments ENDOTHELIAL PHOTO AND CELL COUNT - OU - BOTH EYES Routine 04/20/2025 12:58 PM DIRECTOR MONEY Pigment of corneal endothelium CORNEAL TOPOGRAPHY - OU - BOTH EYES Routine 04/20/2025 11:05 AM DIRECTOR MONEY Fuchs' corneal dystrophy of both eyes Diplopia Salzmann nodular degeneration OCT, RETINA - OU - BOTH EYES Routine 02/17/2025 10:44 AM CDT 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 Left Eye Cell count was 2193 cells/mm2. Notes No guttae Loni Shukla MD OPHTH PHOTOGRAPHY Final Res ult * Corneal Topography - OU - Both Eyes (04/20/2025 11:05 AM DIRECTOR MONEY) Astigmatism (OS) 2.44 157 CONTINUUM Astigmatism (OD) 1.66 23 CONTINUUM Anatomical Region Laterality Modality Head Ophthalmic Mappi ng Narrative 04/20/2025 11:05 AM DIRECTOR MONEY Right Eye Astigmatism is 1.66 23. Left Eye Astigmatism is 2.44 157. Notes Oblique bowtie ou Loni Shukla MD OPHTH MAPPING Final Resul t * OCT, Retina - OU - Both Eyes (02/17/2025 10:44 AM CDT) Central Macular Thickness OS 264 mircometers CONTINUUM Central Macular Thickness OD 274 micrometers CONTINUUM Anatomical Region Laterality Modality Head Other Narrative 04/13/2025 8:50 AM DIRECTOR MONEY Right Eye Quality was good. Macular thickness was 274 micrometers. Left Eye Quality was good. Macular thickness was 264 mircometers. Notes OD: single subfoveal druse; no exudation OS: scattered drusen; no exudation Jennifer Monge OD OPHTH TOMOGRAPHY Final Result from Last 3 Months Insurance MEDICARE [facility] MEDICARE SUPPLEMENT MEDICARE Get Smart Content [facility] OOS MEDICARE Get [employer] Content TRADITIONAL OOS Advance Directives For more information, please contact: [phone] * Full Code (Latest Code Status on File) Date Activated Date Inactivated Comments 09/13/2022 3:07 PM 09/15/2022 6:06 PM Care Teams Treatment Specialist Relationship Specialty Start Date End Date Merrick Good MD [address] [place] [address] PCP - General Internal Medicine 03/14/18 Mohsen Baltazar MD [address] [place] [address] Consulting Physician Cardiovascular Disease 09/15/22
--- OUTSIDE RECORDS SUMMARY | 2025-04-22 00:26 | XMS_ITS | Continuity of Care Document ---
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 Plan of Treatment Reminders Order Date Submit Date Provider Last Modified By Organization Details Last Modified Time Details Appointments ESTABLISH ED PATIENT DETAILED 2025 11:30A M Mohsen Crenshaw i, MD Not available Not available Not available Lab None recorded. Referral None recorded. Procedures None recorded. Surgeries None recorded. Imaging None recorded. Medication Orders rosuvasta tin 10 mg tablet 2024 025 [facility]/Pharmacy #[id number], [address] [place], [address], 04/13/2025 12:23:20 Patient TargetsNo targets recorded. Patient InstructionsNo instructions recorded. Reason for Referral None Reported. Results Created Date Observation Date Name Description Value Unit Range Abnormal Flag Note LastModifiedBy Organization Detail LastModifiedTime 04/08/20 25 04/05/2025 pacem mk inter rogat ion (PROC ) No observ ation record ed. Not Available 2024 10:39:51 Result Notes None recorded. Problems Name Problem SNOMED Code Status Onset Date Resolution Date Notes Provider Name and Address Organization Details Recorded Time Benign hypertensio n 24269663 Active 2016 Mohsen Crenshaw i, MD [address] [place], [address] [place] [address] [facility] 3 11:27:40 Hyperlipide raeann 78588542 Active 2016 Mohsen Crenshaw i, MD [address] [place], [address], [place] - [facility] 3 11:27:41 Dizziness 705031718 Active 2016 Mohsen Crenshaw i, MD [address] [place], [address] [facility] 3 11:27:41 Pain of joint 80424860 Active 2016 Mohsen Crenshaw i, MD [address] [facility], [place], [address], [place] [facility] 3 11:27:41 Benign essential hypertensio n 9493188 Active 2016 Galen morales [place] - [facility] 4 10:57:02 Dyslipidemi a 367646254 Active 2016 [place] - [facility] 4 10:57:11 Hypothyroid ism 23865077 Active 2017 Mohsen Crenshaw i, MD [address] [place], [address] [facility] 3 11:27:41 Aortic valve regurgitati on 13642826 Active 2017 Mohsen Crenshaw i, MD [address] [place], [address], [place] [facility] 3 11:27:41 Bradycardia 99213750 Active 2018 Mohsen Crenshaw i, MD [address] [place], [address], [place] [facility] 3 11:27:41 Body mass index 25-29 - overweight 918084177 Active 2018 Mohsen Crenshaw i, MD [address] [place], [address], [place] [facility] 3 11:27:40 Atypical chest pain 554209732 Active 2019 Mohsen Crenshaw i, MD [address] [place], [address], [place] [facility] 3 11:27:40 Swelling of bilateral lower limbs 196907995 Active 2019 Mohsen Crenshaw i, MD [address] [place], [address], [place] [facility] 3 11:27:41 Snoring 48334105 Active 2019 Mohsen Crenshaw i, MD [address] [place], [address], [place] [facility] 3 11:27:41 Primary erectile dysfunction 221473553 Active 2019 Mohsen Crenshaw i, MD [address] [place], [address], [place] [facility] 3 11:27:41 Cholelithia sis with obstruction 93136903 Active 2019 Mohsen Crenshaw i, MD [address] [place], [address], [place] [facility] 3 11:27:41 Obstructive sleep apnea of adult 5952806273344 Active 2020 Galen [place], [place] - [facility] 4 10:57:15 Hearing loss 68980740 Active 2020 Mohsen Crenshaw i, MD [address] [place], [address], [place] [facility] 3 11:27:40 Edema of lower extremity 928074154 Active 2021 Mohsen Crenshaw i, MD [address] [place], [address], [place] [facility] 3 11:27:40 Serum creatinine above reference range 441833601 Active 2021 Mohsen Crenshaw i, MD [address] [place], [address], [place] [facility] 3 11:27:40 Gastroesoph ageal reflux disease without esophagitis 699281841 Active 2022 Mohsen Crenshaw i, MD [address] [place], [address], [place] [facility] 3 11:27:40 Chronic renal failure 07164754 Active 2022 Aaron Mesrey [facility] 4 10:58:43 Sinus bradycardia 78885614 Active 2022 Mohsen Crenshaw i, MD [address] [place], [address], [facility] 3 11:27:41 Notes:Some problems listed i n Documents: #[id number], #[id number], #[id number], #[id number] could not be added to this patient's chart. Please review these documents and add these problems to the patient's chart manually as needed. Problem Notes None recorded. Medical Equipment None Reported. Allergies Allergen ID Allergen Name Allergen Category Reaction Reaction Severity Criticality Documentation Date Start Date Code Code System Note Provider Name and Address Organization Details Recorded Time 77094 lisinopri l medicatio n edema Not available Not available 08/26/2020 82654 RxNorm Mohsen Crenshaw i, MD [address] [place], [address], [facility] 3 11:27:18 Medications [...] 1 TABLET BY MOUTH EVERY DAY NEEDED 04/13 completed Not Available Not Available Not Available sildenafil 50 mg tablet TAKE 1 TABLET EVERY DAY BY ORAL ROUTE NEEDED. active Not Available Not Available No t Available azithromyc in 250 mg tablet TAKE 2 TABLETS BY MOUTH TODAY, THEN TAKE 1 TABLET DAILY FOR 4 DAYS DIRECTED 04/13 completed Not Available Not Available Not Available aspirin 325 mg tablet active Not Available Not Available Not Available lisinopril 20 mg tablet Take 1 tablet every day by oral route. 03/22 completed Not Available Not Available Not Available simvastati n 10 mg tablet TAKE 1 TABLET BY MOUTH EVERYDAY AT BEDTIME 04/10 completed Not Available Not Available Not Available meclizine 12.5 mg tablet Take 3 [...] TAKE 1 TABLET BY MOUTH EVERY DAY 04/10 completed Not Available Not Available Not Available acetaminop hen 500 mg tablet TAKE [...] completed Not Available Not Available Not Available sodium chloride 5 % eye ointment APPLY 1/2 INCH INTO BOTH EYES BEFORE BED. active Not Available Not Available No t Available magnesium oxide 400 mg (241.3 mg magnesium) tablet TAKE 1 TABLET BY MOUTH EVERY OTHER DAY 04/13 completed Not Available Not Available Not Available aspirin 325 mg tablet,del ayed release TAKE 1 TABLET BY MOUTH EVERY DAY 04/10 completed Not Available Not Available Not Available amlodipine 10 mg tablet TAKE 1 TABLET BY MOUTH EVERY DAY 04/13 completed Not Available Not Available Not Available benzonatat e 100 mg capsule TAKE [...] CHEW 1 TABLET BY MOUTH EVERY DAY 04/13 completed Not Available Not Available Not Available hydrocorti sone 2.5 % topical cream [...] 1 TABLET BY MOUTH EVERY DAY NEEDED 04/13 completed Not Available Not Available Not Available lisinopril 40 mg tablet TAKE 1 TABLET BY MOUTH EVERY DAY active Not Available Not Available No t Available cefdinir 300 mg capsule TAKE 1 CAPSULE BY MOUTH EVERY 12 HOURS 09/13 completed Not Available Not Available Not Available fluticason e propionate 50 mcg/actuat ion nasal spray,susp ension SPRAY 1 SPRAY BY INTRANAS AL ROUTE EVERY DAY 04/13 completed Not Available Not Available Not Available betamethas one dipropiona te 0.05 % lotion 1 JEFF TOPICAL EVERY NIGHT FOR 30 DAY(S), NEEDED :FOR RASH,INS TR:TO AFFECTED AREA-SCA LP active Not Available Not Available No t Available rosuvastat in 10 mg tablet Take 1 tablet every day by oral route. 2024 active Not Available Not Available Not Avai lable metoprolol tartrate 25 mg tablet TAKE 1/2 TABLET TWICE A DAY BY MOUTH active Not Available Not Available No t Available diclofenac 1 % topical gel APPLY 2 GRAMS TO THE AFFECTED AREA(S) BY TOPICAL ROUTE 4 TIMES PER DAY active Not Available Not Available No t Available Eliquis 5 mg tablet TAKE 1 TABLET BY MOUTH TWICE A DAY active Not Available Not Available No t Available dapagliflo zin propanedio l 10 mg tablet TAKE 1 TABLET BY MOUTH EVERY DAY 04/13 completed Not Available Not Available Not Available Paxlovid 150 mg-100 mg tablets in a dose pack (Moderate Renal Dose) TAKE PER PACKAGES DIRECTIO NS TWICE DAILY FOR 5 DAYS 07/23 completed Not Available Not Available Not Available Vitals Date Recorded Body height Body mass index (BMI) Body weight Oxygen saturation Oxygen saturation in Arterial blood by Pulse oximetry Heart rate Systolic And Diastolic Provider Name and Address Organization Details Last Updated DateTime 5 170.18 cm 27.4 kg/m2 19806.6 6 g 93 % 93 % 54 /min 132/76 mm[Hg] Chikis Catalan [place] - [facility] 5 11:51:50 Social History Question Answer Notes LastModified by [employer] Details LastModified Time Tobacco Smoking Status Former Smoker Not Available [employer] 04/05/2020 03:30:41 What Is Your Level Of Caffeine Consumption? None [id number] Information not available 04/05/2020 How Much Tobacco Do You Chew? None [id number] Information not available 04/05/2020 What Type Of Diet Are You Following? REGULAR [id number] Information not available 04/05/2020 Which Illicit Or Recreational Drugs Have You Used? No [id number] Information not available 04/05/2020 Live Alone Or With Others? Alone [email or web address] Information not available 03/22/2017 Marital Status Informatio n not available 03/22/2017 What Was The Date Of Your Most Recent Tobacco Screening? 04/09/2017 [id number] Information not available 04/05/2020 How Many Children Do You Have? 1 [id number] Information not available 04/05/2020 How Much Tobacco Do You Smoke? No [id number] Information not available 04/05/2020 General Stress Level Medium [email or web address] Information not available 03/22/2017 Sex: Unknown Functional Status Question Answer Note LastModified by Organizat ion Details LastModified Time What is your level of alcohol consumption? Occasional [id number] Information not available 04/05/2020 Do you or have you ever used smokeless tobacco? 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 Never used electronic cigarettes [id number] Information not available 04/05/2020 What is your exercise level? None [id number] Information not available 04/05/2020 Mental Status None recorded. Family History Relationship Description Onset Age of this Age Resolved Age Notes LastModified by Organization Details LastModified Time Brother Heart disease [email or web address] Not available 2016 10:40:36 Brother Myocardial infarction [email or web address] Not available 03/22 10:40:42 Brother Hypertensive disorder [email or web address] Not available 2016 10:40:48 Brother Hypercholest erolemia [email or web address] Not available 2016 10:40:54 Medical History Condition Response Hyperlipidemia Y Arrhythmia Y Hypertension Y High Cholesterol Y Immunizations Vaccine Type Date Status Note Provider Nam e and Address Organization Details Recorded Time Influenza, split virus, quadrivalent, preservative 8 completed Mohsen Baltazar MD [address] [place], [address], [place] - [facility] 09/13/2022 11:27:47 Influenza, split virus, quadrivalent, preservative 0 completed Mohsen Baltazar MD [address] [place], [address], [place] - [facility] 09/13/2022 11:27:47 Influenza, split virus, quadrivalent, preservative 9 completed Mohsen Baltazar MD [address] [place], [address], [place] - [facility] 09/13/2022 11:27:47 Influenza, split virus, quadrivalent, preservative 1 meet Baltazar MD [address] [facility], [place], [address], [place] [facility] 09/13/2022 11:27:48 zoster recombinant 0 completed Mohsen Baltazar MD [address] [facility], [place], [address], [place] [facility] 09/13/2022 11:27:48 Influenza, high-dose, quadrivalent, PF 2 completed Mohsen Baltazar MD [address] [facility], [place], [address], [place] [facility] 09/13/2022 11:27:48 COVID-19, mRNA, LNP-S, PF, 30 mcg/0.3 mL dose 1 completed Mohsen Baltazar MD [address], [place], [address] [place] [address], [facility] - [facility] 09/13/2022 11:27:48 COVID-19 vaccine, vector-nr, rS-Ad26, PF, 0.5 mL 1 completed Mohsen Baltazar MD [address] [place], [place], [address] [place] [address], [place] [facility] 09/13/2022 11:27:48 COVID-19 vaccine, vector-nr, rS-Ad26, PF, 0.5 mL 1 completed Mohsen Baltazar MD [address], [place], [address] [place] [address], [place] [facility] 09/13/2022 11:27:48 Pneumococcal conjugate PCV20, polysaccharide QOY133 conjugate, adjuvant, PF 3 completed Mohsen Baltazar MD [address] [place], [address], [place] - [facility] 09/13/2022 11:27:48 COVID-19, mRNA, LNP-S, PF, 30 mcg/0.3 mL dose, dnate-sucrose 2 completed Mohsen Baltazar MD [address] [place], [address], [place] [facility] 09/13/2022 11:27:48 COVID-19, mRNA, LNP-S, bivalent, PF, 30 mcg/0.3 mL dose 2 completed Mohsen Baltazar MD [address] [place], [address], [facility] 09/13/2022 11:27:48 Pneumococcal conjugate PCV 13 7 completed Mohsen Baltazar MD [address] [place], [address], [facility] 09/13/2022 11:27:48 Td(adult) unspecified formulation 4 [facility] 03/22/2017 10:58:18 Influenza, split virus, trivalent, preservative 7 [facility] 03/22/2017 10:58:18 Past Encounters Encounter ID Performer Location Encounter Start Date Encounter Closed Date Diagnosis/Indication Diagnosis SNOMED-CT Code Diagnosis ICD10 Code Diagnosis IMO Codes Diagnosis Note [id number] Mohsen Baltazar MD [facility] OFFICE [address] [place] [address] 04/13/2025 11:37:50 04/13/2025 12:26:39 Bradycardia 89052328 R00.1 paroxysmal a fib, s/p pacemaker placement 2022 ( sotomayor) will do the follow up here Benign ess ential hypertension 9957181 I10 well controlled today Dyslipidemia 482947291 E 78.5 Needs to keep LDL less than 70, and HDL more than 40.*Last LDL was 84 takes Lipitor, will change to crestor 10 Swelling o f bilateral lower limbs 231827321 M79.89 Mild, better Obstructiv e sleep apnea syndrome 51421195 G47.33 He is not regularly compliant with CPAP. Cardiac pa cemaker in situ 823770632 Z95.0 paroxysmal a fib, s/p pacemaker placement 2022 ( vLex)lexy zhu follow up with him herewill start on full aspirin 325 mg Coronary arteriosclerosis 02070397 I25.10 Had a cath with RCA stenosis Paroxysmal atrial fibrillation 374443315 I48.0 low burden, may need Xael[facility] Health Concerns Section Related Observation LastModified by Organization Amos forrester LastModified Time None Recorded Concern Status LastModified by Organization Details LastModified Time None Recorded Payers Encounter Date Sequence Insurance Name Policy Number Policy Lara Covered Member ID Lara Member ID Guarantor Name 04/13/2025 1 [place] Gertrudis Alexander [id number] Gertrudis Alexander 04/13/2025 2 [employer] [facility] [id number] Gertrudis Alexander [id number] Gertrudis Paulino Alexander Notes Date Note Type Note Provider Name and Address Organization Details Recorded Time 04/13/2025 text/html 04/13/25CC : Cardiac follow up, dyspnea on [id number] WM with history of benign essential hypertension, YUDITH paroxysmal a fib, s/p pacemaker placement 2022 ,( vLex) , prediabetes and dyslipidemia is here for 6 month follow up with labs results. He was last seen in the clinic on 10/08/24, since then he is doing wellHe denies ER visits and hospitalizations since he was last seen. Denies chest pain.Denies shortness of breath at rest. Has mild dyspnea on exertion.No orthopnea. No PNDs.Has heart palpitations.Has dizziness. Denies syncope or near syncope.No ankle or leg edema.No major bleeding events.No reported side effects from medications. Taking medications as prescribed with no missed doses.Denies snoring, daytime somnolence and AM headache.*Last LDL was 88 done on 10/14/24.Pt takes atorvastatin 40 mg. *Had Pacemaker Interrogation on 04/05/25. 10/14/24CMP-GL 89 BUN 34 CR 1.36 NA 140 K 4.2 CA 9.3LIPID-CHOL 139 HDL 55 TRIG 75 LDL 88CK 48 Previously:*EKG 10/08/24: Electrodes misplacement, warning; V2-V3 electrodes possibly reversed, sinus bradycardia. P; normal, QRS; normal, ST-T; normal, conclusion: normal variant of ECG. *Had Positive stress test on 08/13/23 with Normal LV systolic function. Reversible defect consistent with ischemia in inferior area. Exercise tolerance: Below Average. LVEF: 48%. *Had ECHO on 03/28/22 showed LV chamber size is normal. There is normal global systolic function and contrarily. 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 Results from this visit, or from the past:03/11/20 TSH: 3.13537 LIPID: TC 179, TR 94, HDL 88, LDL CMP: NA 140, K 3.9, CL 101, CO2 32, GLU 95, BUN 25, CR 1.30, AST 33, ALT 20lipid panel, blood [id number] 06/18/2019 TR 78 CH 169 LDL 66 HDL 46TSH, serum or plasma 06-84-4784Mon 4.990 FT4 0.7406/18/2019 : WBC 4.9,RBC 4.14,HGB [...] mmHg. Sinus bradycardia. Mohsen Baltazar MD [address] [place], [address], [facility] - [facility] 04/13/2025 12:23:35
--- OUTSIDE RECORDS SUMMARY | 2025-04-22 00:27 | XMS_ITS | Data Portability ---
Author Organization [place] - [facility] OFFICE Address [address] [place] [address] Care Team Providers Care Worship Leader Name Role Phone LOBO HARDY Primary Care [...] rosuvasta tin 10 mg tablet 2024 025 [facility]/Pharmacy #[id number], [address] [place], [address], 04/13/2025 12:23:20 clopidogr el 75 mg tablet 2023 024 [facility]/Pharmacy #[id number], [address] [place], [address], 10/19/2023 14:07:11 Patient TargetsNo targets recorded. Patient Instructions Encounter Date Encounter Id Patient Instructions Last Modified By Organization Details Last Modified Time 10/08/2024 [id number] Exercise advised Low cholesterol diet advised Low sodium diet advised. [email or web address] Not available 10/08/2024 17:12:46 Reason for Referral None Reported. Results Created Date Observation Date Name Description Value Unit Range Abnormal Flag Note LastModifiedBy Organization Detail LastModifiedTime 10/19/19 24 10/10/2023 clydecarolyn chávez ment for coron peggy angio graph y [...] diogr am No observ ation record ed. [email or web address] Not Available 2024 15:14:20 04/08/20 25 04/05/2025 pacem mk inter rogat ion (PROC ) No observ ation record ed. Not Available 2024 10:39:51 Result Notes None recorded. Problems Name Problem SNOMED Code Status Onset Date Resolution Date Notes Provider Name and Address Organization Details Recorded Time Benign hypertensio n 68483578 Active 2016 Mohsen Crenshaw i, MD [address] [place], [address] , [facility] 3 11:27:40 Hyperlipide raeann 52381025 Active 2016 Mohsen Crenshaw i, MD [address] [place], [address], [facility] 3 11:27:41 Dizziness 514153095 Active 2016 Mohsen Crenshaw i, MD [address] [place], [address] , [facility] 3 11:27:41 Pain of joint 53712029 Active 2016 Mohsen Crenshaw i, MD [address] [place], [address], [place] [facility] 3 11:27:41 Benign essential hypertensio n 3040229 Active 2016 [place], [place] [facility] 4 10:57:02 Dyslipidemi a 415284672 Active 2016 [place], [place] [facility] 4 10:57:11 Hypothyroid ism 59523783 Active 2017 Mohsen Crenshaw i, MD [address] [place], [address], [place] [facility] 3 11:27:41 Aortic valve regurgitati on 07258336 Active 2017 Mohsen Crenshaw i, MD [address] [place], [address], [place] [facility] 3 11:27:41 Bradycardia 22394645 Active 2018 Mohsen Crenshaw i, MD [address] [place], [address], [place] [facility] 3 11:27:41 Body mass index 25-29 - overweight 495002754 Active 2018 Mohsen Crenshaw i, MD [address] [place], [address], [place] [facility] 3 11:27:40 Atypical chest pain 309862359 Active 2019 Mohsen Crenshaw i, MD [address] [place], [address], [place] [facility] 3 11:27:40 Swelling of bilateral lower limbs 006491360 Active 2019 Mohsen Crenshaw i, MD [address] [place], [address], [place] [facility] 3 11:27:41 Snoring 44038672 Active 2019 Mohsen Crenshaw i, MD [address] [place], [address], [place] [facility] 3 11:27:41 Primary erectile dysfunction 024602694 Active 2019 Mohsen Crenshaw i, MD [address] [place], [address], [place] [facility] 3 11:27:41 Cholelithia sis with obstruction 52229979 Active 2019 Mohsen Crenshaw i, MD [address] [place], [address], [place] [facility] 3 11:27:41 Obstructive sleep apnea of adult 2970460039095 Active 2020 [place], [place] [facility] 4 10:57:15 Hearing loss 22272044 Active 2020 Mohsen Crenshaw i, MD [address] [place], [address], [place] [facility] 3 11:27:40 Edema of lower extremity 884611795 Active 2021 Mohsen Crenshaw i, MD [address] [place], [address], [place] [facility] 3 11:27:40 Serum creatinine above reference range 283952954 Active 2021 Mohsen Crenshaw i, MD [address] [place], [address], [place] [facility] 3 11:27:40 Gastroesoph ageal reflux disease without esophagitis 125063022 Active 2022 Mohsen Crenshaw i, MD [address] [place], [address], [place] [facility] 3 11:27:40 Chronic renal failure 73318003 Active 2022 [place], [place] [facility] 4 10:58:43 Sinus bradycardia 59266891 Active 2022 Mohsen Crenshaw i, MD [address] [place], [address], [place] [facility] 3 11:27:41 Notes:Some problems listed i n Documents: #[id number], #[id number], #[id number], #[id number] could not be added to this patient's chart. Please review these documents and add these problems to the patient's chart manually as needed. Problem Notes None recorded. Medical Equipment None Reported. Allergies Allergen ID Allergen Name Allergen Category Reaction Reaction Severity Criticality Documentation Date Start Date Code Code System Note Provider Name and Address Organization Details Recorded Time 27428 lisinopri l medicatio n edema Not available Not available 08/26/2020 64020 RxNorm Mohsen Crenshaw i, MD [address] [place], [address], [facility] 3 11:27:18 Medications Name [...] in Arterial blood by Pulse oximetry Systolic And Diastolic Provider Name and Address Organization Details Last Updated DateTime 5 170.18 cm 27.2 kg/m2 17625.3 5 g 50 /min 92 % 92 % 94/60 mm[Hg] Shira Goncalves [facility] 5 16:24:49 Date Recorded Body height Body mass index (BMI) Body weight Heart rate Oxygen saturation Oxygen saturation in Arterial blood by Pulse oximetry Systolic And Diastolic Provider Name and Address Organization Details Last Updated DateTime 4 170.18 cm 27.1 kg/m2 36385.4 8 g 62 /min 92 % 92 % 92/44 mm[Hg] Chikis Catalan [facility] 4 13:15:28 Date Recorded Body height Body mass index (BMI) Body weight Heart rate Oxygen saturation Oxygen saturation in Arterial blood by Pulse oximetry Systolic And Diastolic Provider Name and Address Organization Details Last Updated DateTime 5 170.18 cm 27.8 kg/m2 93388 g 68 /min 95 % 95 % 130/67 mm[Hg] Shira Goncalves [facility] 5 17:01:59 Date Recorded Body height Heart rate Oxygen saturation Oxygen saturation in Arterial blood by Pulse oximetry Body mass index (BMI) Body weight Systolic And Diastolic Provider Name and Address Organization Details Last Updated DateTime 4 170.18 cm 60 /min 92 % 92 % 26.8 kg/m2 62178.3 g 102/62 mm[Hg] Shira Goncalves [facility] 4 13:34:34 Date Recorded Body height Body mass index (BMI) Body weight Oxygen saturation Oxygen saturation in Arterial blood by Pulse oximetry Heart rate Systolic And Diastolic Provider Name and Address Organization Details Last Updated DateTime 5 170.18 cm 27.4 kg/m2 54403.6 6 g 93 % 93 % 54 /min 132/76 mm[Hg] Chikis Catalan [facility] 5 11:51:50 Social History Question Answer Notes LastModified by Organizat ion Details LastModified Time Tobacco Smoking Status Former Smoker Not Available [employer] 04/05/2020 03:30:41 What Is Your Level Of Caffeine Consumption? None [id number] Information not available 04/05/2020 How Much Tobacco Do You Chew? None [id number] Information not available 04/05/2020 What Type Of Diet Are You Following? REGULAR [id number] Information not available 04/05/2020 Which Illicit Or Recreational Drugs Have You Used? No [id number] Information not available 04/05/2020 Live Alone Or With Others? Alone [email or web address] Information not available 03/22/2017 Marital Status [email or web address] Informatio n not available 03/22/2017 What Was The Date Of Your Most Recent Tobacco Screening? 04/09/2017 [id number] Information not available 04/05/2020 How Many Children Do You Have? 1 [id number] Information not available 04/05/2020 How Much Tobacco Do You Smoke? No [id number] Information not available 04/05/2020 General Stress Level Medium [email or web address] Information not available 03/22/2017 Sex: Unknown Functional Status Question Answer Note LastModified by Organizat ion Details LastModified Time What is your level of alcohol consumption? Occasional [id number] Information not available 04/05/2020 Do you or have you ever used smokeless tobacco? 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 Never used electronic cigarettes [id number] Information not available 04/05/2020 What is your exercise level? None [id number] Information not available 04/05/2020 Mental Status None recorded. Family History Relationship Description Onset Age of this Age Resolved Age Notes LastModified by Organization Details LastModified Time Brother Heart disease [email or web address] Not available 2016 10:40:36 Brother Myocardial infarction [email or web address] Not available 03/22 10:40:42 Brother Hypertensive disorder [email or web address] Not available 2016 10:40:48 Brother Hypercholest erolemia [email or web address] Not available 2016 10:40:54 Medical History Condition Response Hyperlipidemia Y Arrhythmia Y Hypertension Y High Cholesterol Y Immunizations Vaccine Type Date Status Note Provider Nam e and Address Organization Details Recorded Time Influenza, split virus, quadrivalent, preservative 8 completed Mohsen Baltazar MD [address] [place], [address], [place] [facility] 09/13/2022 11:27:47 Influenza, split virus, quadrivalent, preservative 0 completed Mohsen Baltazar MD [address] [place], [address], [place] [facility] 09/13/2022 11:27:47 Influenza, split virus, quadrivalent, preservative 9 completed Mohsen Baltazar MD [address] [place], [place], [address] [place] [address], [place] [facility] 09/13/2022 11:27:47 Influenza, split virus, quadrivalent, preservative 1 completed Mohsen Baltazar MD [address], [place], [address] [place] [address], [place] [facility] 09/13/2022 11:27:48 zoster recombinant 0 completed Mohsen Baltazar MD [address] [place], [address], [place] [facility] 09/13/2022 11:27:48 Influenza, high-dose, quadrivalent, PF 2 completed Mohsen Baltazar MD [address] [place], [address], [place] [facility] 09/13/2022 11:27:48 COVID-19, mRNA, LNP-S, PF, 30 mcg/0.3 mL dose 1 completed Mohsen Baltazar MD [address] [place], [address], [place] [facility] 09/13/2022 11:27:48 COVID-19 vaccine, vector-nr, rS-Ad26, PF, 0.5 mL 1 completed Mohsen Baltazar MD [address], [place], [address] [place] [address], [facility] 09/13/2022 11:27:48 COVID-19 vaccine, vector-nr, rS-Ad26, PF, 0.5 mL 1 completed Mohsen Baltazar MD [address], [place], [address] [place] [address], [facility] 09/13/2022 11:27:48 Pneumococcal conjugate PCV20, polysaccharide [id number] conjugate, adjuvant, PF 3 completed Mohsen Baltazar MD [address] [place], [place], [address] [place] [address], [facility] 09/13/2022 11:27:48 COVID-19, mRNA, LNP-S, PF, 30 mcg/0.3 mL dose, dante-sucrose 2 completed Mohsen Baltazar MD [address] [place], [place], [address] [place] [address], [facility] 09/13/2022 11:27:48 COVID-19, mRNA, LNP-S, bivalent, PF, 30 mcg/0.3 mL dose 2 completed Mohsen Baltazar MD [address] [place], [place], [address] [place] [address], [facility] 09/13/2022 11:27:48 Pneumococcal conjugate PCV 13 7 completed Mohsen Baltazar MD [address], [place], [address] [place] [address], [facility] 09/13/2022 11:27:48 Td(adult) unspecified formulation 4 completed Laly morales [facility] 03/22/2017 10:58:18 Influenza, split virus, trivalent, preservative 7 completed Laly morales [facility] 03/22/2017 10:58:18 Past Encounters Encounter ID Performer Location Encounter Start Date Encounter Closed Date Diagnosis/Indication Diagnosis SNOMED-CT Code Diagnosis ICD10 Code Diagnosis IMO Codes Diagnosis Note [id number] Mohsen Baltazar MD [place] [facility] [address] [place] [address] 03/22/2017 10:30:39 03/22/2017 12:20:40 Essential hypertension 77334216 I10 Now well controlled Dizziness 852118293 R42 with Bradycardi aTreadmill Myoview Stress test, has high Arco Risk score. Has Known CAD, or CAD risk equivalent . To look for any ischemia.H olter Dyslipidemia 589073827 E 78.5 Needs to keep LDL less than 70, and HDL more than 40 Will get lipid profile results from PCP Bradycardia 33542339 R00 .1 Holter [id number] Mohsen Baltazar MD [place] [facility] [place] [address] 04/09/2017 11:06:23 04/09/2017 13:29:50 Benign essential hypertension 4672378 I10 now well controlled On amlodipine . Dyslipidemia 137069065 E 78.5 Needs to keep LDL less than 70, and HDL more than 40 Will get lipid profile results from PCP On Simvastati n. Dizziness 753509547 R42 Pt has Meclizine at home. cONSIDER ENT FU [id number] Mohsen Baltazar MD [place] [facility] [place] [address] 04/18/2018 09:43:29 04/18/2018 10:23:47 Benign essential hypertension 2652745 I10 Well controlled . On Amlodipine . Dyslipidemia 723866604 E 78.5 Needs to keep LDL less than 70, and HDL more than 40 Will get lipid profile results from PCP On Simvastati n. Dizziness 678419039 R42 Improved. Bradycardia 19996632 R00 .1 HR today is 45. Patient denies any dizziness or recent falls. Remains active. [id number] Mohsen Baltazar MD [place] [facility] [place] [address] 07/17/2019 11:29:52 07/29/2019 11:25:58 Bradycardia 48212956 R00.1 HR today is 53. Patient denies any dizziness or recent falls. Remains active. Benign ess ential hypertension 3872726 I10 Well controlled . On Amlodipine . Dyslipidemia 559927490 E 78.5 Needs to keep LDL less than 70, and HDL more than 40 06/18/19 LDL 66 On Simvastati n. Dizziness 899804258 R42 Improved. Atypical chest pain 1025 44668 R07.89 Treadmill Myoview Stress test, has high Arco Risk score. Has Known CAD, or CAD risk equivalent . To look for any ischemia. Treadmill Nuclear Stress Test 03/28/17 : Negative stress test for ischemia. TDS. Normal LV systolic function. Artifact noted.Exer cise tolerances average. No previous study to compare. LVEF 62%. Swelling o f bilateral lower limbs 121413096 M79.89 06/21/2019 ECHO: LV chamber size is normal. LV systolic function is normal. The estimated left ventricle ejection fraction is 60- 65 % ( normal) Snoring 94968687 R06.83 sleep study [id number] MD Gabby Ortega Office [address] [place] [address] 09/23/2019 13:36:32 09/23/2019 14:02:50 Bradycardia 11656548 R00.1 Chonnic bradycardi aHR today is 41 bpm. Patient denies any dizziness or recent falls. Remains active. Benign ess ential hypertension 5248335 I10 Well controlled . On Amlodipine . Dyslipidemia 311018401 E 78.5 Needs to keep LDL less than 70, and HDL more than 40 06/18/19 LDL 66 On Simvastati n. Dizziness 512999962 R42 Improved. Atypical chest pain 1025 16176 R07.89 [email or web address] /04/20 tdm stress test-Negat mandy stress test. NML LV systolic function. LVEF 62%cont medicalman agement and risk factor modificati on Swelling o f bilateral lower limbs 794979954 M79.89 06/21/2019 ECHO: LV chamber size is normal. LV systolic function is normal. The estimated left ventricle ejection fraction is 60- 65 % ( normal)res tart Lasix Snoring 45658891 R06.83 sleep study [id number] Mohsen Baltazar MD [place] [facility] [address] [place] [address] 03/04/2020 09:17:15 03/04/2020 10:00:06 Bradycardia 59442946 R00.1 03/04/2020C hronic bradycardi aHR today is 47 bpm. Patient denies any dizziness or recent falls. Remains active. Reports that his watch alerts if it goes below 40, and has not in 3-4 months.Con tinue to monitor Benign ess ential hypertension 0179994 I10 03/04/2020B lood pressure is elevated today, but this is only one reading, will keep close follow up, and consider medication change if blood pressure is still elevated next visit. Obtains 130's/70s at home. Dyslipidemia 371080340 E 78.5 03/04/2020 Continue simvastati n 10mg nightly Will get fasting lipids for follow-up Needs to keep LDL less than 70, and HDL more than 40 06/18/2019 LDL 66 Dizziness 448107225 R42 03/04/2020I mproved. No complaints at this time.Asymp tomatic with bradycardi a Atypical chest pain 1025 38837 R07.89 03/04/20Res olved Stress test 08/05/2019 : Negative stress test. Normal LV systolic function. LVEF 62%.Contin ue medical management and risk factor modificati on Swelling o f bilateral lower limbs 306570234 M79.89 03/04/2020R esolvedEch o 06/21/2019 : LV chamber size is normal. LV systolic function is normal. The estimated left ventricle ejection fraction is 60- 65 % (normal). Snoring 43409340 R06.83 03/04/2020S leep study 07/28/2019 showed moderate OSAOn CPAP, reports general compliance , stating that he hits the 70% but does not keep it on all the time. [id number] Antionette Johnson MD [place] [facility] [address] [place] [address] 08/26/2020 09:50:55 08/26/2020 11:57:21 Bradycardia 95819194 R00.1 Chronic bradycardi a, remains asymptomat ic. Benign ess ential hypertension 7036943 I10 Blood pressure is elevated today, but this is only one reading, will keep close follow up, and consider medication change if blood pressure is still elevated next visit. Dyslipidemia 566576929 E 78.5 Needs to keep LDL less than 70, and HDL more than 40. 03/11/2020 LDL 71 Continue simvastati n 10mg nightly Will get fasting lipids for follow-up Dizziness 897766203 R42 Resolved, asymptomat ic with bradycardi a. Atypical chest pain 1025 46443 R07.89 Resolved TDM 08/05/2019 : Negative stress test. Normal LV systolic function. LVEF 62%. Continue medical management and risk factor modificati on Swelling o f bilateral lower limbs 969609481 M79.89 Resolved Obtain echo to evaluate for structural /functiona l disease. Obstructiv e sleep apnea syndrome 18627880 G47.33 He is not regularly compliant with CPAP. [id number] Mohsen Baltazar MD [place] [facility] [address] [place] [address] 02/28/2021 11:35:28 02/28/2021 13:07:10 Bradycardia 56895497 R00.1 Chronic bradycardi a, remains asymptomat ic. Benign ess ential hypertension 5517557 I10 Blood pressure is elevated today, but this is only one reading, will keep close follow up, and consider medication change if blood pressure is still elevated next visit. Dyslipidemia 595729290 E 78.5 Needs to keep LDL less than 70, and HDL more than 40. 03/11/2020 LDL 71 Continue simvastati n 10mg nightly Will get fasting lipids for follow-up Dizziness 494644874 R42 Resolved, asymptomat ic with bradycardi a. Atypical chest pain 1025 16749 R07.89 Resolved TDM 08/05/2019 : Negative stress test. Normal LV systolic function. LVEF 62%. Continue medical management and risk factor modificati on Swelling o f bilateral lower limbs 049642214 M79.89 Milds Obstructiv e sleep apnea syndrome 84434932 G47.33 He is not regularly compliant with CPAP. [id number] Mohsen Baltazar MD [place] [facility] [address] [place] [address] 02/27/2022 10:28:11 02/27/2022 11:19:32 Bradycardia 27317272 R00.1 Chronic bradycardi a, remains asymptomat ic. Benign ess ential hypertension 7481204 I10 we will decreased his amlodipine to 5 mg dailyincre ased lisinopril to 20 mg daily Dyslipidemia 794924318 E 78.5 Needs to keep LDL less than 70, and HDL more than 40. 03/11/2020 LDL 71 Continue simvastati n 10mg nightly Will get fasting lipids for follow-up Dizziness 953562425 R42 Resolved, asymptomat ic with bradycardi a. Atypical chest pain 1025 36690 R07.89 Resolved TDM 08/05/2019 : Negative stress test. Normal LV systolic function. LVEF 62%. Continue medical management and risk factor modificati on Swelling o f bilateral lower limbs 337320908 M79.89 Milds Obstructiv e sleep apnea syndrome 75366976 G47.33 He is not regularly compliant with CPAP. Essential hypertension 77325931 I10 Now well controlled [id number] Mohsen Baltazar MD [place] [facility] [address] [place] [address] 05/08/2022 11:23:20 05/08/2022 12:43:28 Bradycardia 92688096 R00.1 Chronic bradycardi a, remains asymptomat ic. Benign ess ential hypertension 5587286 I10 we will decreased his amlodipine to 5 mg dailyincre ased lisinopril to 20 mg daily Dyslipidemia 106512769 E 78.5 Needs to keep LDL less than 70, and HDL more than 40. 03/11/2020 LDL 71 Continue simvastati n 10mg nightly Will get fasting lipids for follow-up Dizziness 839917533 R42 Resolved, asymptomat ic with bradycardi a. Atypical chest pain 1025 32812 R07.89 Resolved TDM 08/05/2019 : Negative stress test. Normal LV systolic function. LVEF 62%. Continue medical management and risk factor modificati on Swelling o f bilateral lower limbs 833621530 M79.89 Mild, better Obstructiv e sleep apnea syndrome 33747433 G47.33 He is not regularly compliant with CPAP. Essential hypertension 19079975 I10 Now well controlled [id number] Mohsen Baltazar MD [place] [facility] [address] [place] [address] 09/13/2022 10:50:35 09/13/2022 12:31:35 Bradycardia 23123408 R00.1 Chronic bradycardi a, now more symptomati c rate 36 junctional rhythmwill need a pacemaker, will send to ER and will arrange for a pacer Benign ess ential hypertension 4623108 I10 we will decreased his amlodipine to 5 mg dailyincre ased lisinopril to 20 mg daily Dyslipidemia 648175290 E 78.5 Needs to keep LDL less than 70, and HDL more than 40. 03/11/2020 LDL 71 Continue simvastati n 10mg nightly Will get fasting lipids for follow-up Dizziness 698015919 R42 Resolved, with bradycardi a.May need a pacerwill get MCT for one week Atypical chest pain 1025 03317 R07.89 Resolved TDM 08/05/2019 : Negative stress test. Normal LV systolic function. LVEF 62%. Continue medical management and risk factor modificati on Swelling o f bilateral lower limbs 090571836 M79.89 Mild, better Obstructiv e sleep apnea syndrome 02612830 G47.33 He is not regularly compliant with CPAP. 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 03/11/2020 LDL 71 Continue simvastati n 10mg nightly Will get fasting lipids for follow-up Swelling o f bilateral lower limbs 608944238 M79.89 Mild, better Obstructiv e sleep apnea syndrome 35091519 G47.33 He is not regularly compliant with CPAP. Cardiac pa cemaker in situ 810522206 Z95.0 follow up here [id number] Mohsen Baltazar MD [place] [facility] [address] [place] [address] 08/13/2023 11:01:12 08/13/2023 12:08:33 Bradycardia 69331417 R00.1 paroxysmal a fib, s/p pacemaker placement 2022 ( sotom[facility]or) will do the follow up here Benign ess ential hypertension 1000174 I10 well controlled today Dyslipidemia 401907300 E 78.5 Needs to keep LDL less than 70, and HDL more than 40.*Last LDL was 58 done on 08/2023 Pt takes simvastati n 10 mg. Swelling o f bilateral lower limbs 028914461 M79.89 Mild, better Obstructiv e sleep apnea syndrome 35829463 G47.33 He is not regularly compliant with CPAP. Cardiac pa cemmk in situ 856603184 Z95.0 paroxysmal a fib, s/p pacemaker placement 2022 ( [facility]otom[facility]or)lexy zhu follow up with him hereyoel start on full aspirin 325 mg Atypical chest pain 1025 64082 R07.89 Treadmill Myoview Stress test, has high Arco Risk score. Has Known CAD, or CAD risk equivalent . To look for any ischemia. TDM 08/05/2019 : Negative stress test. Normal LV systolic function. LVEF 62%. Continue medical management and risk factor modificati on [id number] Mohsen Baltazar MD [place] [facility] [address] [place] [address] 09/28/2023 12:58:42 09/28/2023 13:37:58 Bradycardia 69540580 R00.1 paroxysmal a fib, s/p pacemaker placement 2022 ( [facility]otom[facility]or) will do the follow up here Benign ess ential hypertension 8926525 I10 well controlled today Dyslipidemia 238845613 E 78.5 Needs to keep LDL less than 70, and HDL more than 40.*Last LDL was 58 done on 08/2023 Pt takes simvastati n 10 mg. Swelling o f bilateral lower limbs [id number] M79.89 Mild, better Obstructiv e sleep apnea syndrome [id number] G47.33 He is not regularly compliant with CPAP. Cardiac pa varinder in situ [id number] Z95.0 paroxysmal a fib, s/p pacemaker placement 2022 ( sotomayor)lexy zhu follow up with him hereyoel start on full aspirin 325 mg Coronary arteriosclerosis [id number] I25.10 with positive stress test, The patient will be scheduled for left heart catheteriz ation, with coronary angiogram, and possible PTCA/Stent . The procedure was discussed with the patient, and risks, benefits, and alternativ e options were explained. The patient was given informatio n about heart catheteriz ation and interventi onal procedures . The patient agrees to proceed. [id number] Mohsen Baltazar MD [facility] [address] [place] [address] 10/19/2023 13:30:00 10/19/2023 14:12:18 Bradycardia [id number] R00.1 paroxysmal a fib, s/p pacemaker placement 2022 ( sotomayor) will do the follow up here Benign ess ential hypertension 7131142 I10 well controlled today Dyslipidemia 948196090 E 78.5 Needs to keep LDL less than 70, and HDL more than 40.*Last LDL was 58 done on 08/2023 Pt takes simvastati n 10 mg. Swelling o f bilateral lower limbs [id number] M79.89 Mild, better Obstructiv e sleep apnea syndrome [id number] G47.33 He is not regularly compliant with CPAP. Cardiac pa cemaker in situ [id number] Z95.0 paroxysmal a fib, s/p pacemaker placement 2022 ( sotomayor)lexy zhu follow up with him herewill start on full aspirin 325 mg Coronary arteriosclerosis 10114062 I25.10 Had a cath with RCA stenosis [id number] Mohsen Baltazar MD [place] [facility] [place] [address] 07/23/2024 16:04:56 07/23/2024 16:51:09 Bradycardia 94759471 R00.1 paroxysmal a fib, s/p pacemaker placement 2022 ( sotomayor) will do the follow up here Benign ess ential hypertension 2372845 I10 well controlled today Dyslipidemia 365905337 E 78.5 Needs to keep LDL less than 70, and HDL more than 40.*Last LDL was 58 done on 08/2023 Pt takes simvastati n 10 mg. Swelling o f bilateral lower limbs 477949278 M79.89 Mild, better Obstructiv e sleep apnea syndrome 34870534 G47.33 He is not regularly compliant with CPAP. Cardiac pa cemaker in situ [id number] Z95.0 paroxysmal a fib, s/p pacemaker placement 2022 ( sotomayor)lexy zhu follow up with him herewill start on full aspirin 325 mg Coronary arteriosclerosis 38237248 I25.10 Had a cath with RCA stenosis Paroxysmal atrial fibrillation 462329707 I48.0 low burden, may need Xaelto [id number] Mohsen Baltazar MD [place] [facility] [place] [address] 10/08/2024 16:48:18 10/08/2024 17:15:36 Bradycardia 13279944 R00.1 paroxysmal a fib, s/p pacemaker placement 2022 ( sotomayor) will do the follow up here Benign ess ential hypertension 0473986 I10 well controlled today Dyslipidemia 971415493 E 78.5 Needs to keep LDL less than 70, and HDL more than 40.*Last LDL was 58 done on 08/2023 Pt takes Lipitor Swelling o f bilateral lower limbs 087695930 M79.89 Mild, better Obstructiv e sleep apnea syndrome 02474968 G47.33 He is not regularly compliant with CPAP. Cardiac pa cemaker in situ [id number] Z95.0 paroxysmal a fib, s/p pacemaker placement 2022 ( sotomayor)lexy zhu follow up with him herewill start on full aspirin 325 mg Coronary arteriosclerosis 81613236 I25.10 Had a cath with RCA stenosis Paroxysmal atrial fibrillation 868434492 I48.0 low burden, may need Xaelto [id number] Mohsen Baltazar MD [place] [facility] [address] [place] [address] 04/13/2025 11:37:50 04/13/2025 12:26:39 Bradycardia 94591465 R00.1 paroxysmal a fib, s/p pacemaker placement 2022 ( sotomayor) will do the follow up here Benign ess ential hypertension 8238968 I10 well controlled today Dyslipidemia 465815899 E 78.5 Needs to keep LDL less than 70, and HDL more than 40.*Last LDL was 84 takes Lipitor, will change to crestor 10 Swelling o f bilateral lower limbs 903439709 M79.89 Mild, better Obstructiv e sleep apnea syndrome 24931414 G47.33 He is not regularly compliant with CPAP. Cardiac pa cemaker in situ [id number] Z95.0 paroxysmal a fib, s/p pacemaker placement 2022 ( sotomayor)lexy zhu follow up with him herewill start on full aspirin 325 mg Coronary arteriosclerosis 56348739 I25.10 Had a cath with RCA stenosis Paroxysmal atrial fibrillation 156633787 I48.0 low burden, may need Xaelto Health Concerns Section Related Observation LastModified by Organization Detai ls LastModified Time None Recorded Concern Status LastModified by Organization Details LastModified Time None Recorded Advance Directives Directive None Recorded Payers Insurance Date Sequence Insurance Name Policy Number Policy Lara Covered Member ID Lara Member ID Guarantor Name 04/10/2025 1 MEDICARE-[place] (MEDICARE) Gertrudis Alexander [id number] Gertrudis Alexander 04/10/2025 2 [employer] [id number] Gertrudis Alexander [id number] Gertrudis Alexander Notes Date Note Type Note Provider Name and Address Organization Details Recorded Time 09/28/2023 text/html 09/28/23CC : Cardiac follow up, dyspnea on hjujnfyy27-xnkx-syo WM with history of benign essential hypertension, YUDITH paroxysmal a fib, s/p pacemaker placement 2022 ,( Yamsafer) , prediabetes and dyslipidemia, presents for 1 [...] 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 Results from this visit, or from the past:03/11/20 TSH: 3.93520 LIPID: TC 179, TR 94, HDL 88, LDL CMP: NA 140, K 3.9, CL 101, CO2 32, GLU 95, BUN 25, CR 1.30, AST 33, ALT 20lipid panel, blood 43-98-0968XLQHC 06/18/2019 TR 78 CH 169 LDL 66 HDL 46TSH, serum or plasma 65-34-3693Mlc 4.990 FT4 0.7406/18/2019 : WBC 4.9,RBC 4.14,HGB [...] Sinus bradycardia. 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 Results from this visit, or from the past:03/11/20 TSH: 3.44930 LIPID: TC 179, TR 94, HDL 88, LDL CMP: NA 140, K 3.9, CL 101, CO2 32, GLU 95, BUN 25, CR 1.30, AST 33, ALT 20lipid panel, blood 06-28-9156ZHPEH 06/18/2019 TR 78 CH 169 LDL 66 HDL 46TSH, serum or plasma 41-21-8061Zye 4.990 FT4 0.7406/18/2019 : WBC 4.9,RBC 4.14,HGB [...] 36 mmHg. Sinus bradycardia. 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 Results from this visit, or from the past:03/11/20 TSH: 3.34296 LIPID: TC 179, TR 94, HDL 88, LDL CMP: NA 140, K 3.9, CL 101, CO2 32, GLU 95, BUN 25, CR 1.30, AST 33, ALT 20lipid panel, blood [id number] 06/18/2019 TR 78 CH 169 LDL 66 HDL 46TSH, serum or plasma 74-21-5023Xia 4.990 FT4 0.7406/18/2019 : WBC 4.9,RBC 4.14,HGB [...] 36 mmHg. Sinus bradycardia. 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 Results from this visit, or from the past:03/11/20 TSH: 3.05097 LIPID: TC 179, TR 94, HDL 88, LDL CMP: NA 140, K 3.9, CL 101, CO2 32, GLU 95, BUN 25, CR 1.30, AST 33, ALT 20lipid panel, blood 16-21-0047MRLSG 06/18/2019 TR 78 CH 169 LDL 66 HDL 46TSH, serum or plasma 13-95-2960Pym 4.990 FT4 0.7406/18/2019 : WBC 4.9,RBC 4.14,HGB [...] 36 mmHg. Sinus bradycardia. 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 Results from this visit, or from the past:03/11/20 TSH: 3.77835 LIPID: TC 179, TR 94, HDL 88, LDL CMP: NA 140, K 3.9, CL 101, CO2 32, GLU 95, BUN 25, CR 1.30, AST 33, ALT 20lipid panel, blood 27-47-0965BMSLX 06/18/2019 TR 78 CH 169 LDL 66 HDL 46TSH, serum or plasma 79-40-8289Uxc 4.990 FT4 0.7406/18/2019 : WBC 4.9,RBC 4.14,HGB [...] Sinus bradycardia. Mohsen Baltazar MD [address] [place], [address], [facility] 04/13/2025 12:23:35
== END 2025-04-21 16:24 | disposition home or self-care (01) ==
PROVIDERS: PCP Internal Medicine; Visit Provider Internal Medicine
DX: E78.5 Hyperlipidemia, unspecified (principal); I10 Essential (primary) hypertension; K21.9 Gastro-esophageal reflux disease without esophagitis; Z79.899 Other long term (current) drug therapy; E03.9 Hypothyroidism, unspecified; R79.89 Other specified abnormal findings of blood chemistry; R06.02 Shortness of breath
CPT/HCPCS: 36415; 80053; 80061; 82043; 82607; 83036; 84439; 84443; 85025; 85380

== ENCOUNTER 2025-04-23 09:28 | Outpatient (CLI) | payer MEDICARE, SELFPAY ==
--- OUTSIDE RECORDS SUMMARY | 2025-04-23 09:32 | XMS_ITS | Encounter Summary ---
Author Organization [facility] Address [address] [place] [address] Care Team Providers Care Petroleum Geologist Name Role Phone Merrick Good MD Primary Care Provider [phone] Encounter Details Date Type Department Care Team (Late st Contact Info) Description 03/03/2025 Results Follow-Up [facility] [place] [address] [address] [address] [place] [address] Radha Gunn, BABY SITTER [address] [address] [address] [place] [address] PACER ANALYSIS REMOTE, UP TO 90 [...] on filedocumented in this encounter Care Teams Petroleum Geologist Relationship Specialty Start Date End Date Merrick Good MD [address] [place] [address] PCP - General Internal Medicine 10/04/23 documented as of this encounter
--- OUTSIDE RECORDS SUMMARY | 2025-04-23 09:32 | XMS_ITS | Encounter Summary ---
Author Organization [facility] Address [address] [place] [address] Care Team Providers Care Digital Content Marketing Manager Name Role Phone Unavailable Primary Care Provider Unavailabl e Reason for Visit * Reason Onset Date Comments Appointment 11/28/2023 Encounter Details Date Type Department Care Team (Late st Contact Info) Description 11/28/2023 Telephone [facility] - Centralized Scheduling [address] [place] [address] Hilda Clements Appointment Social History [...] CDT This pt has a referral for [facility] in [facility]. Referred by [facility]. His phone: [phone] documented in this encounter Plan of Treatment Not on file documented as of this encounter Visit Diagnoses Not on filedocumented in this encounter
--- OUTSIDE RECORDS SUMMARY | 2025-04-23 09:32 | XMS_ITS | Continuity of Care Document ---
Author Organization [facility] [employer], [employer], [employer] Address [address] [place] [address] Care Team Providers Care Core Driller Name Role Phone MERRICK GOOD Primary Care Provider [phone] Assessment Encounter Date Assessment Date Assessment LastModified [...] ED PATIENT 15 2025 10:30A M Merrick Godo MD Not available Not available Not available Lab hemoglobi n A1c, QN, blood 2024 [facility] (Lab), [address] [place] [address], [id number], 04/22/2025 22:34:41 D-dimer, quant, plasma 2024 025 [facility] (Lab), [address] [place] [address], [phone], 04/22/2025 22:34:41 CMP, serum or plasma 2024 025 [facility] (Lab), [facility] [address], [phone], 04/22/2025 22:34:41 CBC w/ auto diff 2024 [facility] (Lab), [address] [place] [address], [id number], 04/22/2025 11:53:00 microalbu min/creat inine, mass ratio, urine 2024 [facility] (Lab), [address] [place] [address], [id number], 04/22/2025 22:34:41 lipid panel w/ direct LDL, serum 2024 [facility] (Lab), [address] [place] [address], [phone], 04/22/2025 22:34:41 H pylori Ag, stool 2024 [facility] (Lab), [address] [place] [address], [phone], 04/21/2025 12:45:30 TSH + free T4, serum 2024 [facility] (Lab), [address] [place] [address], [id number], 04/22/2025 22:34:41 vitamin B12, serum 2024 [facility] (Lab), [address] [place] [address], [phone], 04/22/2025 22:34:41 Referral None recorded. Procedures None recorded. Surgeries None recorded. Imaging ankle brachial index, complete [address] (Imaging), [address] [place] [address], [phone], 04/21/2025 12:50:11 US, renal [address] (Imaging), [address] [place] [address], [phone], 04/21/2025 12:50:11 Medication Orders ipratropi um bromide 42 mcg (0.06 %) nasal spray 2024 [facility][id number], [address] [place], [address], 04/21/2025 12:33:43 pantopraz ole 20 mg tablet,de layed release 2024 [facility] #[id number], [address] [place], [address], 04/21/2025 12:33:43 Patient TargetsNo targets recorded. Patient Instructions Encounter Date Encounter Id Patient Instructions Last Modified By Organization Details Last Modified Time 04/21/2025 [id number] Peripheral Arterial Disease (PAD): Care Instructions [email or web address] [...] Detail LastModifiedTime 04/21/2004/21/2025 kaitlynn metry testi ng* Spirometry Not Available [facility], [facility] [address] [place] [address] [place], [address], 04/21/2025 12:31:39 04/21/20 25 04/21/2025 kaitlynn metry testi ng* No observ ation record ed. [facility], [facility] [address], [place], [address], 04/22/2025 09:31:28 Result Notes None recorded. Problems Name Problem SNOMED Code Status Onset Date Resolution Date Notes Provider Name and Address Organization Details Recorded Time Benign hypertensi on 43133153 Active 2016 Not Available [facility] 10:38:17 Hyperlipid emia 12003487 Active 2016 Not Available [facility] 3 10:38:17 Aortic valve regurgitat ion 34349439 Active 2017 Not Available [facility] 3 10:38:17 Hypothyroi dism 87809211 Active 2017 Not Available [facility] 3 10:38:17 Unilateral hearing loss Active 2017 Not Available [facility] 3 10:38:17 Bradycardi a 44447298 Active 2018 Not Available [facility] 3 10:38:17 Body mass index 25-29 - overweight 820609784 Active 2018 Not Available [facility] 3 10:38:17 Primary erectile dysfunctio n 480689860 Active 2019 Not Available [facility] 3 10:38:17 Cholelithi asis with obstructio n 04838696 Active 2019 Not Available [facility] 3 10:38:17 Obstructiv e sleep apnea of adult 2707025895036 Active 2020 Not Available [facility] 3 10:38:17 Hearing loss 41895371 Active 2020 Not Available [facility] 3 10:38:17 Edema of lower extremity 463720338 Active 2021 Not Available [facility] 3 10:38:17 Serum creatinine above reference range 240185154 Active 2021 Not Available [facility] 3 10:38:17 Gastroesop hageal reflux disease without esophagiti s 917035383 Active 2022 Not Available [facility] 3 10:38:17 Chronic renal failure 97635298 Active 2022 MD Dave Castro[address], [place], [address] , [facility] 3 16:20:34 Sinus bradycardi a 25617345 Active 2022 MD Dave Castro[address], [place], [address] , [facility] 3 11:38:46 Hydronephr osis 90417606 Active 2022 MD Dave Castro[address], [place], [address] , [facility] 3 18:14:49 Cardiac pacemaker in situ 976854961 Active 2022 MD Dave Castro[address], [place], [address] , [facility] 3 12:31:14 Peripheral vascular disease 058321664 Active 2022 on NINA MD Dave Castro[address], [place], [address] , [facility] 3 21:39:53 Arthritis of hand 995890920 Active 2023 MD Toan Castro [address], [place], [address] , [facility] 4 12:21:58 Serum vitamin B12 below reference range 106133950 Active 2023 MD Dave Castro[address], [place], [address] , [facility] 4 16:15:16 Coronary arterioscl erosis 53942640 Active 2023 MD Toan Castro [address], [place], [address] , [facility] 4 12:02:07 Bilateral hearing loss 67077402 Active 2023 MD Toan Castro [address], [place], [address] , [facility] 4 12:10:32 Long-term drug therapy Active 2024 MD Toan Castro [address], [place], [address] , [facility] 5 12:35:11 Long-term current use of drug therapy 621324776 Active 2024 MD Toan Castro [address], [place], [address] , [facility] 5 12:21:22 Nasal discharge 99778221 Active 2024 MD Toan Castro [address], [place] [address] , [facility] 5 12:31:54 Dry eyes 764648001 Active 2024 MD Toan Castro [address], [place], [address] , [facility] 5 12:32:53 Problem Notes None recorded. Procedures Surgical History Date Name Laterality Status Provider Name and Address Organization Details Recorded Time 04/29/20 17 Colonoscopy completed Jennifer Dudley [facility] 06/24/2017 09:51:48 Cataract Surgery completed MD Toan Castro [address], [place], [address], [facility] 12/20/2016 15:49:48 Other completed MD Toan Castro [address], [place], [address], [facility] 12/20/2016 15:50:16 Imaging Results None [...] bromide 42 mcg (0.06 %) nasal spray [place] 2 sprays 3 times a day by [...] day by oral route in the morning. 05/21/ 2025 active Not Available Not Available Not Avai [...] Updated DateTime 5 167.64 cm 28.6 kg/m2 75387.8 5 g 97.6 [degF] 16 /min 49 /min 117/68 mm[Hg] Veronica Kerr [facility] 5 11:42:59 Social History Question Answer Notes LastModified by Organizat ion Details LastModified Time Tobacco Smoking Status Former Smoker quit Merrick Good MD [address], [place], [address], [facility] 12/20/2016 15:49:04 Do You Have An Advance Directive? No [email or web address] Information not available 04/18/2023 Which Illicit Or Recreational Drugs Have You Used? No Information not available 12/20/2016 Are There Any Guns Present In Your Home? No [email or web address] Information not available 04/18/2023 Live Alone Or With Others? With Others With Doughter [email or web address] Information not available 04/18/2023 Marital Status Single [email or web address] Informatio n not available 04/18/2023 What Was The Date Of Your Most Recent Tobacco Screening? 10/09/2018 [email or web address] Information not available 04/18/2023 Performs Monthly Self-breast Exam? No [email or web address] Information not available 04/18/2023 Seat Belts Used Routinely Yes [email or web address] Information not available 04/18/2023 Smoke Alarm In Home Yes [email or web address] Information not available 04/18/2023 Do You Use Sunscreen Routinely? No [email or web address] Information not available 04/18/2023 Have You Used IV Drugs? No [email or web address] Information not available 04/18/2023 Sex: Unknown Functional Status Question Answer Note LastModified by Organizat ion Details LastModified Time What is your level of alcohol consumption? Occasional Information not available 12/20/2016 Are you currently employed? Yes [email or web address] Information not available 04/18/2023 Are you able to care for yourself independently? Yes [email or web address] Information not available 04/18/2023 Mental Status None [...] virus, quadrivalent, preservative 8 completed Not Available [facility] 05/07/2023 06:56:02 Influenza, split virus, quadrivalent, preservative 9 completed Not Available [facility] 05/07/2023 06:56:03 Influenza, split virus, quadrivalent, preservative 0 completed Not Available [facility] 05/07/2023 06:56:03 zoster recombinant 0 completed Not Available [facility] 05/07/2023 06:56:03 COVID-19 vaccine, vector-nr, rS-Ad26, PF, 0.5 mL 1 completed Not Available [facility] 05/07/2023 06:56:03 COVID-19 vaccine, vector-nr, rS-Ad26, PF, 0.5 mL 1 completed Not Available [facility] 05/07/2023 06:56:03 COVID-19, mRNA, LNP-S, PF, 30 mcg/0.3 mL dose 1 completed Not Available [facility] 05/07/2023 06:56:03 Influenza, split virus, quadrivalent, preservative 1 completed Not Available [facility] 05/07/2023 06:56:03 COVID-19, mRNA, LNP-S, PF, 30 mcg/0.3 mL dose, dante-sucrose 2 completed Not Available [facility] 05/07/2023 06:56:03 Influenza, high-dose, quadrivalent, PF 2 completed Not Available [facility] 05/07/2023 06:56:03 COVID-19, mRNA, LNP-S, bivalent, PF, 30 mcg/0.3 mL dose 2 completed Not Available [facility] 05/07/2023 06:56:03 Pneumococcal conjugate PCV20, polysaccharide [id number] conjugate, adjuvant, PF 3 completed Not Available [facility] 05/07/2023 06:56:03 Influenza, adjuvanted, quadrivalent, PF 4 completed MD Toan Castro [address], [place], [place], [address] [place] [address], [facility] 04/11/2024 17:35:13 Pneumococcal conjugate PCV20, polysaccharide MPN797 conjugate, adjuvant, PF 4 completed MD Toan Castro [address], [place], [address], [facility] 08/04/2023 12:08:41 COVID-19, mRNA, LNP-S, PF, dante-sucrose, 30 mcg/0.3 mL 4 completed MD Toan Castro [address], [place], [address], [facility] 04/11/2024 17:35:13 RSV, recombinant, protein subunit RSVpreF, adjuvant reconstituted, 0.5 mL, PF 4 completed MD Toan Castro [address], [place], [address], [facility] 09/30/2023 09:59:33 COVID-19, mRNA, LNP-S, PF, dante-sucrose, 30 mcg/0.3 mL 4 completed Merrick Good MD [address], [place], [address], [facility] 04/11/2024 17:35:13 Influenza, high-dose, trivalent, PF 4 completed Merrick Good MD [address], [place], [address], [facility] 04/11/2024 17:35:13 Influenza, split virus, trivalent, preservative 7 completed Not Available [facility] 05/07/2023 06:56:03 Td(adult) unspecified formulation 4 completed Not Available [facility] 05/07/2023 06:56:03 Pneumococcal conjugate PCV 13 7 completed Not Available [facility] 05/07/2023 06:56:03 Past Encounters Encounter ID Performer Location Encounter Start Date Encounter Closed Date Diagnosis/Indication Diagnosis SNOMED-CT Code Diagnosis ICD10 Code Diagnosis IMO Codes Diagnosis Note [id number] Merrick Good MD [facility], [facility] [address] [place] [address] 04/21/2025 11:13:10 04/21/2025 12:50:11 Adult health examination 577911088 Z00.01 1092754 Gastroesop hageal reflux disease without esophagitis 614445597 K21.9 - stable Benign hypertension 1072 5009 I10 - last optometry eval 07/2024- on the high side today- BP 2-3 weeks- last EKG 10/08/24 Coronary arteriosclerosis 87391716 I25.10 - had cath @ [facility]- cardiology started plavix Cardiac pa cemaker in situ 354164816 Z95.0 - 09/15/22 Peripheral vascular disease 973657276 I73.9 - 04/29/23 Hyperlipidemia 71179458 E78.5 - last LDL 10/21/24 Long-term current use of drug therapy 157268548 Z79.314 0883378 - statin , last A1c 06/30/24 Hypothyroidism 20496052 E03.9 - last TSH 7/11/24 Body mass index 25-29 - overweight 827347112 Z68.26 - education- diet and exercise Serum harry min B12 below reference range 189484446 R79.89 - 12/12/23 Bilateral hearing loss 73634852 H91.93 seen ENT Cholelithi asis with obstruction 20153365 K80.81 education Hydronephrosis 73196972 N13.30 - Rt on US 09/21/22- seen urology 10/17/22- having another US 03/10/24 Chronic renal failure 90 257501 N18.9 - recheck labs Primary er ectile dysfunction 877964848 N52.9 - stable Obstructiv e sleep apnea of adult 6994969439 103 G47.33 - education- could not tolerate CPAP Screening for malignant neoplasm of colon 353029539 Z12.11 902612 last C scope 05/10/2022 , no polyp Immunization due 6945822 08 Z23 3194607 up to date , Counseling 896718081 Z71 .89 571560 education Dyspnea 037496587 R06.02 34549 Nasal discharge 80136636 J34.89 01597 Dry eyes 812483530 H04.1 23 0039871 - seen ophth Health Concerns Section Related Observation LastModified by Organization Detai ls LastModified Time None Recorded Concern Status LastModified by Organization Details LastModified Time None Recorded Payers Encounter Date Sequence Insurance Name Policy Number Policy Lara Covered Member ID Lara Member ID Guarantor Name 04/21/2025 2 [place] [id number] Gertrudis Alexander [id number] Gertrudis Alexander 04/21/2025 1 [place] Gertrudis Alexander [id number] Gertrudis Alexander Notes Date Note Type [...] with exertion, andno headache. Merrick Good MD [address], [place], [address], [facility] 04/21/2025 12:39:33
--- OUTSIDE RECORDS SUMMARY | 2025-04-23 09:32 | XMS_ITS | Clinical Summary ---
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 -ed pt [...] specs Assessment & Plan (07/09/2024 2:59 PM AIRBORNE OPERATIONS MANAGER): RHypo and small XT -pt reports longstanding; [...] months Assessment & Plan (07/09/2024 3:00 PM AIRBORNE OPERATIONS MANAGER): -may be contributing to blurred vision in AM and also monocular diplopia -recommend moriah-128 keke qhs OU -follow Mass of right elbow 05/06/2023 Pacemaker 03/22/2023 Sinus node dysfunction 09/13/2022 Overview (09/13/2022): Added automatically from request for surgery [id number] Assessment & Plan (09/14/2022 7:49 AM CDT): [...] Department Care Team Description 04/20/2025 10:00 AM AIRBORNE OPERATIONS MANAGER Office Visit [facility] Medicine Ophthalmology [address], [address] [place] [address] Loni Shukla MD Fuchs' corneal dystrophy of both eyes (Primary Dx); Diplopia; Early dry stage nonexudative age-related macular degeneration of both eyes; Salzmann nodular degeneration; Pigment of corneal endothelium 02/17/2025 11:00 AM CDT Office Visit [facility] 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, [address] [place] [address] Early dry stage nonexudative age-related macular degeneration of both eyes 02/10/2025 Orders Only [facility] [address], [address] [place] [address] Jennifer Monge, OD Early dry stage nonexudative age-related macular degeneration of both eyes (Primary Dx) from Last 3 Months Surgical History Surgery Date Site/Laterality Comments STAPEDECTOMY CATARACT EXTRACTION 06/03/2009 - 06/02/2010 Bilateral aprox 2010 in [place] Medical History Medical History Date Comments HL [...] often do you attend chur ch or jewish services? Never 09/14/2022 Do you belong to any clubs o r organizations such as judaism groups, unions, fraternal or athletic groups, or [...] CDT Gender Identity Male 04/20/2021 8:28 PM [employer]BORNE OPERATIONS MANAGER Sexual Orientation Straight 04/20/2021 8: 28 PM AIRBORNE OPERATIONS MANAGER Last Filed Vital Signs Vital Sign Reading Time Taken Comments Blood Pressure 150/68 03/22/2023 1:02 PM CDT Pulse 55 03/22/2023 1:02 PM CDT Temperature 36.7 C (98 F) 09/15/2022 11:09 AM CDT Respiratory Rate 18 09/15/2022 11:09 AM CDT Oxygen Saturation 96% 03/22/2023 1:02 PM CDT Inhaled Oxygen Concentration - - Weight 79.8 kg (176 lb) 05/06/2024 10:15 AM AIRBORNE OPERATIONS MANAGER Height 167.6 cm (5' 5.98) 03/22/2023 1:02 [...] Connector Active Fixation Bipolar Soft 58 - [id number] - [id number] Implanted:Qty: 1 on 09/14/2022 by Som Wasserman MD at [facility] [employer] [id number] 05/02/2025 / [id number] / [employer] Tendril Sts 6fr 52cm Is-1 Connector Active Fixation Bipolar Soft 2087tc/52 - [id number] - [id number] Implanted:Qty: 1 on 09/14/2022 by Som Wasserman MD at [facility] [employer] [id number] 07/31/20258TC/52 / [id number] / [employer] Assurity Mri 69o01sc 2 Chamber Is-1 Connector Thk6mm Pacemaker [id number] - [id number] - [id number] Implanted:Qty: 1 on 09/14/2022 by Som Wasserman MD at [facility] Pacemaker [employer] [id number] 01/01/2024 [id number] / [id number] / Procedures Procedure Name Priority Date/Time Associated Diagnosis Comments ENDOTHELIAL PHOTO AND CELL COUNT - OU - BOTH EYES Routine 04/20/2025 12:58 PM [employer]BORNE OPERATIONS MANAGER Pigment of corneal endothelium CORNEAL TOPOGRAPHY - OU - BOTH EYES Routine 04/20/2025 11:05 AM [employer]BORNE OPERATIONS MANAGER Fuchs' corneal dystrophy of both eyes Diplopia Salzmann nodular degeneration OCT, RETINA - OU - BOTH EYES Routine 02/17/2025 10:44 AM CDT Early dry stage nonexudative age-related macular degeneration of both eyes from Last 3 Months Results * Endothelial Photo and Cell Count - OU - Both Eyes (04/20/2025 12:58 PM AIRBORNE OPERATIONS MANAGER) Cells Counted (OS) 2,193 cells/mm2 CONTINUUM Cells Counted (OD) 1,843 cells/mm2 CONTINUUM Anatomical Region Laterality Modality Head Ophthalmic Axial Measurements Narrative 04/20/2025 12:58 PM AIRBORNE OPERATIONS MANAGER Right Eye Cell count was 1843 cells/mm2. Left Eye Cell count was 2193 cells/mm2. Notes No guttae Loni Shukla MD OPHTH PHOTOGRAPHY Final Res ult * Corneal Topography - OU - Both Eyes (04/20/2025 11:05 AM AIRBORNE OPERATIONS MANAGER) Astigmatism (OS) 2.44 157 CONTINUUM Astigmatism (OD) 1.66 23 CONTINUUM Anatomical Region Laterality Modality Head Ophthalmic Mappi ng Narrative 04/20/2025 11:05 AM [employer]BORNE OPERATIONS MANAGER Right Eye Astigmatism is 1.66 23. Left Eye Astigmatism is 2.44 157. Notes Oblique bowtie ou Loni Shukla MD OPHTH MAPPING Final Resul t * OCT, Retina - OU - Both Eyes (02/17/2025 10:44 AM CDT) Central Macular Thickness OS 264 mircometers CONTINUUM Central Macular Thickness OD 274 micrometers CONTINUUM Anatomical Region Laterality Modality Head Other Narrative 04/13/2025 8:50 AM AIRBORNE OPERATIONS MANAGER Right Eye Quality was good. Macular thickness was 274 micrometers. Left Eye Quality was good. Macular thickness was 264 mircometers. Notes OD: single subfoveal druse; no exudation OS: scattered drusen; no exudation Jennifer Monge OD OPHTH TOMOGRAPHY Final Result from Last 3 Months Insurance MEDICARE [facility] MEDICARE SUPPLEMENT MEDICARE [facility] MEDICARE [employer] Advance Directives For more information, please contact: [phone] * Full Code (Latest Code Status on File) Date Activated Date Inactivated Comments 09/13/2022 3:07 PM 09/15/2022 6:06 PM Care Teams Director Market Research Relationship Specialty Start Date End Date Merrick Good MD [address] [place] [address] PCP - General Internal Medicine 03/14/18 Mohsen Baltazar MD [address] [place] [address] Consulting Physician Cardiovascular Disease 09/15/22
--- OUTSIDE RECORDS SUMMARY | 2025-04-23 09:33 | XMS_ITS | Data Portability ---
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 Name Role Phone MERRICK GOOD Primary Care Provider [phone] Assessment Encounter Date Assessment Date Assessment LastModified [...] hemoglobi n A1c, QN, blood 2024 025 [facility] (Lab), [address] [place] [address], [address], 04/22/2025 22:34:41 D-dimer, quant, plasma 2024 [facility] (Lab), [address] [facility] [address] [facility], [place], [address], 04/22/2025 22:34:41 CMP, serum or plasma 2024 [facility] (Lab), [address] [address], [place], [address], 04/22/2025 22:34:41 CBC w/ auto diff [address] [place] [address] (Lab), [address] [address], [place], [address], 04/22/2025 11:53:00 microalbu min/creat inine, mass ratio, urine [address] [place] [address] (Lab), [address] [address], [place], [address], 04/22/2025 22:34:41 lipid panel w/ direct LDL, serum 2024 [facility] (Lab), [address] [address], [place], [address], 04/22/2025 22:34:41 H pylori Ag, stool [address] [place] [address] (Lab), [address] [address], [place], [address], 04/21/2025 12:45:30 TSH + free T4, serum [address] [place] [address] (Lab), [address], [address], 04/22/2025 22:34:41 vitamin B12, serum 2024 025 [facility] (Lab), [facility] [address], [place], [address], 04/22/2025 22:34:41 CBC w/ auto diff 2024 025 [facility] (Lab), [address] [place] [address] [place] [address], [address], 10/21/2024 16:33:12 HbA1c (hemoglob in A1c), blood 2024 025 [facility] (Lab), [address] [place], [place] [address] [address] [place] [address], [address], 10/21/2024 19:22:01 TSH, serum or plasma 2024 025 [facility] (Lab), [address] [place] [address], [address], 10/21/2024 18:08:15 vitamin B12, serum 2024 025 [facility] (Lab), [address] [place], [place] [address] [address] [place] [address], [address], 10/22/2024 23:36:06 PTH (parathyr oid hormone), intact, serum or plasma 2024 025 [facility] (Lab), [address] [place] [address], [address], 10/21/2024 19:24:44 phosphoru s, serum or plasma 2024 025 [facility] (Lab), [address] [place] [address], [address], 10/22/2024 23:36:06 uric acid, serum or plasma 2024 025 [facility] (Lab), [address] [place] [address], [address], 10/22/2024 19:01:58 CBC w/ auto diff 2024 025 [facility] (Lab), [address] [place] [address], [address], 07/01/2024 12:40:50 CMP, serum or plasma 2024 025 [facility] (Lab), [address] [place] [address], [address], 07/01/2024 08:06:31 hemoglobi n A1c, QN, blood 2024 025 [facility] (Lab), [address] [place] [address], [address], 07/01/2024 08:08:28 lipid panel w/ direct LDL, serum 2024 025 [facility] (Lab), [address] [place] [address], [address], 07/01/2024 22:36:21 TSH + free T4, serum 2024 025 [facility] (Lab), [address] [place] [address], [address], 07/01/2024 22:36:21 vitamin B12, serum 2024 025 [facility] (Lab), [address] [place] [address], [address], 07/01/2024 22:36:21 CMP, serum or plasma 2023 024 [facility] (Lab), [address] [place] [address], [address], 03/11/2024 23:18:04 CBC w/ auto diff 2023 024 [facility] (Lab), [address] [place] [address], [address], 03/11/2024 23:18:04 CMP, serum or plasma 2023 024 [facility] (Lab), [address] [place] [address], [address], 12/12/2023 17:55:35 CBC w/ auto diff 2023 024 [facility] (Lab), [address] [place] [address], [address], 12/12/2023 18:00:43 lipid panel w/ direct LDL, serum - 6 weeks from 10/24/232023 024 [facility] (Lab), [address] [place] [address], [address], 12/12/2023 17:55:35 TSH + free T4, serum 2023 024 [facility] (Lab), [address] [place] [address], [address], 12/12/2023 17:55:35 vitamin B12, serum 2023 024 [facility] (Lab), [address] [place] [address], [address], 12/12/2023 19:47:33 PTH (parathyr oid hormone), intact, serum or plasma 2023 024 [facility] (Lab), [address] [place] [address], [address], 11/05/2023 12:16:11 phosphoru s, serum or plasma 2023 024 [facility] (Lab), [address] [place] [address], [address], 11/05/2023 12:16:11 uric acid, serum or plasma 2023 024 [facility] (Lab), [address] [facility] [address], [place], [address], 11/05/2023 12:16:11 Referral ophthalmo logist referral 2024 025 [facility] [place], [address] [facility], [place], [address], 06/30/2024 13:00:45 cardiolog ist referral 2024 025 [email or web address] Mohsen Baltazar MD, [address] [facility] [address], [place], [address], 09/14/2024 12:33:[address] referral 2023 024 [facility], [address], [place], [address], 03/20/2024 07:20:[address] referral 2023 024 [facility], [address], [place], [address], 12/03/2023 04:06:52 Procedures None recorded. Surgeries None recorded. Imaging ankle brachial index, complete [address] (Imaging), [address], [address], 04/21/2025 12:50:11 US, renal [address] (Imaging), [facility] [address], [address], 04/21/2025 12:50:11 US, renal 2023 024 [facility] (Imaging), [address] [facility] [address], [address], 11/12/2023 04:06:44 Medication Orders ipratropi um bromide 42 mcg (0.06 %) nasal spray 2024 025 [facility], [address] [place], [address], 04/21/2025 12:33:43 pantopraz ole 20 mg tablet,de layed release 2024 025 [facility], [address] [place], [address], 04/21/2025 12:33:43 Jardiance 10 mg tablet 2024 025 [facility], [address] [place] [address], [address], 10/21/2024 12:58:28 pantopraz ole 20 mg tablet,de layed release 2024 025 [facility], [address] [place] [address], [address], 06/30/2024 12:38:48 pantopraz ole 20 mg tablet,de layed release 2023 024 [facility], [address] [place] [address], [address], 11/05/2023 12:15:12 Patient TargetsNo targets recorded. Patient Instructions Encounter Date Encounter Id Patient Instructions Last Modified By Organization Details Last Modified Time 11/05/2023 [id number] Peripheral Arterial Disease (PAD): Care Instructions mshenouda [...] will mshenouda Not available 09/2023 12:14:45 03/10/2024 [id number] Peripheral Arterial Disease (PAD): Care Instructions mshenouda Not available 03/10/2024 12:13:58 learning about healthy weight mshenouda Not available 03/10/2024 12:13:58 hypothyroidism: care instructions mshenouda Not available 03/10/2024 12:13:58 high cholesterol : care instructions mshenouda Not available 03/10/2024 12:13:58 chronic kidney disease: care instructions mshenouda Not available 03/10/2024 12:13:58 learning about chronic kidney disease mshenouda Not available 03/10/2024 12:13:59 06/30/2024 [id number] Peripheral Arterial Disease (PAD): Care Instructions mshenouda [...] disease mshenouda Not available 06/30/2024 12:38:45 10/21/2024 [id number] high cholesterol : care instructions mshenouda Not available 10/21/2024 12:58:26 hearing loss: care instructions mshenouda Not available 10/21/2024 12:58:26 learning about healthy weight mshenouda Not available 10/21/2024 12:58:26 hypothyroidism: care instructions mshenouda Not available 10/21/2024 12:58:26 chronic kidney disease: care instructions mshenouda Not available 10/21/2024 12:58:26 learning about chronic kidney disease mshenouda Not available 10/21/2024 12:58:26 04/21/2025 [id number] Peripheral Arterial Disease (PAD): Care Instructions mshenouda Not available 04/21/2025 12:33:30 hearing loss: care instructions [facility] Not available 04/21/2025 12:33:30 shortness of breath: care instructions [facility] Not available 04/21/2025 12:33:30 spirometry testing* ARMAAN Not available 04/21/2025 16:17:52 chronic kidney disease: care instructions [facility] Not available 04/21/2025 12:33:30 learning about chronic kidney disease [facility] Not available 04/21/2025 12:33:29 high cholesterol : care instructions [facility] Not available 04/21/2025 12:33:30 dry eyes: care instructions [facility] Not available 04/21/2025 12:33:30 learning about healthy weight [facility] Not available 04/21/2025 12:33:30 hypothyroidism: care instructions [facility] Not available 04/21/2025 12:33:30 living will [facility] Not available 04/03 12:27:48 Reason for Referral 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 Referral for Reymundo ign hypertension Referring Physician: Merrick Good, Internal Medicine, Encounter Date: 11/05/2023 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 Lecturer Referral for Reymundo ign hypertension Referring Physician: Merrick Good, Internal Medicine, Encounter Date: 03/10/2024 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 Referral for Ca rdiac pacemaker in situ Referring Physician: Merrick Good, Internal Medicine, Encounter Date: 06/30/2024 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 [facility] [address], [place], [address], 06/30/2024 12:34:30 10/30/19 25 10/08/2024 elect lida cid am No observ ation record ed. [facility] [address], [place], [address], 04/21/2025 12:20:16 04/21/20 25 04/21/2025 kaitlynn metry testi ng* No observ ation record ed. [facility], [address], [place], [address], 04/22/2025 09:31:28 Result Notes None recorded. Problems Name Problem SNOMED Code Status Onset Date Resolution Date Notes Provider Name and Address Organization Details Recorded Time Benign hypertensi on 79129077 Active 2016 Not Available [facility] 3 10:38:17 Hyperlipid emia 58662992 Active 2016 Not Available [facility] 3 10:38:17 Aortic valve regurgitat ion 38636781 Active 2017 Not Available [facility] 3 10:38:17 Hypothyroi dism 95097763 Active 2017 Not Available [facility] 3 10:38:17 Unilateral hearing loss Active 2017 Not Available [facility] 3 10:38:17 Bradycardi a 26450836 Active 2018 Not Available [facility] 3 10:38:17 Body mass index 25-29 - overweight 733787504 Active 2018 Not Available [facility] 3 10:38:17 Primary erectile dysfunctio n 824919186 Active 2019 Not Available [facility] 3 10:38:17 Cholelithi asis with obstructio n 54132794 Active 2019 Not Available [facility] 3 10:38:17 Obstructiv e sleep apnea of adult 7625915418138 Active 2020 Not Available [facility] 3 10:38:17 Hearing loss 09631004 Active 2020 Not Available [facility] 3 10:38:17 Edema of lower extremity 958258630 Active 2021 Not Available [facility] 3 10:38:17 Serum creatinine above reference range 782364904 Active 2021 Not Available [facility] 3 10:38:17 Gastroesop hageal reflux disease without esophagiti s 860489010 Active 2022 Not Available [facility] 3 10:38:17 Chronic renal failure 51350450 Active 2022 Merrick Good MD [address], [place], [address] , [facility] 3 16:20:34 Sinus bradycardi a 69310468 Active 2022 Merrick Good MD [address], [place], [address] , [facility] 3 11:38:46 Hydronephr osis 68994287 Active 2022 MD Dave Castro[address], [place], [address] , [facility] 3 18:14:49 Cardiac pacemaker in situ 801974492 Active 2022 Merrick Good MD [address], [place], [address] , [facility] 3 12:31:14 Peripheral vascular disease 593431850 Active 2022 on NINA MD Toan Castro [address], [place], [address] , [facility] 3 21:39:53 Arthritis of hand 453773730 Active 2023 Merrick Good MD [address], [place], [address] , [facility] 4 12:21:58 Serum vitamin B12 below reference range 159719037 Active 2023 MD Toan Castro [address], [place], [address] , [facility] 4 16:15:16 Coronary arterioscl erosis 83674162 Active 2023 MD Toan Castro [address], [place], [address] , [facility] 4 12:02:07 Bilateral hearing loss 73263627 Active 2023 MD Toan Castro [address], [place], [address] , [facility] 4 12:10:32 Long-term drug therapy Active 2024 MD Toan Castro [address], [place], [address] , [facility] 5 12:35:11 Long-term current use of drug therapy 070601749 Active 2024 MD Toan Castro [address], [place], [address] , [facility] 5 12:21:22 Nasal discharge 42088692 Active 2024 MD Toan Castro [address], [place], [address] , [facility] 5 12:31:54 Dry eyes 954849999 Active 2024 MD Toan Castro [address], [place], [address] , [facility] 5 12:32:53 Problem Notes None recorded. Procedures Surgical History Date Name Laterality Status Provider Name and Address Organization Details Recorded Time 04/29/20 17 Colonoscopy completed Jennifer Dudley [facility] 06/24/2017 09:51:48 Cataract Surgery completed MD Toan Castro [address], [place], [address], [facility] 12/20/2016 15:49:48 Other completed Merrick Good MD [address], [place], [address], [facility] 12/20/2016 15:50:16 Imaging Results None [...] bromide 42 mcg (0.06 %) nasal spray [place] 2 sprays 3 times a day by [...] [degF] 16 /min 88 /min 27.6 kg/m2 46714.3 g 111/76 mm[Hg] Veronica Kerr [facility] 5 12:11:04 Date Recorded Systolic And Diastolic Provider Name and Address Organization Details Last Updated DateTime 10/21/2024 134/78 mm[Hg] Merrick Good MD [address] [facility] [address], [place], [address], [facility] 10/21/2024 12:46:49 Date Recorded Body height Body mass index (BMI) Body weight Body temperature Respiratory rate Heart rate Provider Name and Address Organization Details Last Updated DateTime 5 167.64 cm 28.7 kg/m2 10614.4 4 g 97.8 [degF] 16 /min 71 /min Veronica Kerr [facility] 5 12:33:25 Date Recorded Body height Body temperature Heart rate Respiratory rate Body mass index (BMI) Body weight Systolic And Diastolic Provider Name and Address Organization Details Last Updated DateTime 4 167.64 cm 97.8 [degF] 72 /min 16 /min 27.8 kg/m2 24475.8 9 g 135/76 mm[Hg] [facility] 11:37:42 Date Recorded Body height Body mass index (BMI) Body weight Body temperature Respiratory rate Heart rate Systolic And Diastolic Provider Name and Address Organization Details Last Updated DateTime 4 167.64 cm 27.9 kg/m2 07524.4 8 g 98.1 [degF] 16 /min 58 /min 143/72 mm[Hg] Veronica [facility] 4 11:54:35 Date Recorded Body height Body mass index (BMI) Body weight Body temperature Respiratory rate Heart rate Systolic And Diastolic Provider Name and Address Organization Details Last Updated DateTime 5 167.64 cm 28.6 kg/m2 59649.8 5 g 97.6 [degF] 16 /min 49 /min 117/68 mm[Hg] Veronica [facility] 5 11:42:59 Social History Question Answer Notes LastModified by Organizat ion Details LastModified Time Tobacco Smoking Status Former Smoker quit Merrick Good MD [address] [facility] [address], [place], [address], [facility] 12/20/2016 15:49:04 Do You Have An Advance Directive? No [email or web address] Information not available 04/18/2023 Which Illicit Or Recreational Drugs Have You Used? No Information not available 12/20/2016 Are There Any Guns Present In Your Home? No [email or web address] Information not available 04/18/2023 Live Alone Or With Others? With Others With Doughter [email or web address] Information not available 04/18/2023 Marital Status Single [email or web address] Informatio n not available 04/18/2023 What Was The Date Of Your Most Recent Tobacco Screening? 10/09/2018 [email or web address] Information not available 04/18/2023 Performs Monthly Self-breast Exam? No [email or web address] Information not available 04/18/2023 Seat Belts Used Routinely Yes [email or web address] Information not available 04/18/2023 Smoke Alarm In Home Yes [email or web address] Information not available 04/18/2023 Do You Use Sunscreen Routinely? No [email or web address] Information not available 04/18/2023 Have You Used IV Drugs? No [email or web address] Information not available 04/18/2023 Sex: Unknown Functional Status Question Answer Note LastModified by Organizat ion Details LastModified Time What is your level of alcohol consumption? Occasional Information not available 12/20/2016 Are you currently employed? Yes [email or web address] Information not available 04/18/2023 Are you able to care for yourself independently? Yes [email or web address] Information not available 04/18/2023 Mental Status None [...] virus, quadrivalent, preservative 8 completed Not Available [facility] 05/07/2023 06:56:02 Influenza, split virus, quadrivalent, preservative 9 completed Not Available [facility] 05/07/2023 06:56:03 Influenza, split virus, quadrivalent, preservative 0 completed Not Available [facility] 05/07/2023 06:56:03 zoster recombinant 0 completed Not Available [facility] 05/07/2023 06:56:03 COVID-19 vaccine, vector-nr, rS-Ad26, PF, 0.5 mL 1 completed Not Available [facility] 05/07/2023 06:56:03 COVID-19 vaccine, vector-nr, rS-Ad26, PF, 0.5 mL 1 completed Not Available [facility] 05/07/2023 06:56:03 COVID-19, mRNA, LNP-S, PF, 30 mcg/0.3 mL dose 1 completed Not Available [facility] 05/07/2023 06:56:03 Influenza, split virus, quadrivalent, preservative 1 completed Not Available [facility] 05/07/2023 06:56:03 COVID-19, mRNA, LNP-S, PF, 30 mcg/0.3 mL dose, dante-sucrose 2 completed Not Available [facility] 05/07/2023 06:56:03 Influenza, high-dose, quadrivalent, PF 2 completed Not Available [facility] 05/07/2023 06:56:03 COVID-19, mRNA, LNP-S, bivalent, PF, 30 mcg/0.3 mL dose 2 completed Not Available [facility] 05/07/2023 06:56:03 Pneumococcal conjugate PCV20, polysaccharide [id number] conjugate, adjuvant, PF 3 completed Not Available [facility] 05/07/2023 06:56:03 Influenza, adjuvanted, quadrivalent, PF 4 completed MD Toan Castro [address], [place], [address], [facility] 04/11/2024 17:35:13 Pneumococcal conjugate PCV20, polysaccharide BTH109 conjugate, adjuvant, PF 4 completed MD Toan Castro [address], [place], [address], [facility] 08/04/2023 12:08:41 COVID-19, mRNA, LNP-S, PF, dante-sucrose, 30 mcg/0.3 mL 4 completed MD Toan Castro [address], [place], [address], [facility] 04/11/2024 17:35:13 RSV, recombinant, protein subunit RSVpreF, adjuvant reconstituted, 0.5 mL, PF 4 completed MD Toan Castro [address], [place], [address], [facility] 09/30/2023 09:59:33 COVID-19, mRNA, LNP-S, PF, dante-sucrose, 30 mcg/0.3 mL 4 completed Merrick Good MD [address], [place], [address], [facility] 04/11/2024 17:35:13 Influenza, high-dose, trivalent, PF 4 completed MD Toan Castro [facility] [address], [place], [address], [facility] 04/11/2024 17:35:13 Influenza, split virus, trivalent, preservative 7 completed Not Available [facility] 05/07/2023 06:56:03 Td(adult) unspecified formulation 4 completed Not Available [facility] 05/07/2023 06:56:03 Pneumococcal conjugate PCV 13 7 completed Not Available [facility] 05/07/2023 06:56:03 Past Encounters Encounter ID Performer Location Encounter Start Date Encounter Closed Date Diagnosis/Indication Diagnosis SNOMED-CT Code Diagnosis ICD10 Code Diagnosis IMO Codes Diagnosis Note [id number] Merrick Good MD [facility] [address] [place] [address] 12/20/2016 14:27:54 12/20/2016 16:30:17 Adult health examination 828595173 Z00.00 Benign hypertension 1072 5009 I10 Hyperlipidemia 44428806 E78.5 Impacted cerumen 9728546 6 H61.23 Skin lesion 60252614 L98 .9 scalp Active or passive immunization 567796748 Z23 Screening for malignant neoplasm of colon 610358430 Z12.11 Screening procedure 2012 5006 Z13.9 Screening for malignant neoplasm of prostate 135978816 Z12.5 [id number] Merrick Good MD [facility] [address] [place] [address] 03/21/2017 14:13:02 03/21/2017 15:33:39 Dizziness and giddiness 770111758 R42 Symptomati c sinus bradycardia 672515057 R00.[address] imulating hormone level above reference range 182554628 R79.89 Shoulder joint pain 2679 88983 M25.519 [id number] Merrick Good MD [place] [facility], [address] [place] [address] 06/24/2017 09:46:07 06/24/2017 10:24:23 Hyperlipidemia 89776083 E78.5 Benign hypertension 1072 5009 I10 Primary er ectile dysfunction 452083612 N52.9 Aortic tonia ve regurgitation 20472691 I35.1 mild on ECHO 03/21/17 [id number] Merrick Good MD [facility], [address] [place] [address] 02/21/2018 11:28:08 02/21/2018 13:40:00 Benign hypertension 91584166 I10 Aortic tonia ve regurgitation 51344310 I35.1 mild on ECHO 03/21/17 Hyperlipidemia 94918710 E78.5 Hypothyroidism 25482598 E03.9 Primary er ectile dysfunction 429330764 N52.9 Screening for malignant neoplasm of colon 192083400 Z12.11 last C scope 04/29/17 , recheck 2021 Skin - reymundo ign mole and nevus 554367674 D22.9 Active or passive immunization 039007905 Z23 Unilateral hearing loss 13733252 H91.91 [id number] Merrick Good MD [facility], [place] [address] [address] 06/17/2018 16:05:33 06/17/2018 16:42:50 Hoarse 87701521 R49.0 Hyperlipidemia 56099677 E78.5 Benign hypertension 1072 5009 I10 last optometry eval 05/2018 Hypothyroidism 15198256 E03.9 Screening for malignant neoplasm of colon 864632059 Z12.11 last C scope 04/29/17 , recheck 2021 Active or passive immunization 817496394 Z23 Bradycardia 47263768 R00 .1 sees cardiology on reg basis [id number] Merrick Good MD [facility] [employer] [facility], [place] [address] [place] [address] 10/09/2018 11:21:44 10/09/2018 12:34:31 Adult health examination 895704695 Z00.01 Benign hypertension 1072 5009 I10 increase amlodipine , BP 2-3 weekslast optometry eval 05/2018 Hyperlipidemia 09819404 E78.5 Bradycardia 01470109 R00 .1 sees cardiology on reg basis Aortic tonia ve regurgitation 39310893 I35.1 mild on ECHO 03/21/17 Hypothyroidism 15793018 E03.9 Body mass index 25-29 - overweight 934582281 Z68.26 Screening for malignant neoplasm of colon 161859602 Z12.11 last C scope 04/29/17 , recheck 2021 Active or passive immunization 350952494 Z23 [id number] Merrick Good MD [employer], [place] [address] [address] [place] [address] 06/18/2019 11:50:55 06/18/2019 12:22:09 Upper respiratory infection 45179126 J06.9 Body mass index 25-29 - overweight 629288060 Z68.26 lost 9 LBs on diet and exercise Benign hypertension 1072 5009 I10 , BP 2-3 weekslast optometry eval 05/2018 Hyperlipidemia 43838821 E78.5 Hypothyroidism 33010106 E03.9 Screening for malignant neoplasm of colon 590633131 Z12.11 last C scope 04/29/17 , recheck 2021 Active or passive immunization 829321619 Z23 360581 Merrick Good MD [employer] [facility], [place] [address] [address] [place] [address] 03/09/2020 10:12:57 03/09/2020 11:14:05 Adult health examination 055465133 Z00.01 Benign hypertension 1072 5009 I10 last optometry eval 07/2019decr ease amlodipine to 5 , add lisinopril 5 qdBP 2-3 weeks Hyperlipidemia 01093026 E78.5 Hypothyroidism 22956955 E03.9 Body mass index 25-29 - overweight 095974071 Z68.26 educationo n diet and exercise Bradycardia 29713552 R00 .1 sees cardiology on reg basis Aortic tonia ve regurgitation 21827756 I35.1 mild on ECHO 06/18/19 Edema of l ower extremity 255109012 R60.0 increase lasix to 40 qd 3 days Viral screening 86281303 4 Z11.59 Screening for malignant neoplasm of colon 430268405 Z12.11 last C scope 04/29/17 , recheck 2022 Active or passive immunization 794523741 Z23 up to date Primary er ectile dysfunction 454390672 N52.9 [id number] Merrick Good MD [employer], [place] [address] [address] [place] [address] 09/07/2020 08:52:34 09/07/2020 10:13:37 Benign hypertension 79623952 I10 last optometry eval 07/2019 BP 2-3 weeks Body mass index 25-29 - overweight 355271960 Z68.26 educationo n diet and exercise Bradycardia 41625592 R00 .1 sees cardiology on reg basis Hyperlipidemia 87592204 E78.5 last LDL 03/15/20 Hypothyroidism 35523016 E03.9 Eruption 607128561 R21 face Screening for malignant neoplasm of colon 361817488 Z12.11 last C scope 04/29/17 , recheck 2021 Obstructiv e sleep apnea of adult 3069309361 103 G47.33 Active or passive immunization 379976299 Z23 up to date 118942 Merrick Good MD [employer], [place] [address] [address] [place] [address] 02/22/2021 08:57:36 02/22/2021 09:44:58 Hypothyroidism 50136557 E03.9 Hyperlipidemia 16197417 E78.5 last LDL 03/15/20 Body mass index 25-29 - overweight 915475760 Z68.26 educationo n diet and exercise Benign hypertension 1072 5009 I10 last optometry eval 07/2019 BP 2-3 weeks Bradycardia 27882830 R00 .1 sees cardiology on reg basis Obstructiv e sleep apnea of adult 6586100636 103 G47.33 Screening for malignant neoplasm of colon 668365808 Z12.11 last C scope 04/29/17 , recheck 2022 Active or passive immunization 405505261 Z23 up to date Viral screening 77407887 4 Z11.59 Localized eruption of skin 685663802 R21 Lt forehead 004609 Merrick Good MD [employer], [place] [address] [address] [place] [address] 05/23/2021 08:50:41 05/23/2021 09:40:16 Adult health examination 105073974 Z00.01 Benign hypertension 1072 5009 I10 last optometry eval 07/2019 BP 2-3 weekslast EKG 02/22/21 Body mass index 25-29 - overweight 734115977 Z68.26 educationo n diet and exercise Aortic tonia ve regurgitation 09065133 I35.1 mild on ECHO 06/18/19 Bradycardia 08905037 R00 .1 sees cardiology on reg basis 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 education Hypothyroidism 66016726 E03.9 Obstructiv e sleep apnea of adult 4252873760 103 G47.33 educations tarted CPAP when he get it Primary er ectile dysfunction 438466834 N52.9 Hearing loss 63924100 H9 1.90 seen ENT Screening for malignant neoplasm of colon 231625130 Z12.11 last C scope 04/29/17 , recheck 2021 Active or passive immunization 420344050 Z23 up to date Dysphagia 44538112 R13.1 0 Urgent alfredo poncho to urinate 67368816 R39.15 081970 Merrick Good MD [facility] [address] [place] [address] 03/12/2022 12:01:53 03/12/2022 13:40:49 Bronchitis 74857391 J40 Benign hypertension 1072 5009 I10 last optometry eval 07/2019 BP 2-3 weekslast EKG 02/22/21 Hyperlipidemia 98974728 E78.5 last LDL 03/15/20 Hypothyroidism 40887559 E03.9 Body mass index 25-29 - overweight 562103913 Z68.26 educationl ost 7 on diet and exercise Screening for malignant neoplasm of colon 324357368 Z12.11 last C scope 04/29/17 , recheck 2021 Active or passive immunization 232671088 Z23 up to date Edema of l ower extremity 930005973 R60.0 increase lasix to 40 qd 3 days [id number] Merrick Good MD [facility] [address] [place] [address] 05/17/2022 11:47:51 05/17/2022 12:48:57 Benign hypertension 80114491 I10 last optometry eval 07/2019 BP 2-3 weekslast EKG 02/22/21 Body mass index 25-29 - overweight 916556166 Z68.26 educationd iet and exercise Hyperlipidemia 50896972 E78.5 last LDL 03/22/22 Hypothyroidism 67703373 E03.9 Obstructiv e sleep apnea of adult 5503247356 103 G47.33 educations tarted CPAP when he get it Serum crea tinine above reference range 280192961 R79.89 Screening for malignant neoplasm of colon 882046240 Z12.11 last C scope 05/10/2022 , no polyp Active or passive immunization 143719326 Z23 up to date Localized eruption of skin 287594670 R21 Lt forehead [id number] Merrick Good MD [employer], [address] [address] 08/16/2022 12:19:38 08/16/2022 13:18:45 Adult health examination 736386330 Z00.01 Benign hypertension 1072 5009 I10 last optometry eval 07/2022 BP 2-3 weekslast EKG 05/17/22 Body mass index 25-29 - overweight 311714054 Z68.26 educationd iet and exercise Bradycardia 66214953 R00 .1 sees cardiology on reg basis Cholelithi asis with obstruction 97863667 K80.81 education Hearing loss 71373666 H9 1.90 seen ENT Hyperlipidemia 82698220 E78.5 last LDL 03/22/22 Hypothyroidism 05200381 E03.9 last TSH 03/22/22 Obstructiv e sleep apnea of adult 2138396028 103 G47.33 educations tarted CPAP when he get it Primary er ectile dysfunction 717772785 N52.9 stable Serum crea tinine above reference range 893738426 R79.89 recheck Edema of l ower extremity 405933766 R60.0 resolved Screening for malignant neoplasm of colon 388258657 Z12.11 last C scope 05/10/2022 , no polyp Active or passive immunization 818228833 Z23 up to date Advance di rective discussed with patient 096144166 Z71.89 education Gastroesop hageal reflux disease without esophagitis 369311109 K21.9 Impacted c erumen in right ear 1094593440 221116 H61.21 318795 Merrick Good MD [facility], [address] ,[address] [place] [address] 09/11/2022 10:22:19 09/11/2022 11:48:54 Sinus bradycardia 45252703 R00.1 symptomati cER eval if any dizziness Benign hypertension 1072 5009 I10 last optometry eval 07/2022 BP 2-3 weekslast EKG 05/17/22 [id number] Merrick Good MD [facility], [address] [place] [address] 09/25/2022 11:41:44 09/25/2022 13:09:32 Sinus bradycardia 67931873 R00.1 symptomati cER eval if any dizzinessh ad pacer Hydronephrosis 21841866 N13.30 Rt on US 09/21/22has urology jeff Cardiac pa cemaker in situ 739435788 Z95.0 09/15/22 Benign hypertension 1072 5009 I10 last optometry eval 07/2022 BP 2-3 weekslast EKG 05/17/22 Screening for malignant neoplasm of colon 390440527 Z12.11 last C scope 05/10/2022 , no polyp Active or passive immunization 717430203 Z23 up to date 089142 Merrick Good MD [facility], [address] [place] [address] 03/04/2023 11:17:46 03/04/2023 12:43:34 Benign hypertension 44085079 I10 last optometry eval 07/2022 BP 2-3 weekslast EKG 05/17/22 Body mass index 25-29 - overweight 405521342 Z68.26 educationd iet and exercise Chronic renal failure 90 125681 N18.9 Gastroesop hageal reflux disease without esophagitis 347895949 K21.9 stable Hydronephrosis 93160207 N13.30 Rt on US 4/21/23see n urology 10/17/22 Hyperlipidemia 84414538 E78.5 last LDL 03/22/22 Hypothyroidism 43773848 E03.9 last TSH 03/22/22 Obstructiv e sleep apnea of adult 1004989649 103 G47.33 educations tarted CPAP when he get it Cough 40608491 R05.9 check for COVID Cardiac pa cemaker in situ 773619497 Z95.0 09/15/22 Screening for malignant neoplasm of colon 607938846 Z12.11 last C scope 05/10/2022 , no polyp Active or passive immunization 193609795 Z23 up to date Lesion of skin of face 2905162215 06 L98.9 above Rt ear [id number] Merrick Good MD [employer], [address] [place] [address] 04/02/2023 11:51:32 04/02/2023 13:29:08 Swelling of right foot 762684229 M79.89 Weak arterial pulse 3152 23373 R09.89 Pain of ri ght ankle joint 7132302288 8471263 M25.571 S/P injury , Pt had X ray todayX ray -ve on my chart on Pt phone for FxICE , elevation , [place] [id number] Merrick Good MD [employer], [address] [place] [address] 04/18/2023 10:52:32 04/18/2023 12:20:37 Synovial cyst of elbow 444077979 M71.329 Pain of ri ght ankle joint 4696009954 2595025 M25.571 S/P injury , Pt had X anita lot better with ICE , elevation , PT Cellulitis of right upper limb 6123746471 0453086 L03.113 resolved with Abx Benign hypertension 1072 5009 I10 last optometry eval 07/2022 BP 2-3 weekslast EKG 05/17/22 Active or passive immunization 751438353 Z23 up to date [id number] Merrick Good MD [employer] [facility], [place] [address] [employer] [address] [place] [address] 08/05/2023 11:28:53 08/05/2023 12:45:27 Atypical chest pain 605763075 R07.89 Pain of to e of left foot 5455108015 03637 M79.675 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 816125 005 M13.849 Benign hypertension 1072 5009 I10 last optometry eval 07/2022 BP 2-3 weekslast EKG 05/17/22 Cardiac pa cemaker in situ 600230947 Z95.0 09/15/22 Screening for malignant neoplasm of colon 920830768 Z12.11 last C scope 05/10/2022 , no polyp Active or passive immunization 817023599 Z23 up to date [id number] Merrick Good MD [employer], [employer] [facility] [address] [address] 11/05/2023 10:52:50 11/05/2023 12:17:22 Adult health examination 675918300 Z00.01 Benign hypertension 1072 5009 I10 last optometry eval 07/2022 BP 2-3 weekslast EKG 08/05/23 Coronary arteriosclerosis 53648963 I25.10 had cath @ [facility] oly started plavix Body mass index 25-29 - overweight 953108182 Z68.26 educationd iet and exercise Cardiac pa cemaker in situ 896482886 Z95.0 09/15/22 Cholelithi asis with obstruction 34598163 K80.81 education Chronic renal failure 90 726721 N18.9 Gastroesop hageal reflux disease without esophagitis 841371902 K21.9 stable Hydronephrosis 67028832 N13.30 Rt on US 09/21/22see n urology 10/17/22 Hyperlipidemia 02570629 E78.5 last LDL 03/05/23 Hypothyroidism 38923014 E03.9 last TSH 03/06/23/ Obstructiv e sleep apnea of adult 9615624360 103 G47.33 educations tarted CPAP when he get it Peripheral vascular disease 183916189 I73.9 04/29/23 Primary er ectile dysfunction 635946346 N52.9 stable Serum harry min B12 below reference range 856126364 R79.89 Screening for malignant neoplasm of colon 855643716 Z12.11 last C scope 05/10/2022 , no polyp Active or passive immunization 368327309 Z23 up to date Advance di rective discussed with patient 095617530 Z71.89 education Bilateral hearing loss 07489645 H91.93 seen ENT [id number] Merrick Good MD [employer] [facility], [address] ,[address] [address] 03/10/2024 11:44:01 03/10/2024 12:16:28 Benign hypertension 17692773 I10 last optometry eval 07/2022on the high side todayBP 2-3 weekslast EKG 08/05/23 Body mass index 25-29 - overweight 444883830 Z68.26 educationd iet and exercise Cardiac pa cemaker in situ 705584068 Z95.0 09/15/22 Chronic renal failure 90 859202 N18.9 Coronary arteriosclerosis 66626014 I25.10 had cath @ [facility] ology started plavix Hydronephrosis 06056720 N13.30 Rt on US 09/21/22see n urology 10/17/22hav ing another US 03/10/24 Hyperlipidemia 67638917 E78.5 last LDL 12/12/23 Hypothyroidism 35461486 E03.9 last TSH 12/12/23 Peripheral vascular disease 160327730 I73.9 04/29/23 Serum harry min B12 below reference range 184203869 R79.89 12/12/23 Screening for malignant neoplasm of colon 906375942 Z12.11 last C scope 05/10/2022 , no polyp Active or passive immunization 061665844 Z23 up to date ,get Flu and COVID shot after done with Abx 612337 Merrick Good MD [employer], [address] [place] [address] 06/30/2024 11:57:19 06/30/2024 12:44:57 Benign hypertension 47735142 I10 last optometry eval 07/2022on the high side todayBP 2-3 weekslast EKG 08/05/23 Body mass index 25-29 - overweight 983072409 Z68.26 educationd iet and exercise Cardiac pa cemaker in situ 259326494 Z95.0 09/15/22 Chronic renal failure 90 474349 N18.9 Hyperlipidemia 43265005 E78.5 last LDL 12/12/23 Hypothyroidism 39860219 E03.9 last TSH 12/12/23 Obstructiv e sleep apnea of adult 7186785661 103 G47.33 educations tarted CPAP when he get it Peripheral vascular disease 475302668 I73.9 04/29/23 Serum harry min B12 below reference range 777037559 R79.89 12/12/23 Visual disturbance 93655 001 H53.9 double vision Screening for malignant neoplasm of colon 190731708 Z12.11 last C scope 05/10/2022 , no polyp Active or passive immunization 078174653 Z23 up to date , Gastroesop hageal reflux disease without esophagitis 109188943 K21.9 stable Long-term drug therapy 013579737 Z79.891 statin 549348 Merrick Good MD [employer], [place] [address] [facility] [address] [address] 10/21/2024 12:26:25 10/21/2024 13:02:15 Benign hypertension 88339634 I10 last optometry eval 07/2024on the high side todayBP 2-3 weekslast EKG 08/05/23 Long-term drug therapy 057595811 Z79.891 statin , last A1c 06/30/24 Coronary arteriosclerosis 08799909 I25.10 had cath @ [facility] ology started plavix Hyperlipidemia 60755960 E78.5 last LDL 10/21/24 Hypothyroidism 88082263 E03.9 last TSH 12/12/23 Body mass index 25-29 - overweight 335719181 Z68.26 educationd iet and exercise Serum harry min B12 below reference range 545813798 R79.89 12/12/23 Hearing loss 47155656 H9 1.90 seen ENT Hydronephrosis 93832015 N13.30 Rt on US 09/21/22see n urology 10/17/22hav ing another US 03/10/24 Chronic renal failure 90 891503 N18.9 Obstructiv e sleep apnea of adult 5368555961 103 G47.33 educations tarted CPAP when he get it Screening for malignant neoplasm of colon 938750863 Z12.11 128071 last C scope 05/10/2022 , no polyp Immunization due 5501703 08 Z23 4181480 up to date , 896923 Merrick Good MD [facility], [place] [address] [facility] ,[address] [address] 04/21/2025 11:13:10 04/21/2025 12:50:11 Adult health examination 251948480 Z00.01 5112963 Gastroesop hageal reflux disease without esophagitis 821605370 K21.9 - stable Benign hypertension 1072 5009 I10 - last optometry eval 07/2024- on the high side today- BP 2-3 weeks- last EKG 10/08/24 Coronary arteriosclerosis 49790612 I25.10 - had cath @ [facility]- cardiology started plavix Cardiac pa cemaker in situ 444439166 Z95.0 - 09/15/22 Peripheral vascular disease 154199101 I73.9 - 04/29/23 Hyperlipidemia 03464437 E78.5 - last LDL 10/21/24 Long-term current use of drug therapy 873369281 Z79.594 0845576 - statin , last A1c 06/30/24 Hypothyroidism 74254195 E03.9 - last TSH 12/12/23 Body mass index 25-29 - overweight 966957115 Z68.26 - education- diet and exercise Serum harry min B12 below reference range 837284537 R79.89 - 12/12/23 Bilateral hearing loss 54231080 H91.93 seen ENT Cholelithi asis with obstruction 97774908 K80.81 education Hydronephrosis 79952472 N13.30 - Rt on US 09/21/22- seen urology 10/17/22- having another US 03/10/24 Chronic renal failure 90 249631 N18.9 - recheck labs Primary er ectile dysfunction 415229290 N52.9 - stable Obstructiv e sleep apnea of adult 3350613791 103 G47.33 - education- could not tolerate CPAP Screening for malignant neoplasm of colon 882614026 Z12.11 823408 last C scope 05/10/2022 , no polyp Immunization due 2578040 08 Z23 6818571 up to date , Counseling 286015807 Z71 .89 466362 education Dyspnea 131479883 R06.02 80194 Nasal discharge 25063998 J34.89 53863 Dry eyes 215330224 H04.1 23 4938285 - seen ophth Health Concerns Section Related Observation LastModified by Organization Detai ls LastModified Time None Recorded Concern Status LastModified by Organization Details LastModified Time None Recorded Advance Directives Directive N: Payers Insurance Date Sequence Insurance Name Policy Number Policy Lara Covered Member ID Lara Member ID Guarantor Name 04/20/2025 2 [place] [id number] Gertrudis Alexander [id number] Gertrudis Torrez Benjamin 04/21/2025 1 [place] Gertrudis Alexander [id number] Gertrudis Torrez Benjamin Notes Date Note Type Note Provider Name [...] with exertion, andno headache. MD Dave Castro2 [facility] [address], [place], [address], [facility] 11/05/2023 12:15:15 03/10/2024 text/html Hypertension F/UReported by PatientHPIFor medications, patient reportstaking medications as directedandno side effects from medication. For lifestyle, patient reportsregular exercise,limiting/avoi ding salt, andcompliant with low salt diet. For associated symptoms, patient reportsno dizziness,no lightheadedness,no chest pain,no shortness of breath,no palpitations,no edema,no calf pain with exertion, andno headache. MD Toan Castro [facility] [address], [place], [address], [facility] 03/10/2024 12:14:25 06/30/2024 text/html Hypertension F/UReported by PatientHPIFor medications, patient reportstaking medications as directedandno side effects from medication. For lifestyle, patient reportsregular exercise,limiting/avoi ding salt, andcompliant with low salt diet. For associated symptoms, patient reportsno dizziness,no lightheadedness,no chest pain,no shortness of breath,no palpitations,no edema,no calf pain with exertion, andno headache. Merrick Good MD [address] [facility] [address], [place], [address], [facility] 06/30/2024 12:39:03 10/21/2024 text/html Medicare Annual [...] exertion, andno headache. Merrick Good MD [address] [facility] [address] [place], [address], [facility] 10/21/2024 12:59:00 04/21/2025 text/html Medicare Annual [...] with exertion, andno headache. Merrick Good MD [address] [facility] [address], [place], [address], [facility] 04/21/2025 12:39:33
--- OUTSIDE RECORDS SUMMARY | 2025-04-23 09:33 | XMS_ITS | Clinical Summary ---
Author Organization [facility] Address [address] [place] [address] Care Team Providers Care Tourist Adviser Name Role Phone Unavailable Primary Care Provider Unavailabl e Source Comments [facility],non-owned Affiliates and Associated Physician Practices is amultiple site organization consisting of ambulatory clinics and hospital sitesin [place], [place], [place] and [place]. This disclosure is being madepursuant to the Care Everywhere program and may not contain all information available regarding this patient. Last updated 18.[facility] Social History Tobacco Use Types Packs/Day Years [...] patient's age to complete this topic Insurance [facility]
--- OUTSIDE RECORDS SUMMARY | 2025-04-23 09:33 | XMS_ITS | Clinical Summary ---
Author Organization [facility] [place] Address [address] [address] [place] [address] Care Team Providers Care Dot Compliance Coordinator Name Role Phone Merrick Good MD Primary Care Provider [phone] Allergies No known active allergies Medications amLODIPine [...] migh t be different from the original. Hogshead Inspector- Mohsen Baltazar MD [facility] PCP- Merrick Good Device: [employer] pacemaker implanted 09/14/2022 Problem Noted Date Diagnosed Date S/P angioplasty with stent 11/14/2023 Abnormal cardiovascular stress test 10/23/2023 Stable angina pectoris 10/23/2023 ROD (dyspnea on exertion) 10/23/2023 Coronary artery disease 10/23/2023 Mixed hyperlipidemia 10/23/2023 Encounters Date Type Department Care Team Description 04/07/2025 Refill [facility] [address] [address] [address] [place] [address] Madi Cuellar MD 03/03/2025 Results Follow-Up [facility] [address] [address] [address] [place] [address] Radha Gunn NP PACER ANALYSIS REMOTE, UP TO 90 DAYS 03/01/2025 3:15 PM CDT Procedure visit [facility] [address] [address] [address] [place] [address] Pacemaker (Primary Dx); SSS (sick sinus syndrome) ([facility]); Encounter for care of pacemaker [...] 170.2 cm (5' 7) 05/13/2024 11:09 AM [employer] Body Mass Index 27.63 05/13/2024 11:09 AM [employer]IES[employer]LE[employer] MECH[employer] Plan of Treatment Health Maintenance Due Date [...] 08/17/2022, 04/03/2017 Medical Devices Implanted Type Area Director Of Scientific Research Device Identifier Shelf Expiration Date Model / Serial / Lot Closure Perclose Proglide [id number] - [id number] Implanted:Qt y: 1 on 11/06/2023 at [facility] Closure Device Right: Groin SARMIENTO- VASC DEVICE 06/02/2025 [id number] / / [id number] Pacemaker-Ab trinity Pacemaker [employer]MI[employer]- VASC DEVICE [id number] / / Stent Sharif [place] Dread 3.0x38mm Rx [id number] - [id number] Implanted:Qt y: 1 on 11/06/2023 at [facility] Stent Right: Coronary [employer] 08/15/2026 [id number] / / [id number] [employer] Procedures Procedure Name Priority Date/Time Associated Diagnosis Comments ME REM INTERROG PM/LDLS PM/IDS <90 D TECH REVIEW Routine 03/01/2025 2:00 AM CDT Pacemaker SSS (sick sinus syndrome) ([facility]) Encounter for care of pacemaker ME REM INTERROG PM/LDLS PM <90 D PHYS/QHP Routine 03/01/2025 2:00 AM CDT Pacemaker SSS (sick sinus syndrome) ([facility]) Encounter for care of pacemaker from Last 3 Months Results * ME REM INTERROG PM/LDLS PM <90 D PHYS/QHP, ME REM INTERROG PM/LDLS PM/IDS <90 D TECH [...] from [place] [address] [place] [address] [place] [address] [facility] MEDICARE PART A AND B Advance Directives For more information, please contact: [phone] * Full Code (Latest Code Status on File) Date Activated Date Inactivated Comments 11/06/2023 5:58 AM 11/07/2023 2:17 PM * Full Code Date Activated Date Inactivated Comments 10/10/2023 8:51 AM 10/10/2023 5:21 PM Care Teams Dot Compliance Coordinator Relationship Specialty Start Date End Date Merrick Good MD [address] [place], [place] [phone] PCP - General Internal Medicine 10/04/23
== END 2025-04-23 09:29 | disposition home or self-care (01) ==
LOC: ANHLAB 09:29
PROVIDERS: PCP Internal Medicine; Visit Provider Internal Medicine
DX: K21.9 Gastro-esophageal reflux disease without esophagitis (principal); I10 Essential (primary) hypertension; E78.5 Hyperlipidemia, unspecified; Z79.899 Other long term (current) drug therapy; E03.9 Hypothyroidism, unspecified; R79.89 Other specified abnormal findings of blood chemistry; R06.02 Shortness of breath
CPT/HCPCS: 87338